=== PATIENT | female | born 1940 | race African-American/Black ===

== ENCOUNTER 2017-08-04 08:52 | Inpatient (IN) | payer BC ==
[2017-08-04 09:32] LABS: ADD MAN DIFF? NO
[2017-08-04 09:37] LABS: BASO % 0 % (0-3); EOS % 0 % (0-3); HEMATOCRIT 39.8 % (36.0-47.0); HEMOGLOBIN 13.3 g/dL (12.0-15.5); LYMPH # 1.4 x10^3/uL (1.0-4.8); LYMPH % 15 % (24-48); MEAN CORPUSCULAR HEMOGLOBIN 32 pg (25-35); MEAN CORPUSCULAR HGB CONC 33 g/dL (31-37); MEAN CORPUSCULAR VOLUME 96 fL (79-100); MONO # 0.4 x10^3/uL (0.0-1.1); MONO % 5 % (0-9); NEUT # 7.7 x10^3uL (1.8-7.7); NEUT % 80 % (31-73); PLATELET COUNT 303 x10^3/uL (140-400); RED BLOOD COUNT 4.14 x10^6/uL (3.50-5.40); RED CELL DISTRIBUTION WIDTH 16.4 % (11.5-14.5); WHITE BLOOD COUNT 9.5 x10^3/uL (4.0-11.0)
[2017-08-04 09:44] LABS: ANION GAP 16 (6-14); BLOOD UREA NITROGEN 14 mg/dL (7-20); BUN/CREATININE RATIO 10 (6-20); CALCIUM 11.1 mg/dL (8.5-10.1); CARBON DIOXIDE 22 mmol/L (21-32); CHLORIDE 100 mmol/L (98-107); CREATININE 1.4 mg/dL (0.6-1.0); GLUCOSE 130 mg/dL (70-99); POTASSIUM 3.8 mmol/L (3.5-5.1); SODIUM 138 mmol/L (136-145)
[2017-08-04] MEDS: ONDANSETRON PF 4 MG/2 ML VIAL. IV ×4 (09:45→20:59)
[2017-08-04] MEDS: IV NORMAL SALINE 500ML BAG 500 ML IV ×2 (09:45→10:48)
[2017-08-04] MEDS: MORPHINE SULFATE 4 MG/ML DISP.SYRIN. IV/SQ ×3 (09:46→13:59)
[2017-08-04 09:49] LABS: ALBUMIN 3.4 g/dL (3.4-5.0); ALBUMIN/GLOBULIN RATIO 0.7 (1.0-1.7); ALK PHOS 163 U/L (46-116); ALT (SGPT) 17 U/L (14-59); AST (SGOT) 17 U/L (15-37); LIPASE 273 U/L (73-393); TOTAL BILIRUBIN 0.5 mg/dL (0.2-1.0); TOTAL PROTEIN 8.6 g/dL (6.4-8.2)
[2017-08-04 09:58] LABS: BILIRUBIN,URINE NEGATIVE (NEG); CLARITY,URINE CLEAR; COLOR,URINE STRAW; GLUCOSE,URINE NEGATIVE (NEG); PROTEIN,URINE >=300 mg/dL (NEG-TRACE)
[2017-08-04 09:59] LABS: BACTERIA,URINE 0 /HPF (0-FEW); NITRITE,URINE NEGATIVE (NEG); RBC,URINE 0 /HPF (0-2); SQUAMOUS EPITHELIAL CELL,UR OCC /LPF
[2017-08-04 10:16] LABS: TROPONINI < 0.017 ng/mL (0.000-0.055)
[2017-08-04] MEDS: IV NORMAL SALINE 1000ML BAG 1,000 ML IV (18:42)
[2017-08-04] MEDS: MORPHINE SULFATE 4 MG/ML DISP.SYRIN. IV (18:44)
[2017-08-04] MEDS ORDERED: NON FORMULARY ITEM (Albuterol Sulfate (Proventil Hfa Inhaler) 1 PUFF) IH (19:00)
[2017-08-04] MEDS ORDERED: NITROGLYCERIN SUBLINGUAL 0.4 MG BOTTLE OF 25. SL (19:00)
[2017-08-04] MEDS ORDERED: ACETAMINOPHEN 500 MG TABLET PO (19:00)
[2017-08-04] MEDS ORDERED: ALBUTEROL SULFATE 2.5 MG/3 ML NEBU. NEB (19:15)
[2017-08-04] MEDS: IPRATRPIUM/ALBUTEROL 0.5/2.5MG 3 ML NEBU. NEB (20:23)
[2017-08-04] MEDS: DOCUSATE SODIUM 100 MG CAPSULE. PO (21:02)
[2017-08-04] MEDS: traZODone 50 MG TABLET. PO (21:02)
[2017-08-04] MEDS: GABAPENTIN 300 MG CAPSULE. PO (21:02)
[2017-08-04] MEDS: ENOXAPARIN 40 MG/0.4 ML SYRINGE. SQ (21:02)
[2017-08-04] MEDS: SODIUM BICARBONATE 650 MG TABLET. PO (21:03)
[2017-08-04] MEDS: METOPROLOL TART IMMED RELEASE 50 MG TABLET. PO (21:03)
[2017-08-04] MEDS: ATORVASTATIN CALCIUM 20 MG TABLET PO (21:03)
[2017-08-05 07:21] LABS: ADD MAN DIFF? NO
[2017-08-05] MEDS: IPRATRPIUM/ALBUTEROL 0.5/2.5MG 3 ML NEBU. NEB ×4 (07:21→20:01)
[2017-08-05 07:28] LABS: BASO # 0.1 x10^3/uL (0.0-0.2); BASO % 1 % (0-3); EOS # 0.1 x10^3/uL (0.0-0.7); EOS % 2 % (0-3); HEMATOCRIT 34.1 % (36.0-47.0); HEMOGLOBIN 11.3 g/dL (12.0-15.5); LYMPH # 1.6 x10^3/uL (1.0-4.8); LYMPH % 21 % (24-48); MEAN CORPUSCULAR HEMOGLOBIN 32 pg (25-35); MEAN CORPUSCULAR HGB CONC 33 g/dL (31-37); MEAN CORPUSCULAR VOLUME 96 fL (79-100); MONO # 0.6 x10^3/uL (0.0-1.1); MONO % 8 % (0-9); NEUT # 5.4 x10^3uL (1.8-7.7); NEUT % 69 % (31-73); PLATELET COUNT 266 x10^3/uL (140-400); RED BLOOD COUNT 3.54 x10^6/uL (3.50-5.40); RED CELL DISTRIBUTION WIDTH 16.8 % (11.5-14.5); WHITE BLOOD COUNT 7.9 x10^3/uL (4.0-11.0)
[2017-08-05] MEDS: PANTOPRAZOLE 40 MG TABLET.DR. PO (07:30)
[2017-08-05 07:39] LABS: IONIZED CALCIUM 1.35 mmol/L (1.13-1.32)
[2017-08-05 08:05] LABS: ALBUMIN/GLOBULIN RATIO 0.7 (1.0-1.7); ALK PHOS 132 U/L (46-116); ALT (SGPT) 15 U/L (14-59); ANION GAP 9 (6-14); AST (SGOT) 14 U/L (15-37); BLOOD UREA NITROGEN 16 mg/dL (7-20); BUN/CREATININE RATIO 11 (6-20); CALCIUM 9.5 mg/dL (8.5-10.1); CARBON DIOXIDE 25 mmol/L (21-32); CHLORIDE 105 mmol/L (98-107); CREATININE 1.5 mg/dL (0.6-1.0); GFR 40.6; GLUCOSE 106 mg/dL (70-99); POTASSIUM 3.5 mmol/L (3.5-5.1); SODIUM 139 mmol/L (136-145); TOTAL BILIRUBIN 0.5 mg/dL (0.2-1.0); TOTAL PROTEIN 7.3 g/dL (6.4-8.2)
[2017-08-05] MEDS: HYDROcodone/APAP 5/325MG 1 TAB TABLET PO ×2 (08:07→13:48)
[2017-08-05] MEDS ORDERED: NON FORMULARY ITEM (Tiotropium Bromide (Spiriva) 2 INH) IH (09:00)
[2017-08-05] MEDS: IV NORMAL SALINE 1000ML BAG 1,000 ML IV ×2 (09:28→15:27)
[2017-08-05] MEDS: amLODIPine BESYLATE 10 MG TABLET PO (09:30)
[2017-08-05] MEDS: METOPROLOL TART IMMED RELEASE 50 MG TABLET. PO ×2 (09:31→22:19)
[2017-08-05] MEDS: SODIUM BICARBONATE 650 MG TABLET. PO ×4 (09:32→22:19)
[2017-08-05] MEDS: ISOSORBIDE MONONITRATE ER 30 MG TAB.ER.24H PO (09:32)
[2017-08-05] MEDS: CLOPIDOGREL BISULFATE 75 MG TABLET PO (09:32)
[2017-08-05] MEDS: POTASSIUM CHLORIDE 20 MEQ TABLET.ER. PO (09:33)
[2017-08-05] MEDS: FUROSEMIDE 40 MG TABLET. PO (09:34)
[2017-08-05] MEDS: ALLOPURINOL 300 MG TABLET. PO (09:34)
[2017-08-05] MEDS: GABAPENTIN 300 MG CAPSULE. PO ×3 (09:34→22:20)
[2017-08-05] MEDS: ASPIRIN CHEWABLE 81 MG TABLET. PO (09:35)
[2017-08-05] MEDS: ONDANSETRON PF 4 MG/2 ML VIAL. IV ×2 (10:45→19:46)
[2017-08-05 11:10] LABS: THYROID STIM HORMONE (TSH) 2.501 uIU/mL (0.358-3.74)
[2017-08-05] MEDS ORDERED: ceFAZolin 2GM PREMIX 2 GM/50 ML BAG IV (12:00)
[2017-08-05] MEDS ORDERED: NALOXONE 0.4 MG/ML VIAL. IV (15:30)
[2017-08-05] MEDS: MORPHINE SULFATE/PF 30 ML IV (16:16)
[2017-08-05] MEDS: ENOXAPARIN 40 MG/0.4 ML SYRINGE. SQ (20:00)
[2017-08-05] MEDS: traZODone 50 MG TABLET. PO (22:18)
[2017-08-05] MEDS: ATORVASTATIN CALCIUM 20 MG TABLET PO (22:19)
[2017-08-05] MEDS: DOCUSATE SODIUM 100 MG CAPSULE. PO (22:20)
[2017-08-06] MEDS: IV NORMAL SALINE 1000ML BAG 1,000 ML IV ×3 (00:45→16:54)
[2017-08-06 06:12] LABS: BASO % 0 % (0-3); EOS % 0 % (0-3); HEMOGLOBIN 10.4 g/dL (12.0-15.5); LYMPH # 0.3 x10^3/uL (1.0-4.8); LYMPH % 2 % (24-48); MEAN CORPUSCULAR HEMOGLOBIN 32 pg (25-35); MEAN CORPUSCULAR HGB CONC 33 g/dL (31-37); MEAN CORPUSCULAR VOLUME 97 fL (79-100); MONO # 0.6 x10^3/uL (0.0-1.1); MONO % 5 % (0-9); NEUT # 13.1 x10^3uL (1.8-7.7); NEUT % 93 % (31-73); PLATELET COUNT 222 x10^3/uL (140-400); RED BLOOD COUNT 3.29 x10^6/uL (3.50-5.40); RED CELL DISTRIBUTION WIDTH 16.3 % (11.5-14.5); WHITE BLOOD COUNT 14.1 x10^3/uL (4.0-11.0)
[2017-08-06 06:16] LABS: ADD MAN DIFF? YES
[2017-08-06 06:24] LABS: ANION GAP 12 (6-14); BLOOD UREA NITROGEN 22 mg/dL (7-20); CALCIUM 9.4 mg/dL (8.5-10.1); CARBON DIOXIDE 22 mmol/L (21-32); CHLORIDE 104 mmol/L (98-107); CREATININE 1.6 mg/dL (0.6-1.0); GFR 37.7; GLUCOSE 139 mg/dL (70-99); POTASSIUM 3.8 mmol/L (3.5-5.1); SODIUM 138 mmol/L (136-145)
[2017-08-06] MEDS ORDERED: PROCHLORPERAZINE 10 MG/2 ML VIAL. IV (07:00)
[2017-08-06] MEDS: IV RINGERS,LACTATED 1000ML 1,000 ML IV ×3 (07:00→19:58)
[2017-08-06] MEDS ORDERED: ONDANSETRON PF 4 MG/2 ML VIAL. IV (07:00)
[2017-08-06] MEDS ORDERED: LIDOCAINE 1% PF 2 ML VIAL. ID (07:00)
[2017-08-06] MEDS ORDERED: fentaNYL PF VIAL 100 MCG/2 ML VIAL IV ×2 (07:00)
[2017-08-06] MEDS: PANTOPRAZOLE 40 MG TABLET.DR. PO (07:30)
[2017-08-06] MEDS: IPRATRPIUM/ALBUTEROL 0.5/2.5MG 3 ML NEBU. NEB ×3 (07:32→19:34)
[2017-08-06 07:40] LABS: % BANDS 6 % (0-9); % LYMPHS 2 % (24-48); % MONOS 5 % (0-10); % SEGS 87 % (35-66)
[2017-08-06 07:41] LABS: PLT ESTIMATE ADEQUATE (ADEQUATE)
[2017-08-06 07:42] LABS: ANISOCYTOSIS SLIGHT
[2017-08-06] MEDS: POTASSIUM CHLORIDE 20 MEQ TABLET.ER. PO (08:00)
[2017-08-06] MEDS: CLOPIDOGREL BISULFATE 75 MG TABLET PO (08:00)
[2017-08-06] MEDS: ISOSORBIDE MONONITRATE ER 30 MG TAB.ER.24H PO (08:21)
[2017-08-06] MEDS: amLODIPine BESYLATE 10 MG TABLET PO (08:21)
[2017-08-06] MEDS: METOPROLOL TART IMMED RELEASE 50 MG TABLET. PO ×2 (08:22→19:56)
[2017-08-06] MEDS: GABAPENTIN 300 MG CAPSULE. PO ×2 (09:00→21:00)
[2017-08-06] MEDS: SODIUM BICARBONATE 650 MG TABLET. PO ×2 (09:00→21:00)
[2017-08-06] MEDS: FUROSEMIDE 40 MG TABLET. PO (09:00)
[2017-08-06] MEDS: ASPIRIN CHEWABLE 81 MG TABLET. PO (09:00)
[2017-08-06] MEDS: ALLOPURINOL 300 MG TABLET. PO (09:00)
[2017-08-06 09:19] LABS: LACTIC ACID 1.4 mmol/L (0.4-2.0)
[2017-08-06] MEDS ORDERED: SURGICEL HEMOSTAT 2X3 EACH. (12:44)
[2017-08-06] MEDS ORDERED: BUPIVACAINE-EPI 0.25%-1:200000 50 ML VIAL. (12:44)
[2017-08-06] MEDS ORDERED: HEPARIN for IV BOLUS 10,000 UNIT/10 ML VIAL. (12:45)
[2017-08-06] MEDS ORDERED: fentaNYL PF VIAL 100 MCG/2 ML VIAL ×2 (12:45→15:06)
[2017-08-06] MEDS ORDERED: BISACODYL 10 MG SUPP.RECT. (12:45)
[2017-08-06] MEDS ORDERED: ROCURONIUM 50 MG/5 ML VIAL. (12:45)
[2017-08-06] MEDS ORDERED: PROPOFOL 20 ML IV (12:45)
[2017-08-06] MEDS ORDERED: DEXAMETHASONE SOD PHOS 20 MG/5 ML VIAL. (12:45)
[2017-08-06] MEDS ORDERED: IOHEXOL 300 MG/ML 100ML VIAL. (12:45)
[2017-08-06] MEDS ORDERED: ONDANSETRON PF 4 MG/2 ML VIAL. (12:45)
[2017-08-06] MEDS: cefTRIAXone IV Push 1 GM VIAL. IVP (12:55)
[2017-08-06] MEDS ORDERED: FAMOTIDINE 20 MG/2 ML VIAL (14:05)
[2017-08-06] MEDS ORDERED: ePHEDrine PF IN SALINE 50 MG/5 ML DISP.SYRIN IV (14:38)
[2017-08-06] MEDS: HEPARIN for IV BOLUS 10,000 UNIT/10 ML VIAL. IV (14:52)
[2017-08-06] MEDS: BUPIVACAINE-EPI 0.25%-1:200000 50 ML VIAL. INJ (14:52)
[2017-08-06] MEDS ORDERED: VECURONIUM BOLUS 10 MG VIAL. IV (15:12)
[2017-08-06] MEDS ORDERED: ROCURONIUM 100 MG/10 ML VIAL. (15:14)
[2017-08-06] MEDS ORDERED: GLYCOPYRROLATE 1 MG/5 ML VIAL. (16:32)
[2017-08-06] MEDS ORDERED: DESFLURANE > 120 MINUTES IH (16:47)
[2017-08-06] MEDS ORDERED: 0.9 % SODIUM CHLORIDE 10 ML DISP.SYRIN. IV (17:00)
[2017-08-06] MEDS ORDERED: ENOXAPARIN 40 MG/0.4 ML SYRINGE. SQ (17:00)
[2017-08-06] MEDS ORDERED: MORPHINE SULFATE/PF 30 ML IV (17:00)
[2017-08-06] MEDS ORDERED: NALOXONE 0.4 MG/ML VIAL. IV (17:15)
[2017-08-06] MEDS: NALOXONE 0.4 MG/ML VIAL. IV (17:20)
[2017-08-06] MEDS: LABETALOL 20 MG/4 ML DISP.SYRIN. IVP (17:28)
[2017-08-06] MEDS: MORPHINE SULFATE 4 MG/ML DISP.SYRIN. IV ×2 (17:48→18:18)
[2017-08-06] MEDS: ENOXAPARIN 40 MG/0.4 ML SYRINGE. SQ (19:37)
[2017-08-06] MEDS: MORPHINE SULFATE/PF 30 ML IV (19:41)
[2017-08-06] MEDS: DOCUSATE SODIUM 100 MG CAPSULE. PO (19:56)
[2017-08-06] MEDS: ATORVASTATIN CALCIUM 20 MG TABLET PO (19:56)
[2017-08-06] MEDS: traZODone 50 MG TABLET. PO (19:56)
[2017-08-06] MEDS ORDERED: hydrALAZINE 20 MG/ML VIAL. IVP (20:00)
[2017-08-07] MEDS: PANTOPRAZOLE 40 MG TABLET.DR. PO (07:30)
[2017-08-07 07:41] LABS: ADD MAN DIFF? NO
[2017-08-07 07:44] LABS: BASO % 0 % (0-3); EOS % 0 % (0-3); HEMATOCRIT 31.6 % (36.0-47.0); HEMOGLOBIN 10.3 g/dL (12.0-15.5); LYMPH # 0.7 x10^3/uL (1.0-4.8); LYMPH % 5 % (24-48); MEAN CORPUSCULAR HEMOGLOBIN 32 pg (25-35); MEAN CORPUSCULAR HGB CONC 33 g/dL (31-37); MEAN CORPUSCULAR VOLUME 97 fL (79-100); MONO # 0.7 x10^3/uL (0.0-1.1); MONO % 5 % (0-9); NEUT # 12.2 x10^3uL (1.8-7.7); NEUT % 90 % (31-73); PLATELET COUNT 215 x10^3/uL (140-400); RED BLOOD COUNT 3.25 x10^6/uL (3.50-5.40); RED CELL DISTRIBUTION WIDTH 16.2 % (11.5-14.5); WHITE BLOOD COUNT 13.5 x10^3/uL (4.0-11.0)
[2017-08-07] MEDS: POTASSIUM CHLORIDE 20 MEQ TABLET.ER. PO (08:00)
[2017-08-07] MEDS: CLOPIDOGREL BISULFATE 75 MG TABLET PO (08:00)
[2017-08-07] MEDS: ASPIRIN CHEWABLE 81 MG TABLET. PO (08:08)
[2017-08-07] MEDS: ISOSORBIDE MONONITRATE ER 30 MG TAB.ER.24H PO (08:08)
[2017-08-07] MEDS: FUROSEMIDE 40 MG TABLET. PO (08:08)
[2017-08-07] MEDS: amLODIPine BESYLATE 10 MG TABLET PO (08:10)
[2017-08-07] MEDS: IPRATRPIUM/ALBUTEROL 0.5/2.5MG 3 ML NEBU. NEB ×4 (08:10→20:00)
[2017-08-07] MEDS: SODIUM BICARBONATE 650 MG TABLET. PO ×4 (08:10→21:19)
[2017-08-07] MEDS: ALLOPURINOL 300 MG TABLET. PO (08:10)
[2017-08-07] MEDS: GABAPENTIN 300 MG CAPSULE. PO ×3 (08:10→21:19)
[2017-08-07] MEDS: METOPROLOL TART IMMED RELEASE 50 MG TABLET. PO ×2 (08:10→21:18)
[2017-08-07 08:11] LABS: ANION GAP 12 (6-14); BLOOD UREA NITROGEN 21 mg/dL (7-20); CARBON DIOXIDE 20 mmol/L (21-32); CHLORIDE 106 mmol/L (98-107); CREATININE 1.3 mg/dL (0.6-1.0); GFR 47.9; GLUCOSE 132 mg/dL (70-99); POTASSIUM 3.9 mmol/L (3.5-5.1); SODIUM 138 mmol/L (136-145)
[2017-08-07 08:14] LABS: % SAT IRON 8 % (15-34); IRON,SERUM 16 ug/dL (50-170)
[2017-08-07] MEDS: PANTOPRAZOLE IV PUSH 40 MG VIAL. IVP (10:30)
[2017-08-07] MEDS: cefTRIAXone IV Push 1 GM VIAL. IVP (12:00)
[2017-08-07] MEDS: IV RINGERS,LACTATED 1000ML 1,000 ML IV ×2 (12:54→22:54)
[2017-08-07] MEDS ORDERED: ALBUTEROL SULFATE 2.5 MG/3 ML NEBU. NEB (16:15)
[2017-08-07] MEDS: HYDROcodone/APAP 5/325MG 1 TAB TABLET PO (17:33)
[2017-08-07] MEDS: MORPHINE SULFATE 4 MG/ML DISP.SYRIN. IV (21:10)
[2017-08-07] MEDS: oxyCODONE/APAP 5/325 1 TAB TABLET PO (21:11)
[2017-08-07] MEDS: IV NORMAL SALINE 1000ML BAG 1,000 ML IV (21:18)
[2017-08-07] MEDS: ATORVASTATIN CALCIUM 20 MG TABLET PO (21:18)
[2017-08-07] MEDS: traZODone 50 MG TABLET. PO (21:18)
[2017-08-07] MEDS: DOCUSATE SODIUM 100 MG CAPSULE. PO (21:18)
[2017-08-07] MEDS: ENOXAPARIN 40 MG/0.4 ML SYRINGE. SQ (22:04)
[2017-08-07 23:13] LABS: MRSA BY PCR Negative (Negative)
[2017-08-07] MEDS: MORPHINE SULFATE/PF 30 ML IV (23:45)
[2017-08-08 06:21] LABS: ADD MAN DIFF? NO
[2017-08-08 06:45] LABS: BASO % 0 % (0-3); EOS # 0.1 x10^3/uL (0.0-0.7); EOS % 1 % (0-3); HEMATOCRIT 28.4 % (36.0-47.0); HEMOGLOBIN 9.6 g/dL (12.0-15.5); LYMPH # 0.9 x10^3/uL (1.0-4.8); LYMPH % 8 % (24-48); MEAN CORPUSCULAR HEMOGLOBIN 33 pg (25-35); MEAN CORPUSCULAR HGB CONC 34 g/dL (31-37); MEAN CORPUSCULAR VOLUME 97 fL (79-100); MONO # 0.8 x10^3/uL (0.0-1.1); MONO % 7 % (0-9); NEUT # 9.2 x10^3uL (1.8-7.7); NEUT % 84 % (31-73); PLATELET COUNT 261 x10^3/uL (140-400); RED BLOOD COUNT 2.93 x10^6/uL (3.50-5.40); RED CELL DISTRIBUTION WIDTH 16.4 % (11.5-14.5); WHITE BLOOD COUNT 11.1 x10^3/uL (4.0-11.0)
[2017-08-08 07:19] LABS: ANION GAP 8 (6-14); BLOOD UREA NITROGEN 16 mg/dL (7-20); CALCIUM 9.3 mg/dL (8.5-10.1); CARBON DIOXIDE 27 mmol/L (21-32); CHLORIDE 104 mmol/L (98-107); GFR 64.9; GLUCOSE 102 mg/dL (70-99); POTASSIUM 3.8 mmol/L (3.5-5.1); SODIUM 139 mmol/L (136-145)
[2017-08-08] MEDS: IPRATRPIUM/ALBUTEROL 0.5/2.5MG 3 ML NEBU. NEB ×3 (08:00→16:00)
[2017-08-08] MEDS: PANTOPRAZOLE IV PUSH 40 MG VIAL. IVP (08:47)
[2017-08-08] MEDS: SODIUM BICARBONATE 650 MG TABLET. PO ×4 (08:48→21:26)
[2017-08-08] MEDS: METOPROLOL TART IMMED RELEASE 50 MG TABLET. PO ×2 (08:48→21:26)
[2017-08-08] MEDS: ALLOPURINOL 300 MG TABLET. PO (08:48)
[2017-08-08] MEDS: FUROSEMIDE 40 MG TABLET. PO (08:48)
[2017-08-08] MEDS: CLOPIDOGREL BISULFATE 75 MG TABLET PO (08:48)
[2017-08-08] MEDS: POTASSIUM CHLORIDE 20 MEQ TABLET.ER. PO (08:48)
[2017-08-08] MEDS: amLODIPine BESYLATE 10 MG TABLET PO (08:49)
[2017-08-08] MEDS: ASPIRIN CHEWABLE 81 MG TABLET. PO (08:49)
[2017-08-08] MEDS: ISOSORBIDE MONONITRATE ER 30 MG TAB.ER.24H PO (08:49)
[2017-08-08] MEDS: IV RINGERS,LACTATED 1000ML 1,000 ML IV (08:54)
[2017-08-08] MEDS: MORPHINE SULFATE/PF 30 ML IV (11:24)
[2017-08-08] MEDS: GABAPENTIN 300 MG CAPSULE. PO ×3 (14:00→21:26)
[2017-08-08] MEDS: HYDROcodone/APAP 5/325MG 1 TAB TABLET PO (14:41)
[2017-08-08] MEDS: cefTRIAXone IV Push 1 GM VIAL. IVP (14:41)
[2017-08-08] MEDS: IV NORMAL SALINE 1000ML BAG 1,000 ML IV (16:54)
[2017-08-08] MEDS: DOCUSATE SODIUM 100 MG CAPSULE. PO (21:24)
[2017-08-08] MEDS: ATORVASTATIN CALCIUM 20 MG TABLET PO (21:25)
[2017-08-08] MEDS: LACTOBACILLUS RHAMNOSUS GG 1 CAPSULE. PO (21:25)
[2017-08-08] MEDS: traZODone 50 MG TABLET. PO (21:25)
[2017-08-08] MEDS: ENOXAPARIN 40 MG/0.4 ML SYRINGE. SQ (21:27)
[2017-08-09 05:20] LABS: ADD MAN DIFF? NO
[2017-08-09 05:43] LABS: BASO % 0 % (0-3); EOS # 0.3 x10^3/uL (0.0-0.7); EOS % 3 % (0-3); HEMATOCRIT 29.9 % (36.0-47.0); HEMOGLOBIN 10.1 g/dL (12.0-15.5); LYMPH # 1.1 x10^3/uL (1.0-4.8); LYMPH % 10 % (24-48); MEAN CORPUSCULAR HEMOGLOBIN 32 pg (25-35); MEAN CORPUSCULAR HGB CONC 34 g/dL (31-37); MEAN CORPUSCULAR VOLUME 96 fL (79-100); MONO # 0.7 x10^3/uL (0.0-1.1); MONO % 7 % (0-9); NEUT # 8.3 x10^3uL (1.8-7.7); NEUT % 80 % (31-73); PLATELET COUNT 285 x10^3/uL (140-400); RED BLOOD COUNT 3.12 x10^6/uL (3.50-5.40); RED CELL DISTRIBUTION WIDTH 16.5 % (11.5-14.5); WHITE BLOOD COUNT 10.3 x10^3/uL (4.0-11.0)
[2017-08-09 06:51] LABS: ANION GAP 10 (6-14); BLOOD UREA NITROGEN 17 mg/dL (7-20); CALCIUM 10.1 mg/dL (8.5-10.1); CARBON DIOXIDE 29 mmol/L (21-32); CHLORIDE 99 mmol/L (98-107); CREATININE 1.3 mg/dL (0.6-1.0); GFR 47.9; GLUCOSE 106 mg/dL (70-99); POTASSIUM 3.2 mmol/L (3.5-5.1); SODIUM 138 mmol/L (136-145)
[2017-08-09] MEDS ORDERED: MORPHINE SULFATE 4 MG/ML DISP.SYRIN. IV (07:45)
[2017-08-09] MEDS: POTASSIUM CHLORIDE 20 MEQ TABLET.ER. PO ×2 (08:00→08:46)
[2017-08-09] MEDS: oxyCODONE/APAP 5/325 1 TAB TABLET PO (08:33)
[2017-08-09] MEDS: SODIUM BICARBONATE 650 MG TABLET. PO ×4 (08:45→21:54)
[2017-08-09] MEDS: LACTOBACILLUS RHAMNOSUS GG 1 CAPSULE. PO ×2 (08:45→21:54)
[2017-08-09] MEDS: POLYETHYLENE GLYCOL 3350 17 GM PACKET. PO ×2 (08:45→09:03)
[2017-08-09] MEDS: GABAPENTIN 300 MG CAPSULE. PO ×3 (08:45→21:53)
[2017-08-09] MEDS: METOPROLOL TART IMMED RELEASE 50 MG TABLET. PO ×2 (08:50→21:57)
[2017-08-09] MEDS: CLOPIDOGREL BISULFATE 75 MG TABLET PO (08:50)
[2017-08-09] MEDS: ISOSORBIDE MONONITRATE ER 30 MG TAB.ER.24H PO (08:51)
[2017-08-09] MEDS: amLODIPine BESYLATE 10 MG TABLET PO (08:52)
[2017-08-09] MEDS: ASPIRIN CHEWABLE 81 MG TABLET. PO (08:53)
[2017-08-09] MEDS: ALLOPURINOL 300 MG TABLET. PO (08:53)
[2017-08-09] MEDS: FUROSEMIDE 40 MG TABLET. PO (08:53)
[2017-08-09] MEDS: PANTOPRAZOLE 40 MG TABLET.DR. PO (08:53)
[2017-08-09] MEDS: MORPHINE SULFATE 4 MG/ML DISP.SYRIN. IV (10:34)
[2017-08-09] MEDS: ONDANSETRON PF 4 MG/2 ML VIAL. IV (12:12)
[2017-08-09] MEDS: HYDROcodone/APAP 5/325MG 1 TAB TABLET PO ×2 (12:13→19:44)
[2017-08-09] MEDS: cefTRIAXone IV Push 1 GM VIAL. IVP (12:15)
[2017-08-09] MEDS: IV NORMAL SALINE 1000ML BAG 1,000 ML IV (16:32)
[2017-08-09] MEDS: DOCUSATE SODIUM 100 MG CAPSULE. PO (21:54)
[2017-08-09] MEDS: traZODone 50 MG TABLET. PO (21:54)
[2017-08-09] MEDS: ATORVASTATIN CALCIUM 20 MG TABLET PO (21:54)
[2017-08-09] MEDS: ENOXAPARIN 40 MG/0.4 ML SYRINGE. SQ (21:55)
[2017-08-10 08:42] LABS: ADD MAN DIFF? NO
[2017-08-10] MEDS: oxyCODONE/APAP 5/325 1 TAB TABLET PO ×4 (08:48→22:24)
[2017-08-10] MEDS: GABAPENTIN 300 MG CAPSULE. PO ×3 (08:51→22:21)
[2017-08-10] MEDS: ALLOPURINOL 300 MG TABLET. PO (08:51)
[2017-08-10] MEDS: METOPROLOL TART IMMED RELEASE 50 MG TABLET. PO ×2 (08:51→22:23)
[2017-08-10] MEDS: FUROSEMIDE 40 MG TABLET. PO (08:52)
[2017-08-10] MEDS: SODIUM BICARBONATE 650 MG TABLET. PO ×4 (08:52→22:22)
[2017-08-10] MEDS: ASPIRIN CHEWABLE 81 MG TABLET. PO (08:52)
[2017-08-10] MEDS: LACTOBACILLUS RHAMNOSUS GG 1 CAPSULE. PO ×2 (08:52→22:23)
[2017-08-10] MEDS: amLODIPine BESYLATE 10 MG TABLET PO (08:52)
[2017-08-10 08:53] LABS: BASO # 0.1 x10^3/uL (0.0-0.2); BASO % 1 % (0-3); EOS # 0.3 x10^3/uL (0.0-0.7); EOS % 4 % (0-3); HEMOGLOBIN 10.4 g/dL (12.0-15.5); LYMPH # 1.8 x10^3/uL (1.0-4.8); LYMPH % 21 % (24-48); MEAN CORPUSCULAR HEMOGLOBIN 32 pg (25-35); MEAN CORPUSCULAR HGB CONC 34 g/dL (31-37); MEAN CORPUSCULAR VOLUME 96 fL (79-100); MONO # 0.8 x10^3/uL (0.0-1.1); MONO % 9 % (0-9); NEUT # 5.9 x10^3uL (1.8-7.7); NEUT % 66 % (31-73); PLATELET COUNT 253 x10^3/uL (140-400); RED BLOOD COUNT 3.22 x10^6/uL (3.50-5.40); RED CELL DISTRIBUTION WIDTH 15.9 % (11.5-14.5); WHITE BLOOD COUNT 8.9 x10^3/uL (4.0-11.0)
[2017-08-10] MEDS: ISOSORBIDE MONONITRATE ER 30 MG TAB.ER.24H PO (08:53)
[2017-08-10] MEDS: CLOPIDOGREL BISULFATE 75 MG TABLET PO (08:53)
[2017-08-10] MEDS: PANTOPRAZOLE 40 MG TABLET.DR. PO (08:53)
[2017-08-10 09:03] LABS: ANION GAP 8 (6-14); BLOOD UREA NITROGEN 28 mg/dL (7-20); CARBON DIOXIDE 28 mmol/L (21-32); CHLORIDE 98 mmol/L (98-107); CREATININE 2.1 mg/dL (0.6-1.0); GFR 27.6; GLUCOSE 103 mg/dL (70-99); POTASSIUM 3.3 mmol/L (3.5-5.1); SODIUM 134 mmol/L (136-145)
[2017-08-10] MEDS: POTASSIUM CHLORIDE 20 MEQ TABLET.ER. PO ×2 (09:11→11:45)
[2017-08-10] MEDS: cefTRIAXone IV Push 1 GM VIAL. IVP (11:46)
[2017-08-10] MEDS: ALTEPLASE 2 MG VIAL INT CAT (13:07)
[2017-08-10] MEDS: IV NORMAL SALINE 1000ML BAG 1,000 ML IV (15:06)
[2017-08-10] MEDS: IRON SUCROSE COMPLEX 200 MG in IV NORMAL SALINE 100ML 100 ML IV (15:07)
[2017-08-10] MEDS: ATORVASTATIN CALCIUM 20 MG TABLET PO (22:21)
[2017-08-10] MEDS: DOCUSATE SODIUM 100 MG CAPSULE. PO (22:22)
[2017-08-10] MEDS: traZODone 50 MG TABLET. PO (22:22)
[2017-08-10] MEDS: ENOXAPARIN 40 MG/0.4 ML SYRINGE. SQ (22:24)
[2017-08-11] MEDS: IV NORMAL SALINE 1000ML BAG 1,000 ML IV ×3 (01:45→20:00)
[2017-08-11] MEDS: oxyCODONE/APAP 5/325 1 TAB TABLET PO ×3 (02:25→15:22)
[2017-08-11 04:51] LABS: ADD MAN DIFF? NO
[2017-08-11 04:55] LABS: BASO # 0.1 x10^3/uL (0.0-0.2); BASO % 1 % (0-3); EOS # 0.3 x10^3/uL (0.0-0.7); EOS % 3 % (0-3); HEMATOCRIT 27.6 % (36.0-47.0); HEMOGLOBIN 9.4 g/dL (12.0-15.5); LYMPH # 1.5 x10^3/uL (1.0-4.8); LYMPH % 17 % (24-48); MEAN CORPUSCULAR HEMOGLOBIN 33 pg (25-35); MEAN CORPUSCULAR HGB CONC 34 g/dL (31-37); MEAN CORPUSCULAR VOLUME 97 fL (79-100); MONO # 0.7 x10^3/uL (0.0-1.1); MONO % 8 % (0-9); NEUT # 6.6 x10^3uL (1.8-7.7); NEUT % 72 % (31-73); PLATELET COUNT 236 x10^3/uL (140-400); RED BLOOD COUNT 2.84 x10^6/uL (3.50-5.40); RED CELL DISTRIBUTION WIDTH 16.1 % (11.5-14.5); WHITE BLOOD COUNT 9.2 x10^3/uL (4.0-11.0)
[2017-08-11 05:17] LABS: ANION GAP 7 (6-14); BLOOD UREA NITROGEN 25 mg/dL (7-20); CALCIUM 8.6 mg/dL (8.5-10.1); CARBON DIOXIDE 29 mmol/L (21-32); CHLORIDE 103 mmol/L (98-107); CREATININE 1.5 mg/dL (0.6-1.0); GFR 40.6; GLUCOSE 116 mg/dL (70-99); POTASSIUM 3.8 mmol/L (3.5-5.1); SODIUM 139 mmol/L (136-145)
[2017-08-11] MEDS: CLOPIDOGREL BISULFATE 75 MG TABLET PO (07:43)
[2017-08-11] MEDS: PANTOPRAZOLE 40 MG TABLET.DR. PO (07:43)
[2017-08-11] MEDS: POTASSIUM CHLORIDE 20 MEQ TABLET.ER. PO (07:44)
[2017-08-11] MEDS: GABAPENTIN 300 MG CAPSULE. PO ×3 (08:36→22:15)
[2017-08-11] MEDS: SODIUM BICARBONATE 650 MG TABLET. PO ×4 (08:36→22:16)
[2017-08-11] MEDS: METOPROLOL TART IMMED RELEASE 50 MG TABLET. PO ×2 (08:41→22:21)
[2017-08-11] MEDS: amLODIPine BESYLATE 10 MG TABLET PO (08:41)
[2017-08-11] MEDS: ASPIRIN CHEWABLE 81 MG TABLET. PO (08:42)
[2017-08-11] MEDS: ALLOPURINOL 300 MG TABLET. PO (08:43)
[2017-08-11] MEDS: LACTOBACILLUS RHAMNOSUS GG 1 CAPSULE. PO ×2 (08:43→22:16)
[2017-08-11] MEDS: ISOSORBIDE MONONITRATE ER 30 MG TAB.ER.24H PO (08:43)
[2017-08-11] MEDS: IRON SUCROSE COMPLEX 200 MG in IV NORMAL SALINE 100ML 100 ML IV (09:10)
[2017-08-11] MEDS: cefTRIAXone IV Push 1 GM VIAL. IVP (11:50)
[2017-08-11] MEDS: ATORVASTATIN CALCIUM 20 MG TABLET PO (22:16)
[2017-08-11] MEDS: DOCUSATE SODIUM 100 MG CAPSULE. PO (22:16)
[2017-08-11] MEDS: traZODone 50 MG TABLET. PO (22:16)
[2017-08-11] MEDS: ENOXAPARIN 40 MG/0.4 ML SYRINGE. SQ (22:17)
[2017-08-12] MEDS: HYDROcodone/APAP 5/325MG 1 TAB TABLET PO ×4 (02:28→22:12)
[2017-08-12] MEDS: ONDANSETRON PF 4 MG/2 ML VIAL. IV (02:32)
[2017-08-12 05:27] LABS: ADD MAN DIFF? NO
[2017-08-12 06:17] LABS: ANION GAP 10 (6-14); BLOOD UREA NITROGEN 15 mg/dL (7-20); CALCIUM 9.7 mg/dL (8.5-10.1); CARBON DIOXIDE 28 mmol/L (21-32); CHLORIDE 102 mmol/L (98-107); CREATININE 1.1 mg/dL (0.6-1.0); GFR 58.1; GLUCOSE 107 mg/dL (70-99); POTASSIUM 4.3 mmol/L (3.5-5.1); SODIUM 140 mmol/L (136-145)
[2017-08-12 06:18] LABS: BASO # 0.1 x10^3/uL (0.0-0.2); BASO % 1 % (0-3); EOS # 0.3 x10^3/uL (0.0-0.7); EOS % 2 % (0-3); HEMATOCRIT 33.5 % (36.0-47.0); HEMOGLOBIN 10.9 g/dL (12.0-15.5); LYMPH # 1.4 x10^3/uL (1.0-4.8); LYMPH % 11 % (24-48); MEAN CORPUSCULAR HEMOGLOBIN 32 pg (25-35); MEAN CORPUSCULAR HGB CONC 33 g/dL (31-37); MEAN CORPUSCULAR VOLUME 99 fL (79-100); MONO # 0.8 x10^3/uL (0.0-1.1); MONO % 6 % (0-9); NEUT # 9.8 x10^3uL (1.8-7.7); NEUT % 80 % (31-73); PLATELET COUNT 272 x10^3/uL (140-400); RED BLOOD COUNT 3.38 x10^6/uL (3.50-5.40); RED CELL DISTRIBUTION WIDTH 16.8 % (11.5-14.5); WHITE BLOOD COUNT 12.4 x10^3/uL (4.0-11.0)
[2017-08-12] MEDS: SODIUM BICARBONATE 650 MG TABLET. PO ×4 (08:46→20:30)
[2017-08-12] MEDS: CLOPIDOGREL BISULFATE 75 MG TABLET PO (08:46)
[2017-08-12] MEDS: ASPIRIN CHEWABLE 81 MG TABLET. PO (08:47)
[2017-08-12] MEDS: PANTOPRAZOLE 40 MG TABLET.DR. PO (08:47)
[2017-08-12] MEDS: ISOSORBIDE MONONITRATE ER 30 MG TAB.ER.24H PO (08:47)
[2017-08-12] MEDS: amLODIPine BESYLATE 10 MG TABLET PO (08:47)
[2017-08-12] MEDS: ALLOPURINOL 300 MG TABLET. PO (08:48)
[2017-08-12] MEDS: LACTOBACILLUS RHAMNOSUS GG 1 CAPSULE. PO ×2 (08:48→20:30)
[2017-08-12] MEDS: METOPROLOL TART IMMED RELEASE 50 MG TABLET. PO ×2 (08:48→21:00)
[2017-08-12] MEDS: GABAPENTIN 300 MG CAPSULE. PO ×3 (08:48→20:31)
[2017-08-12] MEDS: POTASSIUM CHLORIDE 20 MEQ TABLET.ER. PO (08:48)
[2017-08-12] MEDS: IRON SUCROSE COMPLEX 200 MG in IV NORMAL SALINE 100ML 100 ML IV (08:49)
[2017-08-12] MEDS: cefTRIAXone IV Push 1 GM VIAL. IVP (12:09)
[2017-08-12] MEDS: CEFPODOXIME PROXETIL 100 MG TABLET. PO (20:30)
[2017-08-12] MEDS: DOCUSATE SODIUM 100 MG CAPSULE. PO (20:30)
[2017-08-12] MEDS: ENOXAPARIN 40 MG/0.4 ML SYRINGE. SQ (20:30)
[2017-08-12] MEDS: ATORVASTATIN CALCIUM 20 MG TABLET PO (20:31)
[2017-08-12] MEDS: traZODone 50 MG TABLET. PO (22:12)
[2017-08-13] MEDS: PANTOPRAZOLE 40 MG TABLET.DR. PO ×2 (07:36→09:51)
[2017-08-13] MEDS: HYDROcodone/APAP 5/325MG 1 TAB TABLET PO ×2 (07:36→20:16)
[2017-08-13 08:42] LABS: ANION GAP 8 (6-14); BLOOD UREA NITROGEN 13 mg/dL (7-20); CALCIUM 10.2 mg/dL (8.5-10.1); CARBON DIOXIDE 29 mmol/L (21-32); CHLORIDE 101 mmol/L (98-107); CREATININE 1.1 mg/dL (0.6-1.0); GFR 58.1; GLUCOSE 110 mg/dL (70-99); SODIUM 138 mmol/L (136-145)
[2017-08-13] MEDS: IRON SUCROSE COMPLEX 200 MG in IV NORMAL SALINE 100ML 100 ML IV (09:51)
[2017-08-13] MEDS: CLOPIDOGREL BISULFATE 75 MG TABLET PO (09:51)
[2017-08-13] MEDS: SODIUM BICARBONATE 650 MG TABLET. PO ×4 (09:51→20:15)
[2017-08-13] MEDS: GABAPENTIN 300 MG CAPSULE. PO ×3 (09:51→20:15)
[2017-08-13] MEDS: LACTOBACILLUS RHAMNOSUS GG 1 CAPSULE. PO ×2 (09:52→20:14)
[2017-08-13] MEDS: POTASSIUM CHLORIDE 20 MEQ TABLET.ER. PO (09:52)
[2017-08-13] MEDS: ALLOPURINOL 300 MG TABLET. PO (09:52)
[2017-08-13] MEDS: ASPIRIN CHEWABLE 81 MG TABLET. PO (09:52)
[2017-08-13] MEDS: ISOSORBIDE MONONITRATE ER 30 MG TAB.ER.24H PO (09:53)
[2017-08-13] MEDS: amLODIPine BESYLATE 10 MG TABLET PO (09:53)
[2017-08-13] MEDS: METOPROLOL TART IMMED RELEASE 50 MG TABLET. PO ×2 (09:54→20:49)
[2017-08-13] MEDS: oxyCODONE/APAP 5/325 1 TAB TABLET PO ×2 (11:09→15:40)
[2017-08-13] MEDS: CEFPODOXIME PROXETIL 100 MG TABLET. PO ×2 (11:11→20:15)
[2017-08-13] MEDS: DOCUSATE SODIUM 100 MG CAPSULE. PO (20:14)
[2017-08-13] MEDS: ENOXAPARIN 40 MG/0.4 ML SYRINGE. SQ (20:14)
[2017-08-13] MEDS: ATORVASTATIN CALCIUM 20 MG TABLET PO (20:15)
[2017-08-13] MEDS: traZODone 50 MG TABLET. PO (22:05)
[2017-08-14] MEDS: amLODIPine BESYLATE 10 MG TABLET PO (08:50)
[2017-08-14] MEDS: LACTOBACILLUS RHAMNOSUS GG 1 CAPSULE. PO ×2 (08:50→21:37)
[2017-08-14] MEDS: CLOPIDOGREL BISULFATE 75 MG TABLET PO (08:50)
[2017-08-14] MEDS: ALLOPURINOL 300 MG TABLET. PO (08:50)
[2017-08-14] MEDS: METOPROLOL TART IMMED RELEASE 50 MG TABLET. PO ×2 (08:51→21:38)
[2017-08-14] MEDS: ISOSORBIDE MONONITRATE ER 30 MG TAB.ER.24H PO (08:51)
[2017-08-14] MEDS: HYDROcodone/APAP 5/325MG 1 TAB TABLET PO ×4 (08:51→21:37)
[2017-08-14] MEDS: ASPIRIN CHEWABLE 81 MG TABLET. PO (08:51)
[2017-08-14] MEDS: IRON SUCROSE COMPLEX 200 MG in IV NORMAL SALINE 100ML 100 ML IV (08:52)
[2017-08-14] MEDS: GABAPENTIN 300 MG CAPSULE. PO ×3 (08:52→21:38)
[2017-08-14] MEDS: FUROSEMIDE 40 MG TABLET. PO (08:52)
[2017-08-14] MEDS: POTASSIUM CHLORIDE 20 MEQ TABLET.ER. PO (08:58)
[2017-08-14] MEDS: CEFPODOXIME PROXETIL 100 MG TABLET. PO ×2 (08:58→21:37)
[2017-08-14] MEDS: SODIUM BICARBONATE 650 MG TABLET. PO ×4 (08:58→21:37)
[2017-08-14] MEDS: ENOXAPARIN 40 MG/0.4 ML SYRINGE. SQ (21:36)
[2017-08-14] MEDS: ATORVASTATIN CALCIUM 20 MG TABLET PO (21:37)
[2017-08-14] MEDS: DOCUSATE SODIUM 100 MG CAPSULE. PO (21:37)
[2017-08-14] MEDS: traZODone 50 MG TABLET. PO (21:37)
[2017-08-15] MEDS: PANTOPRAZOLE 40 MG TABLET.DR. PO (07:34)
[2017-08-15] MEDS: HYDROcodone/APAP 5/325MG 1 TAB TABLET PO ×2 (07:34→13:26)
[2017-08-15] MEDS: ISOSORBIDE MONONITRATE ER 30 MG TAB.ER.24H PO (08:51)
[2017-08-15] MEDS: FUROSEMIDE 40 MG TABLET. PO (08:51)
[2017-08-15] MEDS: CLOPIDOGREL BISULFATE 75 MG TABLET PO (08:51)
[2017-08-15] MEDS: LACTOBACILLUS RHAMNOSUS GG 1 CAPSULE. PO (08:51)
[2017-08-15] MEDS: SODIUM BICARBONATE 650 MG TABLET. PO ×2 (08:51→12:42)
[2017-08-15] MEDS: ASPIRIN CHEWABLE 81 MG TABLET. PO (08:51)
[2017-08-15] MEDS: GABAPENTIN 300 MG CAPSULE. PO ×2 (08:51→12:43)
[2017-08-15] MEDS: amLODIPine BESYLATE 10 MG TABLET PO (08:52)
[2017-08-15] MEDS: ALLOPURINOL 300 MG TABLET. PO (08:52)
[2017-08-15] MEDS: POTASSIUM CHLORIDE 20 MEQ TABLET.ER. PO (08:52)
[2017-08-15] MEDS: METOPROLOL TART IMMED RELEASE 50 MG TABLET. PO (08:52)
[2017-08-15] MEDS: CEFPODOXIME PROXETIL 100 MG TABLET. PO (08:52)
[2017-08-15 12:32] LABS: ALBUMIN 2.4 g/dL (3.4-5.0); ALBUMIN/GLOBULIN RATIO 0.5 (1.0-1.7); ALK PHOS 179 U/L (46-116); ALT (SGPT) 39 U/L (14-59); ANION GAP 7 (6-14); AST (SGOT) 28 U/L (15-37); BLOOD UREA NITROGEN 9 mg/dL (7-20); BUN/CREATININE RATIO 8 (6-20); CALCIUM 9.4 mg/dL (8.5-10.1); CARBON DIOXIDE 29 mmol/L (21-32); CHLORIDE 102 mmol/L (98-107); CREATININE 1.2 mg/dL (0.6-1.0); GFR 52.6; GLUCOSE 110 mg/dL (70-99); SODIUM 138 mmol/L (136-145); TOTAL BILIRUBIN 0.5 mg/dL (0.2-1.0); TOTAL PROTEIN 6.8 g/dL (6.4-8.2)
== END 2017-08-15 16:30 | DRG 335 ==
LOC: 4 NORTH 08-07 16:01 → ER 08:52 → 6 SOUTH 13:10 → 1 WEST ICU 08-06 18:48
PROC: 0WQF0ZZ Repair Abdominal Wall, Open Approach (ICD-10-PCS; principal; 2017-08-06 14:16)
PROC: 0FT40ZZ Resection of Gallbladder, Open Approach (ICD-10-PCS; 2017-08-06 14:16)
PROC: 0FN40ZZ Release Gallbladder, Open Approach (ICD-10-PCS; 2017-08-06 14:16)
PROC: 0FJ44ZZ Inspection of Gallbladder, Percutaneous Endoscopic Approach (ICD-10-PCS; 2017-08-06 14:16)
PROC: BF101ZZ Fluoroscopy of Bile Ducts using Low Osmolar Contrast (ICD-10-PCS; 2017-08-06 14:16)
PROC: 5A09357 Assistance with Respiratory Ventilation, Less than 24 Consecutive Hours, Continuous Positive Airway Pressure (ICD-10-PCS; 2017-08-06 14:16)
PROC: 05H733Z Insertion of Infusion Device into Right Axillary Vein, Percutaneous Approach (ICD-10-PCS; 2017-08-06 14:16)
PROC: B54MZZA Ultrasonography of Right Upper Extremity Veins, Guidance (ICD-10-PCS; 2017-08-06 14:16)
DX: K43.2 Incisional hernia without obstruction or gangrene (principal); R65.11 Systemic inflammatory response syndrome (SIRS) of non-infectious origin with acute organ dysfunction; N17.0 Acute kidney failure with tubular necrosis; G62.9 Polyneuropathy, unspecified; K81.9 Cholecystitis, unspecified; I13.0 Hypertensive heart and chronic kidney disease with heart failure and stage 1 through stage 4 chronic kidney disease, or unspecified chronic kidney disease; I50.9 Heart failure, unspecified; E66.01 Morbid (severe) obesity due to excess calories; N18.3 Chronic kidney disease, stage 3 (moderate); K82.8 Other specified diseases of gallbladder; A08.4 Viral intestinal infection, unspecified; K57.90 Diverticulosis of intestine, part unspecified, without perforation or abscess without bleeding; M19.90 Unspecified osteoarthritis, unspecified site; M10.9 Gout, unspecified; E61.1 Iron deficiency; I25.10 Atherosclerotic heart disease of native coronary artery without angina pectoris; E87.6 Hypokalemia; E78.5 Hyperlipidemia, unspecified; J44.9 Chronic obstructive pulmonary disease, unspecified; K76.0 Fatty (change of) liver, not elsewhere classified; K66.0 Peritoneal adhesions (postprocedural) (postinfection); K21.9 Gastro-esophageal reflux disease without esophagitis; Z96.612 Presence of left artificial shoulder joint; Z96.653 Presence of artificial knee joint, bilateral; I73.9 Peripheral vascular disease, unspecified; D64.9 Anemia, unspecified; K44.9 Diaphragmatic hernia without obstruction or gangrene; Z87.440 Personal history of urinary (tract) infections; Z68.37 Body mass index [BMI] 37.0-37.9, adult; Z82.49 Family history of ischemic heart disease and other diseases of the circulatory system; Z90.49 Acquired absence of other specified parts of digestive tract; Z53.31 Laparoscopic surgical procedure converted to open procedure; Z95.0 Presence of cardiac pacemaker; Z88.8 Allergy status to other drugs, medicaments and biological substances; Z91.041 Radiographic dye allergy status; Z91.040 Latex allergy status; Z86.010 Personal history of colon polyps; Z90.710 Acquired absence of both cervix and uterus; Z95.1 Presence of aortocoronary bypass graft; Z86.718 Personal history of other venous thrombosis and embolism
CPT/HCPCS: 36415; 36569; 51701; 74018; 74176; 74300; 76705; 80048; 80053; 81001; 82310; 82533; 83540; 83550; 83605; 83690; 84443; 84484; 85007; 85025; 87086; 87641; 88302; 88304; 93005; 94640; 94660; 94760; 96361; 96374; 96375; 96376; 97110-GP; 97116-GP; 97162-GP; 97166-GO; 97530-GP; 99285; 99285-25; C9113; J0690; J0696; J1100; J1644; J1650; J1756; J2270; J2310; J2405; J2704; J2997; J3010; J3490; J7030; J7040; J7120; J7620; Q9967; S0028

== ENCOUNTER 2017-08-18 10:50 | Inpatient (IN) | payer BC ==
[2017-08-18] MEDS: IPRATRPIUM/ALBUTEROL 0.5/2.5MG 3 ML NEBU. NEB ×2 (11:26→21:15)
[2017-08-18 11:36] LABS: BASO % 0 % (0-3); EOS % 0 % (0-3); HEMATOCRIT 35.9 % (36.0-47.0); HEMOGLOBIN 12.4 g/dL (12.0-15.5); LYMPH # 1.5 x10^3/uL (1.0-4.8); LYMPH % 9 % (24-48); MEAN CORPUSCULAR HEMOGLOBIN 33 pg (25-35); MEAN CORPUSCULAR HGB CONC 35 g/dL (31-37); MEAN CORPUSCULAR VOLUME 97 fL (79-100); MONO # 0.6 x10^3/uL (0.0-1.1); MONO % 4 % (0-9); NEUT # 13.4 x10^3uL (1.8-7.7); NEUT % 86 % (31-73); PLATELET COUNT 485 x10^3/uL (140-400); RED CELL DISTRIBUTION WIDTH 17.4 % (11.5-14.5); WHITE BLOOD COUNT 15.6 x10^3/uL (4.0-11.0)
[2017-08-18 11:37] LABS: ADD MAN DIFF? YES
[2017-08-18 11:39] LABS: ANION GAP 14 (6-14); BLOOD UREA NITROGEN 12 mg/dL (7-20); BUN/CREATININE RATIO 9 (6-20); CALCIUM 10.8 mg/dL (8.5-10.1); CARBON DIOXIDE 22 mmol/L (21-32); CHLORIDE 98 mmol/L (98-107); CREATININE 1.3 mg/dL (0.6-1.0); GFR 47.9; GLUCOSE 112 mg/dL (70-99); POTASSIUM 3.8 mmol/L (3.5-5.1); SODIUM 134 mmol/L (136-145)
[2017-08-18 11:40] LABS: INR 1.1 (0.8-1.1); PROTHROMBIN TIME PATIENT 13.5 SEC (11.7-14.0)
[2017-08-18 11:46] LABS: ALBUMIN 3.1 g/dL (3.4-5.0); ALBUMIN/GLOBULIN RATIO 0.6 (1.0-1.7); ALK PHOS 203 U/L (46-116); ALT (SGPT) 26 U/L (14-59); AST (SGOT) 22 U/L (15-37); MAGNESIUM 1.5 mg/dL (1.8-2.4); TOTAL BILIRUBIN 0.7 mg/dL (0.2-1.0); TOTAL PROTEIN 8.3 g/dL (6.4-8.2)
[2017-08-18 11:48] LABS: TROPONINI < 0.017 ng/mL (0.000-0.055)
[2017-08-18 11:51] LABS: LACTIC ACID 2.9 mmol/L (0.4-2.0); NT-PRO BNP 1310 pg/mL (0-449)
[2017-08-18] MEDS ORDERED: PIP/TAZO PER PHARMACY MC (12:15)
[2017-08-18] MEDS ORDERED: 0.9 % SODIUM CHLORIDE 10 ML DISP.SYRIN. IV ×2 (12:15)
[2017-08-18] MEDS ORDERED: VANCOMYCIN PER PHARMACY MC (12:15)
[2017-08-18 12:23] LABS: % BANDS 2 % (0-9); % LYMPHS 10 % (24-48); ANISOCYTOSIS SLIGHT; PLT ESTIMATE INCREASED (ADEQUATE)
[2017-08-18 12:24] LABS: % MONOS 2 % (0-10); % SEGS 86 % (35-66); POLYCHROMASIA SLIGHT; TOXIC VACUOLATION SLIGHT
[2017-08-18 12:40] LABS: PCO2 ABG 17 mmHg (35-46); PH ABG 7.66 (7.35-7.45); PO2 ABG 91 mmHg (65-108)
[2017-08-18 12:41] LABS: BASE EXCESS ABG 0 mmol/L (-3-3); FIO2 ABG 21; HCO3 ABG 19 mmol/L (21-28); SAT O2 ABG 98 % (92-99)
[2017-08-18] MEDS: MORPHINE SULFATE 4 MG/ML DISP.SYRIN. IV ×2 (12:49→16:54)
[2017-08-18] MEDS: PIPERACILLIN/TAZOBACTAM 4.5 GM in IV NORMAL SALINE 100ML 100 ML IV (12:50)
[2017-08-18] MEDS ORDERED: ONDANSETRON PF 4 MG/2 ML VIAL. IV ×2 (13:00→16:15)
[2017-08-18] MEDS ORDERED: MORPHINE SULFATE 4 MG/ML DISP.SYRIN. IV (13:00)
[2017-08-18] MEDS: VANCOMYCIN 2 GM in IV 1/2 NORMAL SALINE 500 ML IV (13:31)
[2017-08-18] MEDS: diphenhydrAMINE 50 MG/ML VIAL IVP (13:40)
[2017-08-18] MEDS: methylPREDNISolone SOD SUCC PF 125 MG/2 ML VIAL. IV (13:42)
[2017-08-18] MEDS: FAMOTIDINE 20 MG/2 ML VIAL IVP (13:48)
[2017-08-18] MEDS ORDERED: ACETAMINOPHEN 500 MG TABLET PO (16:15)
[2017-08-18] MEDS ORDERED: NITROGLYCERIN SUBLINGUAL 0.4 MG BOTTLE OF 25. SL (16:15)
[2017-08-18] MEDS: IV NORMAL SALINE 1000ML BAG 1,000 ML IV (16:46)
[2017-08-18] MEDS: hydrALAZINE 20 MG/ML VIAL. IVP (16:55)
[2017-08-18] MEDS: SODIUM BICARBONATE 650 MG TABLET. PO ×2 (17:00→21:36)
[2017-08-18] MEDS: MAGNESIUM SULFATE 2GM 50 ML IV (17:14)
[2017-08-18] MEDS: PIPERACILLIN/TAZOBACTAM 3.375 GM in IV NORMAL SALINE 50ML 50 ML IV (17:14)
[2017-08-18] MEDS: IOHEXOL 240 MG/ML 50ML VIAL. PO (18:30)
[2017-08-18] MEDS: ONDANSETRON PF 4 MG/2 ML VIAL. IV (19:06)
[2017-08-18] MEDS: METOPROLOL TART IMMED RELEASE 50 MG TABLET. PO (19:06)
[2017-08-18] MEDS: ISOSORBIDE MONONITRATE ER 30 MG TAB.ER.24H PO (19:07)
[2017-08-18] MEDS: amLODIPine BESYLATE 10 MG TABLET PO (19:08)
[2017-08-18] MEDS ORDERED: NON FORMULARY ITEM (Gluc 2KCL/Chondr/Coll Hy/Hy Ac (Glucosamine & Chondroitin Cap) 1 EACH) PO (21:00)
[2017-08-18] MEDS ORDERED: INULIN PO (21:00)
[2017-08-18] MEDS ORDERED: RHAMNOSUS GG PO (21:00)
[2017-08-18] MEDS ORDERED: METOPROLOL TART IMMED RELEASE 50 MG TABLET. PO (21:00)
[2017-08-18] MEDS: ATORVASTATIN CALCIUM 20 MG TABLET PO (21:36)
[2017-08-18] MEDS: DOCUSATE SODIUM 100 MG CAPSULE. PO (21:36)
[2017-08-18] MEDS: FERROUS SULFATE 325 MG TABLET. PO (21:37)
[2017-08-18] MEDS: GABAPENTIN 300 MG CAPSULE. PO (21:37)
[2017-08-18] MEDS: OMEGA-3 FATTY ACIDS/FISH OIL 1,000 MG CAPSULE. PO (21:37)
[2017-08-18] MEDS: LACTOBACILLUS RHAMNOSUS GG 1 CAPSULE. PO (21:38)
[2017-08-18] MEDS: HYDROcodone/APAP 5/325MG 1 TAB TABLET PO (21:38)
[2017-08-18] MEDS: traZODone 50 MG TABLET. PO (21:38)
[2017-08-18] MEDS: HEPARIN PF for SUB-Q USE 5,000 UNIT/0.5 ML VIAL. SQ (21:48)
[2017-08-18 22:22] LABS: BILIRUBIN,URINE NEGATIVE (NEG); CLARITY,URINE CLEAR; COLOR,URINE YELLOW; GLUCOSE,URINE NEGATIVE (NEG); NITRITE,URINE NEGATIVE (NEG); PH,URINE 6.5; PROTEIN,URINE 100 mg/dL (NEG-TRACE); UROBILINOGEN,URINE 0.2 mg/dL (0.2 mg/dL)
[2017-08-18 22:31] LABS: BACTERIA,URINE 0 /HPF (0-FEW); RBC,URINE RARE /HPF (0-2); SQUAMOUS EPITHELIAL CELL,UR FEW /LPF; WBC,URINE RARE /HPF (0-4)
[2017-08-19] MEDS: PIPERACILLIN/TAZOBACTAM 3.375 GM in IV NORMAL SALINE 50ML 50 ML IV ×5 (00:30→23:57)
[2017-08-19] MEDS: IV NORMAL SALINE 1000ML BAG 1,000 ML IV ×3 (02:15→21:25)
[2017-08-19 05:08] LABS: ADD MAN DIFF? NO
[2017-08-19 05:20] LABS: BASO % 0 % (0-3); EOS % 0 % (0-3); HEMATOCRIT 32.3 % (36.0-47.0); LYMPH # 0.9 x10^3/uL (1.0-4.8); LYMPH % 8 % (24-48); MEAN CORPUSCULAR HEMOGLOBIN 33 pg (25-35); MEAN CORPUSCULAR HGB CONC 34 g/dL (31-37); MEAN CORPUSCULAR VOLUME 98 fL (79-100); MONO # 0.4 x10^3/uL (0.0-1.1); MONO % 4 % (0-9); NEUT # 9.6 x10^3uL (1.8-7.7); NEUT % 88 % (31-73); PLATELET COUNT 424 x10^3/uL (140-400); RED BLOOD COUNT 3.31 x10^6/uL (3.50-5.40); RED CELL DISTRIBUTION WIDTH 17.8 % (11.5-14.5); WHITE BLOOD COUNT 10.9 x10^3/uL (4.0-11.0)
[2017-08-19 05:45] LABS: ANION GAP 11 (6-14); BLOOD UREA NITROGEN 16 mg/dL (7-20); CALCIUM 9.7 mg/dL (8.5-10.1); CARBON DIOXIDE 24 mmol/L (21-32); CHLORIDE 100 mmol/L (98-107); CREATININE 1.4 mg/dL (0.6-1.0); GLUCOSE 123 mg/dL (70-99); MAGNESIUM 2.1 mg/dL (1.8-2.4); POTASSIUM 3.6 mmol/L (3.5-5.1); SODIUM 135 mmol/L (136-145)
[2017-08-19] MEDS: HEPARIN PF for SUB-Q USE 5,000 UNIT/0.5 ML VIAL. SQ ×3 (06:00→21:24)
[2017-08-19] MEDS: IPRATRPIUM/ALBUTEROL 0.5/2.5MG 3 ML NEBU. NEB ×2 (07:29→11:16)
[2017-08-19] MEDS: MORPHINE SULFATE 4 MG/ML DISP.SYRIN. IV (08:02)
[2017-08-19] MEDS ORDERED: NON FORMULARY ITEM (Tiotropium Bromide (Spiriva) 2 INH) IH (09:00)
[2017-08-19] MEDS: OMEGA-3 FATTY ACIDS/FISH OIL 1,000 MG CAPSULE. PO ×3 (09:00→21:19)
[2017-08-19] MEDS: SODIUM BICARBONATE 650 MG TABLET. PO ×4 (09:00→21:19)
[2017-08-19] MEDS ORDERED: ISOSORBIDE MONONITRATE ER 30 MG TAB.ER.24H PO (09:00)
[2017-08-19] MEDS ORDERED: amLODIPine BESYLATE 10 MG TABLET PO (09:00)
[2017-08-19] MEDS: GABAPENTIN 300 MG CAPSULE. PO ×3 (09:00→21:19)
[2017-08-19] MEDS: PANTOPRAZOLE 40 MG TABLET.DR. PO (11:57)
[2017-08-19] MEDS: ALLOPURINOL 300 MG TABLET. PO (11:58)
[2017-08-19] MEDS: FOLIC ACID 1 MG TABLET. PO (11:58)
[2017-08-19] MEDS: LACTOBACILLUS RHAMNOSUS GG 1 CAPSULE. PO ×2 (11:58→21:19)
[2017-08-19] MEDS: amLODIPine BESYLATE 10 MG TABLET PO (11:59)
[2017-08-19] MEDS: FUROSEMIDE 40 MG TABLET. PO (11:59)
[2017-08-19] MEDS: POTASSIUM CHLORIDE 20 MEQ TABLET.ER. PO (11:59)
[2017-08-19] MEDS: ISOSORBIDE MONONITRATE ER 30 MG TAB.ER.24H PO (12:00)
[2017-08-19] MEDS: METOPROLOL TART IMMED RELEASE 50 MG TABLET. PO ×2 (12:00→21:20)
[2017-08-19] MEDS: ASPIRIN CHEWABLE 81 MG TABLET. PO (12:01)
[2017-08-19] MEDS: CHOLECALCIFEROL (VITAMIN D3) 1,000 UNIT TABLET PO (12:01)
[2017-08-19] MEDS: CLOPIDOGREL BISULFATE 75 MG TABLET PO (12:01)
[2017-08-19] MEDS: DOCUSATE SODIUM 100 MG CAPSULE. PO (21:00)
[2017-08-19] MEDS: FERROUS SULFATE 325 MG TABLET. PO (21:19)
[2017-08-19] MEDS: traZODone 50 MG TABLET. PO (21:19)
[2017-08-19] MEDS: HYDROcodone/APAP 5/325MG 1 TAB TABLET PO (21:19)
[2017-08-19] MEDS: ATORVASTATIN CALCIUM 20 MG TABLET PO (21:19)
[2017-08-20] MEDS: PIPERACILLIN/TAZOBACTAM 3.375 GM in IV NORMAL SALINE 50ML 50 ML IV ×3 (05:45→18:06)
[2017-08-20] MEDS: HEPARIN PF for SUB-Q USE 5,000 UNIT/0.5 ML VIAL. SQ ×3 (05:50→22:30)
[2017-08-20] MEDS: PANTOPRAZOLE 40 MG TABLET.DR. PO (06:59)
[2017-08-20] MEDS: IV NORMAL SALINE 1000ML BAG 1,000 ML IV ×2 (08:15→18:07)
[2017-08-20] MEDS: CHOLECALCIFEROL (VITAMIN D3) 1,000 UNIT TABLET PO (09:26)
[2017-08-20] MEDS: POTASSIUM CHLORIDE 20 MEQ TABLET.ER. PO (09:27)
[2017-08-20] MEDS: SODIUM BICARBONATE 650 MG TABLET. PO ×4 (09:27→20:26)
[2017-08-20] MEDS: OMEGA-3 FATTY ACIDS/FISH OIL 1,000 MG CAPSULE. PO ×3 (09:27→20:22)
[2017-08-20] MEDS: LACTOBACILLUS RHAMNOSUS GG 1 CAPSULE. PO ×2 (09:27→20:25)
[2017-08-20] MEDS: GABAPENTIN 300 MG CAPSULE. PO ×3 (09:28→20:22)
[2017-08-20] MEDS: ALLOPURINOL 300 MG TABLET. PO (09:29)
[2017-08-20] MEDS: FOLIC ACID 1 MG TABLET. PO (09:29)
[2017-08-20] MEDS: ASPIRIN CHEWABLE 81 MG TABLET. PO (09:29)
[2017-08-20] MEDS: FUROSEMIDE 40 MG TABLET. PO (09:30)
[2017-08-20] MEDS: CLOPIDOGREL BISULFATE 75 MG TABLET PO (09:30)
[2017-08-20] MEDS: ISOSORBIDE MONONITRATE ER 30 MG TAB.ER.24H PO (09:30)
[2017-08-20] MEDS: amLODIPine BESYLATE 10 MG TABLET PO (09:31)
[2017-08-20] MEDS: METOPROLOL TART IMMED RELEASE 50 MG TABLET. PO ×2 (09:31→20:26)
[2017-08-20] MEDS ORDERED: ONDANSETRON ODT 4 MG TAB.RAPDIS. PO (09:45)
[2017-08-20] MEDS: ONDANSETRON ODT 4 MG TAB.RAPDIS. PO (10:22)
[2017-08-20] MEDS: CALCIUM CARBONATE 500 MG TAB.CHEW PO (12:19)
[2017-08-20] MEDS: HYDROcodone/APAP 5/325MG 1 TAB TABLET PO (19:34)
[2017-08-20] MEDS: ATORVASTATIN CALCIUM 20 MG TABLET PO (20:22)
[2017-08-20] MEDS: FERROUS SULFATE 325 MG TABLET. PO (20:22)
[2017-08-20] MEDS: DOCUSATE SODIUM 100 MG CAPSULE. PO (20:23)
[2017-08-20] MEDS: traZODone 50 MG TABLET. PO (20:26)
[2017-08-21] MEDS: PIPERACILLIN/TAZOBACTAM 3.375 GM in IV NORMAL SALINE 50ML 50 ML IV ×3 (00:03→11:52)
[2017-08-21] MEDS: HYDROcodone/APAP 5/325MG 1 TAB TABLET PO ×3 (01:50→21:53)
[2017-08-21] MEDS: PANTOPRAZOLE 40 MG TABLET.DR. PO (05:59)
[2017-08-21] MEDS: HEPARIN PF for SUB-Q USE 5,000 UNIT/0.5 ML VIAL. SQ ×3 (06:04→22:00)
[2017-08-21] MEDS: ALBUTEROL SULFATE 2.5 MG/3 ML NEBU. NEB (07:57)
[2017-08-21] MEDS: GABAPENTIN 300 MG CAPSULE. PO ×3 (08:38→21:52)
[2017-08-21] MEDS: IV NORMAL SALINE 1000ML BAG 1,000 ML IV ×2 (08:38→14:15)
[2017-08-21] MEDS: CHOLECALCIFEROL (VITAMIN D3) 1,000 UNIT TABLET PO (08:39)
[2017-08-21] MEDS: FUROSEMIDE 40 MG TABLET. PO (08:39)
[2017-08-21] MEDS: FOLIC ACID 1 MG TABLET. PO (08:39)
[2017-08-21] MEDS: CLOPIDOGREL BISULFATE 75 MG TABLET PO (08:39)
[2017-08-21] MEDS: SODIUM BICARBONATE 650 MG TABLET. PO ×4 (08:40→21:53)
[2017-08-21] MEDS: ALLOPURINOL 300 MG TABLET. PO (08:40)
[2017-08-21] MEDS: ISOSORBIDE MONONITRATE ER 30 MG TAB.ER.24H PO (08:40)
[2017-08-21] MEDS: POTASSIUM CHLORIDE 20 MEQ TABLET.ER. PO (08:40)
[2017-08-21] MEDS: LACTOBACILLUS RHAMNOSUS GG 1 CAPSULE. PO ×2 (08:40→21:53)
[2017-08-21] MEDS: OMEGA-3 FATTY ACIDS/FISH OIL 1,000 MG CAPSULE. PO ×3 (08:40→21:53)
[2017-08-21] MEDS: METOPROLOL TART IMMED RELEASE 50 MG TABLET. PO ×2 (08:41→22:00)
[2017-08-21] MEDS: ASPIRIN CHEWABLE 81 MG TABLET. PO (08:41)
[2017-08-21] MEDS: amLODIPine BESYLATE 10 MG TABLET PO (08:42)
[2017-08-21] MEDS: POLYETHYLENE GLYCOL 3350 17 GM PACKET. PO (16:00)
[2017-08-21] MEDS: DOCUSATE SODIUM 100 MG CAPSULE. PO (21:53)
[2017-08-21] MEDS: FERROUS SULFATE 325 MG TABLET. PO (21:53)
[2017-08-21] MEDS: ATORVASTATIN CALCIUM 20 MG TABLET PO (21:53)
[2017-08-21] MEDS: traZODone 50 MG TABLET. PO (21:54)
[2017-08-21] MEDS: AMOXICILLIN/K CLAV 875/125MG TABLET. PO (21:54)
[2017-08-22] MEDS: IV NORMAL SALINE 1000ML BAG 1,000 ML IV (00:15)
[2017-08-22 04:11] LABS: ADD MAN DIFF? NO
[2017-08-22 04:38] LABS: ALBUMIN 2.3 g/dL (3.4-5.0); ALBUMIN/GLOBULIN RATIO 0.6 (1.0-1.7); ALK PHOS 116 U/L (46-116); ALT (SGPT) 16 U/L (14-59); ANION GAP 7 (6-14); AST (SGOT) 14 U/L (15-37); BLOOD UREA NITROGEN 18 mg/dL (7-20); BUN/CREATININE RATIO 14 (6-20); CALCIUM 9.2 mg/dL (8.5-10.1); CARBON DIOXIDE 29 mmol/L (21-32); CHLORIDE 104 mmol/L (98-107); CREATININE 1.3 mg/dL (0.6-1.0); GFR 47.9; GLUCOSE 115 mg/dL (70-99); POTASSIUM 3.4 mmol/L (3.5-5.1); SODIUM 140 mmol/L (136-145); TOTAL BILIRUBIN 0.3 mg/dL (0.2-1.0); TOTAL PROTEIN 6.1 g/dL (6.4-8.2)
[2017-08-22 04:43] LABS: BASO # 0.1 x10^3/uL (0.0-0.2); BASO % 1 % (0-3); EOS # 0.3 x10^3/uL (0.0-0.7); EOS % 4 % (0-3); HEMATOCRIT 30.2 % (36.0-47.0); HEMOGLOBIN 10.1 g/dL (12.0-15.5); LYMPH # 1.3 x10^3/uL (1.0-4.8); LYMPH % 16 % (24-48); MEAN CORPUSCULAR HEMOGLOBIN 33 pg (25-35); MEAN CORPUSCULAR HGB CONC 34 g/dL (31-37); MEAN CORPUSCULAR VOLUME 98 fL (79-100); MONO # 0.6 x10^3/uL (0.0-1.1); MONO % 7 % (0-9); NEUT % 72 % (31-73); PLATELET COUNT 363 x10^3/uL (140-400); RED BLOOD COUNT 3.07 x10^6/uL (3.50-5.40); RED CELL DISTRIBUTION WIDTH 17.9 % (11.5-14.5); WHITE BLOOD COUNT 8.3 x10^3/uL (4.0-11.0)
[2017-08-22] MEDS: PANTOPRAZOLE 40 MG TABLET.DR. PO (06:40)
[2017-08-22] MEDS: HEPARIN PF for SUB-Q USE 5,000 UNIT/0.5 ML VIAL. SQ (06:43)
[2017-08-22] MEDS: CLOPIDOGREL BISULFATE 75 MG TABLET PO (09:22)
[2017-08-22] MEDS: CHOLECALCIFEROL (VITAMIN D3) 1,000 UNIT TABLET PO (09:22)
[2017-08-22] MEDS: LACTOBACILLUS RHAMNOSUS GG 1 CAPSULE. PO (09:23)
[2017-08-22] MEDS: FUROSEMIDE 40 MG TABLET. PO (09:23)
[2017-08-22] MEDS: ALLOPURINOL 300 MG TABLET. PO (09:23)
[2017-08-22] MEDS: amLODIPine BESYLATE 10 MG TABLET PO (09:23)
[2017-08-22] MEDS: GABAPENTIN 300 MG CAPSULE. PO (09:23)
[2017-08-22] MEDS: ASPIRIN CHEWABLE 81 MG TABLET. PO (09:23)
[2017-08-22] MEDS: OMEGA-3 FATTY ACIDS/FISH OIL 1,000 MG CAPSULE. PO (09:23)
[2017-08-22] MEDS: AMOXICILLIN/K CLAV 875/125MG TABLET. PO (09:23)
[2017-08-22] MEDS: SODIUM BICARBONATE 650 MG TABLET. PO (09:24)
[2017-08-22] MEDS: ISOSORBIDE MONONITRATE ER 30 MG TAB.ER.24H PO (09:24)
[2017-08-22] MEDS: POTASSIUM CHLORIDE 20 MEQ TABLET.ER. PO (09:24)
[2017-08-22] MEDS: FOLIC ACID 1 MG TABLET. PO (09:25)
[2017-08-22] MEDS: METOPROLOL TART IMMED RELEASE 50 MG TABLET. PO (09:25)
== END 2017-08-22 13:25 | disposition home or self-care (01) | DRG 871 ==
LOC: ER 10:50 → 4 NORTH 08-19 22:56 → 2 NORTH 13:20
DX: A41.9 Sepsis, unspecified organism (principal); N17.0 Acute kidney failure with tubular necrosis; E87.3 Alkalosis; I13.0 Hypertensive heart and chronic kidney disease with heart failure and stage 1 through stage 4 chronic kidney disease, or unspecified chronic kidney disease; G62.9 Polyneuropathy, unspecified; I50.9 Heart failure, unspecified; I49.5 Sick sinus syndrome; M19.90 Unspecified osteoarthritis, unspecified site; M10.9 Gout, unspecified; E78.00 Pure hypercholesterolemia, unspecified; E61.1 Iron deficiency; E78.5 Hyperlipidemia, unspecified; E83.42 Hypomagnesemia; I25.10 Atherosclerotic heart disease of native coronary artery without angina pectoris; G89.18 Other acute postprocedural pain; N18.3 Chronic kidney disease, stage 3 (moderate); Z96.659 Presence of unspecified artificial knee joint; K57.90 Diverticulosis of intestine, part unspecified, without perforation or abscess without bleeding; E86.0 Dehydration; I87.2 Venous insufficiency (chronic) (peripheral); I73.9 Peripheral vascular disease, unspecified; J44.9 Chronic obstructive pulmonary disease, unspecified; E87.6 Hypokalemia; K21.9 Gastro-esophageal reflux disease without esophagitis; Z82.49 Family history of ischemic heart disease and other diseases of the circulatory system; Z86.010 Personal history of colon polyps; Z86.711 Personal history of pulmonary embolism; Z90.49 Acquired absence of other specified parts of digestive tract; Z87.891 Personal history of nicotine dependence; Z95.1 Presence of aortocoronary bypass graft; Z95.0 Presence of cardiac pacemaker; Z91.041 Radiographic dye allergy status; Z90.710 Acquired absence of both cervix and uterus; Z88.8 Allergy status to other drugs, medicaments and biological substances
CPT/HCPCS: 36415; 36600; 71045; 74176; 80048; 80053; 81001; 82805; 83605; 83735; 83880; 84484; 85007; 85025; 85610; 93005; 93970; 94640; 94760; 96365; 96368; 96375; 99285; 99285-25; J0360; J1200; J2060; J2270; J2405; J2543; J2930; J3370; J3475; J7030; J7613; J7620; Q0162; S0028

== ENCOUNTER 2017-08-27 15:28 | Inpatient (IN) | payer BC ==
[2017-08-27 15:56] LABS: ADD MAN DIFF? NO
[2017-08-27 15:59] LABS: BASE EXCESS ABG 3 mmol/L (-3-3); HCO3 ABG 20 mmol/L (21-28); PO2 ABG 107 mmHg (65-108); SAT O2 ABG 99 % (92-99)
[2017-08-27 16:02] LABS: FIO2 ABG 21; PCO2 ABG 16 mmHg (35-46); PH ABG > 7.70 (7.35-7.45)
[2017-08-27 16:05] LABS: BASO # 0.1 x10^3/uL (0.0-0.2); BASO % 1 % (0-3); EOS # 0.2 x10^3/uL (0.0-0.7); EOS % 2 % (0-3); HEMATOCRIT 39.7 % (36.0-47.0); HEMOGLOBIN 13.2 g/dL (12.0-15.5); LYMPH # 2.2 x10^3/uL (1.0-4.8); LYMPH % 19 % (24-48); MEAN CORPUSCULAR HEMOGLOBIN 33 pg (25-35); MEAN CORPUSCULAR HGB CONC 33 g/dL (31-37); MEAN CORPUSCULAR VOLUME 99 fL (79-100); MONO % 8 % (0-9); NEUT # 8.4 x10^3uL (1.8-7.7); NEUT % 71 % (31-73); PLATELET COUNT 425 x10^3/uL (140-400); RED BLOOD COUNT 4.01 x10^6/uL (3.50-5.40); RED CELL DISTRIBUTION WIDTH 17.9 % (11.5-14.5); WHITE BLOOD COUNT 11.8 x10^3/uL (4.0-11.0)
[2017-08-27 16:10] LABS: ANION GAP 18 (6-14); BLOOD UREA NITROGEN 22 mg/dL (7-20); BUN/CREATININE RATIO 15 (6-20); CALCIUM 11.1 mg/dL (8.5-10.1); CARBON DIOXIDE 17 mmol/L (21-32); CHLORIDE 100 mmol/L (98-107); CREATININE 1.5 mg/dL (0.6-1.0); GFR 40.6; GLUCOSE 102 mg/dL (70-99); SODIUM 135 mmol/L (136-145)
[2017-08-27 16:20] LABS: ALBUMIN 3.8 g/dL (3.4-5.0); ALBUMIN/GLOBULIN RATIO 0.8 (1.0-1.7); ALK PHOS 153 U/L (46-116); ALT (SGPT) 15 U/L (14-59); AST (SGOT) 17 U/L (15-37); LIPASE 968 U/L (73-393); TOTAL BILIRUBIN 0.8 mg/dL (0.2-1.0); TOTAL PROTEIN 8.3 g/dL (6.4-8.2)
[2017-08-27] MEDS: fentaNYL PF VIAL 100 MCG/2 ML VIAL IV ×4 (16:20→19:36)
[2017-08-27] MEDS: IV NORMAL SALINE 1000ML BAG 1,000 ML IV (16:22)
[2017-08-27 16:24] LABS: TROPONINI < 0.017 ng/mL (0.000-0.055)
[2017-08-27] MEDS: ONDANSETRON PF 4 MG/2 ML VIAL. IV (16:29)
[2017-08-27 16:41] LABS: LACTIC ACID 2.8 mmol/L (0.4-2.0)
[2017-08-27 17:39] LABS: BILIRUBIN,URINE NEGATIVE (NEG); CLARITY,URINE CLEAR; COLOR,URINE YELLOW; GLUCOSE,URINE NEGATIVE (NEG); NITRITE,URINE NEGATIVE (NEG); PH,URINE 6.5; PROTEIN,URINE 30 mg/dL (NEG-TRACE); UROBILINOGEN,URINE 0.2 mg/dL (0.2 mg/dL)
[2017-08-27 17:56] LABS: BACTERIA,URINE FEW /HPF (0-FEW); RBC,URINE 0 /HPF (0-2); SQUAMOUS EPITHELIAL CELL,UR OCC /LPF; WBC,URINE OCC /HPF (0-4)
[2017-08-27] MEDS ORDERED: MORPHINE SULFATE 4 MG/ML DISP.SYRIN. IV ×2 (18:15)
[2017-08-27] MEDS ORDERED: ACETAMINOPHEN 500 MG TABLET PO (18:15)
[2017-08-27] MEDS ORDERED: MAG HYDROX/ALUMINUM HYD/SIMETH 30 ML ORAL.SUSP PO (18:15)
[2017-08-27] MEDS ORDERED: PROCHLORPERAZINE 25 MG SUPP.RECT. PR (18:15)
[2017-08-27] MEDS ORDERED: NITROGLYCERIN SUBLINGUAL 0.4 MG BOTTLE OF 25. SL (18:15)
[2017-08-27] MEDS ORDERED: POLYETHYLENE GLYCOL 3350 17 GM PACKET. PO (18:15)
[2017-08-27] MEDS ORDERED: ALBUTEROL SULFATE 2.5 MG/3 ML NEBU. NEB (19:00)
[2017-08-27] MEDS: IPRATRPIUM/ALBUTEROL 0.5/2.5MG 3 ML NEBU. NEB (20:47)
[2017-08-27] MEDS ORDERED: RHAMNOSUS GG PO (21:00)
[2017-08-27] MEDS ORDERED: NON FORMULARY ITEM (Gluc 2KCL/Chondr/Coll Hy/Hy Ac (Glucosamine & Chondroitin Cap) 1 EACH) PO (21:00)
[2017-08-27] MEDS ORDERED: INULIN PO (21:00)
[2017-08-27] MEDS: DOCUSATE SODIUM 100 MG CAPSULE. PO (21:00)
[2017-08-27] MEDS: IV DEXTROSE 5%-LACT RINGERS 1,000 ML IV (21:06)
[2017-08-27] MEDS: OMEGA-3 FATTY ACIDS/FISH OIL 1,000 MG CAPSULE. PO (21:08)
[2017-08-27] MEDS: GABAPENTIN 300 MG CAPSULE. PO (21:08)
[2017-08-27] MEDS: traZODone 50 MG TABLET. PO (21:08)
[2017-08-27] MEDS: SODIUM BICARBONATE 650 MG TABLET. PO (21:09)
[2017-08-27] MEDS: METOPROLOL TART IMMED RELEASE 50 MG TABLET. PO (21:09)
[2017-08-27] MEDS: ATORVASTATIN CALCIUM 20 MG TABLET PO (21:09)
[2017-08-27] MEDS: HYDROcodone/APAP 5/325MG 1 TAB TABLET PO (21:09)
[2017-08-27] MEDS: ENOXAPARIN 40 MG/0.4 ML SYRINGE. SQ (21:10)
[2017-08-27] MEDS: LACTOBACILLUS RHAMNOSUS GG 1 CAPSULE. PO (21:10)
[2017-08-27] MEDS: FAMOTIDINE 20 MG/2 ML VIAL IVP (21:11)
[2017-08-28] MEDS: fentaNYL PF VIAL 100 MCG/2 ML VIAL IV ×3 (00:09→22:30)
[2017-08-28 04:47] LABS: LIPASE 646 U/L (73-393)
[2017-08-28] MEDS: HYDROcodone/APAP 5/325MG 1 TAB TABLET PO ×3 (06:07→16:29)
[2017-08-28] MEDS: FUROSEMIDE 40 MG TABLET. PO (08:45)
[2017-08-28] MEDS: LACTOBACILLUS RHAMNOSUS GG 1 CAPSULE. PO ×2 (08:46→20:52)
[2017-08-28] MEDS: ASPIRIN CHEWABLE 81 MG TABLET. PO (08:46)
[2017-08-28] MEDS: CLOPIDOGREL BISULFATE 75 MG TABLET PO (08:46)
[2017-08-28] MEDS: ISOSORBIDE MONONITRATE ER 30 MG TAB.ER.24H PO (08:47)
[2017-08-28] MEDS: METOPROLOL TART IMMED RELEASE 50 MG TABLET. PO ×2 (08:48→21:01)
[2017-08-28] MEDS: GABAPENTIN 300 MG CAPSULE. PO ×3 (08:48→20:51)
[2017-08-28] MEDS: ALLOPURINOL 300 MG TABLET. PO (08:48)
[2017-08-28] MEDS: CHOLECALCIFEROL (VITAMIN D3) 1,000 UNIT TABLET PO (08:48)
[2017-08-28] MEDS: SODIUM BICARBONATE 650 MG TABLET. PO ×4 (08:48→20:52)
[2017-08-28] MEDS: amLODIPine BESYLATE 10 MG TABLET PO (08:49)
[2017-08-28] MEDS: FERROUS SULFATE 325 MG TABLET. PO (08:49)
[2017-08-28] MEDS: FOLIC ACID 1 MG TABLET. PO (08:49)
[2017-08-28] MEDS: OMEGA-3 FATTY ACIDS/FISH OIL 1,000 MG CAPSULE. PO ×3 (08:49→20:51)
[2017-08-28] MEDS: IV DEXTROSE 5 %-0.45 % NACL 1,000 ML IV (12:42)
[2017-08-28] MEDS ORDERED: PIP/TAZO PER PHARMACY MC (15:00)
[2017-08-28] MEDS: PIPERACILLIN/TAZOBACTAM 3.375 GM in IV NORMAL SALINE 50ML 50 ML IV (15:30)
[2017-08-28] MEDS: ACETAMINOPHEN 325 MG TABLET. PO (19:35)
[2017-08-28] MEDS: IPRATRPIUM/ALBUTEROL 0.5/2.5MG 3 ML NEBU. NEB (20:02)
[2017-08-28] MEDS: DOCUSATE SODIUM 100 MG CAPSULE. PO (20:08)
[2017-08-28] MEDS: ENOXAPARIN 40 MG/0.4 ML SYRINGE. SQ (20:10)
[2017-08-28] MEDS: ATORVASTATIN CALCIUM 20 MG TABLET PO (20:52)
[2017-08-28] MEDS: traZODone 50 MG TABLET. PO (20:52)
[2017-08-28] MEDS ORDERED: FAMOTIDINE 20 MG TABLET. PO (21:00)
[2017-08-29 00:07] LABS: LACTIC ACID 2.1 mmol/L (0.4-2.0)
[2017-08-29] MEDS: PIPERACILLIN/TAZOBACTAM 3.375 GM in IV NORMAL SALINE 50ML 50 ML IV ×5 (00:07→23:54)
[2017-08-29] MEDS: IV DEXTROSE 5 %-0.45 % NACL 1,000 ML IV ×3 (00:50→21:42)
[2017-08-29] MEDS: PANTOPRAZOLE 40 MG TABLET.DR. PO (05:42)
[2017-08-29 06:07] LABS: HEMATOCRIT 30.7 % (36.0-47.0); HEMOGLOBIN 10.3 g/dL (12.0-15.5); MEAN CORPUSCULAR HEMOGLOBIN 34 pg (25-35); MEAN CORPUSCULAR HGB CONC 34 g/dL (31-37); MEAN CORPUSCULAR VOLUME 100 fL (79-100); PLATELET COUNT 240 x10^3/uL (140-400); RED BLOOD COUNT 3.07 x10^6/uL (3.50-5.40); RED CELL DISTRIBUTION WIDTH 17.6 % (11.5-14.5); WHITE BLOOD COUNT 7.2 x10^3/uL (4.0-11.0)
[2017-08-29 06:18] LABS: ALBUMIN 2.5 g/dL (3.4-5.0); ALBUMIN/GLOBULIN RATIO 0.7 (1.0-1.7); ALK PHOS 111 U/L (46-116); AMYLASE 80 U/L (25-115); ANION GAP 11 (6-14); AST (SGOT) 16 U/L (15-37); BLOOD UREA NITROGEN 13 mg/dL (7-20); BUN/CREATININE RATIO 10 (6-20); CALCIUM 8.7 mg/dL (8.5-10.1); CARBON DIOXIDE 25 mmol/L (21-32); CHLORIDE 105 mmol/L (98-107); CREATININE 1.3 mg/dL (0.6-1.0); GFR 47.9; GLUCOSE 110 mg/dL (70-99); LIPASE 311 U/L (73-393); POTASSIUM 3.1 mmol/L (3.5-5.1); SODIUM 141 mmol/L (136-145); TOTAL BILIRUBIN 0.4 mg/dL (0.2-1.0); TOTAL PROTEIN 6.3 g/dL (6.4-8.2)
[2017-08-29 06:32] LABS: ALT (SGPT) 12 U/L (14-59)
[2017-08-29] MEDS: IPRATRPIUM/ALBUTEROL 0.5/2.5MG 3 ML NEBU. NEB ×2 (07:05→19:28)
[2017-08-29 07:55] LABS: SEDIMENTATION RATE 63 (0-25)
[2017-08-29] MEDS: CLOPIDOGREL BISULFATE 75 MG TABLET PO ×2 (08:00→15:39)
[2017-08-29] MEDS: FERROUS SULFATE 325 MG TABLET. PO ×2 (08:00→15:39)
[2017-08-29] MEDS: ASPIRIN CHEWABLE 81 MG TABLET. PO ×2 (08:00→15:39)
[2017-08-29] MEDS: GABAPENTIN 300 MG CAPSULE. PO ×3 (09:00→21:40)
[2017-08-29] MEDS: amLODIPine BESYLATE 10 MG TABLET PO ×2 (09:00→15:39)
[2017-08-29] MEDS: LACTOBACILLUS RHAMNOSUS GG 1 CAPSULE. PO ×2 (09:00→21:39)
[2017-08-29] MEDS: ALLOPURINOL 300 MG TABLET. PO ×2 (09:00→15:39)
[2017-08-29] MEDS: CHOLECALCIFEROL (VITAMIN D3) 1,000 UNIT TABLET PO ×2 (09:00→15:39)
[2017-08-29] MEDS: SODIUM BICARBONATE 650 MG TABLET. PO ×4 (09:00→21:39)
[2017-08-29] MEDS: FOLIC ACID 1 MG TABLET. PO ×2 (09:00→15:39)
[2017-08-29] MEDS: METOPROLOL TART IMMED RELEASE 50 MG TABLET. PO ×2 (09:00→21:41)
[2017-08-29] MEDS: OMEGA-3 FATTY ACIDS/FISH OIL 1,000 MG CAPSULE. PO ×3 (09:00→21:39)
[2017-08-29] MEDS: ISOSORBIDE MONONITRATE ER 30 MG TAB.ER.24H PO ×2 (09:00→15:39)
[2017-08-29] MEDS: fentaNYL PF VIAL 100 MCG/2 ML VIAL IV ×2 (09:04→14:30)
[2017-08-29] MEDS: POLYETHYLENE GLYCOL 3350 238 GM POWDER PO (17:23)
[2017-08-29] MEDS: DOCUSATE SODIUM 100 MG CAPSULE. PO (21:39)
[2017-08-29] MEDS: ENOXAPARIN 40 MG/0.4 ML SYRINGE. SQ (21:40)
[2017-08-29] MEDS: traZODone 50 MG TABLET. PO (21:40)
[2017-08-29] MEDS: ATORVASTATIN CALCIUM 20 MG TABLET PO (21:40)
[2017-08-30] MEDS: fentaNYL PF VIAL 100 MCG/2 ML VIAL IV ×8 (00:22→22:02)
[2017-08-30] MEDS: PANTOPRAZOLE 40 MG TABLET.DR. PO (05:39)
[2017-08-30] MEDS: PIPERACILLIN/TAZOBACTAM 3.375 GM in IV NORMAL SALINE 50ML 50 ML IV ×3 (05:48→17:48)
[2017-08-30 05:58] LABS: ADD MAN DIFF? NO
[2017-08-30 06:02] LABS: BASO # 0.1 x10^3/uL (0.0-0.2); BASO % 1 % (0-3); EOS # 0.5 x10^3/uL (0.0-0.7); EOS % 7 % (0-3); HEMATOCRIT 30.2 % (36.0-47.0); HEMOGLOBIN 10.2 g/dL (12.0-15.5); LYMPH % 15 % (24-48); MEAN CORPUSCULAR HEMOGLOBIN 34 pg (25-35); MEAN CORPUSCULAR HGB CONC 34 g/dL (31-37); MEAN CORPUSCULAR VOLUME 100 fL (79-100); MONO # 0.5 x10^3/uL (0.0-1.1); MONO % 8 % (0-9); NEUT # 4.7 x10^3uL (1.8-7.7); NEUT % 69 % (31-73); PLATELET COUNT 227 x10^3/uL (140-400); RED BLOOD COUNT 3.03 x10^6/uL (3.50-5.40); RED CELL DISTRIBUTION WIDTH 17.5 % (11.5-14.5); WHITE BLOOD COUNT 6.8 x10^3/uL (4.0-11.0)
[2017-08-30 06:25] LABS: ALBUMIN 2.4 g/dL (3.4-5.0); ALBUMIN/GLOBULIN RATIO 0.7 (1.0-1.7); ALK PHOS 114 U/L (46-116); ALT (SGPT) 12 U/L (14-59); ANION GAP 9 (6-14); AST (SGOT) 14 U/L (15-37); BLOOD UREA NITROGEN 7 mg/dL (7-20); BUN/CREATININE RATIO 6 (6-20); CARBON DIOXIDE 25 mmol/L (21-32); CHLORIDE 106 mmol/L (98-107); CREATININE 1.1 mg/dL (0.6-1.0); GFR 58.1; GLUCOSE 106 mg/dL (70-99); SODIUM 140 mmol/L (136-145); TOTAL BILIRUBIN 0.5 mg/dL (0.2-1.0)
[2017-08-30 06:35] LABS: POTASSIUM 2.8 mmol/L (3.5-5.1)
[2017-08-30] MEDS: IPRATRPIUM/ALBUTEROL 0.5/2.5MG 3 ML NEBU. NEB ×2 (07:04→19:23)
[2017-08-30] MEDS: POTASSIUM CL 40MEQ D5-0.45NACL 1,000 ML IV (08:11)
[2017-08-30] MEDS: POTASSIUM CHLORIDE 20MEQ 50 ML IV (08:13)
[2017-08-30] MEDS: ISOSORBIDE MONONITRATE ER 30 MG TAB.ER.24H PO (08:14)
[2017-08-30] MEDS: amLODIPine BESYLATE 10 MG TABLET PO (08:14)
[2017-08-30] MEDS: FOLIC ACID 1 MG TABLET. PO (08:15)
[2017-08-30] MEDS: METOPROLOL TART IMMED RELEASE 50 MG TABLET. PO ×2 (08:15→21:52)
[2017-08-30] MEDS: OMEGA-3 FATTY ACIDS/FISH OIL 1,000 MG CAPSULE. PO ×3 (08:15→21:52)
[2017-08-30] MEDS: LACTOBACILLUS RHAMNOSUS GG 1 CAPSULE. PO ×2 (08:15→21:51)
[2017-08-30] MEDS: FERROUS SULFATE 325 MG TABLET. PO (08:15)
[2017-08-30] MEDS: SODIUM BICARBONATE 650 MG TABLET. PO ×4 (08:16→21:51)
[2017-08-30] MEDS: GABAPENTIN 300 MG CAPSULE. PO ×3 (08:16→21:51)
[2017-08-30] MEDS: ALLOPURINOL 300 MG TABLET. PO (08:16)
[2017-08-30] MEDS: CHOLECALCIFEROL (VITAMIN D3) 1,000 UNIT TABLET PO (08:16)
[2017-08-30] MEDS: IV DEXTROSE 5 %-0.45 % NACL 1,000 ML IV (08:16)
[2017-08-30] MEDS: ASPIRIN CHEWABLE 81 MG TABLET. PO (08:16)
[2017-08-30] MEDS: CLOPIDOGREL BISULFATE 75 MG TABLET PO (08:16)
[2017-08-30] MEDS: DOCUSATE SODIUM 283 MG/5 ML ENEMA. PR (11:12)
[2017-08-30] MEDS: IV RINGERS,LACTATED 1000ML 1,000 ML IV ×2 (14:21→22:19)
[2017-08-30] MEDS ORDERED: MIDAZOLAM HCL/PF 2 MG/2 ML VIAL. IV (14:30)
[2017-08-30] MEDS ORDERED: fentaNYL PF VIAL 100 MCG/2 ML VIAL IV ×2 (14:30)
[2017-08-30] MEDS ORDERED: LIDOCAINE 1% PF 2 ML VIAL. ID (14:30)
[2017-08-30] MEDS ORDERED: fentaNYL PF VIAL 100 MCG/2 ML VIAL (14:49)
[2017-08-30] MEDS ORDERED: MIDAZOLAM HCL/PF 5 MG/5 ML VIAL. (14:49)
[2017-08-30] MEDS: MIDAZOLAM HCL/PF 5 MG/5 ML VIAL. IV ×6 (15:16→15:36)
[2017-08-30] MEDS ORDERED: diphenhydrAMINE 50 MG/ML VIAL (15:37)
[2017-08-30] MEDS: diphenhydrAMINE 50 MG/ML VIAL IV (15:38)
[2017-08-30] MEDS: DICYCLOMINE HCL 10 MG CAPSULE PO (17:55)
[2017-08-30 20:10] LABS: C DIFF BY PCR Negative (Negative)
[2017-08-30] MEDS: DOCUSATE SODIUM 100 MG CAPSULE. PO (21:51)
[2017-08-30] MEDS: ATORVASTATIN CALCIUM 20 MG TABLET PO (21:51)
[2017-08-30] MEDS: traZODone 50 MG TABLET. PO (21:52)
[2017-08-30] MEDS: ENOXAPARIN 40 MG/0.4 ML SYRINGE. SQ (21:53)
[2017-08-31] MEDS: PIPERACILLIN/TAZOBACTAM 3.375 GM in IV NORMAL SALINE 50ML 50 ML IV ×4 (00:19→17:19)
[2017-08-31] MEDS: POTASSIUM CL 40MEQ D5-0.45NACL 1,000 ML IV ×3 (03:33→23:30)
[2017-08-31 06:16] LABS: ADD MAN DIFF? NO
[2017-08-31 06:27] LABS: BASO # 0.1 x10^3/uL (0.0-0.2); BASO % 1 % (0-3); EOS # 0.4 x10^3/uL (0.0-0.7); EOS % 7 % (0-3); HEMATOCRIT 29.4 % (36.0-47.0); LYMPH # 1.3 x10^3/uL (1.0-4.8); LYMPH % 23 % (24-48); MEAN CORPUSCULAR HEMOGLOBIN 34 pg (25-35); MEAN CORPUSCULAR HGB CONC 34 g/dL (31-37); MEAN CORPUSCULAR VOLUME 100 fL (79-100); MONO # 0.5 x10^3/uL (0.0-1.1); MONO % 8 % (0-9); NEUT # 3.6 x10^3uL (1.8-7.7); NEUT % 62 % (31-73); PLATELET COUNT 211 x10^3/uL (140-400); RED BLOOD COUNT 2.94 x10^6/uL (3.50-5.40); RED CELL DISTRIBUTION WIDTH 17.6 % (11.5-14.5); WHITE BLOOD COUNT 5.8 x10^3/uL (4.0-11.0)
[2017-08-31] MEDS: IPRATRPIUM/ALBUTEROL 0.5/2.5MG 3 ML NEBU. NEB ×2 (07:28→19:53)
[2017-08-31] MEDS: PANTOPRAZOLE 40 MG TABLET.DR. PO (07:38)
[2017-08-31 07:59] LABS: NT-PRO BNP 1088 pg/mL (0-449)
[2017-08-31 08:45] LABS: ALBUMIN 2.3 g/dL (3.4-5.0); ALBUMIN/GLOBULIN RATIO 0.7 (1.0-1.7); ALK PHOS 118 U/L (46-116); ALT (SGPT) 7 U/L (14-59); ANION GAP 9 (6-14); AST (SGOT) 14 U/L (15-37); BLOOD UREA NITROGEN 6 mg/dL (7-20); BUN/CREATININE RATIO 5 (6-20); CALCIUM 8.8 mg/dL (8.5-10.1); CARBON DIOXIDE 26 mmol/L (21-32); CHLORIDE 108 mmol/L (98-107); CREATININE 1.2 mg/dL (0.6-1.0); GFR 52.6; GLUCOSE 101 mg/dL (70-99); POTASSIUM 3.5 mmol/L (3.5-5.1); SODIUM 143 mmol/L (136-145); TOTAL BILIRUBIN 0.3 mg/dL (0.2-1.0); TOTAL PROTEIN 5.5 g/dL (6.4-8.2)
[2017-08-31] MEDS: ISOSORBIDE MONONITRATE ER 30 MG TAB.ER.24H PO (09:00)
[2017-08-31] MEDS: GABAPENTIN 300 MG CAPSULE. PO ×3 (10:19→22:26)
[2017-08-31] MEDS: ASPIRIN CHEWABLE 81 MG TABLET. PO (10:20)
[2017-08-31] MEDS: FOLIC ACID 1 MG TABLET. PO (10:20)
[2017-08-31] MEDS: amLODIPine BESYLATE 10 MG TABLET PO (10:20)
[2017-08-31] MEDS: LACTOBACILLUS RHAMNOSUS GG 1 CAPSULE. PO ×2 (10:20→22:26)
[2017-08-31] MEDS: OMEGA-3 FATTY ACIDS/FISH OIL 1,000 MG CAPSULE. PO ×3 (10:20→22:26)
[2017-08-31] MEDS: CLOPIDOGREL BISULFATE 75 MG TABLET PO (10:20)
[2017-08-31] MEDS: CHOLECALCIFEROL (VITAMIN D3) 1,000 UNIT TABLET PO (10:20)
[2017-08-31] MEDS: FERROUS SULFATE 325 MG TABLET. PO (10:20)
[2017-08-31] MEDS: ALLOPURINOL 300 MG TABLET. PO (10:20)
[2017-08-31] MEDS: SODIUM BICARBONATE 650 MG TABLET. PO ×4 (10:21→22:26)
[2017-08-31] MEDS: METOPROLOL TART IMMED RELEASE 50 MG TABLET. PO ×2 (10:21→22:27)
[2017-08-31] MEDS: fentaNYL PF VIAL 100 MCG/2 ML VIAL IV ×2 (11:04→22:29)
[2017-08-31] MEDS: HYDROcodone/APAP 5/325MG 1 TAB TABLET PO (17:24)
[2017-08-31] MEDS: DOCUSATE SODIUM 100 MG CAPSULE. PO (21:00)
[2017-08-31] MEDS: traZODone 50 MG TABLET. PO (22:26)
[2017-08-31] MEDS: ATORVASTATIN CALCIUM 20 MG TABLET PO (22:26)
[2017-08-31] MEDS: ENOXAPARIN 40 MG/0.4 ML SYRINGE. SQ (22:28)
[2017-09-01] MEDS: PIPERACILLIN/TAZOBACTAM 3.375 GM in IV NORMAL SALINE 50ML 50 ML IV ×4 (00:39→18:10)
[2017-09-01] MEDS: HYDROcodone/APAP 5/325MG 1 TAB TABLET PO ×2 (06:09→21:18)
[2017-09-01] MEDS: PANTOPRAZOLE 40 MG TABLET.DR. PO (06:09)
[2017-09-01 06:50] LABS: ALBUMIN 2.3 g/dL (3.4-5.0); ALBUMIN/GLOBULIN RATIO 0.6 (1.0-1.7); ALK PHOS 111 U/L (46-116); ALT (SGPT) 12 U/L (14-59); ANION GAP 10 (6-14); AST (SGOT) 14 U/L (15-37); BLOOD UREA NITROGEN 6 mg/dL (7-20); BUN/CREATININE RATIO 6 (6-20); CALCIUM 8.8 mg/dL (8.5-10.1); CARBON DIOXIDE 23 mmol/L (21-32); CHLORIDE 108 mmol/L (98-107); GFR 64.9; GLUCOSE 106 mg/dL (70-99); POTASSIUM 3.5 mmol/L (3.5-5.1); SODIUM 141 mmol/L (136-145); TOTAL BILIRUBIN 0.3 mg/dL (0.2-1.0); TOTAL PROTEIN 6.2 g/dL (6.4-8.2)
[2017-09-01 06:56] LABS: HEMATOCRIT 29.9 % (36.0-47.0); HEMOGLOBIN 10.2 g/dL (12.0-15.5); MEAN CORPUSCULAR HEMOGLOBIN 34 pg (25-35); MEAN CORPUSCULAR HGB CONC 34 g/dL (31-37); MEAN CORPUSCULAR VOLUME 100 fL (79-100); PLATELET COUNT 210 x10^3/uL (140-400); RED CELL DISTRIBUTION WIDTH 17.3 % (11.5-14.5); WHITE BLOOD COUNT 6.7 x10^3/uL (4.0-11.0)
[2017-09-01] MEDS: IPRATRPIUM/ALBUTEROL 0.5/2.5MG 3 ML NEBU. NEB ×2 (07:17→19:22)
[2017-09-01] MEDS: LACTOBACILLUS RHAMNOSUS GG 1 CAPSULE. PO ×2 (08:48→21:18)
[2017-09-01] MEDS: GABAPENTIN 300 MG CAPSULE. PO ×3 (08:48→21:19)
[2017-09-01] MEDS: CLOPIDOGREL BISULFATE 75 MG TABLET PO (08:48)
[2017-09-01] MEDS: ALLOPURINOL 300 MG TABLET. PO (08:49)
[2017-09-01] MEDS: amLODIPine BESYLATE 10 MG TABLET PO (08:49)
[2017-09-01] MEDS: FERROUS SULFATE 325 MG TABLET. PO (08:50)
[2017-09-01] MEDS: CHOLECALCIFEROL (VITAMIN D3) 1,000 UNIT TABLET PO (08:50)
[2017-09-01] MEDS: FOLIC ACID 1 MG TABLET. PO (08:50)
[2017-09-01] MEDS: ASPIRIN CHEWABLE 81 MG TABLET. PO (08:50)
[2017-09-01] MEDS: ONDANSETRON PF 4 MG/2 ML VIAL. IV (08:50)
[2017-09-01] MEDS: SODIUM BICARBONATE 650 MG TABLET. PO ×4 (08:50→21:18)
[2017-09-01] MEDS: OMEGA-3 FATTY ACIDS/FISH OIL 1,000 MG CAPSULE. PO ×3 (08:50→21:18)
[2017-09-01] MEDS: METOPROLOL TART IMMED RELEASE 50 MG TABLET. PO ×2 (08:51→21:20)
[2017-09-01] MEDS: ISOSORBIDE MONONITRATE ER 30 MG TAB.ER.24H PO (08:51)
[2017-09-01] MEDS: DICYCLOMINE HCL 10 MG CAPSULE PO ×2 (12:05→19:30)
[2017-09-01] MEDS: POTASSIUM CL 40MEQ D5-0.45NACL 1,000 ML IV (12:06)
[2017-09-01] MEDS: PROCHLORPERAZINE 10 MG/2 ML VIAL. IV (12:13)
[2017-09-01] MEDS: DOCUSATE SODIUM 100 MG CAPSULE. PO (21:00)
[2017-09-01] MEDS: ATORVASTATIN CALCIUM 20 MG TABLET PO (21:18)
[2017-09-01] MEDS: traZODone 50 MG TABLET. PO (21:18)
[2017-09-01] MEDS: ENOXAPARIN 40 MG/0.4 ML SYRINGE. SQ (21:20)
[2017-09-02] MEDS: PIPERACILLIN/TAZOBACTAM 3.375 GM in IV NORMAL SALINE 50ML 50 ML IV ×2 (00:12→05:57)
[2017-09-02] MEDS: POTASSIUM CL 40MEQ D5-0.45NACL 1,000 ML IV ×2 (04:36→17:11)
[2017-09-02] MEDS: HYDROcodone/APAP 5/325MG 1 TAB TABLET PO ×3 (04:42→17:23)
[2017-09-02] MEDS: PANTOPRAZOLE 40 MG TABLET.DR. PO (06:11)
[2017-09-02] MEDS: DICYCLOMINE HCL 10 MG CAPSULE PO ×3 (06:11→21:03)
[2017-09-02 06:51] LABS: HEMATOCRIT 28.7 % (36.0-47.0); HEMOGLOBIN 9.5 g/dL (12.0-15.5); MEAN CORPUSCULAR HEMOGLOBIN 33 pg (25-35); MEAN CORPUSCULAR HGB CONC 33 g/dL (31-37); MEAN CORPUSCULAR VOLUME 100 fL (79-100); PLATELET COUNT 196 x10^3/uL (140-400); RED BLOOD COUNT 2.88 x10^6/uL (3.50-5.40); RED CELL DISTRIBUTION WIDTH 17.3 % (11.5-14.5); WHITE BLOOD COUNT 7.1 x10^3/uL (4.0-11.0)
[2017-09-02] MEDS: IPRATRPIUM/ALBUTEROL 0.5/2.5MG 3 ML NEBU. NEB ×2 (07:01→21:00)
[2017-09-02 07:24] LABS: ALBUMIN 2.2 g/dL (3.4-5.0); ALBUMIN/GLOBULIN RATIO 0.6 (1.0-1.7); ALK PHOS 100 U/L (46-116); ALT (SGPT) 13 U/L (14-59); ANION GAP 9 (6-14); AST (SGOT) 15 U/L (15-37); BLOOD UREA NITROGEN 5 mg/dL (7-20); BUN/CREATININE RATIO 4 (6-20); CALCIUM 8.7 mg/dL (8.5-10.1); CARBON DIOXIDE 24 mmol/L (21-32); CHLORIDE 108 mmol/L (98-107); CREATININE 1.2 mg/dL (0.6-1.0); GFR 52.6; GLUCOSE 99 mg/dL (70-99); POTASSIUM 4.1 mmol/L (3.5-5.1); SODIUM 141 mmol/L (136-145); TOTAL BILIRUBIN 0.3 mg/dL (0.2-1.0)
[2017-09-02] MEDS: FERROUS SULFATE 325 MG TABLET. PO (08:13)
[2017-09-02] MEDS: CHOLECALCIFEROL (VITAMIN D3) 1,000 UNIT TABLET PO (08:13)
[2017-09-02] MEDS: SODIUM BICARBONATE 650 MG TABLET. PO ×4 (08:13→21:01)
[2017-09-02] MEDS: FOLIC ACID 1 MG TABLET. PO (08:13)
[2017-09-02] MEDS: amLODIPine BESYLATE 10 MG TABLET PO (08:14)
[2017-09-02] MEDS: GABAPENTIN 300 MG CAPSULE. PO ×3 (08:15→21:02)
[2017-09-02] MEDS: OMEGA-3 FATTY ACIDS/FISH OIL 1,000 MG CAPSULE. PO ×3 (08:15→21:02)
[2017-09-02] MEDS: METOPROLOL TART IMMED RELEASE 50 MG TABLET. PO ×2 (08:16→21:03)
[2017-09-02] MEDS: CLOPIDOGREL BISULFATE 75 MG TABLET PO (08:17)
[2017-09-02] MEDS: ALLOPURINOL 300 MG TABLET. PO (08:17)
[2017-09-02] MEDS: LACTOBACILLUS RHAMNOSUS GG 1 CAPSULE. PO ×2 (08:17→21:02)
[2017-09-02] MEDS: ISOSORBIDE MONONITRATE ER 30 MG TAB.ER.24H PO (08:18)
[2017-09-02] MEDS: ASPIRIN CHEWABLE 81 MG TABLET. PO (08:20)
[2017-09-02 09:07] LABS: SEDIMENTATION RATE 53 (0-25)
[2017-09-02 11:53] LABS: LIPASE 385 U/L (73-393)
[2017-09-02] MEDS: AMOXICILLIN/K CLAV 875/125MG TABLET. PO ×2 (12:51→21:02)
[2017-09-02 16:27] LABS: INR 1.1 (0.8-1.1); PROTHROMBIN TIME PATIENT 13.6 SEC (11.7-14.0)
[2017-09-02 16:28] LABS: PARTIAL THROMBOPLASTIN TIME 31 SEC (24-38)
[2017-09-02] MEDS: ENOXAPARIN 40 MG/0.4 ML SYRINGE. SQ (20:36)
[2017-09-02] MEDS: DOCUSATE SODIUM 100 MG CAPSULE. PO (21:00)
[2017-09-02] MEDS: traZODone 50 MG TABLET. PO (21:02)
[2017-09-02] MEDS: ATORVASTATIN CALCIUM 20 MG TABLET PO (21:03)
[2017-09-03] MEDS: POTASSIUM CL 40MEQ D5-0.45NACL 1,000 ML IV ×2 (06:09→17:06)
[2017-09-03 06:24] LABS: ADD MAN DIFF? NO
[2017-09-03 06:28] LABS: BASO # 0.1 x10^3/uL (0.0-0.2); BASO % 1 % (0-3); EOS # 0.3 x10^3/uL (0.0-0.7); EOS % 4 % (0-3); HEMATOCRIT 29.5 % (36.0-47.0); HEMOGLOBIN 9.9 g/dL (12.0-15.5); LYMPH # 1.1 x10^3/uL (1.0-4.8); LYMPH % 13 % (24-48); MEAN CORPUSCULAR HEMOGLOBIN 34 pg (25-35); MEAN CORPUSCULAR HGB CONC 34 g/dL (31-37); MEAN CORPUSCULAR VOLUME 100 fL (79-100); MONO # 0.4 x10^3/uL (0.0-1.1); MONO % 5 % (0-9); NEUT # 6.7 x10^3uL (1.8-7.7); NEUT % 78 % (31-73); PLATELET COUNT 206 x10^3/uL (140-400); RED BLOOD COUNT 2.96 x10^6/uL (3.50-5.40); RED CELL DISTRIBUTION WIDTH 16.9 % (11.5-14.5); WHITE BLOOD COUNT 8.5 x10^3/uL (4.0-11.0)
[2017-09-03 06:46] LABS: ANION GAP 7 (6-14); BLOOD UREA NITROGEN 8 mg/dL (7-20); CALCIUM 9.4 mg/dL (8.5-10.1); CARBON DIOXIDE 25 mmol/L (21-32); CHLORIDE 107 mmol/L (98-107); GFR 64.9; GLUCOSE 112 mg/dL (70-99); SODIUM 139 mmol/L (136-145)
[2017-09-03] MEDS: IPRATRPIUM/ALBUTEROL 0.5/2.5MG 3 ML NEBU. NEB ×2 (07:19→19:21)
[2017-09-03] MEDS: fentaNYL PF VIAL 100 MCG/2 ML VIAL IV ×2 (07:54→10:34)
[2017-09-03] MEDS: ISOSORBIDE MONONITRATE ER 30 MG TAB.ER.24H PO (07:55)
[2017-09-03] MEDS: amLODIPine BESYLATE 10 MG TABLET PO (07:55)
[2017-09-03] MEDS: METOPROLOL TART IMMED RELEASE 50 MG TABLET. PO ×2 (07:55→20:53)
[2017-09-03] MEDS: GABAPENTIN 300 MG CAPSULE. PO ×3 (09:00→20:52)
[2017-09-03] MEDS: SODIUM BICARBONATE 650 MG TABLET. PO ×4 (09:00→20:52)
[2017-09-03] MEDS: OMEGA-3 FATTY ACIDS/FISH OIL 1,000 MG CAPSULE. PO ×3 (09:00→20:52)
[2017-09-03] MEDS ORDERED: LIDOCAINE WITH 8.4% SOD BICARB 3 ML DISP.SYRIN. (11:13)
[2017-09-03] MEDS: LIDOCAINE WITH 8.4% SOD BICARB 3 ML DISP.SYRIN. INJ (11:25)
[2017-09-03] MEDS: CLOPIDOGREL BISULFATE 75 MG TABLET PO (12:56)
[2017-09-03] MEDS: LACTOBACILLUS RHAMNOSUS GG 1 CAPSULE. PO ×2 (12:56→20:51)
[2017-09-03] MEDS: AMOXICILLIN/K CLAV 875/125MG TABLET. PO ×2 (12:56→20:51)
[2017-09-03] MEDS: CHOLECALCIFEROL (VITAMIN D3) 1,000 UNIT TABLET PO (12:57)
[2017-09-03] MEDS: FOLIC ACID 1 MG TABLET. PO (12:57)
[2017-09-03] MEDS: ASPIRIN CHEWABLE 81 MG TABLET. PO (12:57)
[2017-09-03] MEDS: HYDROcodone/APAP 5/325MG 1 TAB TABLET PO (12:57)
[2017-09-03] MEDS: ALLOPURINOL 300 MG TABLET. PO (12:57)
[2017-09-03] MEDS: PANTOPRAZOLE 40 MG TABLET.DR. PO (12:57)
[2017-09-03] MEDS: FERROUS SULFATE 325 MG TABLET. PO (12:57)
[2017-09-03] MEDS: traZODone 50 MG TABLET. PO (20:51)
[2017-09-03] MEDS: ATORVASTATIN CALCIUM 20 MG TABLET PO (20:52)
[2017-09-03] MEDS: DOCUSATE SODIUM 100 MG CAPSULE. PO (20:53)
[2017-09-03] MEDS: ENOXAPARIN 40 MG/0.4 ML SYRINGE. SQ (20:54)
[2017-09-04 05:34] LABS: ADD MAN DIFF? NO
[2017-09-04] MEDS: POTASSIUM CL 40MEQ D5-0.45NACL 1,000 ML IV ×2 (05:40→22:34)
[2017-09-04] MEDS: PANTOPRAZOLE 40 MG TABLET.DR. PO (05:40)
[2017-09-04 05:43] LABS: BASO % 1 % (0-3); EOS # 0.3 x10^3/uL (0.0-0.7); EOS % 4 % (0-3); HEMATOCRIT 30.4 % (36.0-47.0); HEMOGLOBIN 10.2 g/dL (12.0-15.5); LYMPH # 1.2 x10^3/uL (1.0-4.8); LYMPH % 18 % (24-48); MEAN CORPUSCULAR HEMOGLOBIN 34 pg (25-35); MEAN CORPUSCULAR HGB CONC 34 g/dL (31-37); MEAN CORPUSCULAR VOLUME 99 fL (79-100); MONO # 0.4 x10^3/uL (0.0-1.1); MONO % 6 % (0-9); NEUT # 4.9 x10^3uL (1.8-7.7); NEUT % 71 % (31-73); PLATELET COUNT 213 x10^3/uL (140-400); RED BLOOD COUNT 3.06 x10^6/uL (3.50-5.40); RED CELL DISTRIBUTION WIDTH 16.7 % (11.5-14.5); WHITE BLOOD COUNT 6.8 x10^3/uL (4.0-11.0)
[2017-09-04 06:00] LABS: ANION GAP 9 (6-14); BLOOD UREA NITROGEN 6 mg/dL (7-20); CALCIUM 9.4 mg/dL (8.5-10.1); CARBON DIOXIDE 26 mmol/L (21-32); CHLORIDE 105 mmol/L (98-107); GFR 64.9; GLUCOSE 104 mg/dL (70-99); SODIUM 140 mmol/L (136-145)
[2017-09-04] MEDS: IPRATRPIUM/ALBUTEROL 0.5/2.5MG 3 ML NEBU. NEB ×2 (09:00→20:06)
[2017-09-04] MEDS: AMOXICILLIN/K CLAV 875/125MG TABLET. PO ×2 (09:01→22:27)
[2017-09-04] MEDS: FOLIC ACID 1 MG TABLET. PO (09:01)
[2017-09-04] MEDS: OMEGA-3 FATTY ACIDS/FISH OIL 1,000 MG CAPSULE. PO ×3 (09:01→22:27)
[2017-09-04] MEDS: CHOLECALCIFEROL (VITAMIN D3) 1,000 UNIT TABLET PO (09:01)
[2017-09-04] MEDS: ALLOPURINOL 300 MG TABLET. PO (09:01)
[2017-09-04] MEDS: LACTOBACILLUS RHAMNOSUS GG 1 CAPSULE. PO ×2 (09:01→22:27)
[2017-09-04] MEDS: SODIUM BICARBONATE 650 MG TABLET. PO ×4 (09:01→22:29)
[2017-09-04] MEDS: GABAPENTIN 300 MG CAPSULE. PO ×3 (09:01→22:27)
[2017-09-04] MEDS: amLODIPine BESYLATE 10 MG TABLET PO (09:02)
[2017-09-04] MEDS: CLOPIDOGREL BISULFATE 75 MG TABLET PO (09:02)
[2017-09-04] MEDS: ASPIRIN CHEWABLE 81 MG TABLET. PO (09:02)
[2017-09-04] MEDS: ISOSORBIDE MONONITRATE ER 30 MG TAB.ER.24H PO (09:02)
[2017-09-04] MEDS: FERROUS SULFATE 325 MG TABLET. PO (09:02)
[2017-09-04] MEDS: METOPROLOL TART IMMED RELEASE 50 MG TABLET. PO ×2 (09:03→22:28)
[2017-09-04] MEDS: DICYCLOMINE HCL 10 MG CAPSULE PO (10:38)
[2017-09-04] MEDS: CALCIUM CARBONATE 500 MG TAB.CHEW PO (10:38)
[2017-09-04] MEDS: HYDROcodone/APAP 5/325MG 1 TAB TABLET PO (10:38)
[2017-09-04] MEDS: METOCLOPRAMIDE 5 MG TABLET. PO (17:45)
[2017-09-04] MEDS: DOCUSATE SODIUM 100 MG CAPSULE. PO (21:00)
[2017-09-04] MEDS: traZODone 50 MG TABLET. PO (22:26)
[2017-09-04] MEDS: ATORVASTATIN CALCIUM 20 MG TABLET PO (22:27)
[2017-09-04] MEDS: ENOXAPARIN 40 MG/0.4 ML SYRINGE. SQ (22:29)
[2017-09-05 04:36] LABS: ADD MAN DIFF? NO
[2017-09-05 04:43] LABS: BASO % 1 % (0-3); EOS # 0.3 x10^3/uL (0.0-0.7); EOS % 4 % (0-3); HEMATOCRIT 33.3 % (36.0-47.0); HEMOGLOBIN 11.3 g/dL (12.0-15.5); LYMPH # 1.3 x10^3/uL (1.0-4.8); LYMPH % 18 % (24-48); MEAN CORPUSCULAR HEMOGLOBIN 34 pg (25-35); MEAN CORPUSCULAR HGB CONC 34 g/dL (31-37); MEAN CORPUSCULAR VOLUME 99 fL (79-100); MONO # 0.4 x10^3/uL (0.0-1.1); MONO % 6 % (0-9); NEUT # 4.9 x10^3uL (1.8-7.7); NEUT % 71 % (31-73); PLATELET COUNT 206 x10^3/uL (140-400); RED BLOOD COUNT 3.38 x10^6/uL (3.50-5.40); RED CELL DISTRIBUTION WIDTH 17.2 % (11.5-14.5); WHITE BLOOD COUNT 6.9 x10^3/uL (4.0-11.0)
[2017-09-05] MEDS: IPRATRPIUM/ALBUTEROL 0.5/2.5MG 3 ML NEBU. NEB (08:01)
[2017-09-05] MEDS: SODIUM BICARBONATE 650 MG TABLET. PO ×2 (09:05→12:43)
[2017-09-05] MEDS: ALLOPURINOL 300 MG TABLET. PO (09:05)
[2017-09-05] MEDS: FOLIC ACID 1 MG TABLET. PO (09:05)
[2017-09-05] MEDS: AMOXICILLIN/K CLAV 875/125MG TABLET. PO (09:05)
[2017-09-05] MEDS: FERROUS SULFATE 325 MG TABLET. PO (09:05)
[2017-09-05] MEDS: CLOPIDOGREL BISULFATE 75 MG TABLET PO (09:05)
[2017-09-05] MEDS: ASPIRIN CHEWABLE 81 MG TABLET. PO (09:05)
[2017-09-05] MEDS: PANTOPRAZOLE 40 MG TABLET.DR. PO (09:05)
[2017-09-05] MEDS: OMEGA-3 FATTY ACIDS/FISH OIL 1,000 MG CAPSULE. PO (09:05)
[2017-09-05] MEDS: CHOLECALCIFEROL (VITAMIN D3) 1,000 UNIT TABLET PO (09:05)
[2017-09-05] MEDS: LACTOBACILLUS RHAMNOSUS GG 1 CAPSULE. PO (09:05)
[2017-09-05] MEDS: GABAPENTIN 300 MG CAPSULE. PO (09:05)
[2017-09-05] MEDS: amLODIPine BESYLATE 10 MG TABLET PO (09:06)
[2017-09-05] MEDS: METOPROLOL TART IMMED RELEASE 50 MG TABLET. PO (09:06)
[2017-09-05] MEDS: ISOSORBIDE MONONITRATE ER 30 MG TAB.ER.24H PO (09:06)
[2017-09-05 09:56] LABS: ANION GAP 8 (6-14); BLOOD UREA NITROGEN 7 mg/dL (7-20); CALCIUM 9.6 mg/dL (8.5-10.1); CARBON DIOXIDE 26 mmol/L (21-32); CHLORIDE 105 mmol/L (98-107); CREATININE 1.1 mg/dL (0.6-1.0); GFR 58.1; GLUCOSE 99 mg/dL (70-99); POTASSIUM 4.1 mmol/L (3.5-5.1); SODIUM 139 mmol/L (136-145)
[2017-09-05] MEDS: POTASSIUM CL 40MEQ D5-0.45NACL 1,000 ML IV (10:10)
[2017-09-05] MEDS: METOCLOPRAMIDE 5 MG TABLET. PO (12:43)
== END 2017-09-05 13:00 | disposition home or self-care (01) | DRG 919 ==
LOC: ER 15:28 → 4 NORTH 18:05
PROC: 0DB68ZX Excision of Stomach, Via Natural or Artificial Opening Endoscopic, Diagnostic (ICD-10-PCS; principal; 2017-08-30 15:00)
PROC: 0DJD8ZZ Inspection of Lower Intestinal Tract, Via Natural or Artificial Opening Endoscopic (ICD-10-PCS; 2017-08-30 15:00)
PROC: 0W9F3ZZ Drainage of Abdominal Wall, Percutaneous Approach (ICD-10-PCS; 2017-08-30 15:26)
DX: K91.872 Postprocedural seroma of a digestive system organ or structure following a digestive system procedure (principal); K85.90 Acute pancreatitis without necrosis or infection, unspecified; I13.0 Hypertensive heart and chronic kidney disease with heart failure and stage 1 through stage 4 chronic kidney disease, or unspecified chronic kidney disease; R65.10 Systemic inflammatory response syndrome (SIRS) of non-infectious origin without acute organ dysfunction; I50.9 Heart failure, unspecified; K29.60 Other gastritis without bleeding; J44.9 Chronic obstructive pulmonary disease, unspecified; N18.3 Chronic kidney disease, stage 3 (moderate); R00.1 Bradycardia, unspecified; E78.5 Hyperlipidemia, unspecified; E66.9 Obesity, unspecified; F40.240 Claustrophobia; G89.18 Other acute postprocedural pain; I25.10 Atherosclerotic heart disease of native coronary artery without angina pectoris; I73.9 Peripheral vascular disease, unspecified; K21.0 Gastro-esophageal reflux disease with esophagitis; K57.90 Diverticulosis of intestine, part unspecified, without perforation or abscess without bleeding; G89.29 Other chronic pain; M19.90 Unspecified osteoarthritis, unspecified site; K64.8 Other hemorrhoids; K63.5 Polyp of colon; M10.9 Gout, unspecified; Z96.612 Presence of left artificial shoulder joint; D72.829 Elevated white blood cell count, unspecified; Z96.653 Presence of artificial knee joint, bilateral; Z82.49 Family history of ischemic heart disease and other diseases of the circulatory system; Z86.010 Personal history of colon polyps; Z86.19 Personal history of other infectious and parasitic diseases; Z90.49 Acquired absence of other specified parts of digestive tract; Z90.710 Acquired absence of both cervix and uterus; Z95.0 Presence of cardiac pacemaker; Z95.1 Presence of aortocoronary bypass graft; Z68.39 Body mass index [BMI] 39.0-39.9, adult; Z88.0 Allergy status to penicillin; Z88.8 Allergy status to other drugs, medicaments and biological substances; Z88.6 Allergy status to analgesic agent; Z88.1 Allergy status to other antibiotic agents; Z91.040 Latex allergy status
CPT/HCPCS: 10022; 36415; 36569; 36600; 45378; 74176; 74181; 76942; 80048; 80053; 81001; 82150; 82805; 83605; 83690; 83880; 84484; 85025; 85027; 85610; 85651; 85730; 86850; 86900; 86901; 87071; 87075; 87102; 87205; 87324; 88305; 88342; 93005; 94640; 94760; 96361; 96374; 96375; 96376; 97161-GP; 97165-GO; 97168; 97535-GO; 99285; 99285-25; C1892; G0500; J0780; J1200; J1650; J2060; J2250; J2405; J2543; J3010; J3480; J7030; J7042; J7120; J7620; J8597; S0028

== ENCOUNTER → 2017-12-19 | Outpatient (CLI) | payer BC ==
[2017-09-05 11:32] VITALS: BP 152/57
[~2017-12-19] MED LIST: ACET500T68 PO; ALBU2.5V14 NEB; ALLO100T PO; AMLO10TA2 PO; AMLO5TAB2 PO; ASPI-482 PO; ASPI-630 PO; ASPI325T11 PO; ASPI325T8 PO; BACL10TA PO; CA C1TAB28 PO; CALC0.25 PO; CEFP200T PO; CLOP75TA PO; CRESTOR20 MG PO; DOCU-109 PO; ESZO3TAB28 PO; FISH OIL OMEGA1 EACH PO; FOLI0.4T2 PO; FURO40TA4 PO; GABA600T2 PO; GLUC1CAP48 PO; HYDR-2758 PO; IRON1TAB30 PO; ISOS30TA4 PO; L. R1CAP2 PO; LACT1CAP19 PO; LACT1CAP21 PO; LOSA50TA6 PO; METO50TA6 PO; NITR0.4T SL; OMEG1CAP PO; PANT40TA5 PO; POLY17PO29 PO; POTA20TA82 PO; PRAV80TA PO; PROVENTIL HFA6.7 GM IH; SODI650T PO; TIOT18CA IH; TRAZ-85 PO
--- NOTE | 2017-12-19 09:49 | CARD ---
MR#: [id number] Date of Study: 12/19/2017 Ordering Physician: DOREEN AIKEN, Referring Physician: DOREEN AIKEN Tech: COLIN Thompson APPROVED REPORT EXAM: Two-dimensional and M-mode echocardiogram with Doppler and color Doppler. Other Information Quality : AverageHR: 64bpm INDICATION Cardiac Disease: CAD RISK FACTORS Obesity 2D DIMENSIONS Left Atrium(2D)3.4 (1.6-4.0cm)IVSd1.4 (0.7-1.1cm) Aortic Root(2D)2.7 (2.0-3.7cm)LVDd5.2 (3.9-5.9cm) LVOT Diameter2.0 (1.8-2.4cm)PWd1.3 (0.7-1.1cm) LVDs3.4 (2.5-4.0cm)FS (%) 33.9 % SV79.3 mlLVEF(%)62.4 (>50%) Aortic Valve AoV Peak Kiet.153.5cm/sAoV VTI36.5cm AO Peak GR.9.4mmHgLVOT Peak Kiet.78.6cm/s LVOT VTI 21.40cmAO Mean GR.5mmHg ALEXANDRA (VMAX)1.14lc8OGM (VTI)1.85cm2 AI P 1/2 Ygyu911qk Mitral Valve MV E Ybzdkzvz89.8cm/sMV E Peak Gr.106mmHg MV DECEL [id number] A Szyxdmds75.3cm/s MV HBS77lmG/A Ratio1.0 MVA (PHT)2.91cm2 TDI E/Lateral E'6.3E/Medial E'11.0 Pulmonary Valve PV Peak Zppfjgbq38.1cm/sPV Peak Grad.4mmHg Tricuspid Valve TR P. Vqpgeyqo811iw/sTR Peak Gr.35mmHg Pulmonary Vein S1 Vmaknkhs83.4cm/sD2 Uxvfgcge04.6cm/s LEFT VENTRICLE The left ventricle is normal size. There is mild concentric left ventricular hypertrophy. The left ve ntricular systolic function is mildly decreased. EF 45-50%. Septal motion suggestive of conduction de fect. Otherwise, mild global hypokinesis. Tissue Doppler imaging reveals moderate left ventricular di astolic dysfunction. RIGHT VENTRICLE The right ventricle is mildly dilated. The right ventricular systolic function is normal. ATRIA The left atrium size is normal. The right atrium size is normal. The interatrial septum is intact wit h no evidence for an atrial septal defect or patent foramen ovale as noted on 2-D or Doppler imaging. AORTIC VALVE The aortic valve is mildly calcified. Doppler and Color Flow revealed moderate aortic regurgitation. There is no significant aortic valvular stenosis. There is no aortic valvular vegetation. MITRAL VALVE The mitral valve leaflets are calcified. There is no evidence of mitral valve prolapse. There is no m itral valve stenosis. Doppler and Color-flow revealed moderate mitral regurgitation. TRICUSPID VALVE The tricuspid valve leaflets are thickened , but open well. Doppler and Color Flow revealed moderate to severe tricuspid regurgitation. There is no tricuspid valve prolapse or vegetation. There is no tr icuspid valve stenosis. PULMONIC VALVE The pulmonic valve is not well visualized. Doppler and Color Flow revealed mild pulmonic valvular reg urgitation. There is no pulmonic valvular stenosis. GREAT VESSELS The aortic root is normal size. The aortic root displays mild sclerocalcific changes of the aortic ro ot. The IVC is dilated and collapses <50% with inspiration. PERICARDIAL EFFUSION There is no pleural effusion. There is no evidence of significant pericardial effusion. Critical Notification Critical Value: No <Conclusion> The left ventricular systolic function is normal and the ejection fraction is within normal range. Th e Ejection Fraction is 50-55%. The left ventricular systolic function is mildly decreased. EF 45-50%. Septal motion suggestive of conduction defect. Otherwise, mild global hypokinesis. Doppler and Color Flow revealed moderate aortic regurgitation. Doppler and Color Flow revealed moderate to severe tricuspid regurgitation. RVSP 60 mm Hg. Signed by : Renzo Velez, Electronically Approved : 12/19/2017 09:49:19
== END | disposition home or self-care (01) ==
LOC: ECHO 07:06
PROVIDERS: ATTEND Internal Medicine Cardiovascular Disease
DX: I08.2 Rheumatic disorders of both aortic and tricuspid valves (principal); I13.0 Hypertensive heart and chronic kidney disease with heart failure and stage 1 through stage 4 chronic kidney disease, or unspecified chronic kidney disease; I50.9 Heart failure, unspecified; E11.22 Type 2 diabetes mellitus with diabetic chronic kidney disease; N18.3 Chronic kidney disease, stage 3 (moderate); E78.5 Hyperlipidemia, unspecified; E78.00 Pure hypercholesterolemia, unspecified; I73.9 Peripheral vascular disease, unspecified; D64.9 Anemia, unspecified; J44.9 Chronic obstructive pulmonary disease, unspecified; K21.9 Gastro-esophageal reflux disease without esophagitis; I25.10 Atherosclerotic heart disease of native coronary artery without angina pectoris; Z79.899 Other long term (current) drug therapy; Z82.49 Family history of ischemic heart disease and other diseases of the circulatory system; Z86.2 Personal history of diseases of the blood and blood-forming organs and certain disorders involving the immune mechanism; Z98.61 Coronary angioplasty status; Z87.440 Personal history of urinary (tract) infections; Z86.711 Personal history of pulmonary embolism; Z86.718 Personal history of other venous thrombosis and embolism; Z86.19 Personal history of other infectious and parasitic diseases; Z87.891 Personal history of nicotine dependence; Z86.010 Personal history of colon polyps; Z88.0 Allergy status to penicillin; Z88.1 Allergy status to other antibiotic agents; Z88.8 Allergy status to other drugs, medicaments and biological substances; Z88.6 Allergy status to analgesic agent; Z72.0 Tobacco use
CPT/HCPCS: 93306

== ENCOUNTER → 2018-02-26 | Outpatient (CLI) | payer BC ==
[2017-09-05 11:32] VITALS: BP 152/57
[~2018-02-26] MED LIST changes: -AMLO10TA2 PO; +AMLO10TA6 PO; -AMLO5TAB2 PO; +AMLO5TAB7 PO; -LOSA50TA6 PO; +LOSA50TA7 PO
--- NOTE | 2018-02-26 10:37 | RAD ---
DATE: 02/26/2018 EXAM: MAMMO PILI SCREENING BILATERAL HISTORY: Routine screening COMPARISON: 03/07/2015 This study was interpreted with the benefit of Computerized Aided Detection (CAD). Breast Density: HETERO The breast parenchyma is heterogenously dense, which could reduce sensitivity of mammography. Breast parenchyma level C. FINDINGS: 2-D and 3-D tomosynthesis imaging was performed in CC and MLO projections. A spiculated mass has developed just medial to the midline of the right breast as best seen on CC pili image #31. The central dense component measures measures at least 2 cm with more extensive peripheral spiculations. There are new pleomorphic microcalcifications related to this mass, spread over a distance of nearly 3 cm. 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 No new or enlarging breast density is seen on the left. There are additional scattered benign type calcifications in both breasts. IMPRESSION: New spiculated mass in the right breast highly suspicious for malignancy. Sonographic evaluation is suggested. BI-RADS CATEGORY: 0 INCOMPLETE: NEEDS ADDITIONAL IMAGING EVALUATION AND/OR PRIOR MAMMOGRAMS FOR COMPARISON. RECOMMENDED FOLLOW-UP: ADD ADDITIONAL IMAGING PQRS compliance statement: Patient information was entered into a reminder system with a target due date for the next mammogram. Mammography is a sensitive method for finding small breast cancers, but it does not detect them all and is not a substitute for careful clinical examination. A negative mammogram does not negate a clinically suspicious finding and should not result in delay in biopsying a clinically suspicious abnormality. "Our facility is accredited by the [employer] Mammography Program."
== END | disposition home or self-care (01) ==
LOC: MAMMO 08:11
PROVIDERS: ATTEND Family Medicine
DX: Z12.31 Encounter for screening mammogram for malignant neoplasm of breast (principal); N63.41 Unspecified lump in right breast, subareolar
CPT/HCPCS: 77063; 77067

== ENCOUNTER → 2018-03-05 | Outpatient (CLI) | payer BC ==
[2017-09-05 11:32] VITALS: BP 152/57
--- NOTE | 2018-03-05 14:42 | RAD ---
Right breast ultrasound, 03/05/2018: History: Right breast mass A targeted ultrasound exam was performed medially in the right breast. At the 4:00 location approximately 5 cm from the nipple there is an irregular hypoechoic mass with extensive posterior shadowing. This corresponds in location to the mammographic abnormality. This process is difficult to accurately measure due to the shadowing, however, it measures at least 1.6 cm in width. The findings are highly suspicious for malignancy. Also in the right breast at the 6:00 location approximately 1 cm from the nipple there is an 8 x 7 x 6 mm hypoechoic nodule. Its margins are smooth with a sharp posterior wall. There are low level internal echoes. No internal color flow is seen. This is probably a complicated cyst. IMPRESSION: 1. Right breast mass, highly suspicious for malignancy. Ultrasound-guided biopsy is suggested for further evaluation. 2. Additional, probably benign right breast nodule. Sonographic surveillance of this nodule is suggested, if clinically indicated. Note: The findings were discussed with the patient at the time of the exam and she understands the recommendation for biopsy of the dominant mass. She will follow-up with Dr. Talbert. BI-RADS 5-highly suspicious of malignancy
== END | disposition home or self-care (01) ==
LOC: US 13:52
PROVIDERS: ATTEND Family Medicine
DX: N63.10 Unspecified lump in the right breast, unspecified quadrant (principal); R92.8 Other abnormal and inconclusive findings on diagnostic imaging of breast
CPT/HCPCS: 76641

== ENCOUNTER → 2018-09-08 | Outpatient (CLI) | payer BC ==
[2017-09-05 11:32] VITALS: BP 152/57
[~2018-09-08] MED LIST changes: +ALBU2.5V8 IH; -AMLO10TA6 PO; +AMLO10TA8 PO; +AMLO5TAB10 PO; -AMLO5TAB7 PO; -GABA600T2 PO; +GABA600T7 PO; -HYDR-2758 PO; +HYDR-2761 PO; +LOSA-73 PO; -LOSA50TA7 PO; -PROVENTIL HFA6.7 GM IH; +TRAZ-118 PO; -TRAZ-85 PO
--- NOTE | 2018-09-08 15:27 | RAD ---
MR#: [id number] Date of Study: 09/08/2018 Ordering Physician: DOREEN AIKEN, Referring Physician: DOREEN AIKEN, Tech: CHRISTINA Jay, RDMS, RTR APPROVED REPORT Patient Location : OUT-PATIENT Indications Lower Extremity Pain : Bilateral Lower Extremity Edema : Bilateral History of DVT HTN, DE, HX OF DVT AND PE, PATIENT ON BLOOD THINNERS, HX OF RT GSV ABLATION 2014 Risk Factors Obesity Past History Compression Stockings : Findings The right great saphenous vein measures approximately 10 mm and has a reflux time of less than one se cond. The vein appears to be previously ablated in the proximal segment. There is a large anterior ac cessory saphenous vein which he does not reveal any evidence of reflux. The left great saphenous vein measures approximately 9.1 mm and has a reflux time of less than one second. The right groin has a incidental lymph node measuring approximate 2.1 x 0.6 x 1.3 cm. Correlate for a ny clinical history of inflammatory disease or malignancy. The bilateral small saphenous veins are negative for reflux. Critical Notification Critical Value: No <Conclusion> 1. Negative for reflux in the bilateral greater and lesser saphenous veins. Right great saphenous vei n previously ablated. 2. Incidental lymph node as noted above. Signed by : Renzo Velez, Electronically Approved : 09/08/2018 15:27:28
== END | disposition home or self-care (01) ==
LOC: US 08:51
PROVIDERS: ATTEND Internal Medicine Cardiovascular Disease
DX: I87.2 Venous insufficiency (chronic) (peripheral) (principal); I10 Essential (primary) hypertension; I25.2 Old myocardial infarction; E66.9 Obesity, unspecified; Z86.718 Personal history of other venous thrombosis and embolism
CPT/HCPCS: 93970

== ENCOUNTER → 2018-12-15 | Outpatient (CLI) | payer BC ==
[2017-09-05 11:32] VITALS: BP 152/57
[~2018-12-15] MED LIST changes: -PANT40TA5 PO; +PANT40TA77 PO
[2018-12-15 09:26] LABS: CREATININE 1.4 mg/dL (0.6-1.0); GFR 43.8
--- NOTE | 2018-12-15 13:09 | RAD ---
PQRS Compliance statement: One or more of the following individualized dose reduction techniques were utilized for this examination: 1. Automated exposure control. 2. Adjustment of the mA and/or kV according to patient size. 3. Use of iterative reconstruction technique. Indication:Left upper quadrant abdominal pain. TECHNIQUE: CT abdomen and pelvis without IV contrast with multiplanar reformats. COMPARISON: 08/27/2017. FINDINGS: Limited evaluation of solid abdominal and pelvic organs due to lack of IV contrast. Heart is normal in size. No pericardial or pleural effusion. Small sliding hiatal hernia. Partially visualized are pacemaker leads in the right heart. Clear lung bases. Noncontrast appearance of the liver, spleen, pancreas, adrenals within normal limits. Stable partially exophytic low attenuating lesion in the right upper pole most likely a simple cyst. Stable patchy areas of low-attenuation lesion in the posterior left kidney measuring 2.1 cm most likely simple cyst. No free pelvic fluid or ascites. Small bilateral fat-containing inguinal hernia. No enlarged retroperitoneal or pelvic adenopathy. Infrarenal IVC filter noted. Intra-abdominal wall hernia repair. Scattered colonic diverticulosis. No bowel obstruction. Right lower quadrant anterolateral abdominal wall defect is seen with herniation of focal loop of small bowel with the defect approximately measuring 3.4 cm. Urinary bladder is decompressed however shows no radiopaque stone. Status post hysterectomy. No suspicious bony lesion. 2.1 x 1.6 x 2.2 cm loculated fluid collection in the subumbilical anterior abdominal wall, previously 2.7 x 1.8 x 3.0 cm. IMPRESSION: Limited evaluation of solid abdominal and pelvic organs due to lack of IV contrast. 1. Incidental findings as described above. 2. Slight decrease in the size of Supra umbilical deep anterior abdominal wall fluid collection likely complicated seroma. Electronically signed by: Dominguez Rosas DO (12/15/2018 1:06 PM) [facility]
== END | disposition home or self-care (01) ==
LOC: CT 08:50
PROVIDERS: ATTEND Family Medicine
DX: K44.9 Diaphragmatic hernia without obstruction or gangrene (principal); K40.90 Unilateral inguinal hernia, without obstruction or gangrene, not specified as recurrent; K57.30 Diverticulosis of large intestine without perforation or abscess without bleeding; N28.9 Disorder of kidney and ureter, unspecified; J44.9 Chronic obstructive pulmonary disease, unspecified; I25.10 Atherosclerotic heart disease of native coronary artery without angina pectoris; I50.9 Heart failure, unspecified; I10 Essential (primary) hypertension; Z87.891 Personal history of nicotine dependence; Z90.710 Acquired absence of both cervix and uterus; Z95.0 Presence of cardiac pacemaker; Z91.041 Radiographic dye allergy status; Z87.448 Personal history of other diseases of urinary system
CPT/HCPCS: 36415; 74176; 82565; 84520

== ENCOUNTER 2019-01-05 08:26 | Outpatient (CLI) | payer BC ==
[2019-01-05] VITALS (11 sets, daily range): BP systolic 145–176; BP diastolic 55–73
[~2019-01-05] VITALS: Ht 165.1 cm; Wt 93.4 kg
--- NOTE | 2019-01-05 08:55 | RAD ---
PQRS Compliance statement: One or more of the following individualized dose reduction techniques were utilized for this examination: 1. Automated exposure control. 2. Adjustment of the mA and/or kV according to patient size. 3. Use of iterative reconstruction technique. Indication:Dizziness. TECHNIQUE: CT head without IV contrast COMPARISON: 08/14/2009 FINDINGS: No pathologic extra-axial or intra-axial fluid collection. The ventricles and basal cisterns are within normal limits. No acute intracranial bleed. Visualized orbits within normal limits. No suspicious calvarial lesion. Visualized paranasal sinuses and mastoid air cells are clear. Mild atherosclerotic plaque in the bilateral cavernous segments of the ICA. IMPRESSION: No acute intracranial process on this noncontrast CT. If concern for acute ischemic stroke is high, please consider MRI brain. Electronically signed by: Dominguez Rosas DO (01/05/2019 8:52 AM) [facility]
[2019-01-05] MEDS ORDERED: methylPREDNISolone SOD SUCC PF 125 MG/2 ML VIAL. IV ONE (09:00)
[2019-01-05] MEDS ORDERED: diphenhydrAMINE 50 MG/ML VIAL IVP ONE (09:00)
[2019-01-05] MEDS ORDERED: FAMOTIDINE 20 MG/2 ML VIAL IVP ONE (09:00)
[2019-01-05 09:31] LABS: HEMATOCRIT 35.7 % (36.0-47.0); RED BLOOD COUNT 3.73 x10^6/uL (3.50-5.40); RED CELL DISTRIBUTION WIDTH 16.1 % (11.5-14.5)
[2019-01-05 09:38] LABS: CALCIUM 10.2 mg/dL (8.5-10.1); CREATININE 1.3 mg/dL (0.6-1.0); GFR 47.7; POTASSIUM 4.2 mmol/L (3.5-5.1)
[2019-01-05 09:40] LABS: PROTHROMBIN TIME PATIENT 12.6 SEC (11.7-14.0)
[2019-01-05] MEDS ORDERED: diphenhydrAMINE 50 MG/ML VIAL ONE (10:46)
[2019-01-05] MEDS ORDERED: methylPREDNISolone SOD SUCC PF 125 MG/2 ML VIAL. ONE (10:46)
[2019-01-05] MEDS ORDERED: FAMOTIDINE 20 MG/2 ML VIAL ONE (10:46)
[2019-01-05] MEDS ORDERED: IODIXANOL 320 MG/ML 100 ML VIAL. ONE (10:56)
[2019-01-05] MEDS ORDERED: LIDOCAINE 1% PF 2 ML VIAL. ONE (10:58)
[2019-01-05] MEDS ORDERED: MIDAZOLAM HCL/PF 2 MG/2 ML VIAL. ONE (11:27)
[2019-01-05] MEDS ORDERED: LIDOCAINE 1% Multi-Dose 20 ML VIAL. ONE (11:27)
[2019-01-05] MEDS ORDERED: fentaNYL PF VIAL 100 MCG/2 ML VIAL ONE (11:27)
[2019-01-05] MEDS ORDERED: LIDOCAINE 1% Multi-Dose 20 ML VIAL. INJ ONE (12:00)
[2019-01-05] MEDS ORDERED: MIDAZOLAM HCL/PF 2 MG/2 ML VIAL. IV ONE (12:00)
[2019-01-05] MEDS ORDERED: IODIXANOL 320 MG/ML 100 ML VIAL. IART ONE (12:00)
[2019-01-05] MEDS ORDERED: fentaNYL PF VIAL 100 MCG/2 ML VIAL IV ONE (12:00)
[2019-01-05] MEDS ORDERED: IV 1/2 NORMAL SALINE 1,000 ML IV SCH (12:20)
--- NOTE | 2019-01-05 12:20 | PDOC ---
MODERATE SEDATION ASSESSMENT RISKS/ALTERNATIVES Risks/Alternatives Risks and alternatives of this type of sedation and procedure discussed with: RISK/ALTERNATIVES: Patient H & P ON CHART H & P H & P on chart and reviewed for co-morbid conditions and appropriate labs. H&P ON CHART: Yes STATUS PREG STATUS ASSESSED: N/A MEDS/ALLERGIES REVIEWED Meds/Allergies Reviewed Medications and Allergies including time and route of recently administered narcotics and sedatives. MEDS/ALLERGIES REVIEWED: Yes ASA RATING ASA RATING: II AIRWAY ASSESSMENT Airway Assessment Airway patency, oral function limitations, presence of caps, crowns, dentures, partials, and ability to extend neck assessed. AIRWAY ASSESSMENT: Yes MALLAMPATI SCORE MALLAMPATI SCORE: II PRE-SEDATION ASSESSMENT PRE-SEDATION ASSESSMENT: Yes DOREEN AIKEN MD Jan 05, 2019 12:20
[2019-01-05] MEDS ORDERED: NITROGLYCERIN SUBLINGUAL 0.4 MG BOTTLE OF 25. SL PRN (12:30)
[2019-01-05] MEDS ORDERED: 0.9 % SODIUM CHLORIDE 10 ML DISP.SYRIN. IV PRN (12:30)
--- NOTE | 2019-01-05 12:34 | CARD ---
MR#: [id number] Date of Study: 01/05/2019 Ordering Physician: DOREEN AIKEN, Referring Physician: DOREEN AIKEN Tech: ART KENNEDY RTR APPROVED REPORT Technologist: ART KENNEDY RTR Nurse: Michelle Green R.N. Procedure(s) performed: Right and left heart catheterization, selective coronary and bypass graft angiography and left ventri culography MODERATE SEDATION: 45 MINUTES FLUORO TIME: 8.3 MIN DOSE:61.7 GYCM2 CONTRAST:106 INDICATION The indication(s) include : Dyspnea on exertion concerning for unstable angina. CSHA Clinical Frailty Scale CSHA Clinical Frailty Scale: Managing Well Heart Failure Heart Failure: No PROCEDURE NARRATIVE After explaining the risks, benefits and alternative options, informed consent was obtained from [place] ent. Patient was brought to the cardiac Financial Reporting Accountant and her right groin was prepped and draped in the us ual fashion. 20 mL of 2% lidocaine was infiltrated into the skin and subcutaneous tissues for local a nesthesia. Arterial and venous accesses were obtained in the right common femoral artery and vein res pectively and 6 and 8 [place] sheaths inserted. A 7.5 [place]-Bal[place]it catheter was then advanced unde r fluoroscopy guidance and intracardiac pressures, oxygen saturations and cardiac output by thermodil ution method measured. 6 [place] JL4 and 6 [place] JR4 catheters placed to perform selective angiograph y of the left and right coronary arteries. The 6 [place] JR4 catheter was then used to perform selecti ve angiography of the subclavian artery and the left internal mammary artery graft to the left anteri or descending artery. Finally, 6 [place] pigtail catheter was used to perform left ventriculography. P atient tolerated the procedure well. Hemostasis was achieved using Angio-Seal and manual compression. There were no immediate complications. FINDINGS A. RIGHT HEART CATHETERIZATION: 1. Intracardiac pressures: Mean right atrial pressure 12 mmHg, right ventricular pressure 40/9 mmHg , probably artery pressure 41/18 mmHg with mean PA pressure 26 mmHg and mean pulmonary capillary wedg e pressure 13 mmHg. Mild pulmonary hypertension. 2. Oxygen saturations: Right atrium 62.3%, coronary artery 64.1%, femoral artery sheath 93.7%. No e vidence of intracardiac shunt. 3. Cardiac output by thermodilution method 4.3 L/m. B. LEFT HEART CATHETERIZATION: 1. Hemodynamics: Left ventricle end-diastolic pressure 15 mmHg. No pullback gradient across the aor tic valve. 2. Left ventriculography: Normal left ventricle systolic function with ejection fraction estimated at 55%. No significant mitral regurgitation seen. 3. Coronary and bypass graft angiography: a. The left main coronary artery arose from the left sinus of Valsalva, gave rise to the left anteri or descending and left circumflex arteries and showed a widely patent stent extending into left circu mflex artery. b. The left anterior descending artery showed 100% chronic total occlusion in the proximal segment. There is distal reconstitution of the diagonal branch via left to left collaterals. c. The left circumflex artery was a large and dominant vessel that showed a widely patent stent exte nding from the left main coronary artery into the proximal segment. Also seen was a patent stent in t he midsegment extending into a large first obtuse marginal branch. The stent in the proximal segment of the second obtuse marginal branch is patent as well. d. The right coronary artery was a nondominant vessel arising from the right sinus of Valsalva that showed patent stent in the proximal segment. e. The left internal mammary artery graft to the left anterior descending artery is widely patent. D istal to the anastomosis the [place] left anterior descending artery did not show any significant sten osis. The subclavian artery did not show any significant stenosis. Conclusion 1. Coronary artery disease s/p CABG with subsequent PCI with patent LORENZO to LAD, patent previously p laced stents in LMCA/LCx/OM/RCA without any lesions needing intervention. 2. Normal left ventricle systolic function with ejection fraction estimated at 55% 3. Mild pulmonary hypertension. No evidence of intracardiac shunt. Recommendations Continue medical management for coronary artery disease and refer to pulmonary team to rule out COPD as a cause of for refractory dyspnea. Signed by : Doreen Aiken, Electronically Approved : 01/05/2019 12:33:31
== END 2019-01-05 14:41 ==
LOC: CT 08:26
PROVIDERS: ATTEND Internal Medicine Cardiovascular Disease
DX: I25.700 Atherosclerosis of coronary artery bypass graft(s), unspecified, with unstable angina pectoris (principal); I27.20 Pulmonary hypertension, unspecified; M10.9 Gout, unspecified; K21.9 Gastro-esophageal reflux disease without esophagitis; Z79.82 Long term (current) use of aspirin; Z95.1 Presence of aortocoronary bypass graft; Z98.61 Coronary angioplasty status; Z95.0 Presence of cardiac pacemaker; Z90.710 Acquired absence of both cervix and uterus; Z96.652 Presence of left artificial knee joint; Z90.49 Acquired absence of other specified parts of digestive tract; Z96.651 Presence of right artificial knee joint; Z87.891 Personal history of nicotine dependence; Z88.5 Allergy status to narcotic agent; Z88.8 Allergy status to other drugs, medicaments and biological substances; Z91.041 Radiographic dye allergy status
CPT/HCPCS: 36415; 70450; 80048; 85027; 85610; 93461; 99152; 99153; C1760; C1769; C1773; C1892; J1200; J1644; J2250; J2930; J3010; J3490; Q9967; G0269; C1771

== ENCOUNTER → 2019-03-10 | Outpatient (CLI) | payer BC ==
[2019-01-05 14:23] VITALS: BP 154/68
[~2019-03-10] MED LIST changes: -ALBU2.5V8 IH; -NITR0.4T SL; +NITR0.4T24 SL; +PROVENTIL HFA6.7 GM IH; +ZOLPIDEM 5 MG TABLET. PO ONE
--- NOTE | 2019-03-11 18:02 | SLEEP ---
DATE OF STUDY: SLEEP STUDY ATTENDING PHYSICIAN: Britany Talbert MD REFERRING PHYSICIAN: Junito Hollis MD The patient is an 78-year-old who weighs 219 pounds with a BMI of 36. The patient's [place] score was 10. The patient had an abnormal nocturnal oximetry study as an outpatient. As a result, she was referred for sleep study performed at [facility]. During the night study, the patient spent 427 minutes in bed and slept for 276 minutes with a low sleep efficiency of 65%. Sleep latency was prolonged at 96 minutes with a REM latency of 34 minutes, which was short. Sleep architecture showed increased stage 1 and stage 2 sleep, normal slow wave and normal REM sleep. During the initial diagnostic portion of the study, the patient slept for 81 minutes. During that time, there were 14 obstructive apneas, 73 mixed apneas, no central apneas and 16 hypopneas. The patient's apnea-hypopnea index was 76 per hour. Supine sleep was not observed during the diagnostic portion. REM AHI of 77 per hour. EKG monitoring revealed normal sinus rhythm, average heart rate 71 beats per minute. Nocturnal oximetry study revealed an average oxygen saturation of 96% with the lowest of 82%. A 23% of time oxygen saturation remained between 80% and 89%. EKG monitoring revealed mean heart rate of 71 beats per minute, no arrhythmias observed. PLMS were seen at index of 36 per hour and 2 per hour caused EEG arousals. The patient met the criteria for CPAP initiation. It was started at 5 cm water and titrated all the way up to 20 cm water. At the final pressure, the patient slept for 38.5 minutes including supine sleep, but no REM sleep. The patient's AHI overall did improve, but was still 11 per hour. Oxygen saturation remained above 93%. The patient used small size full face mask. Optimum CPAP pressure was not achieved. I would recommend that the patient should return for a BiPAP titration study. Alternatively auto BiPAP can be considered. IMPRESSION: 1. Severe sleep apnea-hypopnea syndrome at an AHI of 76 per hour. 2. Nocturnal hypoxia, secondary to obstructive sleep apnea, but resolved with CPAP. 3. Moderate periodic limb movements. RECOMMENDATIONS: 1. Although, there was significant improvement of the patient's sleep apnea with CPAP; however, at a maximum pressure of 20 cm water, the patient's AHI was still 11 per hour. I would recommend the patient should return to the sleep lab for BiPAP titration study. Alternatively, the patient can be placed on auto BiPAP with a maximum IPAP pressure of 20 and a minimum EPAP pressure of 12 with pressure support of 4. The patient would need a download data in next 30 days to make sure AHI remains less than 5 per hour. 2. Once the patient is optimally treated, then follow up in 4-6 weeks to assess compliance with treatment and to document clinical improvement. 3. Weight loss is strongly advised. 4. Avoid AUDIT DIRECTOR depressants. 5. Cautioned regarding driving until symptoms of sleep apnea have resolved with the above recommendations. 6. The patient should also be further evaluated for symptoms of restless legs during the day. DICK JI MD DR: ROMMEL/natalie JOB#: [id number] / [id number] BRITANY Batista MD, VENKAT MD REISZ, GEORGE MD
== END | disposition home or self-care (01) ==
LOC: RT 19:11
PROVIDERS: ATTEND Internal Medicine Pulmonary Disease
DX: G47.33 Obstructive sleep apnea (adult) (pediatric) (principal); R09.02 Hypoxemia
CPT/HCPCS: 95810

== ENCOUNTER → 2019-07-07 | Outpatient (CLI) | payer BC ==
[2019-01-05 14:23] VITALS: BP 154/68
[~2019-07-07] MED LIST changes: +POTA20TA4 PO; -POTA20TA82 PO; -ZOLPIDEM 5 MG TABLET. PO ONE
--- NOTE | 2019-07-07 13:19 | RAD ---
MR#: [id number] Date of Study: 07/07/2019 Ordering Physician: DOREEN AIKEN, Referring Physician: DOREEN AIKEN, Tech: CHRISTINA Jay, RDMA, t APPROVED REPORT Patient Location : OUT-PATIENT Indications Lower Extremity Pain : Bilateral Risk Factors Obesity Past History DVT : Vein Stripping : Right GSV Pulmonary Embolism Findings Grayscale images of the bilateral saphenofemoral junctions, greater and lesser saphenous veins are gr ossly unremarkable. Spectral waveforms, color Doppler imaging does not reveal any obvious evidence of reflux. Critical Notification Critical Value: No <Conclusion> Negative for reflux in the bilateral greater and lesser saphenous veins Signed by : Renzo Velez, Electronically Approved : 07/07/2019 13:19:39
== END ==
LOC: US 12:00
PROVIDERS: ATTEND Internal Medicine Cardiovascular Disease
DX: I87.2 Venous insufficiency (chronic) (peripheral) (principal); M79.606 Pain in leg, unspecified
CPT/HCPCS: 93970

== ENCOUNTER → 2019-09-30 | Outpatient (CLI) | payer BC ==
[2019-01-05 14:23] VITALS: BP 154/68
--- NOTE | 2019-09-30 09:22 | CARD ---
MR#: [id number] Date of Study: 09/30/2019 Ordering Physician: DOREEN AIKEN, Referring Physician: DOREEN AIKEN Tech: Sarah Jaime RDCS APPROVED REPORT EXAM: Two-dimensional and M-mode echocardiogram with Doppler and color Doppler. Other Information Quality : Good INDICATION Cardiac Disease: CAD Pacemaker Surgery/Intervention CABG: Date: 12/03/2006 2D DIMENSIONS RVDd3.6 (2.9-3.5cm)Left Atrium(2D)4.3 (1.6-4.0cm) IVSd1.6 (0.7-1.1cm)Aortic Root(2D)2.9 (2.0-3.7cm) LVDd4.4 (3.9-5.9cm)LVOT Diameter2.1 (1.8-2.4cm) PWd1.0 (0.7-1.1cm)LVDs3.5 (2.5-4.0cm) FS (%) 20.1 %SV36.3 ml LVEF(%)41.4 (>50%) Aortic Valve AoV Peak Kiet.98.6cm/sAoV VTI22.4cm AO Peak GR.3.9mmHgLVOT Peak Kiet.93.7cm/s AO Mean GR.2mmHgAVA (VMAX)3.40cm2 ALEXANDRA (VTI)3.42fc8EI P 1/2 [id number] Tricuspid Valve TR P. Uhfoumrs717vc/sRAP KLMFFBPL7okRp TR Peak Gr.69buJjOIEX37acEa Pulmonary Vein S1 Ghpunmca87.2cm/sD2 Kdgwcdfh32.5cm/s LEFT VENTRICLE The left ventricle is normal size. There is mild concentric left ventricular hypertrophy. Left ventri cynthia systolic function is mildly impaired. The Ejection Fraction is 40-45%. Apical motion consistent w ith pacemaker activation. Septum is akinetic. [place] is moderately hypokinetic. Remainder of the LV is mildly globally hypokinetic. Transmitral Doppler flow pattern is Grade I-abnormal relaxation pattern. No left ventricle thrombus noted on this study. RIGHT VENTRICLE The right ventricle is mildly to moderately dilated. The right ventricular systolic function is darwin l. There is a pacemaker lead in the right ventricle. ATRIA The left atrium is mildly dilated. The right atrium is mildly dilated. A pacemaker is seen in the rig ht atrium consistent with history. The interatrial septum is intact with no evidence for an atrial se ptal defect or patent foramen ovale as noted on 2-D or Doppler imaging. AORTIC VALVE The aortic valve is moderately thickened but opens well. Doppler and Color Flow revealed mild aortic regurgitation. There is no significant aortic valvular stenosis. MITRAL VALVE The mitral valve is calcified but opens well. There is no evidence of mitral valve prolapse. There is no mitral valve stenosis. Doppler and Color-flow revealed mild mitral regurgitation. TRICUSPID VALVE The tricuspid valve is normal in structure and function. Doppler and Color Flow revealed moderate to severe tricuspid regurgitation. The PA pressure was estimated at 31 mmHg. There is no tricuspid valve stenosis. PULMONIC VALVE The pulmonic valve is not well visualized. Doppler and Color Flow revealed mild to moderate pulmonic valvular regurgitation. There is no pulmonic valvular stenosis. GREAT VESSELS The aortic root is normal in size. The ascending aorta is normal in size. The IVC is normal in size a nd collapses >50% with inspiration. PERICARDIAL EFFUSION There is no evidence of significant pericardial effusion. Critical Notification Critical Value: No <Conclusion> Left ventricle systolic function is mildly impaired. The Ejection Fraction is 40-45%. Apical motion consistent with pacemaker activation. Septum is akinetic. [place] is moderately hypokineti c. Remainder of the LV is mildly globally hypokinetic. The right ventricle is mildly to moderately dilated. There is a pacemaker lead in the right ventricle. Doppler and Color Flow revealed mild aortic regurgitation. Doppler and Color Flow revealed moderate to severe tricuspid regurgitation. The PA pressure was estim ated at 31 mmHg. Signed by : Renzo Velez, Electronically Approved : 09/30/2019 09:21:51
== END ==
LOC: ECHO 07:59
PROVIDERS: ATTEND Internal Medicine Cardiovascular Disease
DX: I08.8 Other rheumatic multiple valve diseases (principal); I25.10 Atherosclerotic heart disease of native coronary artery without angina pectoris
CPT/HCPCS: 93306

== ENCOUNTER 2019-12-20 03:47 | Inpatient (IN) | payer BC ==
[~2019-12-20] VITALS: Ht 175.3 cm; Wt 98.9 kg
[2019-12-20 04:11] LABS: BASO % 1 % (0-3); EOS # 0.1 x10^3/uL (0.0-0.7); EOS % 1 % (0-3); HEMATOCRIT 33.5 % (36.0-47.0); HEMOGLOBIN 11.1 g/dL (12.0-15.5); LYMPH # 1.4 x10^3/uL (1.0-4.8); LYMPH % 16 % (24-48); MEAN CORPUSCULAR HEMOGLOBIN 33 pg (25-35); MEAN CORPUSCULAR HGB CONC 33 g/dL (31-37); MEAN CORPUSCULAR VOLUME 99 fL (79-100); MONO # 0.7 x10^3/uL (0.0-1.1); MONO % 9 % (0-9); NEUT # 6.5 x10^3/uL (1.8-7.7); NEUT % 75 % (31-73); PLATELET COUNT 190 x10^3/uL (140-400); RED BLOOD COUNT 3.38 x10^6/uL (3.50-5.40); RED CELL DISTRIBUTION WIDTH 17.2 % (11.5-14.5); WHITE BLOOD COUNT 8.7 x10^3/uL (4.0-11.0)
[2019-12-20 04:54] LABS: CALCIUM 9.6 mg/dL (8.5-10.1); GFR 18.1; POTASSIUM 4.4 mmol/L (3.5-5.1)
[2019-12-20 05:00] LABS: ALBUMIN 3.3 g/dL (3.4-5.0); ALBUMIN/GLOBULIN RATIO 0.8 (1.0-1.7); C-REACTIVE PROTEIN 15.8 mg/L (0-3.3); TOTAL BILIRUBIN 0.6 mg/dL (0.2-1.0); TOTAL PROTEIN 7.7 g/dL (6.4-8.2)
[2019-12-20] MEDS ORDERED: FUROSEMIDE 40 MG/4 ML VIAL. IVP ONE (06:00)
--- NOTE | 2019-12-20 07:15 | RAD ---
Study: CR CHEST AP ONLY Indication: Cough. Chest pain. Comparison: 08/18/2017 Findings: The cardiomediastinal silhouette is enlarged. Status post median sternotomy. Dual-lead left chest wall pacer. Increased interstitial markings. No large effusion. No pneumothorax or dense consolidation. Operative changes at the left shoulder and advanced degenerative changes at the right shoulder. Impression: Enlargement of the cardiomediastinal silhouette and increased interstitial markings could indicate volume overload with interstitial edema. An atypical infectious process, as queried, cannot be excluded based off the results of this study alone. Electronically signed by: AVILA CONTEH MD (12/20/2019 7:12 AM) [id number]
[2019-12-20 08:50] VITALS: BP 128/61
--- NOTE | 2019-12-20 09:25 | PDOC1 ---
History and Physical Date of Admission Date of Admission DATE: 12/20/19 TIME: 09:21 Identification/Chief Complaint Chief Complaint Shortness of breath Source Source: Patient History of Present Illness History of Present Illness Ms Gonzalez is an 79yo F w/ PMHx CHF, HLD, HTN, CAD s/p CABG, s/p PPM who presents to the emergency department from home via her own private vehicle with complaint of chest pain, cough x2 days. She also notes significant bilateral lower extremity leg edema that is been worsening over the past 2 weeks. She advises me that she did have a negative COVID-19 test approximately 3 weeks ago. She notes over the past couple of days she has progressive dyspnea on exertion, first with entering her home to walking to the bedroom a few days ago, now when she awoke before coming to ED she was too short of breath to walk to the bathroom. The chest pain associated is dull pressure and resolves with rest. when it persisted she took a nitroglycerin and this resolved the pain. CXR appears to show enlargement of the cardiomediastinal silhouette and increased interstitial markings as well as dual lead pacer and sternotomy in place. EKG appears irregular at around 60 beats a minutes no visible P waves consistent with atrial fibrillation, nonspecific intraventricular block. Labs significant for WBC of 8.7, Hb 11.1, platelets 190, NA 138, K4.4, BUN 38, CR 3, glucose 113, CRP 15.8, BNP 6514, d-dimer 2.80, troponin 0. Due to concern for COVID-19 with abnormal chest x-ray and cough ED physician ordered swab for COVID-19 and she was admitted to COVID-19 unit and is seen there today. With elevated d-dimer ED physician suggested VQ scan however ventilation portions are not performed during the coronavirus pandemic. Also patient is on Eliquis twice daily and she has been compliant with this. Upon evaluation she is notably having some white frothy sputum and IV dose of 40 mg of Lasix was given with large urine output and some relief of her symptoms. She notes her rf manager is Dr. Sanchez and he recently started her on a new medication that starts with an M (Pharmacy confirms this is 400mg Multaq), and her morals squad police officer is Dr. Conley and she has good follow-up with both physicians. Past Medical History Cardiovascular: CAD, HTN, Hyperlipidemia, Other Pulmonary: COPD CENTRAL NERVOUS SYSTEM: Periperal neuropathy, Other GI: GERD Heme/Onc: No pertinent hx Hepatobiliary: No pertinent hx Psych: No pertinent hx Musculoskeletal: Osteoarthritis Rheumatologic: Gout Infectious disease: No pertinent hx Renal/: Chronic renal insuff, Other Endocrine: No pertinent hx Past Surgical History Past Surgical History: Pacemaker, Cholecystectomy, CABG, Total knee replacement, Hysterectomy, Colectomy, Other Family History Family History: Coronary Artery Disease Social History Smoke: No ALCOHOL: none Drugs: None Current Medications Current Medications Current Medications Furosemide (Lasix) 40 mg 1X ONCE IVP Last administered on 12/20/19at 05:58; Start 12/20/19 at 06:00; Stop 12/20/19 at 06:01; Status DC Active Scripts Active Isosorbide Mononitrate Er (Isosorbide Mononitrate) 30 Mg Tab.er.24h 30 Mg PO DAILY Metoprolol Tartrate 50 Mg Tablet 50 Mg PO BID Aspirin 81 Mg Tab.chew 1 Tab PO DAILY Clopidogrel (Clopidogrel Bisulfate) 75 Mg Tablet 75 Mg PO DAILYWBKFT 30 Days Reported Amlodipine Besylate 10 Mg Tablet 10 Mg PO DAILY Pravachol (Pravastatin Sodium) 80 Mg Tablet 80 Mg PO DAILY Acetaminophen 500 Mg Tablet 1 Tab PO BID PRN Hydrocodone-Apap 5-325 (Hydrocodone Bit/Acetaminophen) 1 Each Tablet 1 Tab PO PRN Q6HRS PRN Glucosamine & Chondroitin Cap (Gluc 2KCL/Chondr/Dereck Hy/Hy Ac) 1 Each Capsule 1 Each PO BID Furosemide 40 Mg Tablet 40 Mg PO DAILY Vitamin D3 1,000 Unit Tablet (Ca Cmb No.1/Vit D3/B-6/Fa/B12) 1 Each Tablet 1 Each PO DAILY Folic Acid 0.4 Mg Tablet 0.4 Mg PO DAILY Pantoprazole Sodium (Pantoprazole Sodium) 40 Mg Tablet.dr 40 Mg PO DAILY Allopurinol 100 Mg Tablet 300 Mg PO DAILY Iron 100 Plus Tablet (Iron,Carbonyl/Vit C/Vit B12/Fa) 1 Each Tablet 1 Each PO HS Potassium Chloride 20 Meq Tablet.er 20 Meq PO DAILY Gabapentin 600 Mg Tablet 600 Mg PO TID Fish Ppu-Prstq-0-Vit D Softgel ([place]-3S/Dha/Epa/Fish Oil/D3) 1 Each Capsule 1 Each PO TID Allergies Allergies: Coded Allergies: Iodinated Contrast Media (Verified Allergy, Severe, Anaphylaxis, 08/27/17) celecoxib (Verified Allergy, Severe, Palpitations, 08/27/17) Tolerates aspirin latex (Verified Allergy, Intermediate, Hives, 08/27/17) meperidine HCl (Verified Adverse Reaction, Intermediate, Swelling, 08/28/17) Tolerates fentanyl ROS General: YES: Fatigue, Malaise; No: Chills, Night Sweats, Appetite, Other PSYCHOLOGICAL ROS: No: Anxiety, Behavioral Disorder, Concentration difficultie, Decreased libido, Depression, Disorientation, Hallucinations, Hostility, Irritablity, Memory difficulties, Mood Swings, Obsessive thoughts, Physical abuse, Sexual abuse, Sleep disturbances, Suicidal ideation, Other Eyes: No Blurry vision, No Decreased vision, No Double vision, No Dry eyes, No Excessive tearing, No Eye Pain, No Itchy Eyes, No Loss of vision, No Photophobia, No Scotomata, No Uses contacts, No Uses glasses, No Other HEENT: No: Heacaches, Visual Changes, Hearing change, Nasal congestion, Nasal discharge, Oral lesions, Sinus pain, Sore Throat, Epistaxis, Sneezing, Snoring, Tinnitus, Vertigo, Vocal changes, Other ALLERGY AND IMMUNOLOGY: No: Hives, Insect Bite Sensitivity, Itchy/Watery Eyes, Nasal Congestion, Post Nasal Drip, Seasonal Allergies, Other Hematological and Lymphatic: No: Bleeding Problems, Blood Clots, Blood Transfusions, Brusing, Night Sweats, Pallor, Swollen Lymph Nodes, Other ENDOCRINE: No: Breast Changes, Galactorrhea, Hair Pattern Changes, Hot Flashes, Malaise/lethargy, Mood Swings, Palpitations, Polydipsia/polyuria, Skin Changes, Temperature Intolerance, Unexpected Weight Changes, Other Breast: No New/Changing Breast Lumps, No Nipple changes, No Nipple discharge, No Other Respiratory: YES: Cough, Orthopnea, Shortness of breath, SOB with excertion; No: Hemoptysis, Pleuritic Pain, Sputum Changes, Stridor, Tachypnea, Wheezing, Other Cardiovascular: yes Chest Pain, yes Orthopnea, yes Paroxysmal Noc. Dyspnea, yes Edema; No Palpitations, No Lt Headedness, No Other Gastrointestinal: No Nausea, No Vomiting, No Abdominal Pain, No Diarrhea, No Constipation, No Melena, No Hematochezia, No Other Genitourinary: No Dysuria, No Frequency, No Incontinence, No Hematuria, No Retention, No Discharge, No Urgency, No Pain, No Flank Pain, No Other, No , No , No , No , No , No , No Musculoskeletal: No Gait Disturbance, No Joint Pain, No Joint Stiffness, No Joint Swelling, No Muscle Pain, No Muscular Weakness, No Pain In:, No Swelling In:, No Other Neurological: No Behavorial Changes, No Bowel/Bladder ControlChng, No Confusion, No Dizziness, No Gait Disturbance, No Headaches, No Impaired Coord/balance, No Memory Loss, No Numbness/Tingling, No Seizures, No Speech Problems, No Tremors, No Visual Changes, No Weakness, No Other Skin: No Dry Skin, No Eczema, No Hair Changes, No Lumps, No Mole Changes, No Mottling, No Nail Changes, No Pruritus, No Rash, No Skin Lesion Changes, No Other, No Acne Physical Exam General: Alert, Oriented X3, Cooperative, mild distress HEENT: Atraumatic, PERRLA, EOMI, Mucous membr. moist/pink Lungs: Other (BIbasilar crackles) Heart: S1S2, irregularly irregular Abdomen: Normal bowel sounds, Soft, No tenderness, No hepatosplenomegaly, No masses Rectal Exam: not examined Extremities: No clubbing, No cyanosis, Normal pulses, No tenderness/swelling, Other (2+ edema) Skin: No rashes, No breakdown, No significant lesion Neuro: Normal gait, Normal speech, Strength at 5/5 X4 ext, Normal tone, Sensation intact, Cranial nerves 3-12 NL, Reflexes 2+ Psych/Mental Status: Mental status NL, Mood NL Vitals Vitals Vital Signs Date Time Temp Pulse Resp B/P (MAP) Pulse Ox O2 Delivery O2 Flow Rate FiO2 12/20/19 08:50 97.5 78 18 128/61 (83) 98 Nasal Cannula 2.0 97.5 Labs Labs Laboratory Tests Test 12/20/19 04:02 12/20/19 04:30 White Blood Count 8.7 x10^3/uL (4.0-11.0) Red Blood Count 3.38 x10^6/uL (3.50-5.40) Hemoglobin 11.1 g/dL (12.0-15.5) Hematocrit 33.5 % (36.0-47.0) Mean Corpuscular Volume 99 fL (79-100) Mean Corpuscular Hemoglobin 33 pg (25-35) Mean Corpuscular Hemoglobin Concent 33 g/dL (31-37) Red Cell Distribution Width 17.2 % (11.5-14.5) Platelet Count 190 x10^3/uL (140-400) Neutrophils (%) (Auto) 75 % (31-73) Lymphocytes (%) (Auto) 16 % (24-48) Monocytes (%) (Auto) 9 % (0-9) Eosinophils (%) (Auto) 1 % (0-3) Basophils (%) (Auto) 1 % (0-3) Neutrophils # (Auto) 6.5 x10^3/uL (1.8-7.7) Lymphocytes # (Auto) 1.4 x10^3/uL (1.0-4.8) Monocytes # (Auto) 0.7 x10^3/uL (0.0-1.1) Eosinophils # (Auto) 0.1 x10^3/uL (0.0-0.7) Basophils # (Auto) 0.0 x10^3/uL (0.0-0.2) D-Dimer (Cony) 2.80 ug/mlFEU (0.00-0.50) Sodium Level 138 mmol/L (136-145) Potassium Level 4.4 mmol/L (3.5-5.1) Chloride Level 102 mmol/L (98-107) Carbon Dioxide Level 22 mmol/L (21-32) Anion Gap 14 (6-14) Blood Urea Nitrogen 38 mg/dL (7-20) Creatinine 3.0 mg/dL (0.6-1.0) Estimated GFR (Cockcroft-Gault) 18.1 BUN/Creatinine Ratio 13 (6-20) Glucose Level 113 mg/dL (70-99) Calcium Level 9.6 mg/dL (8.5-10.1) Total Bilirubin 0.6 mg/dL (0.2-1.0) Aspartate Amino Transf (AST/SGOT) 26 U/L (15-37) Alanine Aminotransferase (ALT/SGPT) 18 U/L (14-59) Alkaline Phosphatase 120 U/L (46-116) Lactate Dehydrogenase 212 U/L (81-234) Creatine Kinase 31 U/L (26-192) Troponin I Quantitative < 0.017 ng/mL (0.000-0.055) C-Reactive Protein, Quantitative 15.8 mg/L (0-3.3) YH-Ljp-M-Type Natriuretic Peptide 6514 pg/mL (0-449) Total Protein 7.7 g/dL (6.4-8.2) Albumin 3.3 g/dL (3.4-5.0) Albumin/Globulin Ratio 0.8 (1.0-1.7) Laboratory Tests Test 12/20/19 04:02 12/20/19 04:30 White Blood Count 8.7 x10^3/uL (4.0-11.0) Red Blood Count 3.38 x10^6/uL (3.50-5.40) Hemoglobin 11.1 g/dL (12.0-15.5) Hematocrit 33.5 % (36.0-47.0) Mean Corpuscular Volume 99 fL (79-100) Mean Corpuscular Hemoglobin 33 pg (25-35) Mean Corpuscular Hemoglobin Concent 33 g/dL (31-37) Red Cell Distribution Width 17.2 % (11.5-14.5) Platelet Count 190 x10^3/uL (140-400) Neutrophils (%) (Auto) 75 % (31-73) Lymphocytes (%) (Auto) 16 % (24-48) Monocytes (%) (Auto) 9 % (0-9) Eosinophils (%) (Auto) 1 % (0-3) Basophils (%) (Auto) 1 % (0-3) Neutrophils # (Auto) 6.5 x10^3/uL (1.8-7.7) Lymphocytes # (Auto) 1.4 x10^3/uL (1.0-4.8) Monocytes # (Auto) 0.7 x10^3/uL (0.0-1.1) Eosinophils # (Auto) 0.1 x10^3/uL (0.0-0.7) Basophils # (Auto) 0.0 x10^3/uL (0.0-0.2) D-Dimer (Cony) 2.80 ug/mlFEU (0.00-0.50) Sodium Level 138 mmol/L (136-145) Potassium Level 4.4 mmol/L (3.5-5.1) Chloride Level 102 mmol/L (98-107) Carbon Dioxide Level 22 mmol/L (21-32) Anion Gap 14 (6-14) Blood Urea Nitrogen 38 mg/dL (7-20) Creatinine 3.0 mg/dL (0.6-1.0) Estimated GFR (Cockcroft-Gault) 18.1 BUN/Creatinine Ratio 13 (6-20) Glucose Level 113 mg/dL (70-99) Calcium Level 9.6 mg/dL (8.5-10.1) Total Bilirubin 0.6 mg/dL (0.2-1.0) Aspartate Amino Transf (AST/SGOT) 26 U/L (15-37) Alanine Aminotransferase (ALT/SGPT) 18 U/L (14-59) Alkaline Phosphatase 120 U/L (46-116) Lactate Dehydrogenase 212 U/L (81-234) Creatine Kinase 31 U/L (26-192) Troponin I Quantitative < 0.017 ng/mL (0.000-0.055) C-Reactive Protein, Quantitative 15.8 mg/L (0-3.3) US-Ohh-J-Type Natriuretic Peptide 6514 pg/mL (0-449) Total Protein 7.7 g/dL (6.4-8.2) Albumin 3.3 g/dL (3.4-5.0) Albumin/Globulin Ratio 0.8 (1.0-1.7) Images Images CXR: The cardiomediastinal silhouette is enlarged. Status post median sternotomy. Dual-lead left chest wall pacer. Increased interstitial markings. No large effusion. No pneumothorax or dense consolidation. Operative changes at the left shoulder and advanced degenerative changes at the right shoulder. Impression: Enlargement of the cardiomediastinal silhouette and increased interstitial markings could indicate volume overload with interstitial edema. An atypical infectious process, as queried, cannot be excluded based off the results of this study alone. ECHO 09/30/2019: Left ventricle systolic function is mildly impaired. The Ejection Fraction is 40-45%. Apical motion consistent with pacemaker activation. Septum is akinetic. [place] is moderately hypokinetic. Remainder of the LV is mildly globally hypokinetic. The right ventricle is mildly to moderately dilated. There is a pacemaker lead in the right ventricle. Doppler and Color Flow revealed mild aortic regurgitation. Doppler and Color Flow revealed moderate to severe tricuspid regurgitation. The PA pressure was estimated at 31 mmHg. VTE Prophylaxis Ordered VTE Prophylaxis Devices: Yes VTE Pharmacological Prophylaxi: Yes Assessment/Plan Assessment/Plan A/P: Acute hypoxia - likely from pulmonary edema. Will diurese. Less likely COVID 19, will await testing results. Wean O2 as tolerated Shortness of breath with cough - likely from pulmonary edema, no hx of COPD, could be viral or atypical pneumonia. will check procalcitonin and COVID19 Atrial fibrillation - controlled response. On metoprolol tartrate 25mg BID, eliquis, multaq. Will consult cardiology CHF - reduced ejection fraction 40-45% on prior echo. Will diurese for acute systolic CHF, consult cardiology, monitor on tele, BMP and Mag FRANCISCO on CKD - likely vasomotor nephropathy, possibly 2/2 cardiorenal syndrome. Cr now 3 with baseline 1.3 noted historically. Will diurese given her CHF and consult neprology HLD - cont statin HTN - cont BB and CCB CAD s/p CABG - cont prasugrel, BB, statin. Trend trops for CHEST PAIN s/p PPM - will consult cardiology. Interrogation indicated given her hospitalization for chest pain FEN - Cardiac diet, 2L fluid restriction PPX - eliquis FULL CODE Dispo - inpatient for above, 2 midnights PIETER HARVEY MD Dec 20, 2019 09:25
[2019-12-20 11:28] VITALS: BP 145/67
[2019-12-20 15:15] VITALS: BP 133/56
[2019-12-20] MEDS: MORPHINE SULFATE 2 MG/ML VIAL. IV PRN (17:09)
[2019-12-20] MEDS ORDERED: NITROGLYCERIN SUBLINGUAL 0.4 MG BOTTLE OF 25. SL PRN (17:15)
--- NOTE | 2019-12-20 17:46 | NUR ---
PT ARRIVED TO THE UNIT VIA GURNEY. PT WAS ABLE TO TRANSFER SELF TO BED WITH MIN ASSIST. PT WAS ORIENTED TO STAFF ROOM AND POLICIES. ADMIT PACKET GIVEN TO PT. ALL MEDS ENTERED BY DR HARVEY OFF PTS HOME LIST MINUS 2 NEW MEDICATIONS THAT THE WILL LET US KNOW WHAT THEY ARE. DR HARVEY SPOKE TO DR AIKEN AND DR ADAM REGARDING THE PT AND CONSULTS. PT HAD C/O PAIN HEAVINESS TO CHEST TIMES 1 APPROX 1700. ORDERS GIVEN AND PT STATES HEAVINESS IS GINE AND SHE IS ABLE TO BREATHE EASIER. DR HARVEY ON THE UNIT AT THE TIME AND MADE AWARE OF THE SITUATION.
--- NOTE | 2019-12-20 18:25 | EKG ---
[facility] [address] [place] [address] Test Date: 2019-12-20 Test Time: 03:59:46 Pat Name: ДМИТРИЙ FLORES Department: Room: [facility] Gender: F Counseling Services Director: : 1940 Requested By: ANKITA NAILS Order Number: [id number] Reading MD: Measurements Intervals [place] Rate: 63 P: SC: QRS: -44 QRSD: 146 T: 100 QT: 476 QTc: 491 Interpretive Statements IRREGULAR RHYTHM, NO P-WAVE FOUND NON SPECIFIC INTRAVENTRICULAR BLOCK QRS(T) CONTOUR ABNORMALITY CONSISTENT WITH ANTERIOR INFARCT PROBABLY OLD CONSIDER INFERIOR MYOCARDIAL DAMAGE ABNORMAL ECG RI6.02 No previous ECG available for comparison
[2019-12-20] MEDS ORDERED: DRON400T PO (18:42)
[2019-12-20] MEDS ORDERED: APIX5TAB PO (18:42)
--- NOTE | 2019-12-20 18:47 | PHYS DOC ---
Past Medical History Past Medical History: CHF, High Cholesterol, Hypertension, ND, Other Additional Past Medical Histor: BRADYCARDIA - PACEMAKER PLACED Past Surgical History: Cholecystectomy, Coronary Bypass Surgery, Hysterectomy, Knee Replacement, Pacemaker, Other Additional Past Surgical Histo: hernia repair, colon polyp, left shoulder surgery, CABG, BREAST REDUCT Smoking Status: Former Smoker Alcohol Use: None Drug Use: None General Adult EDM: Chief Complaint: CHEST PAIN HPI: HPI: Patient is a 79 year old female who presents with shortness of breath. Patient states that this started 3 weeks ago. She started developing peripheral edema. She then started having shortness of breath which got worse when she was trying to sleep at night. She states tonight she got up to try to go the bathroom and could not make it because she could not breathe. She denies any URI symptoms, fever, chest pain. Review of Systems: Review of Systems: General: Denies fever, chills, sweats, fatigue Eyes: Denies drainage, blurred vision, eye redness HENT: Denies rhinorrhea, sore throat, earache Respiratory: Reports cough, shortness of breath, wheezing Cardiac: Denies palpitations, chest pain. Reports edema GI: Denies abdominal pain, Nausea, vomiting MSK: Denies back pain, neck pain Skin: Denies rash, jaundice Neuro: Denies headache, dizziness Psychiatric: Denies SI/HI Heart Score: Risk Factors: Risk Factors: DM, Current or recent (<one month) smoker, HTN, HLP, family history of CAD, obesity. Risk Scores: Score 0 - 3: 2.5% MACE over next 6 weeks - Discharge Home Score 4 - 6: 20.3% MACE over next 6 weeks - Admit for Clinical Observation Score 7 - 10: 72.7% MACE over next 6 weeks - Early Invasive Strategies Current Medications: Current Medications Medications (Trade) Dose Ordered Sig/Zohra Start Time Stop Time Status Last Admin Dose Admin Furosemide (Lasix) 40 mg 1X ONCE 12/20/19 06:00 12/20/19 06:01 DC 12/20/19 05:58 40 MG Allergies: Allergies: Allergies Coded Allergies Type Severity Reaction Last Updated Verified Iodinated Contrast Media Allergy Severe Anaphylaxis 08/27/17 Yes celecoxib Allergy Severe Palpitations 08/27/17 Yes latex Allergy Intermediate Hives 08/27/17 Yes meperidine HCl Adverse Reaction Intermediate Swelling 08/28/17 Yes Physical Exam: PE: General: Awake, alert, NAD. Well Nourished, well hydrated. Cooperative HEENT: Atraumatic, EOMI, PERRL, airway patent, moist oral mucosa Neck: Supple, trachea midline Respiratory: decreased breath sounds, normal effort, diffuse crackles CV: RRR, no murmur, cap refill <2 GI: Soft, nondistended, nontender, no masses MSK: No obvious deformities Skin: Warm, dry, intact Neuro: A&O x3, speech NL, sensory and motor grossly intact, no focal deficits Psych: Normal affect, normal mood, not suicidal or homicidal Current Patient Data: Labs: Laboratory Tests Test 12/20/19 04:02 12/20/19 04:30 White Blood Count 8.7 x10^3/uL (4.0-11.0) Red Blood Count 3.38 x10^6/uL (3.50-5.40) L Hemoglobin 11.1 g/dL (12.0-15.5) L Hematocrit 33.5 % (36.0-47.0) L Mean Corpuscular Volume 99 fL (79-100) Mean Corpuscular Hemoglobin 33 pg (25-35) Mean Corpuscular Hemoglobin Concent 33 g/dL (31-37) Red Cell Distribution Width 17.2 % (11.5-14.5) H Platelet Count 190 x10^3/uL (140-400) Neutrophils (%) (Auto) 75 % (31-73) H Lymphocytes (%) (Auto) 16 % (24-48) L Monocytes (%) (Auto) 9 % (0-9) Eosinophils (%) (Auto) 1 % (0-3) Basophils (%) (Auto) 1 % (0-3) Neutrophils # (Auto) 6.5 x10^3/uL (1.8-7.7) Lymphocytes # (Auto) 1.4 x10^3/uL (1.0-4.8) Monocytes # (Auto) 0.7 x10^3/uL (0.0-1.1) Eosinophils # (Auto) 0.1 x10^3/uL (0.0-0.7) Basophils # (Auto) 0.0 x10^3/uL (0.0-0.2) D-Dimer (Cony) 2.80 ug/mlFEU (0.00-0.50) H Sodium Level 138 mmol/L (136-145) Potassium Level 4.4 mmol/L (3.5-5.1) Chloride Level 102 mmol/L (98-107) Carbon Dioxide Level 22 mmol/L (21-32) Anion Gap 14 (6-14) Blood Urea Nitrogen 38 mg/dL (7-20) H Creatinine 3.0 mg/dL (0.6-1.0) H Estimated GFR (Cockcroft-Gault) 18.1 BUN/Creatinine Ratio 13 (6-20) Glucose Level 113 mg/dL (70-99) H Calcium Level 9.6 mg/dL (8.5-10.1) Total Bilirubin 0.6 mg/dL (0.2-1.0) Aspartate Amino Transferase (AST) 26 U/L (15-37) Alanine Aminotransferase (ALT) 18 U/L (14-59) Alkaline Phosphatase 120 U/L (46-116) H Lactate Dehydrogenase 212 U/L (81-234) Creatine Kinase 31 U/L (26-192) Troponin I Quantitative < 0.017 ng/mL (0.000-0.055) C-Reactive Protein, Quantitative 15.8 mg/L (0-3.3) H ZP-Lcg-G-Type Natriuretic Peptide 6514 pg/mL (0-449) H Total Protein 7.7 g/dL (6.4-8.2) Albumin 3.3 g/dL (3.4-5.0) L Albumin/Globulin Ratio 0.8 (1.0-1.7) L Laboratory Tests 12/20/19 04:02 Laboratory Tests 12/20/19 04:30 Vital Signs: Vital Signs Date Time Temp Pulse Resp B/P (MAP) Pulse Ox O2 Delivery O2 Flow Rate FiO2 12/20/19 17:39 98 2.0 12/20/19 17:09 Room Air 12/20/19 15:15 97.6 86 18 133/56 (81) 97.6 EKG: EKG: [] Radiology/Procedures: Radiology/Procedures: [] Course & Med Decision Making: Course & Med Decision Making Pertinent Labs and Imaging studies reviewed. (See chart for details) Patient is a [id number] female with a history of congestive heart failure who presents the emergency room complaining of edema and shortness of breath. Patient's presentation is concerning for acute congestive heart failure exacerbation. On exam,patient has decreased breath sounds, crackles, and edema. Patient does not need BiPAP at this time. Blood pressure is controlled and nitro ggt will not be started. CBC, BMP, troponin, BNP, EKG, chest x-ray were ordered to evaluate for other causes of shortness of breath and for severity of possible congestive heart failure exacerbation. Workup is consistent with congestive heart failure at this time. Patient will be given Lasix at this time. Patient does have an acute kidney injury. She will be admitted to the hospital for further evaluation and care by the hospitalist. Shahida Disclaimer: Shahida Disclaimer: This electronic medical record was generated, in whole or in part, using a voice recognition dictation system. Departure Departure Impression: Primary Impression: FRANCISCO (acute kidney injury) Additional Impression: CHF (congestive heart failure) Disposition: ADMITTED INPATIENT Condition: STABLE Referrals: LAUREL LAI MD (PCP) Justicifation of Admission Dx: Justifications for Admission: Justification of Admission Dx: Yes ANKITA NAILS MD Dec 20, 2019 18:47
[2019-12-20 19:25] VITALS: BP 150/65
[2019-12-20] MEDS ORDERED: NON FORMULARY ITEM (Gluc 2KCL/Chondr/Coll Hy/Hy Ac (Glucosamine & Chondroitin Cap) 1 EACH) PO SCH (21:00)
[2019-12-20] MEDS ORDERED: guaiFENesin/CODEINE 100mg/10mg 5 ML LIQUID PO ONE (22:45)
[2019-12-20] MEDS: ATORVASTATIN CALCIUM 20 MG TABLET PO SCH (22:49)
[2019-12-20] MEDS: OMEGA-3 FATTY ACIDS/FISH OIL 1,000 MG CAPSULE. PO SCH (22:49)
[2019-12-20] MEDS: GABAPENTIN 100 MG CAPSULE. PO SCH (22:49)
[2019-12-20] MEDS: FERROUS SULFATE 325 MG TABLET. PO SCH (22:50)
[2019-12-20] MEDS: METOPROLOL TART IMMED RELEASE 50 MG TABLET. PO SCH (22:51)
[2019-12-20] MEDS: APIXABAN 2.5 MG TABLET. PO SCH (22:51)
[2019-12-20] MEDS: HYDROcodone/APAP 5/325MG 1 TAB TABLET PO PRN (22:52)
--- NOTE | 2019-12-20 23:22 | RAD ---
Examination: Ultrasound kidneys HISTORY: History of acute renal insufficiency COMPARISON: None available FINDINGS: The right kidney measures 9.3 x 3.9 x 3.3 cm . The left kidney measures 9.2 x 5.4 x 4.6 cm.Echogenic appearing bilateral kidneys there is prominent appearing dromedary hump in the left kidney. Questionable 1.5 cm cyst , examination limited due to bowel gas. Urinary bladder is mildly distended. IMPRESSION: 1. Echogenic appearing bilateral kidneys could be due to medical renal disease. 2. 0.5 cm cystic structure identified in the left kidney could be a cyst as seen on prior CT. Electronically signed by: Kem Irby MD (12/20/2019 11:19 PM) [id number]
[2019-12-20 23:37] VITALS: BP 137/64
[2019-12-21 00:55] LABS: CALCIUM 9.4 mg/dL (8.5-10.1); CREATININE 2.8 mg/dL (0.6-1.0); GFR 19.6; POTASSIUM 3.9 mmol/L (3.5-5.1)
[2019-12-21] MEDS: BENZONATATE 100 MG CAPSULE. PO PRN ×3 (01:48→22:21)
[2019-12-21] MEDS: HYDROcodone/APAP 5/325MG 1 TAB TABLET PO PRN ×2 (01:48→08:21)
[2019-12-21 03:40] VITALS: BP 123/58
[2019-12-21 07:00] VITALS: BP 191/80
[2019-12-21] MEDS: ISOSORBIDE MONONITRATE ER 30 MG TAB.ER.24H PO SCH (08:19)
[2019-12-21] MEDS: CHOLECALCIFEROL (VITAMIN D3) 1,000 UNIT TABLET PO SCH (08:19)
[2019-12-21] MEDS: FOLIC ACID 1 MG TABLET. PO SCH (08:20)
[2019-12-21] MEDS: OMEGA-3 FATTY ACIDS/FISH OIL 1,000 MG CAPSULE. PO SCH ×3 (08:20→20:54)
[2019-12-21] MEDS: PANTOPRAZOLE 40 MG TABLET.DR. PO SCH (08:20)
[2019-12-21] MEDS: POTASSIUM CHLORIDE 20 MEQ TABLET.ER. PO SCH (08:20)
[2019-12-21] MEDS: amLODIPine BESYLATE 10 MG TABLET PO SCH (08:20)
[2019-12-21] MEDS: FUROSEMIDE 40 MG TABLET. PO SCH (08:20)
[2019-12-21] MEDS: GABAPENTIN 100 MG CAPSULE. PO SCH ×3 (08:21→20:54)
[2019-12-21] MEDS: APIXABAN 2.5 MG TABLET. PO SCH ×2 (08:21→20:54)
[2019-12-21] MEDS: METOPROLOL TART IMMED RELEASE 50 MG TABLET. PO SCH ×2 (08:21→20:56)
[2019-12-21] MEDS: ALLOPURINOL 100 MG TABLET. PO SCH (08:22)
[2019-12-21] MEDS: CLOPIDOGREL BISULFATE 75 MG TABLET PO SCH (08:22)
--- NOTE | 2019-12-21 09:05 | EKG ---
[facility] [address] [place] [address] Test Date: 2019-12-20 Test Time: 18:12:59 Pat Name: ДМИТРИЙ FLORES Department: Room: [facility] Gender: F Mirror Installer: REMINGTON : 1940 Requested By: PIETER HARVEY Order Number: [id number] Reading MD: Measurements Intervals [place] Rate: 61 P: NE: QRS: 159 QRSD: 150 T: 85 QT: 484 QTc: 489 Interpretive Statements IRREGULAR RHYTHM, NO P-WAVE FOUND ABNORMAL RIGHT AXIS DEVIATION NON SPECIFIC INTRAVENTRICULAR BLOCK QRS(T) CONTOUR ABNORMALITY CONSISTENT WITH ANTERIOR INFARCT PROBABLY OLD ABNORMAL ECG RI6.02
[2019-12-21 11:00] VITALS: BP 148/65
--- NOTE | 2019-12-21 11:51 | PDOC2 ---
MARCELO PETERSEN LUSTER APPLICATOR 12/21/19 1151: CARDIAC CONSULT DATE OF CONSULT Date of Consult DATE: 12/21/19 TIME: 11:36 REASON FOR CONSULT Reason for Consult: CHF REFERRING PHYSICIAN Referring Physician: Dr. Curtis SOURCE Source: Chart review, Patient HISTORY OF PRESENT ILLNESS HISTORY OF PRESENT ILLNESS This is an 79 yo female who presented secondary to shortness of breath. Patient reports she has been more short of breath since last Saturday. Has progressively worsened. Associated with LE edema and orthopnes. Has chest pain that is associated with cough. No fevers. Began taking extra dose of lasix therapy 12/02 due to LE edema. PAST MEDICAL HISTORY Cardiovascular: CAD, CHF, HTN, Hyperlipidemia, Other (PVD) Pulmonary: COPD, Pulmonary embolus, Pneumonia, Other (MARVEL) GI: Diverticulosis, GERD Heme/Onc: Other (DVT s/p IVC filter ) Musculoskeletal: Osteoarthritis Renal/: Chronic renal insuff Endocrine: Diabetes PAST SURGICAL HISTORY Past Surgical History: Pacemaker (Medtronic ), Appendectomy, Cholecystectomy, CABG, Hernia Repair, Total knee replacement (bilateral knee), Hysterectomy, Other (breast reduction ) FAMILY HISTORY Family History: Diabetes, Heart Disease SOCIAL HISTORY Smoke: No ALCOHOL: none Drugs: None CURRENT MEDICATIONS CURRENT MEDICATIONS Current Medications Medications (Trade) Dose Ordered Sig/Zohra Route PRN Reason Start Time Stop Time Status Last Admin Dose Admin Allopurinol (Zyloprim) 100 mg DAILY PO 12/21/19 09:00 12/21/19 08:22 Amlodipine Besylate (Norvasc) 10 mg DAILY PO 12/21/19 09:00 12/21/19 08:20 Clopidogrel Bisulfate (Plavix) 75 mg DAILYWBKFT PO 12/21/19 08:00 12/21/19 08:22 Furosemide (Lasix) 40 mg DAILY PO 12/21/19 09:00 12/21/19 08:20 Acetaminophen/ Hydrocodone Bitart (Lortab 5/325) 1 tab PRN Q6HRS PRN PO MODERATE-SEVERE PAIN 12/20/19 16:30 12/21/19 08:21 Isosorbide Mononitrate (Imdur) 30 mg DAILY PO 12/21/19 09:00 12/21/19 08:19 Pantoprazole Sodium (Protonix) 40 mg DAILY PO 12/21/19 09:00 12/21/19 08:20 Potassium Chloride (Klor-Con) 20 meq DAILY PO 12/21/19 09:00 12/21/19 08:20 Vitamin D (Vitamin D3) 1,000 unit DAILY PO 12/21/19 09:00 12/21/19 08:19 Folic Acid (Folic Acid) 1 mg DAILY PO 12/21/19 09:00 12/21/19 08:20 Gabapentin (Neurontin) 100 mg TID PO 12/20/19 21:00 12/21/19 08:21 Ferrous Sulfate (Feosol) 325 mg QHS PO 12/20/19 21:00 12/20/19 22:50 Fish Oil (Fish Oil) 1,000 mg TID PO 12/20/19 21:00 12/21/19 08:20 Atorvastatin Calcium (Lipitor) 20 mg QHS PO 12/20/19 21:00 12/20/19 22:49 Apixaban (Eliquis) 2.5 mg BID PO 12/20/19 21:00 12/21/19 08:21 Metoprolol Tartrate (Lopressor) 25 mg BID PO 12/20/19 21:00 12/21/19 08:21 Morphine Sulfate (Morphine Sulfate) 2 mg PRN Q4HRS PRN IV PAIN 12/20/19 17:00 12/20/19 17:09 Benzonatate (Tessalon Perle) 100 mg PRN TID PRN PO COUGHING 12/20/19 22:45 12/21/19 08:20 Guaifenesin/ Codeine Phosphate (Robitussin Ac) 5 ml 1X ONCE PO 12/20/19 22:45 12/20/19 22:46 DC 12/20/19 22:53 ALLERGIES ALLERGIES: Coded Allergies: Iodinated Contrast Media (Verified Allergy, Severe, Anaphylaxis, 08/27/17) celecoxib (Verified Allergy, Severe, Palpitations, 08/27/17) Tolerates aspirin latex (Verified Allergy, Intermediate, Hives, 08/27/17) meperidine HCl (Verified Adverse Reaction, Intermediate, Swelling, 08/28/17) Tolerates fentanyl ROS Review of System 14 point ROS conducted with pertinent positives noted above in HPI PHYSICAL EXAM General: Alert, Oriented X3, Cooperative, No acute distress HEENT: Atraumatic, Mucous membr. moist/pink Lungs: Other (bibasilar crackles ) Heart: Regular rate Abdomen: No tenderness Extremities: Other (2-3+ bilateral LE edema ) Skin: No breakdown, No significant lesion Neuro: Normal speech, Sensation intact Psych/Mental Status: Mood NL MUSCULOSKELETAL: Osteoarthritic changes both hands VITALS/I&O VITALS/I&O: Vital Signs Date Time Temp Pulse Resp B/P (MAP) Pulse Ox O2 Delivery O2 Flow Rate FiO2 12/21/19 08:21 60 12/21/19 07:00 97.6 18 191/80 (117) 98 Nasal Cannula 2.0 97.6 I & O 12/20/19 12/20/19 12/21/19 15:00 23:00 07:00 Intake Total 200 ml 150 ml Balance 200 ml 150 ml LABS Lab: Laboratory Tests Test 12/20/19 18:30 12/21/19 00:10 12/21/19 07:16 Troponin I Quantitative < 0.017 ng/mL (0.000-0.055) < 0.017 ng/mL (0.000-0.055) < 0.017 ng/mL (0.000-0.055) Procalcitonin 0.22 ng/mL (0.00-0.10) H Thyroid Stimulating Hormone (TSH) 2.188 uIU/mL (0.358-3.74) Sodium Level 137 mmol/L (136-145) Potassium Level 3.9 mmol/L (3.5-5.1) Chloride Level 103 mmol/L (98-107) Carbon Dioxide Level 22 mmol/L (21-32) Anion Gap 12 (6-14) Blood Urea Nitrogen 42 mg/dL (7-20) H Creatinine 2.8 mg/dL (0.6-1.0) H Estimated GFR (Cockcroft-Gault) 19.6 Glucose Level 107 mg/dL (70-99) H Calcium Level 9.4 mg/dL (8.5-10.1) Magnesium Level 1.8 mg/dL (1.8-2.4) Laboratory Tests 12/21/19 00:10 ECHOCARDIOGRAM ECHOCARDIOGRAM <Conclusion> Left ventricle systolic function is mildly impaired. The Ejection Fraction is 40-45%. Apical motion consistent with pacemaker activation. Septum is akinetic. Thelma is moderately hypokinetic. Remainder of the LV is mildly globally hypokinetic. The right ventricle is mildly to moderately dilated. There is a pacemaker lead in the right ventricle. Doppler and Color Flow revealed mild aortic regurgitation. Doppler and Color Flow revealed moderate to severe tricuspid regurgitation. The PA pressure was estimated at 31 mmHg. DATE: 09/30/19 0908 STRESS TEST STRESS TEST Conclusion 1. EKG shows a paced rhythm. 2. Nuclear imaging shows no reversible ischemia or infarct. 3. Normal left ventricular systolic function with an ejection fraction of 65%. 4. Moderately low risk Lexiscan nuclear stress test. DATE: 01/09/18 1219 HEART CATH HEART CATH FINDINGS 1. Hemodynamics: Left ventricular end-diastolic pressure 30 mmHg. No pullback gradient across the aortic valve. 2. Left ventriculography: Normal left ventricle systolic function with ejection fraction estimated at 60%. No significant mitral regurgitation seen. 3. Coronary and bypass graft angiography: a. The left main coronary artery arose from the left sinus of Valsalva, gave rise to the left anterior descending and left circumflex arteries and showed a widely patent stent extending into the left circumflex artery. b. The left anterior descending artery was 100% occluded proximally. The diagonal branch fills via left to left and [id number] collaterals. c. The left circumflex artery showed patent stent extending from the left main coronary artery into its proximal segment. Also seen was a patent stent in the midsegment extending into the first was marginal branch. This is a dominant vessel. d. The right coronary artery was a nondominant vessel that showed patent stent in the proximal segment. e. The left internal mammary artery graft to the left anterior descending artery was patent. Distal to the anastomosis, the [place] left anterior descending artery showed mild diffuse disease without any significant discrete stenosis. Conclusion 1. Coronary artery disease s/p coronary artery bypass surgery with patent left internal mammary artery graft to the left anterior descending artery, widely patent previously placed stents in the left main coronary artery, left circumflex artery and also the nondominant right coronary artery. 2. Normal left ventricle systolic function with ejection fraction estimated at 60% Recommendations Medical Therapy DATE: 08/08/16 1408 ASSESSMENT/PLAN ASSESSMENT/PLAN 1. Dyspnea with acute on chronic systolic CHF with ICM; Recent echo with LVEF 40-45%. Sp IV Lasix. Remains overloaded, SOA 2. CAD s/p CABG and PCI/stents. Cath 2017 with patent graft, stents. Clinically stable 3. Hypertension; controlled overall 4. Hyperlipidemia; statin 5. Diabetes, II 6. FRANCISCO on CKD; stable with diuresis 7. SSS s/p PPM (Medtronic). Recent device check with normal funciton 8. H/o DVT/PE s/p IVC filter. On low-dose Eliquis therapy 9. PAFIB; vpaced with underlying AFIB. Recent device check with shows she has been in AFIB for the last couple of months. Was to start antiarrhythmic therapy with Multaq, but insurance would not cover well. Recommendations Lasix therapy. Monitor renal function closely Consider Lasix gtt. Will start antiarrhythmic therapy with Tikosyn as an inpatient per protocol with electrolyte and QTc monitoring Eliquis for stroke prophylaxis. Consider outpatient CV if patient remains in AFIB Secondary prevention measures DOREEN AIKEN MD 12/21/19 1910: CARDIAC CONSULT ASSESSMENT/PLAN ASSESSMENT/PLAN Patient seen and examined. Agree with PEDIATRICS TEACHER's assessment and plan. Continue diuresis for ac on chr combined systolic and diast HF CAD status clinically stable Multaq proving expensive to patient for PAF anti-arrhythmic therapy - will change to dofetilide (generic) since she is inpt anyway and monitor QTc interval Continue eliquis for stroke prophylaxis SSS s/p PPM stable Thank you for your consultation MARCELO PETERSEN APRN Dec 21, 2019 11:51 DOREEN AIKEN MD Dec 21, 2019 19:10
--- NOTE | 2019-12-21 13:50 | PDOC2 ---
CONSULT Date of Consult Date of Consult DATE: 12/21/19 TIME: 13:45 Reason for Consult Reason for Consult: RENAL FAILURE Referring Physician Referring Physician: WES Identification/Chief Complaint Chief Complaint SOB Source Source: Chart review, Patient History of Present Illness Reason for Visit: THIS IS AN 79 YR OLD WITH SOB, HX OF CHF WITH MILD CM AND EF OF 40% AND CKD STAGE 3 WITH BASELINE CR OF 1.5. CR UP TO 3.0 NOW. HEMODYNAMICALLY STABLE. CARDIOLOGY EVAL ONGOING AT THIS TIME. HAS ALSO NOTED SOME LE EDEMA AND CLARK AND ORTHOPNEA. CKD IS DUE TO HX OF HTN AND DM II. SHE IS COMPLIANT. NO OTHER HX EXCEPT FOR SOME STRESS INCONTINENCE AND SOME NOCTURIA. Past Medical History Cardiovascular: CAD, CHF, HTN, Hyperlipidemia, Other (PVD) Pulmonary: COPD, Pulmonary embolus, Pneumonia, Other (MARVEL) CENTRAL NERVOUS SYSTEM: Periperal neuropathy, Other GI: Diverticulosis, GERD Heme/Onc: Other (DVT s/p IVC filter ) Hepatobiliary: No pertinent hx Psych: No pertinent hx Musculoskeletal: Osteoarthritis Rheumatologic: Gout Infectious disease: No pertinent hx Renal/: Chronic renal insuff Endocrine: Diabetes Past Surgical History Past Surgical History: Pacemaker (Medtronic ), Appendectomy, Cholecystectomy, CABG, Hernia Repair, Total knee replacement (bilateral knee), Hysterectomy, Other (breast reduction ) Family History Family History: Coronary Artery Disease Social History No ALCOHOL: none Drugs: None Lives: with Family Current Medications Current Medications Current Medications Furosemide (Lasix) 40 mg 1X ONCE IVP Last administered on 12/20/19at 05:58; Start 12/20/19 at 06:00; Stop 12/20/19 at 06:01; Status DC Acetaminophen (Tylenol) 500 mg PRN BID PRN PO MILD PAIN 1-3; Start 12/20/19 at 16:30 Allopurinol (Zyloprim) 100 mg DAILY PO Last administered on 12/21/19at 08:22; Start 12/21/19 at 09:00 Amlodipine Besylate (Norvasc) 10 mg DAILY PO Last administered on 12/21/19at 08:20; Start 12/21/19 at 09:00 Clopidogrel Bisulfate (Plavix) 75 mg DAILYWBKFT PO Last administered on 12/21/19at 08:22; Start 12/21/19 at 08:00 Furosemide (Lasix) 40 mg DAILY PO Last administered on 12/21/19 08:20; Start 12/21/19 at 09:00 Acetaminophen/ Hydrocodone Bitart (Lortab 5/325) 1 tab PRN Q6HRS PRN PO MODERATE-SEVERE PAIN Last administered on 12/21/19 08:21; Start 12/20/19 at 16:30 Isosorbide Mononitrate (Imdur) 30 mg DAILY PO Last administered on 12/21/19 08:19; Start 12/21/19 at 09:00 Pantoprazole Sodium (Protonix) 40 mg DAILY PO Last administered on 12/21/19 08:20; Start 12/21/19 at 09:00 Potassium Chloride (Klor-Con) 20 meq DAILY PO Last administered on 12/21/19 08:20; Start 12/21/19 at 09:00 Vitamin D (Vitamin D3) 1,000 unit DAILY PO Last administered on 12/21/19 08:19; Start 12/21/19 at 09:00 Folic Acid (Folic Acid) 1 mg DAILY PO Last administered on 12/21/19 08:20; Start 12/21/19 at 09:00 Gabapentin (Neurontin) 100 mg TID PO Last administered on 12/21/19 08:21; Start 12/20/19 at 21:00 Non-Formulary Medication (Gluc 2KCL/ Chondr/Dereck Hy/Hy Ac (Glucosamine & Chondroitin Cap)) 1 each BID PO ; Start 12/20/19 at 21:00; Status UNV Ferrous Sulfate (Feosol) 325 mg QHS PO Last administered on 12/20/19at 22:50; Start 12/20/19 at 21:00 Fish Oil (Fish Oil) 1,000 mg TID PO Last administered on 12/21/19 08:20; Start 12/20/19 at 21:00 Atorvastatin Calcium (Lipitor) 20 mg QHS PO Last administered on 12/20/19 22:49; Start 12/20/19 at 21:00 Apixaban (Eliquis) 2.5 mg BID PO Last administered on 12/21/19 08:21; Start 12/20/19 at 21:00 Metoprolol Tartrate (Lopressor) 25 mg BID PO Last administered on 12/21/19 08:21; Start 12/20/19 at 21:00 Morphine Sulfate (Morphine Sulfate) 2 mg PRN Q4HRS PRN IV PAIN Last ad ministered on 12/20/19at 17:09; Start 12/20/19 at 17:00 Nitroglycerin (Nitrostat) 0.4 mg PRN Q5MIN PRN SL CHEST PAIN; Start 12/20/19 at 17:15 Benzonatate (Tessalon Perle) 100 mg PRN TID PRN PO COUGHING Last administered on 12/21/19at 08:20; Start 12/20/19 at 22:45 Guaifenesin/ Codeine Phosphate (Robitussin Ac) 5 ml 1X ONCE PO Last administered on 12/20/19at 22:53; Start 12/20/19 at 22:45; Stop 12/20/19 at 22:46; Status DC Furosemide (Lasix) 40 mg 1X ONCE IVP ; Start 12/21/19 at 14:00; Stop 12/21/19 at 14:01 Active Scripts Active Isosorbide Mononitrate Er (Isosorbide Mononitrate) 30 Mg Tab.er.24h 30 Mg PO DAILY Metoprolol Tartrate 50 Mg Tablet 50 Mg PO BID Aspirin 81 Mg Tab.chew 1 Tab PO DAILY Clopidogrel (Clopidogrel Bisulfate) 75 Mg Tablet 75 Mg PO DAILYWBKFT 30 Days Reported Eliquis (Apixaban) 5 Mg Tablet 5 Mg PO BID Multaq (Dronedarone Hcl) 400 Mg Tablet 400 Tab PO BID Amlodipine Besylate 10 Mg Tablet 10 Mg PO DAILY Pravachol (Pravastatin Sodium) 80 Mg Tablet 80 Mg PO DAILY Acetaminophen 500 Mg Tablet 1 Tab PO BID PRN Hydrocodone-Apap 5-325 (Hydrocodone Bit/Acetaminophen) 1 Each Tablet 1 Tab PO PRN Q6HRS PRN Glucosamine & Chondroitin Cap (Gluc 2KCL/Chondr/Dereck Hy/Hy Ac) 1 Each Capsule 1 Each PO BID Furosemide 40 Mg Tablet 40 Mg PO DAILY Vitamin D3 1,000 Unit Tablet (Ca Cmb No.1/Vit D3/B-6/Fa/B12) 1 Each Tablet 1 Each PO DAILY Folic Acid 0.4 Mg Tablet 0.4 Mg PO DAILY Pantoprazole Sodium (Pantoprazole Sodium) 40 Mg Tablet.dr 40 Mg PO DAILY Allopurinol 100 Mg Tablet 300 Mg PO DAILY Iron 100 Plus Tablet (Iron,Carbonyl/Vit C/Vit B12/Fa) 1 Each Tablet 1 Each PO HS Potassium Chloride (Potassium Chloride) 20 Meq Tablet.er 20 Meq PO DAILY Gabapentin 600 Mg Tablet 600 Mg PO TID Fish Xws-Tgtrg-4-Vit D Softgel (Babbitt-3S/Dha/Epa/Fish Oil/D3) 1 Each Capsule 1 Each PO TID Allergies Allergies: Coded Allergies: Iodinated Contrast Media (Verified Allergy, Severe, Anaphylaxis, 08/27/17) celecoxib (Verified Allergy, Severe, Palpitations, 08/27/17) Tolerates aspirin latex (Verified Allergy, Intermediate, Hives, 08/27/17) meperidine HCl (Verified Adverse Reaction, Intermediate, Swelling, 08/28/17) Tolerates fentanyl ROS General: YES: Fatigue, Malaise, Appetite Eyes: Yes Decreased vision ALLERGY AND IMMUNOLOGY: YES: Seasonal Allergies Respiratory: YES: Cough, Orthopnea, Shortness of breath Cardiovascular: yes Orthopnea, yes Edema Gastrointestinal: Yes Nausea, Yes Vomiting Genitourinary: YES Other (NOCTURIA) Musculoskeletal: Yes Muscular Weakness Neurological: Yes Weakness Skin: Yes Dry Skin Physical Exam General: Alert, Oriented X3, Cooperative, No acute distress HEENT: Atraumatic, PERRLA Lungs: Clear to auscultation Heart: Regular rate, Normal S2 Abdomen: Soft, No tenderness Extremities: No clubbing, No cyanosis Skin: No breakdown Neuro: Normal speech, Sensation intact Psych/Mental Status: Mental status NL, Mood NL MUSCULOSKELETAL: No joint tenderness, No deformity, No swelling Vitals VITALS Vital Signs Date Time Temp Pulse Resp B/P (MAP) Pulse Ox O2 Delivery O2 Flow Rate FiO2 12/21/19 11:00 97.9 58 18 148/65 (92) 98 97.9 12/21/19 07:00 Nasal Cannula 2.0 Labs Labs Laboratory Tests Test 12/20/19 04:02 12/20/19 04:30 12/20/19 18:30 12/21/19 00:10 White Blood Count 8.7 x10^3/uL (4.0-11.0) Red Blood Count 3.38 x10^6/uL (3.50-5.40) Hemoglobin 11.1 g/dL (12.0-15.5) Hematocrit 33.5 % (36.0-47.0) Mean Corpuscular Volume 99 fL (79-100) Mean Corpuscular Hemoglobin 33 pg (25-35) Mean Corpuscular Hemoglobin Concent 33 g/dL (31-37) Red Cell Distribution Width 17.2 % (11.5-14.5) Platelet Count 190 x10^3/uL (140-400) Neutrophils (%) (Auto) 75 % (31-73) Lymphocytes (%) (Auto) 16 % (24-48) Monocytes (%) (Auto) 9 % (0-9) Eosinophils (%) (Auto) 1 % (0-3) Basophils (%) (Auto) 1 % (0-3) Neutrophils # (Auto) 6.5 x10^3/uL (1.8-7.7) Lymphocytes # (Auto) 1.4 x10^3/uL (1.0-4.8) Monocytes # (Auto) 0.7 x10^3/uL (0.0-1.1) Eosinophils # (Auto) 0.1 x10^3/uL (0.0-0.7) Basophils # (Auto) 0.0 x10^3/uL (0.0-0.2) D-Dimer (Cony) 2.80 ug/mlFEU (0.00-0.50) Sodium Level 138 mmol/L (136-145) 137 mmol/L (136-145) Potassium Level 4.4 mmol/L (3.5-5.1) 3.9 mmol/L (3.5-5.1) Chloride Level 102 mmol/L (98-107) 103 mmol/L (98-107) Carbon Dioxide Level 22 mmol/L (21-32) 22 mmol/L (21-32) Anion Gap 14 (6-14) 12 (6-14) Blood Urea Nitrogen 38 mg/dL (7-20) 42 mg/dL (7-20) Creatinine 3.0 mg/dL (0.6-1.0) 2.8 mg/dL (0.6-1.0) Estimated GFR (Cockcroft-Gault) 18.1 19.6 BUN/Creatinine Ratio 13 (6-20) Glucose Level 113 mg/dL (70-99) 107 mg/dL (70-99) Calcium Level 9.6 mg/dL (8.5-10.1) 9.4 mg/dL (8.5-10.1) Total Bilirubin 0.6 mg/dL (0.2-1.0) Aspartate Amino Transf (AST/SGOT) 26 U/L (15-37) Alanine Aminotransferase (ALT/SGPT) 18 U/L (14-59) Alkaline Phosphatase 120 U/L (46-116) Lactate Dehydrogenase 212 U/L (81-234) Creatine Kinase 31 U/L (26-192) Troponin I Quantitative < 0.017 ng/mL (0.000-0.055) < 0.017 ng/mL (0.000-0.055) < 0.017 ng/mL (0.000-0.055) C-Reactive Protein, Quantitative 15.8 mg/L (0-3.3) DE-Moj-C-Type Natriuretic Peptide 6514 pg/mL (0-449) Total Protein 7.7 g/dL (6.4-8.2) Albumin 3.3 g/dL (3.4-5.0) Albumin/Globulin Ratio 0.8 (1.0-1.7) Procalcitonin 0.22 ng/mL (0.00-0.10) Thyroid Stimulating Hormone (TSH) 2.188 uIU/mL (0.358-3.74) Magnesium Level 1.8 mg/dL (1.8-2.4) Test 12/21/19 07:16 Troponin I Quantitative < 0.017 ng/mL (0.000-0.055) Laboratory Tests Test 12/20/19 18:30 12/21/19 00:10 12/21/19 07:16 Troponin I Quantitative < 0.017 ng/mL (0.000-0.055) < 0.017 ng/mL (0.000-0.055) < 0.017 ng/mL (0.000-0.055) Procalcitonin 0.22 ng/mL (0.00-0.10) Thyroid Stimulating Hormone (TSH) 2.188 uIU/mL (0.358-3.74) Sodium Level 137 mmol/L (136-145) Potassium Level 3.9 mmol/L (3.5-5.1) Chloride Level 103 mmol/L (98-107) Carbon Dioxide Level 22 mmol/L (21-32) Anion Gap 12 (6-14) Blood Urea Nitrogen 42 mg/dL (7-20) Creatinine 2.8 mg/dL (0.6-1.0) Estimated GFR (Cockcroft-Gault) 19.6 Glucose Level 107 mg/dL (70-99) Calcium Level 9.4 mg/dL (8.5-10.1) Magnesium Level 1.8 mg/dL (1.8-2.4) Assessment/Plan Assessment/Plan IMP ACUTE HYPOXIA ACUTE ON CHRONIC SYSTOLIC CHF HX OF HTN HX OF CAD CKD STAGE 4 MILD FRANCISCO DUE TO CARDIORENAL PLAN IV LASIX CARDIOLOGY EVAL AND TX WILL FOLLOW LABS IN AM JEROD WANG MD Dec 21, 2019 13:50
[2019-12-21] MEDS ORDERED: FUROSEMIDE 40 MG/4 ML VIAL. IVP ONE (14:00)
[2019-12-21 15:00] VITALS: BP 190/84
--- NOTE | 2019-12-21 15:50 | PDOC ---
[employer] PROGRESS NOTE Date of Service DOS: DATE: 12/21/19 TIME: 15:48 Chief Complaint Chief Complaint Acute hypoxia - likely from pulmonary edema. Will diurese. Less likely COVID 19, will await testing results. Wean O2 as tolerated Shortness of breath with cough - likely from pulmonary edema, no hx of COPD, could be viral or atypical pneumonia. will check procalcitonin and COVID19 Atrial fibrillation - controlled response. On metoprolol tartrate 25mg BID, eliquispatricetaq. Will consult cardiology CHF - reduced ejection fraction 40-45% on prior echo. Will diurese for acute systolic CHF, consult cardiology, monitor on tele, BMP and Mag FRANCISCO on CKD - likely vasomotor nephropathy, possibly 2/2 cardiorenal syndrome. Cr now 3 with baseline 1.3 noted historically. Pending IV Lasix 40 mg HLD - cont statin HTN - cont BB and CCB CAD s/p CABG - cont prasugrel, BB, statin. Trend trops for CHEST PAIN s/p PPM - will consult cardiology. Interrogation indicated given her hospitalization for chest pain FEN - Cardiac diet, 2L fluid restriction PPX - eliquis FULL CODE Dispo - inpatient for above, 2 midnights History of Present Illness History of Present Illness 79yo F w/ PMHx CHF, HLD, HTN, CAD s/p CABG, s/p PPM who presents to the emergency department from home via her own private vehicle with complaint of chest pain, cough x2 days. She also notes significant bilateral lower extremity leg edema that is been worsening over the past 2 weeks. She advises me that she did have a negative COVID-19 test approximately 3 weeks ago. She notes over the past couple of days she has progressive dyspnea on exertion, first with entering her home to walking to the bedroom a few days ago, now when she awoke before coming to ED she was too short of breath to walk to the bathroom. The chest pain associated is dull pressure and resolves with rest. when it persisted she took a nitroglycerin and this resolved the pain. CXR appears to show enlargement of the cardiomediastinal silhouette and increased interstitial markings as well as dual lead pacer and sternotomy in place. EKG appears irregular at around 60 beats a minutes no visible P waves consistent with atrial fibrillation, nonspecific intraventricular block. Labs significant for WBC of 8.7, Hb 11.1, platelets 190, NA 138, K4.4, BUN 38, CR 3, glucose 113, CRP 15.8, BNP 6514, d-dimer 2.80, troponin 0. Due to concern for COVID-19 with abnormal chest x-ray and cough ED physician ordered swab for COVID-19 and she was admitted to COVID-19 unit and is seen there today. With elevated d-dimer ED physician suggested VQ scan however ventilation portions are not performed during the coronavirus pandemic. Also patient is on Eliquis twice daily and she has been compliant with this. Upon evaluation she is notably having some white frothy sputum and IV dose of 40 mg of Lasix was given with large urine output and some relief of her symptoms. 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 Sanchez and he recently started her on a new medication that starts with an M (Pharmacy confirms this is 400mg Multaq), and her certified nurse is Dr. Conley and she has good follow-up with both physicians. 12/21/2019 No acute events overnight. Patient does have orthopnea and requires her head of her bed to be inclined to the max at almost 90 degrees. She currently has some cough and does complain of heaviness and fluid overload. Vitals/I&O Vitals/I&O: Vital Signs Date Time Temp Pulse Resp B/P (MAP) Pulse Ox O2 Delivery O2 Flow Rate FiO2 12/21/19 15:00 98.0 61 18 190/84 (119) 97 98.0 12/21/19 07:00 Nasal Cannula 2.0 I & O 12/20/19 12/20/19 12/21/19 15:00 23:00 07:00 Intake Total 200 ml 150 ml Balance 200 ml 150 ml Physical Exam General: Alert, Oriented X3, Cooperative, No acute distress Heart: Regular rate, Normal S2 Lungs: Clear, Other Abdomen: Soft, No tenderness Extremities: No clubbing, No cyanosis Skin: No breakdown Labs Labs: Laboratory Tests Test 12/20/19 18:30 12/21/19 00:10 12/21/19 07:16 Troponin I Quantitative < 0.017 ng/mL (0.000-0.055) < 0.017 ng/mL (0.000-0.055) < 0.017 ng/mL (0.000-0.055) Procalcitonin 0.22 ng/mL (0.00-0.10) Thyroid Stimulating Hormone (TSH) 2.188 uIU/mL (0.358-3.74) Sodium Level 137 mmol/L (136-145) Potassium Level 3.9 mmol/L (3.5-5.1) Chloride Level 103 mmol/L (98-107) Carbon Dioxide Level 22 mmol/L (21-32) Anion Gap 12 (6-14) Blood Urea Nitrogen 42 mg/dL (7-20) Creatinine 2.8 mg/dL (0.6-1.0) Estimated GFR (Cockcroft-Gault) 19.6 Glucose Level 107 mg/dL (70-99) Calcium Level 9.4 mg/dL (8.5-10.1) Magnesium Level 1.8 mg/dL (1.8-2.4) Comment Review of Relevant I have reviewed the following items char (where applicable) has been applied. Medications: Current Medications Medications (Trade) Dose Ordered Sig/Zohra Route PRN Reason Start Time Stop Time Status Last Admin Dose Admin Allopurinol (Zyloprim) 100 mg DAILY PO 12/21/19 09:00 12/21/19 08:22 Amlodipine Besylate (Norvasc) 10 mg DAILY PO 12/21/19 09:00 12/21/19 08:20 Clopidogrel Bisulfate (Plavix) 75 mg DAILYWBKFT PO 12/21/19 08:00 12/21/19 08:22 Furosemide (Lasix) 40 mg DAILY PO 12/21/19 09:00 12/21/19 08:20 Acetaminophen/ Hydrocodone Bitart (Lortab 5/325) 1 tab PRN Q6HRS PRN PO MODERATE-SEVERE PAIN 12/20/19 16:30 12/21/19 08:21 Isosorbide Mononitrate (Imdur) 30 mg DAILY PO 12/21/19 09:00 12/21/19 08:19 Pantoprazole Sodium (Protonix) 40 mg DAILY PO 12/21/19 09:00 12/21/19 08:20 Potassium Chloride (Klor-Con) 20 meq DAILY PO 12/21/19 09:00 12/21/19 08:20 Vitamin D (Vitamin D3) 1,000 unit DAILY PO 12/21/19 09:00 12/21/19 08:19 Folic Acid (Folic Acid) 1 mg DAILY PO 12/21/19 09:00 12/21/19 08:20 Gabapentin (Neurontin) 100 mg TID PO 12/20/19 21:00 12/21/19 14:47 Ferrous Sulfate (Feosol) 325 mg QHS PO 12/20/19 21:00 12/20/19 22:50 Fish Oil (Fish Oil) 1,000 mg TID PO 12/20/19 21:00 12/21/19 14:47 Atorvastatin Calcium (Lipitor) 20 mg QHS PO 12/20/19 21:00 12/20/19 22:49 Apixaban (Eliquis) 2.5 mg BID PO 12/20/19 21:00 12/21/19 08:21 Metoprolol Tartrate (Lopressor) 25 mg BID PO 12/20/19 21:00 12/21/19 08:21 Morphine Sulfate (Morphine Sulfate) 2 mg PRN Q4HRS PRN IV PAIN 12/20/19 17:00 12/20/19 17:09 Benzonatate (Tessalon Perle) 100 mg PRN TID PRN PO COUGHING 12/20/19 22:45 12/21/19 08:20 Guaifenesin/ Codeine Phosphate (Robitussin Ac) 5 ml 1X ONCE PO 12/20/19 22:45 12/20/19 22:46 DC 12/20/19 22:53 Furosemide (Lasix) 40 mg 1X ONCE IVP 12/21/19 14:00 12/21/19 14:01 DC 12/21/19 14:47 GEORGIA GILES MD Dec 21, 2019 15:50
--- NOTE | 2019-12-21 16:41 | NUR ---
SW following. Spoke with RN and reviewed chart. Pt from home. Pt is currently on 2l 02. SW attempted to call into pt's room to check to see about home 02. Pt on IV morphine and a cardiac diet. Pt may need PT/OT evaluation. Nephrology is following this pt. Pt to be transferred to .
[2019-12-21] MEDS ORDERED: PHARMACY TO REVIEW MEDS. MC ONE (17:15)
[2019-12-21] MEDS ORDERED: PHARMACY TO REVIEW MEDS. MC PRN (17:15)
[2019-12-21] MEDS ORDERED: POTASSIUM CHLORIDE 10MEQ 100 ML IV PRN (17:15)
[2019-12-21] MEDS ORDERED: POTASSIUM CHLORIDE 20 MEQ TABLET.ER. PO PRN (17:15)
[2019-12-21] MEDS ORDERED: MAGNESIUM SULFATE 2GM 50 ML IV PRN ×2 (17:15)
[2019-12-21] MEDS ORDERED: MAGNESIUM SULFATE 2GM 50 ML IV ONE (17:45)
[2019-12-21 18:06] LABS: CREATININE 2.5 mg/dL (0.6-1.0); GFR 22.4; MAGNESIUM 1.8 mg/dL (1.8-2.4); POTASSIUM 4.1 mmol/L (3.5-5.1)
--- NOTE | 2019-12-21 18:17 | EKG ---
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
[2019-12-21 19:21] VITALS: BP 129/45
[2019-12-21] MEDS: ATORVASTATIN CALCIUM 20 MG TABLET PO SCH (20:54)
[2019-12-21] MEDS: FERROUS SULFATE 325 MG TABLET. PO SCH (20:54)
[2019-12-21 22:53] VITALS: BP 128/50
[2019-12-22 02:46] VITALS: BP 105/63
[2019-12-22 05:40] LABS: MAGNESIUM 1.8 mg/dL (1.8-2.4); PHOSPHORUS 3.3 mg/dL (2.6-4.7)
[2019-12-22 05:41] LABS: CALCIUM 9.4 mg/dL (8.5-10.1); CREATININE 2.3 mg/dL (0.6-1.0); GFR 24.6
[2019-12-22 07:00] VITALS: BP 129/58
[2019-12-22] MEDS: ISOSORBIDE MONONITRATE ER 30 MG TAB.ER.24H PO SCH (08:16)
[2019-12-22] MEDS: FUROSEMIDE 40 MG TABLET. PO SCH (08:17)
[2019-12-22] MEDS: APIXABAN 2.5 MG TABLET. PO SCH ×2 (08:17→20:39)
[2019-12-22] MEDS: GABAPENTIN 100 MG CAPSULE. PO SCH ×3 (08:17→20:38)
[2019-12-22] MEDS: ALLOPURINOL 100 MG TABLET. PO SCH (08:17)
[2019-12-22] MEDS: BENZONATATE 100 MG CAPSULE. PO PRN ×2 (08:17→20:38)
[2019-12-22] MEDS: CHOLECALCIFEROL (VITAMIN D3) 1,000 UNIT TABLET PO SCH (08:17)
[2019-12-22] MEDS: FOLIC ACID 1 MG TABLET. PO SCH (08:17)
[2019-12-22] MEDS: METOPROLOL TART IMMED RELEASE 50 MG TABLET. PO SCH ×2 (08:18→20:39)
[2019-12-22] MEDS: PANTOPRAZOLE 40 MG TABLET.DR. PO SCH (08:18)
[2019-12-22] MEDS: OMEGA-3 FATTY ACIDS/FISH OIL 1,000 MG CAPSULE. PO SCH ×3 (08:19→20:38)
[2019-12-22] MEDS: amLODIPine BESYLATE 10 MG TABLET PO SCH (08:19)
[2019-12-22] MEDS: POTASSIUM CHLORIDE 20 MEQ TABLET.ER. PO SCH (08:19)
[2019-12-22] MEDS: CLOPIDOGREL BISULFATE 75 MG TABLET PO SCH (08:19)
[2019-12-22] MEDS ORDERED: FUROSEMIDE 40 MG/4 ML VIAL. IVP ONE (10:30)
[2019-12-22] MEDS ORDERED: ALBUTEROL SULFATE 2.5 MG/3 ML NEBU. NEB ONE (10:30)
--- NOTE | 2019-12-22 10:48 | NUR ---
SS following up with discharge planning. SS reviewed pt chart and discussed with pt RN. Pt transferred from 6th floor. Pt is from home with spouse and is currently on room air. COVID19 negative. Discharge plan is currently to home when medically ready. SS will continue to follow for discharge planning.
--- NOTE | 2019-12-22 10:59 | RAD ---
EXAM: CHEST 1 VIEW History: Dyspnea COMPARISON: 12/20/2019 TECHNIQUE: Single portable radiograph of the chest FINDINGS: Moderate cardiomegaly. Left-sided cardiac pacer is identified. Mild prominent bilateral interstitial lung markings could be interstitial infiltrates or mild edema. IMPRESSION: Mild prominent bilateral interstitial lung markings likely interstitial infiltrates or edema similar to prior exam. Electronically signed by: Kem Irby MD (12/22/2019 10:56 AM) [id number]
[2019-12-22 11:00] VITALS: BP 130/63
[2019-12-22] MEDS ORDERED: MAGNESIUM SULFATE 2GM 50 ML IV ONE (11:00)
[2019-12-22] MEDS: DRONEDARONE HCL 400 MG TABLET PO SCH ×2 (11:02→17:00)
--- NOTE | 2019-12-22 12:36 | PDOC ---
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 12/22/19 1236: CARDIO Progress Notes Date and Time Date of Service 12/22/2019 Time of Evaluation 1030 Subjective Subjective: No Chest Pain, No Palpitations, Other (Still has SOA) Vitals Vitals Vital Signs Date Time Temp Pulse Resp B/P (MAP) Pulse Ox O2 Delivery O2 Flow Rate FiO2 12/22/19 11:42 97 Room Air 12/22/19 11:02 61 129/58 12/22/19 11:00 98.5 16 98.5 12/21/19 07:00 2.0 Weight Weight [ ] Input and Output Intake and Output Intake and Output 12/22/19 07:00 Intake Total 960 ml Output Total 1800 ml Balance -840 ml Intake Oral 960 ml Output Urine Total 1800 ml # Voids 1 Laboratory Labs Laboratory Tests Test 12/21/19 17:40 12/22/19 04:35 Potassium Level 4.1 mmol/L (3.5-5.1) 4.0 mmol/L (3.5-5.1) Creatinine 2.5 mg/dL (0.6-1.0) 2.3 mg/dL (0.6-1.0) Estimated GFR (Cockcroft-Gault) 22.4 24.6 Magnesium Level 1.8 mg/dL (1.8-2.4) 1.8 mg/dL (1.8-2.4) Sodium Level 135 mmol/L (136-145) Chloride Level 103 mmol/L (98-107) Carbon Dioxide Level 21 mmol/L (21-32) Anion Gap 11 (6-14) Blood Urea Nitrogen 42 mg/dL (7-20) Glucose Level 91 mg/dL (70-99) Calcium Level 9.4 mg/dL (8.5-10.1) Phosphorus Level 3.3 mg/dL (2.6-4.7) Physical Exam HEENT: Neck Supple W Full Motion Chest: Symmetric LUNGS: Other (diminished basilar crackles ) Heart: RRR (regular paced rhythm with underlying afib) Abdomen: Soft N/T, Other (obese) Extremities: Other (1+ bilateral LE pitting edema) Neurology: alert, oriented, follow commands Assessment Assessment 1. Acute on chronic systolic CHF with ICM; Recent echo with LVEF 40-45%. Still needing diurese 2. CAD s/p CABG and PCI/stents. Cath 2017 with patent graft, stents. Clinically stable 3. Hypertension; controlled 4. Hyperlipidemia; statin 5. Diabetes, II 6. FRANCISCO on CKD; Cr improving to 2.3 7. SSS s/p PPM ([employer]). Recent device check with normal funciton 100% AFIB in the last 2 months 8. H/o DVT/PE s/p IVC filter. On low-dose Eliquis therapy 9. Persistent AFIB Recommendations Lasix therapy extra dose today. Monitor renal function Not a candidate for tikosyn due to renal insufficiency and high QTc and not amiodarone due to iodine allergy. Continue home multaq and will consider CVN inpt vs outpt. Eliquis for stroke prophylaxis. Secondary prevention measures Justicifation of Admission Dx: Justifications for Admission: Justification of Admission Dx: Yes DOREEN AIKEN MD 12/22/19 1244: CARDIO Progress Notes Assessment Assessment Patient seen and examined. Agree with SEAL MIXER's assessment and plan. Acute on chr combined systolic and diast HF improving but still needs diuresis. Agree with extra dose of Lasix IV today. Change oral diuretics to Bumex. CAD status clinically stable Patient is QTc interval is greater than 500. Cannot start dofetilide. Continue Multitak. Continue eliquis for stroke prophylaxis SSS s/p PPM, clinically stable. Recent device check showed normal function. RAMON ANDERS APRN Dec 22, 2019 12:36 DOREEN AIKEN MD Dec 22, 2019 12:44
--- NOTE | 2019-12-22 13:21 | PDOC ---
Renal-Progress Notes Subjective Notes Notes STILL SOB AND CANT LAY FLAT History of Present Illness Hx of present illness STABLE Vitals Vitals Vital Signs Date Time Temp Pulse Resp B/P (MAP) Pulse Ox O2 Delivery O2 Flow Rate FiO2 12/22/19 11:42 97 Room Air 12/22/19 11:02 61 129/58 12/22/19 11:00 98.5 16 98.5 12/21/19 07:00 2.0 Weight Weight [ ] I.O. Intake and Output Intake and Output 12/22/19 07:00 Intake Total 960 ml Output Total 1800 ml Balance -840 ml Intake Oral 960 ml Output Urine Total 1800 ml # Voids 1 Labs Labs Laboratory Tests Test 12/21/19 17:40 12/22/19 04:35 Potassium Level 4.1 mmol/L (3.5-5.1) 4.0 mmol/L (3.5-5.1) Creatinine 2.5 mg/dL (0.6-1.0) 2.3 mg/dL (0.6-1.0) Estimated GFR (Cockcroft-Gault) 22.4 24.6 Magnesium Level 1.8 mg/dL (1.8-2.4) 1.8 mg/dL (1.8-2.4) Sodium Level 135 mmol/L (136-145) Chloride Level 103 mmol/L (98-107) Carbon Dioxide Level 21 mmol/L (21-32) Anion Gap 11 (6-14) Blood Urea Nitrogen 42 mg/dL (7-20) Glucose Level 91 mg/dL (70-99) Calcium Level 9.4 mg/dL (8.5-10.1) Phosphorus Level 3.3 mg/dL (2.6-4.7) Review of Systems Constitutional: yes: weakness, alert, oriented Ears/Nose/Throat: Yes: no symptom reported Eyes: Yes: no symptom reported Pulmonary: Yes no symptom reported Cardiovascular: Yes no symptom reported Gastrointestional: Yes: no symptom reported Genitourinary: Yes: no symptom reported Musculoskeletal: Yes: no symptom reported Skin: Yes no symptom reported Psychiatric/Neurological: Yes: no symptom reported Endocrine: Yes: no symptom reported Physical Exam General Appearance: no apparent distress Skin: warm Respiratory: decreased breath sounds Heart: S1S2 Abdomen: soft, bowel sounds present Genitourinary: bladder flat Neurology: alert, oriented, follow commands Musculoskeletal: Osteoarthritis Assessment Assessment IMP ACUTE HYPOXIA ACUTE ON CHRONIC SYSTOLIC CHF HX OF HTN HX OF CAD CKD STAGE 4-CR STABLE AT 2.5 MILD FRANCISCO DUE TO CARDIORENAL PLAN IV LASIX CARDIOLOGY EVAL AND TX WILL FOLLOW LABS IN AM JEROD WANG MD Dec 22, 2019 13:21
--- NOTE | 2019-12-22 13:23 | PDOC ---
PROGRESS NOTES Date of Service: DATE: 12/22/19 TIME: 13:18 Chief Complaint Chief Complaint Acute hypoxia - likely from pulmonary edema. Will diurese. Less likely COVID 19, will await testing results. Wean O2 as tolerated, this morning requiring reevaluation given worsening of cough and dyspnea Shortness of breath with cough - likely from pulmonary edema, no hx of COPD, could be viral or atypical pneumonia. will check procalcitonin and COVID19 Atrial fibrillation - controlled response. On metoprolol tartrate 25mg BID, eliquis, multaq. 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 Agree with extra dose of Lasix IV today. Change oral diuretics to Bumex. CAD status clinically stable Patient is QTc interval is greater than 500. Cannot start dofetilide. Continue Multitak. Continue eliquis for stroke prophylaxis SSS s/p PPM, clinically stable. Recent device check showed normal function. CHF - reduced ejection fraction 40-45% on prior echo. Will diurese for acute systolic CHF, consult cardiology, monitor on tele, BMP and Mag FRANCISCO on CKD - likely vasomotor nephropathy, possibly 2/2 cardiorenal syndrome. Cr now 3 with baseline 1.3 noted historically. Pending IV Lasix 40 mg HLD - cont statin HTN - cont BB and CCB CAD s/p CABG - cont prasugrel, BB, statin. Trend trops for CHEST PAIN s/p PPM - will consult cardiology. Interrogation indicated given her hospitalization for chest pain FEN - Cardiac diet, 2L fluid restriction PPX - eliquis FULL CODE Dispo - inpatient for above, 2 midnights History of Present Illness History of Present Illness 79yo F w/ PMHx CHF, HLD, HTN, CAD s/p CABG, s/p PPM who presents to the emergency department from home via her own private vehicle with complaint of chest pain, cough x2 days. She also notes significant bilateral lower extremity leg edema that is been worsening over the past 2 weeks. She advises me that she did have a negative COVID-19 test approximately 3 weeks ago. She notes over the past couple of days she has progressive dyspnea on exertion, first with entering her home to walking to the bedroom a few days ago, now when she awoke before coming to ED she was too short of breath to walk to the bathroom. The chest pain associated is dull pressure and resolves with rest. when it persisted she took a nitroglycerin and this resolved the pain. CXR appears to show enlargement of the cardiomediastinal silhouette and increased interstitial markings as well as dual lead pacer and sternotomy in place. EKG appears irregular at around 60 beats a minutes no visible P waves consistent with atrial fibrillation, nonspecific intraventricular block. Labs significant for WBC of 8.7, Hb 11.1, platelets 190, NA 138, K4.4, BUN 38, CR 3, glucose 113, CRP 15.8, BNP 6514, d-dimer 2.80, troponin 0. Due to concern for COVID-19 with abnormal chest x-ray and cough ED physician ordered swab for COVID-19 and she was admitted to COVID-19 unit and is seen there today. With elevated d-dimer ED physician suggested VQ scan however ventilation portions are not performed during the coronavirus pandemic. Also patient is on Eliquis twice daily and she has been compliant with this. Upon evaluation she is notably having some white frothy sputum and IV dose of 40 mg of Lasix was given with large urine output and some relief of her symptoms. She notes her pharmacy technician is Dr. Sanchez and he recently started her on a new medication that starts with an M (Pharmacy confirms this is 400mg Multaq), and her windows application packager is Dr. Conley and she has good follow-up with both physicians. 12/21/2019 No acute events overnight. Patient does have orthopnea and requires her head of her bed to be inclined to the max at almost 90 degrees. She currently has some cough and does complain of heaviness and fluid overload. 12/22/19 Patient with worsening respiratory distress, quite uncomfortable and coughing no sputum. Visibly has increased work of breathing. Reassurance has been provided to the patient and her at bedside. Crackles auscultated Vitals Vitals Vital Signs Date Time Temp Pulse Resp B/P (MAP) Pulse Ox O2 Delivery O2 Flow Rate FiO2 12/22/19 11:42 97 Room Air 12/22/19 11:02 61 129/58 12/22/19 11:00 98.5 16 98.5 12/21/19 07:00 2.0 Physical Exam General: Alert, Oriented X3, Cooperative, No acute distress Heart: Regular rate Lungs: Crackles, Other Abdomen: No tenderness Extremities: Other (2-3+ bilateral LE edema ) Skin: No breakdown, No significant lesion Labs LABS Laboratory Tests Test 12/21/19 17:40 12/22/19 04:35 Potassium Level 4.1 mmol/L (3.5-5.1) 4.0 mmol/L (3.5-5.1) Creatinine 2.5 mg/dL (0.6-1.0) 2.3 mg/dL (0.6-1.0) Estimated GFR (Cockcroft-Gault) 22.4 24.6 Magnesium Level 1.8 mg/dL (1.8-2.4) 1.8 mg/dL (1.8-2.4) Sodium Level 135 mmol/L (136-145) Chloride Level 103 mmol/L (98-107) Carbon Dioxide Level 21 mmol/L (21-32) Anion Gap 11 (6-14) Blood Urea Nitrogen 42 mg/dL (7-20) Glucose Level 91 mg/dL (70-99) Calcium Level 9.4 mg/dL (8.5-10.1) Phosphorus Level 3.3 mg/dL (2.6-4.7) Comment Review of Relevant I have reviewed the following items char (where applicable) has been applied. Labs Laboratory Tests Test 12/20/19 18:30 12/21/19 00:10 12/21/19 07:16 12/21/19 17:40 Troponin I Quantitative < 0.017 ng/mL (0.000-0.055) < 0.017 ng/mL (0.000-0.055) < 0.017 ng/mL (0.000-0.055) Procalcitonin 0.22 ng/mL (0.00-0.10) Thyroid Stimulating Hormone (TSH) 2.188 uIU/mL (0.358-3.74) Sodium Level 137 mmol/L (136-145) Potassium Level 3.9 mmol/L (3.5-5.1) 4.1 mmol/L (3.5-5.1) Chloride Level 103 mmol/L (98-107) Carbon Dioxide Level 22 mmol/L (21-32) Anion Gap 12 (6-14) Blood Urea Nitrogen 42 mg/dL (7-20) Creatinine 2.8 mg/dL (0.6-1.0) 2.5 mg/dL (0.6-1.0) Estimated GFR (Cockcroft-Gault) 19.6 22.4 Glucose Level 107 mg/dL (70-99) Calcium Level 9.4 mg/dL (8.5-10.1) Magnesium Level 1.8 mg/dL (1.8-2.4) 1.8 mg/dL (1.8-2.4) Test 12/22/19 04:35 Sodium Level 135 mmol/L (136-145) Potassium Level 4.0 mmol/L (3.5-5.1) Chloride Level 103 mmol/L (98-107) Carbon Dioxide Level 21 mmol/L (21-32) Anion Gap 11 (6-14) Blood Urea Nitrogen 42 mg/dL (7-20) Creatinine 2.3 mg/dL (0.6-1.0) Estimated GFR (Cockcroft-Gault) 24.6 Glucose Level 91 mg/dL (70-99) Calcium Level 9.4 mg/dL (8.5-10.1) Phosphorus Level 3.3 mg/dL (2.6-4.7) Magnesium Level 1.8 mg/dL (1.8-2.4) Laboratory Tests Test 12/21/19 17:40 12/22/19 04:35 Potassium Level 4.1 mmol/L (3.5-5.1) 4.0 mmol/L (3.5-5.1) Creatinine 2.5 mg/dL (0.6-1.0) 2.3 mg/dL (0.6-1.0) Estimated GFR (Cockcroft-Gault) 22.4 24.6 Magnesium Level 1.8 mg/dL (1.8-2.4) 1.8 mg/dL (1.8-2.4) Sodium Level 135 mmol/L (136-145) Chloride Level 103 mmol/L (98-107) Carbon Dioxide Level 21 mmol/L (21-32) Anion Gap 11 (6-14) Blood Urea Nitrogen 42 mg/dL (7-20) Glucose Level 91 mg/dL (70-99) Calcium Level 9.4 mg/dL (8.5-10.1) Phosphorus Level 3.3 mg/dL (2.6-4.7) Medications Current Medications Furosemide (Lasix) 40 mg 1X ONCE IVP Last administered on 12/20/19 05:58; Start 12/20/19 at 06:00; Stop 12/20/19 at 06:01; Status DC Acetaminophen (Tylenol) 500 mg PRN BID PRN PO MILD PAIN 1-3; Start 12/20/19 at 16:30 Allopurinol (Zyloprim) 100 mg DAILY PO Last administered on 12/22/19 08:17; Start 12/21/19 at 09:00 Amlodipine Besylate (Norvasc) 10 mg DAILY PO Last administered on 12/22/19 08:19; Start 12/21/19 at 09:00 Clopidogrel Bisulfate (Plavix) 75 mg DAILYWBKFT PO Last administered on 12/22/19 08:19; Start 12/21/19 at 08:00 Furosemide (Lasix) 40 mg DAILY PO Last administered on 12/22/19 08:17; Start 12/21/19 at 09:00; Stop 12/22/19 at 12:46; Status DC Acetaminophen/ Hydrocodone Bitart (Lortab 5/325) 1 tab PRN Q6HRS PRN PO MODERATE-SEVERE PAIN Last administered on 12/21/19 08:21; Start 12/20/19 at 16:30 Isosorbide Mononitrate (Imdur) 30 mg DAILY PO Last administered on 12/22/19 08:16; Start 12/21/19 at 09:00 Pantoprazole Sodium (Protonix) 40 mg DAILY PO Last administered on 12/22/19 08:18; Start 12/21/19 at 09:00 Potassium Chloride (Klor-Con) 20 meq DAILY PO Last administered on 12/22/19 08:19; Start 12/21/19 at 09:00 Vitamin D (Vitamin D3) 1,000 unit DAILY PO Last administered on 12/22/19 08:17; Start 12/21/19 at 09:00 Folic Acid (Folic Acid) 1 mg DAILY PO Last administered on 12/22/19 08:17; Start 12/21/19 at 09:00 Gabapentin (Neurontin) 100 mg TID PO Last administered on 8/25/20at 11:16; Start 12/20/19 at 21:00 Non-Formulary Medication (Gluc 2KCL/ Chondr/Dereck Hy/Hy Ac (Glucosamine & Chondroitin Cap)) 1 each BID PO ; Start 12/20/19 at 21:00; Status UNV Ferrous Sulfate (Feosol) 325 mg QHS PO Last administered on 12/21/19at 20:54; Start 12/20/19 at 21:00 Fish Oil (Fish Oil) 1,000 mg TID PO Last administered on 12/22/19at 11:15; Start 12/20/19 at 21:00 Atorvastatin Calcium (Lipitor) 20 mg QHS PO Last administered on 12/21/19at 20:54; Start 12/20/19 at 21:00 Apixaban (Eliquis) 2.5 mg BID PO Last administered on 12/22/19 08:17; Start 12/20/19 at 21:00 Metoprolol Tartrate (Lopressor) 25 mg BID PO Last administered on 12/22/19at 08:18; Start 12/20/19 at 21:00 Morphine Sulfate (Morphine Sulfate) 2 mg PRN Q4HRS PRN IV PAIN Last administered on 12/20/19at 17:09; Start 12/20/19 at 17:00 Nitroglycerin (Nitrostat) 0.4 mg PRN Q5MIN PRN SL CHEST PAIN; Start 12/20/19 at 17:15 Benzonatate (Tessalon Perle) 100 mg PRN TID PRN PO COUGHING Last administered on 12/22/19 08:17; Start 12/20/19 at 22:45 Guaifenesin/ Codeine Phosphate (Robitussin Ac) 5 ml 1X ONCE PO Last administered on 12/20/19at 22:53; Start 12/20/19 at 22:45; Stop 12/20/19 at 22:4 6; Status DC Furosemide (Lasix) 40 mg 1X ONCE IVP Last administered on 12/21/19at 14:47; Start 12/21/19 at 14:00; Stop 12/21/19 at 14:01; Status DC Potassium Chloride (Klor-Con) 20 meq PRN DAILY PRN PO SEE COMMENTS; Start 12/21/19 at 17:15 Potassium Chloride/Water 100 ml @ 100 mls/hr PRN DAILY PRN IV SEE COMMENTS; Start 12/21/19 at 17:15 Magnesium Sulfate 50 ml @ 25 mls/hr PRN DAILY PRN IV SEE COMMENTS; Start 12/21/19 at 17:15 Info (Review Meds) 1 ea PRN DAILY PRN MC SEE COMMENTS; Start 12/21/19 at 17:15; Status Cancel Info (Review Meds) 1 ea 1X ONCE MC ; Start 12/21/19 at 17:15; Stop 12/21/19 at 17:30; Status DC Magnesium Sulfate 50 ml @ 300 mls/hr PRN DAILY PRN IV SEE COMMENTS; Start 12/21/19 at 17:15 Magnesium Sulfate 50 ml @ 25 mls/hr ONCE ONCE IV Last administered on 12/21/19at 19:02; Start 12/21/19 at 17:45; Stop 12/21/19 at 19:44; Status DC Furosemide (Lasix) 40 mg 1X ONCE IVP Last administered on 12/22/19at 11:12; Start 12/22/19 at 10:30; Stop 12/22/19 at 10:31; Status DC Albuterol Sulfate (Ventolin Neb Soln) 2.5 mg 1X ONCE NEB Last administered on 12/22/19at 11:39; Start 12/22/19 at 10:30; Stop 12/22/19 at 10:31; Status DC Magnesium Sulfate 50 ml @ 25 mls/hr 1X ONCE IV Last administered on 12/22/19at 11:03; Start 12/22/19 at 11:00; Stop 12/22/19 at 12:59; Status DC Dronedarone (Multaq) 400 mg BIDWMEALS PO Last administered on 12/22/19at 11:02; Start 12/22/19 at 11:00 Bumetanide (Bumex) 1 mg DAILY PO ; Start 12/23/19 at 09:00 Active Scripts Active Isosorbide Mononitrate Er (Isosorbide Mononitrate) 30 Mg Tab.er.24h 30 Mg PO DAILY Metoprolol Tartrate 50 Mg Tablet 50 Mg PO BID Aspirin 81 Mg Tab.chew 1 Tab PO DAILY Clopidogrel (Clopidogrel Bisulfate) 75 Mg Tablet 75 Mg PO DAILYWBKFT 30 Days Reported Eliquis (Apixaban) 5 Mg Tablet 5 Mg PO BID Multaq (Dronedarone Hcl) 400 Mg Tablet 400 Tab PO BID Amlodipine Besylate 10 Mg Tablet 10 Mg PO DAILY Pravachol (Pravastatin Sodium) 80 Mg Tablet 80 Mg PO DAILY Acetaminophen 500 Mg Tablet 1 Tab PO BID PRN Hydrocodone-Apap 5-325 (Hydrocodone Bit/Acetaminophen) 1 Each Tablet 1 Tab PO PRN Q6HRS PRN Glucosamine & Chondroitin Cap (Gluc 2KCL/Chondr/Dereck Hy/Hy Ac) 1 Each Capsule 1 Each PO BID Furosemide 40 Mg Tablet 40 Mg PO DAILY Vitamin D3 1,000 Unit Tablet (Ca Cmb No.1/Vit D3/B-6/Fa/B12) 1 Each Tablet 1 Each PO DAILY Folic Acid 0.4 Mg Tablet 0.4 Mg PO DAILY Pantoprazole Sodium (Pantoprazole Sodium) 40 Mg Tablet.dr 40 Mg PO DAILY Allopurinol 100 Mg Tablet 300 Mg PO DAILY Iron 100 Plus Tablet (Iron,Carbonyl/Vit C/Vit B12/Fa) 1 Each Tablet 1 Each PO HS Potassium Chloride (Potassium Chloride) 20 Meq Tablet.er 20 Meq PO DAILY Gabapentin 600 Mg Tablet 600 Mg PO TID Fish Ovx-Nieob-1-Vit D Softgel ([place]-3S/Dha/Epa/Fish Oil/D3) 1 Each Capsule 1 Each PO TID Vitals/I & O Vital Sign - Last 24 Hours 12/21/19 12/21/19 12/21/19 12/21/19 15:00 19:21 19:21 20:56 Temp 98.0 97.7 98.0 97.7 Pulse 61 60 60 Resp 18 18 B/P (MAP) 190/84 (119) 129/45 (73) 129/45 Pulse Ox 97 97 O2 Delivery Room Air Room Air 12/21/19 12/22/19 12/22/19 12/22/19 22:53 02:46 07:00 08:00 Temp 98.1 98.7 97.7 98.1 98.7 97.7 Pulse 62 58 61 Resp 18 18 16 B/P (MAP) 128/50 (76) 105/63 (77) 129/58 (81) Pulse Ox 97 99 93 O2 Delivery Room Air Room Air Room Air Room Air 12/22/19 12/22/19 12/22/19 12/22/19 08:16 08:18 08:19 11:00 Temp 98.5 98.5 Pulse 61 61 61 60 Resp 16 B/P (MAP) 129/58 129/58 129/58 130/63 (85) Pulse Ox 97 O2 Delivery Room Air 12/22/19 12/22/19 11:02 11:42 Pulse 61 B/P (MAP) 129/58 Pulse Ox 97 O2 Delivery Room Air Intake and Output 12/21/19 12/21/19 12/22/19 15:00 23:00 07:00 Intake Total 220 ml 740 ml Output Total 500 ml 1300 ml Balance 220 ml 240 ml -1300 ml Justicifation of Admission Dx: Justifications for Admission: Justification of Admission Dx: Yes MICHELLE VACA MD Dec 22, 2019 13:23
[2019-12-22 15:00] VITALS: BP 110/52
[2019-12-22 19:30] VITALS: BP 141/58
[2019-12-22] MEDS: FERROUS SULFATE 325 MG TABLET. PO SCH (20:38)
[2019-12-22] MEDS: ATORVASTATIN CALCIUM 20 MG TABLET PO SCH (20:38)
[2019-12-22] MEDS: HYDROcodone/APAP 5/325MG 1 TAB TABLET PO PRN (20:44)
[2019-12-22 22:50] VITALS: BP 143/58
[2019-12-23 03:05] VITALS: BP 127/56
[2019-12-23 04:32] LABS: CALCIUM 9.5 mg/dL (8.5-10.1); CREATININE 2.7 mg/dL (0.6-1.0); GFR 20.5; MAGNESIUM 2.3 mg/dL (1.8-2.4); POTASSIUM 4.2 mmol/L (3.5-5.1)
[2019-12-23 07:00] VITALS: BP 103/61
[2019-12-23] MEDS: GABAPENTIN 100 MG CAPSULE. PO SCH ×3 (08:49→21:46)
[2019-12-23] MEDS: POTASSIUM CHLORIDE 20 MEQ TABLET.ER. PO SCH (08:50)
[2019-12-23] MEDS: DRONEDARONE HCL 400 MG TABLET PO SCH ×2 (08:50→17:12)
[2019-12-23] MEDS: ISOSORBIDE MONONITRATE ER 30 MG TAB.ER.24H PO SCH (08:51)
[2019-12-23] MEDS: amLODIPine BESYLATE 10 MG TABLET PO SCH (08:51)
[2019-12-23] MEDS: APIXABAN 2.5 MG TABLET. PO SCH ×2 (08:51→21:45)
[2019-12-23] MEDS: FOLIC ACID 1 MG TABLET. PO SCH (08:51)
[2019-12-23] MEDS: CHOLECALCIFEROL (VITAMIN D3) 1,000 UNIT TABLET PO SCH (08:51)
[2019-12-23] MEDS: CLOPIDOGREL BISULFATE 75 MG TABLET PO SCH (08:51)
[2019-12-23] MEDS: ALLOPURINOL 100 MG TABLET. PO SCH (08:51)
[2019-12-23] MEDS: PANTOPRAZOLE 40 MG TABLET.DR. PO SCH (08:52)
[2019-12-23] MEDS: METOPROLOL TART IMMED RELEASE 50 MG TABLET. PO SCH ×2 (08:52→21:48)
[2019-12-23] MEDS: OMEGA-3 FATTY ACIDS/FISH OIL 1,000 MG CAPSULE. PO SCH ×3 (08:52→21:45)
--- NOTE | 2019-12-23 08:56 | RAD ---
INDICATION: Reason: chf, 204 / Spl. Instructions: / History: COMPARISON: One day prior FINDINGS: Single view of chest obtained. Cardiomediastinal silhouette is again enlarged with poststernotomy changes as well as pacemaker. Left shoulder arthroplasty with degenerative changes the right shoulder. Slightly improved aeration compared to prior with mild haziness at the lung bases. IMPRESSION: * Slight improvement in aeration of the lungs compared to prior with mild hazy opacities at the lung bases again seen. * Enlarged cardiomediastinal silhouette Electronically signed by: Nicholas Wen MD (12/23/2019 8:53 AM) [id number]
[2019-12-23] MEDS ORDERED: FUROSEMIDE 40 MG TABLET. PO SCH (09:00)
[2019-12-23] MEDS ORDERED: BUMETANIDE 1 MG TABLET. PO SCH ×2 (09:00→12:00)
[2019-12-23] MEDS: ANTI-COAG MONITOR BY PHARMACY. MC PRN ×2 (10:07→10:12)
[2019-12-23 11:04] VITALS: BP 106/55
--- NOTE | 2019-12-23 12:04 | PDOC ---
PROGRESS NOTES Date of Service: DATE: 12/23/19 TIME: 12:01 Chief Complaint Chief Complaint Acute hypoxia - likely from pulmonary edema. Will diurese. Less likely COVID 19, will await testing results. Wean O2 as tolerated, this morning requiring reevaluation given worsening of cough and dyspnea Shortness of breath with cough - likely from pulmonary edema, no hx of COPD, could be viral or atypical pneumonia. will check procalcitonin and COVID19 Atrial fibrillation - controlled response. On metoprolol tartrate 25mg BID, eliquis, multaq. 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 Agree with extra dose of Lasix IV today. Change oral diuretics to Bumex. CAD status clinically stable Patient is QTc interval is greater than 500. Cannot start dofetilide. Continue Multitak. Continue eliquis for stroke prophylaxis SSS s/p PPM, clinically stable. Recent device check showed normal function. CHF - reduced ejection fraction 40-45% on prior echo. Will diurese for acute systolic CHF, consult cardiology, monitor on tele, BMP and Mag FRANCISCO on CKD - likely vasomotor nephropathy, possibly 2/2 cardiorenal syndrome. Cr now 3 with baseline 1.3 noted historically. Pending IV Lasix 40 mg HLD - cont statin HTN - cont BB and CCB CAD s/p CABG - cont prasugrel, BB, statin. Trend trops for CHEST PAIN s/p PPM - will consult cardiology. Interrogation indicated given her hospitalization for chest pain FEN - Cardiac diet, 2L fluid restriction PPX - eliquis FULL CODE Dispo - inpatient for above, 2 midnights History of Present Illness History of Present Illness 79yo F w/ PMHx CHF, HLD, HTN, CAD s/p CABG, s/p PPM who presents to the emergency department from home via her own private vehicle with complaint of chest pain, cough x2 days. She also notes significant bilateral lower extremity leg edema that is been worsening over the past 2 weeks. She advises me that she did have a negative COVID-19 test approximately 3 weeks ago. She notes over the past couple of days she has progressive dyspnea on exertion, first with entering her home to walking to the bedroom a few days ago, now when she awoke before coming to ED she was too short of breath to walk to the bathroom. The chest pain associated is dull pressure and resolves with rest. when it persisted she took a nitroglycerin and this resolved the pain. CXR appears to show enlargement of the cardiomediastinal silhouette and increased interstitial markings as well as dual lead pacer and sternotomy in place. EKG appears irregular at around 60 beats a minutes no visible P waves consistent with atrial fibrillation, nonspecific intraventricular block. Labs significant for WBC of 8.7, Hb 11.1, platelets 190, NA 138, K4.4, BUN 38, CR 3, glucose 113, CRP 15.8, BNP 6514, d-dimer 2.80, troponin 0. Due to concern for COVID-19 with abnormal chest x-ray and cough ED physician ordered swab for COVID-19 and she was admitted to COVID-19 unit and is seen there today. With elevated d-dimer ED physician suggested VQ scan however ventilation portions are not performed during the coronavirus pandemic. Also patient is on Eliquis twice daily and she has been compliant with this. Upon evaluation she is notably having some white frothy sputum and IV dose of 40 mg of Lasix was given with large urine output and some relief of her symptoms. She notes her order entry representative is Dr. Sanchez and he recently started her on a new medication that starts with an M (Pharmacy confirms this is 400mg Multaq), and her lithoduplicator operator is Dr. Conley and she has good follow-up with both physicians. 12/21/2019 No acute events overnight. Patient does have orthopnea and requires her head of her bed to be inclined to the max at almost 90 degrees. She currently has some cough and does complain of heaviness and fluid overload. 12/22/19 Patient with worsening respiratory distress, quite uncomfortable and coughing no sputum. Visibly has increased work of breathing. Reassurance has been provided to the patient and her at bedside. Crackles auscultated 12/23/2019 Patient reports some dyspnea on exertion, but comfortable at rest. She is unable to walk across the room without feeling short of breath. Her shortness of breath is also worse when she lays on her back. She reports a chronic cough that is worse with deep inspiration and productive of clear sputum. Vitals Vitals Vital Signs Date Time Temp Pulse Resp B/P (MAP) Pulse Ox O2 Delivery O2 Flow Rate FiO2 12/23/19 11:04 98.2 58 20 106/55 (72) 96 Room Air 98.2 Physical Exam General: Alert, Oriented X3, Cooperative, No acute distress Heart: Regular rate Lungs: Crackles, Other Abdomen: No tenderness Extremities: Other (2-3+ bilateral LE edema ) Skin: No breakdown, No significant lesion Labs LABS Laboratory Tests Test 12/23/19 03:50 Sodium Level 138 mmol/L (136-145) Potassium Level 4.2 mmol/L (3.5-5.1) Chloride Level 103 mmol/L (98-107) Carbon Dioxide Level 24 mmol/L (21-32) Anion Gap 11 (6-14) Blood Urea Nitrogen 42 mg/dL (7-20) Creatinine 2.7 mg/dL (0.6-1.0) Estimated GFR (Cockcroft-Gault) 20.5 Glucose Level 99 mg/dL (70-99) Calcium Level 9.5 mg/dL (8.5-10.1) Magnesium Level 2.3 mg/dL (1.8-2.4) Review of Systems Review of Systems Dyspnea on exertion, orthopnea, cough. Denies chest pain, denies hemoptysis, denies fever. Assessment and Plan Assessmemt and Plan Plan: Continue p.o. Bumex. This may require some adjustment due to kidney function. Will evaluate with ambulatory pulse ox. Comment Review of Relevant I have reviewed the following items char (where applicable) has been applied. Labs Laboratory Tests Test 12/21/19 17:40 12/22/19 04:35 12/23/19 03:50 Potassium Level 4.1 mmol/L (3.5-5.1) 4.0 mmol/L (3.5-5.1) 4.2 mmol/L (3.5-5.1) Creatinine 2.5 mg/dL (0.6-1.0) 2.3 mg/dL (0.6-1.0) 2.7 mg/dL (0.6-1.0) Estimated GFR (Cockcroft-Gault) 22.4 24.6 20.5 Magnesium Level 1.8 mg/dL (1.8-2.4) 1.8 mg/dL (1.8-2.4) 2.3 mg/dL (1.8-2.4) Sodium Level 135 mmol/L (136-145) 138 mmol/L (136-145) Chloride Level 103 mmol/L (98-107) 103 mmol/L (98-107) Carbon Dioxide Level 21 mmol/L (21-32) 24 mmol/L (21-32) Anion Gap 11 (6-14) 11 (6-14) Blood Urea Nitrogen 42 mg/dL (7-20) 42 mg/dL (7-20) Glucose Level 91 mg/dL (70-99) 99 mg/dL (70-99) Calcium Level 9.4 mg/dL (8.5-10.1) 9.5 mg/dL (8.5-10.1) Phosphorus Level 3.3 mg/dL (2.6-4.7) Laboratory Tests Test 12/23/19 03:50 Sodium Level 138 mmol/L (136-145) Potassium Level 4.2 mmol/L (3.5-5.1) Chloride Level 103 mmol/L (98-107) Carbon Dioxide Level 24 mmol/L (21-32) Anion Gap 11 (6-14) Blood Urea Nitrogen 42 mg/dL (7-20) Creatinine 2.7 mg/dL (0.6-1.0) Estimated GFR (Cockcroft-Gault) 20.5 Glucose Level 99 mg/dL (70-99) Calcium Level 9.5 mg/dL (8.5-10.1) Magnesium Level 2.3 mg/dL (1.8-2.4) Medications Current Medications Furosemide (Lasix) 40 mg 1X ONCE IVP Last administered on 12/20/19at 05:58; Start 12/20/19 at 06:00; Stop 12/20/19 at 06:01; Status DC Acetaminophen (Tylenol) 500 mg PRN BID PRN PO MILD PAIN 1-3; Start 12/20/19 at 16:30 Allopurinol (Zyloprim) 100 mg DAILY PO Last administered on 12/23/19at 08:51; Start 12/21/19 at 09:00 Amlodipine Besylate (Norvasc) 10 mg DAILY PO Last administered on 12/23/19at 08:51; Start 12/21/19 at 09:00 Clopidogrel Bisulfate (Plavix) 75 mg DAILYWBKFT PO Last administered on 12/23/19 08:51; Start 12/21/19 at 08:00 Furosemide (Lasix) 40 mg DAILY PO Last administered on 12/22/19 08:17; Start 12/21/19 at 09:00; Stop 12/22/19 at 12:46; Status DC Acetaminophen/ Hydrocodone Bitart (Lortab 5/325) 1 tab PRN Q6HRS PRN PO MODERATE-SEVERE PAIN Last administered on 12/22/19 20:44; Start 12/20/19 at 16:30 Isosorbide Mononitrate (Imdur) 30 mg DAILY PO Last administered on 12/23/19 08:51; Start 12/21/19 at 09:00 Pantoprazole Sodium (Protonix) 40 mg DAILY PO Last administered on 12/23/19 08:52; Start 12/21/19 at 09:00 Potassium Chloride (Klor-Con) 20 meq DAILY PO Last administered on 12/23/19 08:50; Start 12/21/19 at 09:00 Vitamin D (Vitamin D3) 1,000 unit DAILY PO Last administered on 12/23/19 08:51; Start 12/21/19 at 09:00 Folic Acid (Folic Acid) 1 mg DAILY PO Last administered on 12/23/19 08:51; Start 12/21/19 at 09:00 Gabapentin (Neurontin) 100 mg TID PO Last administered on 12/23/19 08:49; Start 12/20/19 at 21:00 Non-Formulary Medication (Gluc 2KCL/ Chondr/Dereck Hy/Hy Ac (Glucosamine & Chondroitin Cap)) 1 each BID PO ; Start 12/20/19 at 21:00; Status UNV Ferrous Sulfate (Feosol) 325 mg QHS PO Last administered on 12/22/19 20:38; Start 12/20/19 at 21:00 Fish Oil (Fish Oil) 1,000 mg TID PO Last administered on 12/23/19 08:52; Start 12/20/19 at 21:00 Atorvastatin Calcium (Lipitor) 20 mg QHS PO Last administered on 12/22/19 20:38; Start 12/20/19 at 21:00 Apixaban (Eliquis) 2.5 mg BID PO Last administered on 8/26/20at 08:51; Start 12/20/19 at 21:00 Metoprolol Tartrate (Lopressor) 25 mg BID PO Last administered on 12/23/19at 08:52; Start 12/20/19 at 21:00 Morphine Sulfate (Morphine Sulfate) 2 mg PRN Q4HRS PRN IV PAIN Last administered on 12/20/19at 17:09; Start 12/20/19 at 17:00 Nitroglycerin (Nitrostat) 0.4 mg PRN Q5MIN PRN SL CHEST PAIN; Start 12/20/19 at 17:15 Benzonatate (Tessalon Perle) 100 mg PRN TID PRN PO COUGHING Last administered on 12/22/19at 20:38; Start 12/20/19 at 22:45 Guaifenesin/ Codeine Phosphate (Robitussin Ac) 5 ml 1X ONCE PO Last administered on 12/20/19at 22:53; Start 12/20/19 at 22:45; Stop 12/20/19 at 22:46; Status DC Furosemide (Lasix) 40 mg 1X ONCE IVP Last administered on 12/21/19at 14:47; Start 12/21/19 at 14:00; Stop 12/21/19 at 14:01; Status DC Potassium Chloride (Klor-Con) 20 meq PRN DAILY PRN PO SEE COMMENTS; Start 12/21/19 at 17:15 Potassium Chloride/Water 100 ml @ 100 mls/hr PRN DAILY PRN IV SEE COMMENTS; Start 12/21/19 at 17:15 Magnesium Sulfate 50 ml @ 25 mls/hr PRN DAILY PRN IV SEE COMMENTS; Start 12/21/19 at 17:15 Info (Review Meds) 1 ea PRN DAILY PRN MC SEE COMMENTS; Start 12/21/19 at 17:15; Status Cancel Info (Review Meds) 1 ea 1X ONCE MC ; Start 12/21/19 at 17:15; Stop 12/21/19 at 17:30; Status DC Magnesium Sulfate 50 ml @ 300 mls/hr PRN DAILY PRN IV SEE COMMENTS; Start 12/21/19 at 17:15 Magnesium Sulfate 50 ml @ 25 mls/hr ONCE ONCE IV Last administered on 12/21/19at 19:02; Start 12/21/19 at 17:45; Stop 12/21/19 at 19:44; Status DC Furosemide (Lasix) 40 mg 1X ONCE IVP Last administered on 12/22/19at 11:12; Start 12/22/19 at 10:30; Stop 12/22/19 at 10:31; Status DC Albuterol Sulfate (Ventolin Neb Soln) 2.5 mg 1X ONCE NEB Last administered on 12/22/19at 11:39; Start 12/22/19 at 10:30; Stop 12/22/19 at 10:31; Status DC Magnesium Sulfate 50 ml @ 25 mls/hr 1X ONCE IV Last administered on 12/22/19at 11:03; Start 12/22/19 at 11:00; Stop 12/22/19 at 12:59; Status DC Dronedarone (Multaq) 400 mg BIDWMEALS PO Last administered on 12/23/19at 08:50; Start 12/22/19 at 11:00 Bumetanide (Bumex) 1 mg DAILY PO ; Start 12/23/19 at 09:00; Stop 12/23/19 at 08:11; Status DC Furosemide (Lasix) 40 mg DAILY PO ; Start 12/23/19 at 09:00; Stop 12/23/19 at 08:11; Status DC Bumetanide (Bumex) 1 mg DAILY PO ; Start 12/23/19 at 12:00 Info (Anti-Coagulation Monitoring By Pharmacy) 1 each PRN DAILY PRN MC SEE COMMENTS Last administered on 12/23/19at 10:12; Start 12/23/19 at 10:15 Active Scripts Active Isosorbide Mononitrate Er (Isosorbide Mononitrate) 30 Mg Tab.er.24h 30 Mg PO DAILY Metoprolol Tartrate 50 Mg Tablet 50 Mg PO BID Aspirin 81 Mg Tab.chew 1 Tab PO DAILY Clopidogrel (Clopidogrel Bisulfate) 75 Mg Tablet 75 Mg PO DAILYWBKFT 30 Days Reported Eliquis (Apixaban) 5 Mg Tablet 5 Mg PO BID Multaq (Dronedarone Hcl) 400 Mg Tablet 400 Tab PO BID Amlodipine Besylate 10 Mg Tablet 10 Mg PO DAILY Pravachol (Pravastatin Sodium) 80 Mg Tablet 80 Mg PO DAILY Acetaminophen 500 Mg Tablet 1 Tab PO BID PRN Hydrocodone-Apap 5-325 (Hydrocodone Bit/Acetaminophen) 1 Each Tablet 1 Tab PO PRN Q6HRS PRN Glucosamine & Chondroitin Cap (Gluc 2KCL/Chondr/Dereck Hy/Hy Ac) 1 Each Capsule 1 Each PO BID Furosemide 40 Mg Tablet 40 Mg PO DAILY Vitamin D3 1,000 Unit Tablet (Ca Cmb No.1/Vit D3/B-6/Fa/B12) 1 Each Tablet 1 Each PO DAILY Folic Acid 0.4 Mg Tablet 0.4 Mg PO DAILY Pantoprazole Sodium (Pantoprazole Sodium) 40 Mg Tablet.dr 40 Mg PO DAILY Allopurinol 100 Mg Tablet 300 Mg PO DAILY Iron 100 Plus Tablet (Iron,Carbonyl/Vit C/Vit B12/Fa) 1 Each Tablet 1 Each PO HS Potassium Chloride (Potassium Chloride) 20 Meq Tablet.er 20 Meq PO DAILY Gabapentin 600 Mg Tablet 600 Mg PO TID Fish Xrh-Oyncp-0-Vit D Softgel ([place]-3S/Dha/Epa/Fish Oil/D3) 1 Each Capsule 1 Each PO TID Vitals/I & O Vital Sign - Last 24 Hours 12/22/19 12/22/19 12/22/19 12/22/19 15:00 17:00 19:30 20:00 Temp 98.2 98.4 98.2 98.4 Pulse 63 63 62 Resp 16 18 B/P (MAP) 110/52 (71) 110/52 141/58 (85) Pulse Ox 97 97 O2 Delivery Room Air Room Air Room Air 12/22/19 12/22/19 12/22/19 12/22/19 20:39 20:44 21:45 22:50 Temp 98.4 98.4 Pulse 62 59 Resp 18 B/P (MAP) 141/58 143/58 (86) Pulse Ox 96 O2 Delivery Room Air Room Air Room Air 12/23/19 12/23/19 12/23/19 12/23/19 03:05 07:00 08:00 08:50 Temp 98.3 97.6 98.3 97.6 Pulse 59 55 60 Resp 18 20 B/P (MAP) 127/56 (79) 103/61 (75) 103/61 Pulse Ox 93 95 O2 Delivery Room Air Room Air Room Air 12/23/19 12/23/19 12/23/19 12/23/19 08:51 08:51 08:52 11:04 Temp 98.2 98.2 Pulse 60 60 60 58 Resp 20 B/P (MAP) 103/61 103/61 103/61 106/55 (72) Pulse Ox 96 O2 Delivery Room Air Intake and Output 12/22/19 12/22/19 12/23/19 15:00 23:00 07:00 Intake Total 300 ml 200 ml 0 ml Output Total 500 ml 200 ml Balance -200 ml 0 ml 0 ml Justicifation of Admission Dx: Justifications for Admission: Justification of Admission Dx: Yes CHAVA SANDERS MD Dec 23, 2019 12:04
--- NOTE | 2019-12-23 13:22 | PDOC ---
RAMON ANDERS HOP GROWER 12/23/19 1322: CARDIO Progress Notes Date and Time Date of Service 12/23/2019 Time of Evaluation 1000 Subjective Subjective: No Chest Pain, No Palpitations, Other (SOA better) Vitals Vitals Vital Signs Date Time Temp Pulse Resp B/P (MAP) Pulse Ox O2 Delivery O2 Flow Rate FiO2 12/23/19 11:04 98.2 58 20 106/55 (72) 96 Room Air 98.2 Weight Weight [ ] Input and Output Intake and Output Intake and Output 12/23/19 06:59 Intake Total 500 ml Output Total 700 ml Balance -200 ml Intake Oral 500 ml Output Urine Total 700 ml Laboratory Labs Laboratory Tests Test 12/23/19 03:50 Sodium Level 138 mmol/L (136-145) Potassium Level 4.2 mmol/L (3.5-5.1) Chloride Level 103 mmol/L (98-107) Carbon Dioxide Level 24 mmol/L (21-32) Anion Gap 11 (6-14) Blood Urea Nitrogen 42 mg/dL (7-20) Creatinine 2.7 mg/dL (0.6-1.0) Estimated GFR (Cockcroft-Gault) 20.5 Glucose Level 99 mg/dL (70-99) Calcium Level 9.5 mg/dL (8.5-10.1) Magnesium Level 2.3 mg/dL (1.8-2.4) Review of Systems Constitutional: yes: weakness, alert, oriented Ears/Nose/Throat: Yes: no symptom reported Eyes: Yes: no symptom reported Pulmonary: Yes no symptom reported Cardiovascular: Yes no symptom reported Gastrointestional: Yes: no symptom reported Genitourinary: Yes: no symptom reported Musculoskeletal: Yes: no symptom reported Skin: Yes no symptom reported Psychiatric/Neurological: Yes: no symptom reported Endocrine: Yes: no symptom reported Physical Exam HEENT: Neck Supple W Full Motion Chest: Symmetric LUNGS: Other (diminished basilar crackles ) Heart: RRR (regular paced rhythm with underlying afib) Abdomen: Soft N/T, Other (obese) Extremities: Other (1+ bilateral LE pitting edema) Neurology: alert, oriented, follow commands Assessment Assessment 1. Acute on chronic systolic CHF with ICM; Recent echo with LVEF 40-45%. 2. CAD s/p CABG and PCI/stents. Cath 2017 with patent graft, stents. Clinically stable 3. Hypertension; controlled 4. Hyperlipidemia; statin 5. Diabetes, II 6. FRANCISCO on CKD; Cr at 2.7, nephrology following 7. SSS s/p PPM ([employer]). Recent device check with normal funciton 100% AFIB in the last 2 months 8. H/o DVT/PE s/p IVC filter. On low-dose Eliquis therapy 9. Persistent AFIB 10. Persistent cough with dyspnea: likely from CHF Recommendations Continue bumex. Will obtain limited TTE and note RV dilation Not a candidate for tikosyn due to renal insufficiency and high QTc and not amiodarone due to iodine allergy. Continue home multaq and will consider outpt CVN after sufficient multaq use Eliquis for stroke prophylaxis. Secondary prevention measures Consult pulmonary and if no underlying direct pulmonary issues then will consider for RHC. Noncontrast CT chest Justicifation of Admission Dx: Justifications for Admission: Justification of Admission Dx: Yes DOREEN AIKEN MD 12/23/19 1907: CARDIO Progress Notes Assessment Assessment Patient seen and examined. Agree with SWITCHBOARD TROUBLESHOOTER's assessment and plan. Acute on chr combined systolic and diast HF improved clinically but patient stll complaining of dyspnea and cough Continue bumex and consult pulm team If no pulm etiology, we will consider right heart cath for definitive evaluation of fluid status CAD status clinically stable Patient is QTc interval is greater than 500. Cannot start dofetilide. Continue Multaq. Continue eliquis for stroke prophylaxis SSS s/p PPM, clinically stable. Recent device check showed normal function. RAMON ANDERS APRN Dec 23, 2019 13:22 DOREEN AIKEN MD Dec 23, 2019 19:07
--- NOTE | 2019-12-23 14:29 | PDOC ---
Renal-Progress Notes Subjective Notes Notes LESS SOB History of Present Illness Hx of present illness STABLE Vitals Vitals Vital Signs Date Time Temp Pulse Resp B/P (MAP) Pulse Ox O2 Delivery O2 Flow Rate FiO2 12/23/19 11:04 98.2 58 20 106/55 (72) 96 Room Air 98.2 Weight Weight [ ] I.O. Intake and Output Intake and Output 12/23/19 07:00 Intake Total 500 ml Output Total 700 ml Balance -200 ml Intake Oral 500 ml Output Urine Total 700 ml Labs Labs Laboratory Tests Test 12/23/19 03:50 Sodium Level 138 mmol/L (136-145) Potassium Level 4.2 mmol/L (3.5-5.1) Chloride Level 103 mmol/L (98-107) Carbon Dioxide Level 24 mmol/L (21-32) Anion Gap 11 (6-14) Blood Urea Nitrogen 42 mg/dL (7-20) Creatinine 2.7 mg/dL (0.6-1.0) Estimated GFR (Cockcroft-Gault) 20.5 Glucose Level 99 mg/dL (70-99) Calcium Level 9.5 mg/dL (8.5-10.1) Magnesium Level 2.3 mg/dL (1.8-2.4) Review of Systems Constitutional: yes: weakness, alert, oriented Ears/Nose/Throat: Yes: no symptom reported Eyes: Yes: no symptom reported Pulmonary: Yes no symptom reported Cardiovascular: Yes no symptom reported Gastrointestional: Yes: no symptom reported Genitourinary: Yes: no symptom reported Musculoskeletal: Yes: no symptom reported Skin: Yes no symptom reported Psychiatric/Neurological: Yes: no symptom reported Endocrine: Yes: no symptom reported Physical Exam General Appearance: no apparent distress Skin: warm Respiratory: decreased breath sounds Heart: S1S2 Abdomen: soft, bowel sounds present Genitourinary: bladder flat Neurology: alert, oriented, follow commands Musculoskeletal: Osteoarthritis Assessment Assessment IMP ACUTE HYPOXIA ACUTE ON CHRONIC SYSTOLIC CHF-IMPROVED HX OF HTN HX OF CAD CKD STAGE 4-CR STABLE AT 2.7 MILD FRANCISCO DUE TO CARDIORENAL PLAN ON PO BUMEX CARDIOLOGY EVAL AND TX WILL FOLLOW LABS IN JEROD FANG MD Dec 23, 2019 14:29
[2019-12-23 15:00] VITALS: BP 113/64
[2019-12-23] MEDS ORDERED: BUMETANIDE 1 MG/4 ML VIAL. IV SCH (15:00)
[2019-12-23] MEDS ORDERED: POLYETHYLENE GLYCOL 3350 17 GM PACKET. PO PRN (15:30)
[2019-12-23] MEDS ORDERED: BUMETANIDE 1 MG/4 ML VIAL. IV ONE (15:30)
--- NOTE | 2019-12-23 17:03 | RAD ---
CT CHEST WO CONTRAST INDICATION: Reason: dyspnea / Spl. Instructions: / History: . COMPARISON STUDY: None. TECHNIQUE: Unenhanced axial images were obtained through the lungs and upper abdomen. Coronal and sagittal multiplanar reconstructions were also obtained. PQRS compliance statement: One or more of the following individualized dose reduction techniques were utilized for this examination: 1. Automated exposure control 2. Adjustment of the mA and/or kV according to patient size 3. Use of iterative reconstruction technique FINDINGS: Lungs and Airways: No pulmonary mass or consolidation. Bibasilar dependent and subsegmental atelectasis. Normal central airways. Pleura: Small right pleural effusion. Heart and Mediastinum: Left pectoral pacemaker. The visualized thyroid gland is normal in size and attenuation. No axillary or supraclavicular lymphadenopathy. No mediastinal, hilar or retrocrural lymphadenopathy. Cardiomegaly. No pericardial effusion. Coronary artery atherosclerotic disease. CABG. Atherosclerosis of the thoracic aorta. Dilated pulmonary trunk measures 37 mm. Abdomen: The visualized abdominal organs demonstrate no abnormality. Bones and Soft Tissues: Degenerative changes spine. Median sternotomy. IMPRESSION: 1. No pulmonary mass or consolidation. 2. Small right pleural effusion. 3. Dilated pulmonary trunk, which can be seen with pulmonary hypertension. Electronically signed by: Tristin Montoya MD (12/23/2019 5:00 PM) [id number]
[2019-12-23 19:24] VITALS: BP 130/54
[2019-12-23] MEDS: FERROUS SULFATE 325 MG TABLET. PO SCH (21:45)
[2019-12-23] MEDS: BENZONATATE 100 MG CAPSULE. PO PRN (21:45)
[2019-12-23] MEDS: ATORVASTATIN CALCIUM 20 MG TABLET PO SCH (21:46)
[2019-12-23 22:54] VITALS: BP 113/47
[2019-12-24 02:14] VITALS: BP 126/52
[2019-12-24 06:54] LABS: CALCIUM 9.2 mg/dL (8.5-10.1); CREATININE 2.5 mg/dL (0.6-1.0); GFR 22.4; POTASSIUM 4.1 mmol/L (3.5-5.1)
[2019-12-24 07:00] VITALS: BP 115/49
[2019-12-24] MEDS: ANTI-COAG MONITOR BY PHARMACY. MC PRN (08:47)
[2019-12-24] MEDS: PANTOPRAZOLE 40 MG TABLET.DR. PO SCH (08:50)
[2019-12-24] MEDS: BENZONATATE 100 MG CAPSULE. PO PRN ×2 (08:50→17:24)
[2019-12-24] MEDS: ALLOPURINOL 100 MG TABLET. PO SCH (08:51)
[2019-12-24] MEDS: ISOSORBIDE MONONITRATE ER 30 MG TAB.ER.24H PO SCH (08:52)
[2019-12-24] MEDS: FOLIC ACID 1 MG TABLET. PO SCH (08:53)
[2019-12-24] MEDS: GABAPENTIN 100 MG CAPSULE. PO SCH ×3 (08:53→22:31)
[2019-12-24] MEDS: amLODIPine BESYLATE 10 MG TABLET PO SCH (08:53)
[2019-12-24] MEDS: METOPROLOL TART IMMED RELEASE 50 MG TABLET. PO SCH ×2 (08:53→22:32)
[2019-12-24] MEDS: OMEGA-3 FATTY ACIDS/FISH OIL 1,000 MG CAPSULE. PO SCH ×3 (08:54→22:30)
[2019-12-24] MEDS: CLOPIDOGREL BISULFATE 75 MG TABLET PO SCH (08:54)
[2019-12-24] MEDS: CHOLECALCIFEROL (VITAMIN D3) 1,000 UNIT TABLET PO SCH (08:54)
[2019-12-24] MEDS: APIXABAN 2.5 MG TABLET. PO SCH (08:54)
[2019-12-24] MEDS: DRONEDARONE HCL 400 MG TABLET PO SCH ×2 (08:54→17:25)
[2019-12-24] MEDS: BUMETANIDE 1 MG/4 ML VIAL. IV SCH ×2 (08:55→15:21)
[2019-12-24] MEDS: POTASSIUM CHLORIDE 20 MEQ TABLET.ER. PO SCH (08:55)
--- NOTE | 2019-12-24 10:41 | CONS ---
DATE OF CONSULTATION: PULMONARY CONSULTATION ATTENDING PHYSICIAN: Roman Curtis MD REASON FOR CONSULTATION: Dyspnea. HISTORY OF PRESENT ILLNESS: The patient is an 79-year-old obese patient with a BMI of 31.7. The patient has very minimal tobacco history of 10 years. She quit 33 years ago. She was brought into the hospital with increasing shortness of breath and lower extremity edema. She was tested COVID negative 3 weeks ago. She had a cough, which has been nonproductive. No fever, no chills. She has some chest pain as well. Her ejection fraction on previous echo was 40-45%. She had a pulmonary artery systolic pressure of 31. No history of pulmonary embolism. She said she had DVT of the lower extremities some [address] chest was performed, which was reviewed by me. It showed evidence of tiny small right pleural effusion and may be faint interstitial prominence in the left base. There is some pulmonary hypertension. I have been asked to see her for further evaluation. She is not on home oxygen. PAST MEDICAL HISTORY: History of CAD, hypertension, hyperlipidemia, peripheral neuropathy, renal insufficiency. PAST SURGICAL HISTORY: Pacemaker, cholecystectomy, CABG, total knee replacement, hysterectomy, colectomy. FAMILY HISTORY: Coronary artery disease. SOCIAL HISTORY: She quit tobacco 33 years ago, before that very minimal tobacco use. REVIEW OF SYSTEMS: Twelve-point system obtained. Pertinent positives discussed in my history of present illness, otherwise noncontributory. All systems that were negative were reviewed as well. ALLERGIES: IODINE DYE, LATEX, MEPERIDINE AND CELECOXIB. MEDICATIONS: All reviewed as listed in the MRAD. FAMILY HISTORY: Noncontributory to lungs. PHYSICAL EXAMINATION: VITAL SIGNS: Reviewed. Pulse ox is 96% on room air. NECK: Supple. LUNGS: With diminished breath sounds. CARDIOVASCULAR: With a regular rate. ABDOMEN: Soft. EXTREMITIES: Bilateral pitting edema. LABORATORY DATA: Reviewed. PABLO virus not detected. BUN 45 and a creatinine of 2.5. D-dimer 2.8. White cell count 8.7, hemoglobin 11.1 and platelets are 190. IMPRESSION: 1. Dyspnea with progressive lower extremity edema. Suspect combination of right and left heart failure. CT chest with tiny right pleural effusion and faint interstitial infiltrates at the left bases. 2. Ejection fraction of 40-45% with pulmonary artery pressure of 31. 3. No significant tobacco history. 4. Suspected obstructive sleep apnea. The patient states she had a sleep study done and she was supposed to go back for titration, but due to COVID that has not happened. will review previous study 5. Chronic kidney disease. 6. Abnormal D-dimer, which could be nonspecific finding. We will obtain Dopplers of lower extremities. RECOMMENDATIONS: 1. Discussed with Cardiology. The plan to do a right heart catheterization. This will help in determining etiology of her dyspnea. 2. P.r.n. oxygen. 3. Diuresis with close monitoring of renal function. 4. Sleep study as an outpatient. We will review the old records for a previous sleep study and see if she needs a titration study. 5. We will obtain Dopplers of lower extremities. 6. Discussed with Cardiology and RN. We will follow along with you. DICK JI MD DR: ROMMEL/natalie JOB#: [id number] / [id number] ALAN
[2019-12-24 11:00] VITALS: BP 129/82
--- NOTE | 2019-12-24 11:37 | PDOC ---
Renal-Progress Notes Subjective Notes Notes NO NEW COMPLAINTS History of Present Illness Hx of present illness STABLE Vitals Vitals Vital Signs Date Time Temp Pulse Resp B/P (MAP) Pulse Ox O2 Delivery O2 Flow Rate FiO2 12/24/19 08:54 57 115/49 12/24/19 08:00 Room Air 12/24/19 07:00 98.2 20 96 98.2 Weight Weight [ ] I.O. Intake and Output Intake and Output 12/24/19 07:00 Intake Total 500 ml Output Total 1000 ml Balance -500 ml Intake Oral 500 ml Output Urine Total 1000 ml # Voids 1 # Bowel Movements 1 Labs Labs Laboratory Tests Test 12/24/19 05:25 Sodium Level 139 mmol/L (136-145) Potassium Level 4.1 mmol/L (3.5-5.1) Chloride Level 104 mmol/L (98-107) Carbon Dioxide Level 18 mmol/L (21-32) Anion Gap 17 (6-14) Blood Urea Nitrogen 45 mg/dL (7-20) Creatinine 2.5 mg/dL (0.6-1.0) Estimated GFR (Cockcroft-Gault) 22.4 Glucose Level 85 mg/dL (70-99) Calcium Level 9.2 mg/dL (8.5-10.1) Review of Systems Constitutional: yes: weakness, alert, oriented Ears/Nose/Throat: Yes: no symptom reported Eyes: Yes: no symptom reported Pulmonary: Yes no symptom reported Cardiovascular: Yes no symptom reported Gastrointestional: Yes: no symptom reported Genitourinary: Yes: no symptom reported Musculoskeletal: Yes: no symptom reported Skin: Yes no symptom reported Psychiatric/Neurological: Yes: no symptom reported Endocrine: Yes: no symptom reported Physical Exam General Appearance: no apparent distress Skin: warm Respiratory: decreased breath sounds Heart: S1S2 Abdomen: soft, bowel sounds present Genitourinary: bladder flat Neurology: alert, oriented, follow commands Musculoskeletal: Osteoarthritis Assessment Assessment IMP ACUTE HYPOXIA-IMPROVED ACUTE ON CHRONIC SYSTOLIC CHF-IMPROVED HX OF HTN HX OF CAD CKD STAGE 4-CR STABLE AT 2.7 MILD FRANCISCO DUE TO CARDIORENAL-CR STABLE AT 2.5 PLAN ON PO BUMEX CARDIOLOGY EVAL AND TX RIGHT HEART CATH TOMORROW WILL FOLLOW LABS IN AM JEROD WANG MD Dec 24, 2019 11:37
--- NOTE | 2019-12-24 12:29 | NUR ---
SS following up with discharge planning. SS reviewed pt chart and discussed with pt RN. Pt is currently on room air. COVID19 negative. Pt having heart cath tomorrow. PT/OT ordered. SS will continue to follow for discharge planning.
--- NOTE | 2019-12-24 12:46 | RAD ---
Examination: Bilateral Lower Extremity Venous Doppler Ultrasound History: Bilateral lower extremity edema Comparison: None Procedure: Pal scale, color flow 2D and spectal waveform analysis images are obtained with and without compression in the area of the common femoral vein, superficial femoral vein - femoral vein junction, main femoral vein (superficial femoral vein) and popliteal vein. Veins of the proximal calf are also imaged. Findings: There is echogenicity identified in the superficial femoral vein on the right likely partial DVT. The bilateral common femoral vein, left superficial femoral and popliteal vein posterior tibialis vein, greater saphenous vein are patent. Impression: 1. Partial DVT right proximal superficial femoral vein. FOR INTERNAL CODING PURPOSES Critical result: Findings discussed with patient's nurse at 12/24/2019 12:44 PM. RESULT CODE: (C) Electronically signed by: Kem Irby MD (12/24/2019 12:44 PM) [id number]
--- NOTE | 2019-12-24 13:33 | PDOC ---
RAMON ANDERS [employer] 12/24/19 1333: CARDIO Progress Notes Date and Time Date of Service 12/24/2019 Time of Evaluation 1200 Subjective Subjective: No Chest Pain, No Palpitations, Other (Still has some SOA) Vitals Vitals Vital Signs Date Time Temp Pulse Resp B/P (MAP) Pulse Ox O2 Delivery O2 Flow Rate FiO2 12/24/19 11:00 98.2 103 20 129/82 (98) 94 Room Air 98.2 Weight Weight [ ] Input and Output Intake and Output Intake and Output 12/24/19 07:00 Intake Total 500 ml Output Total 1000 ml Balance -500 ml Intake Oral 500 ml Output Urine Total 1000 ml # Voids 1 # Bowel Movements 1 Laboratory Labs Laboratory Tests Test 12/24/19 05:25 Sodium Level 139 mmol/L (136-145) Potassium Level 4.1 mmol/L (3.5-5.1) Chloride Level 104 mmol/L (98-107) Carbon Dioxide Level 18 mmol/L (21-32) Anion Gap 17 (6-14) Blood Urea Nitrogen 45 mg/dL (7-20) Creatinine 2.5 mg/dL (0.6-1.0) Estimated GFR (Cockcroft-Gault) 22.4 Glucose Level 85 mg/dL (70-99) Calcium Level 9.2 mg/dL (8.5-10.1) Review of Systems Constitutional: yes: weakness, alert, oriented Ears/Nose/Throat: Yes: no symptom reported Eyes: Yes: no symptom reported Pulmonary: Yes no symptom reported Cardiovascular: Yes no symptom reported Gastrointestional: Yes: no symptom reported Genitourinary: Yes: no symptom reported Musculoskeletal: Yes: no symptom reported Skin: Yes no symptom reported Psychiatric/Neurological: Yes: no symptom reported Endocrine: Yes: no symptom reported Physical Exam HEENT: Neck Supple W Full Motion Chest: Symmetric LUNGS: Other (diminished basilar crackles ) Heart: RRR (regular paced rhythm with underlying afib) Abdomen: Soft N/T, Other (obese) Extremities: Other (1+ bilateral LE pitting edema) Neurology: alert, oriented, follow commands Assessment Assessment 1. 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 Recent echo with LVEF 40- 45% Still has some SOA 2. CAD s/p CABG and PCI/stents. Cath 2017 with patent graft, stents. Clinically stable 3. Hypertension; controlled 4. Hyperlipidemia; statin 5. Diabetes, II 6. FRANCISCO on CKD; Cr at 2.5, nephrology following 7. SSS s/p PPM ([employer]). Recent device check with normal funciton 100% AFIB in the last 2 months 8. H/o DVT/PE s/p IVC filter. On low-dose Eliquis therapy 9. Persistent AFIB 10. Persistent cough with dyspnea: likely from CHF. CT reviewed. Awaiting input from pulmonary 11. Partial DVT right proximal superficial femoral vein: new per sono today despite on eliquis Recommendations Convert to IV bumex. Hold PM eliquis and will do RHC tomorrow given her refractory HF episodes and renal insufficiency and will not intracardiac gradients to further any therapy changes. Risks and benefits discussed and agreeable to proceed. Not a candidate for tikosyn due to renal insufficiency and high QTc and not amiodarone due to iodine allergy. Continue home multaq and will consider outpt CVN after sufficient multaq use Eliquis for stroke prophylaxis. Secondary prevention measures Justicifation of Admission Dx: Justifications for Admission: Justification of Admission Dx: Yes DOREEN AIKEN MD 12/24/192115: CARDIO Progress Notes Assessment Assessment Patient seen and examined. Agree with [employer]'s assessment and plan. Acute on chr combined systolic and diast HF improved clinically but patient stll complaining of dyspnea and cough Appreciate pulm input. Agree with changing diuretics to IV bumex and plan right heart cath tomorrow CAD status clinically stable Patient is QTc interval is greater than 500. Cannot start dofetilide. Continue Multaq. Continue eliquis for stroke prophylaxis SSS s/p PPM, clinically stable. Recent device check showed normal function. RAMON [employer]ERS [employer] Dec 24, 2019 13:33 DOREEN AIKEN MD Dec 24, 2019 21:16
[2019-12-24 15:00] VITALS: BP 104/44
--- NOTE | 2019-12-24 17:23 | PDOC ---
PROGRESS NOTES Date of Service: DATE: 12/24/19 TIME: 17:19 Chief Complaint Chief Complaint Acute hypoxia - likely from pulmonary edema. Will diurese. Less likely COVID 19, will await testing results. Wean O2 as tolerated, this morning requiring reevaluation given worsening of cough and dyspnea Shortness of breath with cough - likely from pulmonary edema, no hx of COPD, could be viral or atypical pneumonia. will check procalcitonin and COVID19 Atrial fibrillation - controlled response. On metoprolol tartrate 25mg BID, eliquis, multaq. 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 Agree with extra dose of Lasix IV today. Change oral diuretics to Bumex. CAD status clinically stable Patient is QTc interval is greater than 500. Cannot start dofetilide. Continue Multitak. Continue eliquis for stroke prophylaxis SSS s/p PPM, clinically stable. Recent device check showed normal function. CHF - reduced ejection fraction 40-45% on prior echo. Will diurese for acute systolic CHF, consult cardiology, monitor on tele, BMP and Mag FRANCISCO on CKD - likely vasomotor nephropathy, possibly 2/2 cardiorenal syndrome. Cr now 3 with baseline 1.3 noted historically. Pending IV Lasix 40 mg HLD - cont statin HTN - cont BB and CCB CAD s/p CABG - cont prasugrel, BB, statin. Trend trops for CHEST PAIN s/p PPM - will consult cardiology. Interrogation indicated given her hospitalization for chest pain FEN - Cardiac diet, 2L fluid restriction PPX - eliquis FULL CODE Dispo - inpatient for above, 2 midnights History of Present Illness History of Present Illness 79yo F w/ PMHx CHF, HLD, HTN, CAD s/p CABG, s/p PPM who presents to the emergency department from home via her own private vehicle with complaint of chest pain, cough x2 days. She also notes significant bilateral lower extremity leg edema that is been worsening over the past 2 weeks. She advises me that she did have a negative COVID-19 test approximately 3 weeks ago. She notes over the past couple of days she has progressive dyspnea on exertion, first with entering her home to walking to the bedroom a few days ago, now when she awoke before coming to ED she was too short of breath to walk to the bathroom. The chest pain associated is dull pressure and resolves with rest. when it persisted she took a nitroglycerin and this resolved the pain. CXR appears to show enlargement of the cardiomediastinal silhouette and increased interstitial markings as well as dual lead pacer and sternotomy in place. EKG appears irregular at around 60 beats a minutes no visible P waves consistent with atrial fibrillation, nonspecific intraventricular block. Labs significant for WBC of 8.7, Hb 11.1, platelets 190, NA 138, K4.4, BUN 38, CR 3, glucose 113, CRP 15.8, BNP 6514, d-dimer 2.80, troponin 0. Due to concern for COVID-19 with abnormal chest x-ray and cough ED physician ordered swab for COVID-19 and she was admitted to COVID-19 unit and is seen there today. With elevated d-dimer ED physician suggested VQ scan however ventilation portions are not performed during the coronavirus pandemic. Also patient is on Eliquis twice daily and she has been compliant with this. Upon evaluation she is notably having some white frothy sputum and IV dose of 40 mg of Lasix was given with large urine output and some relief of her symptoms. She notes her harness worker is Dr. Sanchez and he recently started her on a new medication that starts with an M (Pharmacy confirms this is 400mg Multaq), and her private duty aide is Dr. Conley and she has good follow-up with both physicians. 12/21/2019 No acute events overnight. Patient does have orthopnea and requires her head of her bed to be inclined to the max at almost 90 degrees. She currently has some cough and does complain of heaviness and fluid overload. 12/22/19 Patient with worsening respiratory distress, quite uncomfortable and coughing no sputum. Visibly has increased work of breathing. Reassurance has been provided to the patient and her at bedside. Crackles auscultated 12/23/2019 Patient reports some dyspnea on exertion, but comfortable at rest. She is unable to walk across the room without feeling short of breath. Her shortness of breath is also worse when she lays on her back. She reports a chronic cough that is worse with deep inspiration and productive of clear sputum. 12/24/2019 Patient still complaining of dyspnea on exertion and occasionally even at rest. Discussed plan for right heart cath in the morning to ascertain etiology of d yspnea. N.p.o. after midnight. Vitals Vitals Vital Signs Date Time Temp Pulse Resp B/P (MAP) Pulse Ox O2 Delivery O2 Flow Rate FiO2 12/24/19 15:00 98.2 62 20 104/44 (64) 98 Room Air 98.2 Physical Exam General: Alert, Oriented X3, Cooperative, No acute distress Heart: Regular rate Lungs: Crackles, Other Abdomen: No tenderness Extremities: Other (2-3+ bilateral LE edema ) Skin: No breakdown, No significant lesion Labs LABS Laboratory Tests Test 12/24/19 05:25 Sodium Level 139 mmol/L (136-145) Potassium Level 4.1 mmol/L (3.5-5.1) Chloride Level 104 mmol/L (98-107) Carbon Dioxide Level 18 mmol/L (21-32) Anion Gap 17 (6-14) Blood Urea Nitrogen 45 mg/dL (7-20) Creatinine 2.5 mg/dL (0.6-1.0) Estimated GFR (Cockcroft-Gault) 22.4 Glucose Level 85 mg/dL (70-99) Calcium Level 9.2 mg/dL (8.5-10.1) Review of Systems Review of Systems Dyspnea on exertion, shortness of breath. Denies chest pain, denies abdominal pain, denies nausea. Assessment and Plan Assessmemt and Plan Acute on chronic diastolic and systolic heart failure, dyspnea on exertion, vasomotor nephropathy, Plan: Continue IV diuresis. N.P.O. after midnight for right heart. Problems: (1) Dyspnea on exertion (2) Shortness of breath (3) FRANCISCO (acute kidney injury) Comment Review of Relevant I have reviewed the following items char (where applicable) has been applied. Labs Laboratory Tests Test 12/23/19 03:50 12/24/19 05:25 Sodium Level 138 mmol/L (136-145) 139 mmol/L (136-145) Potassium Level 4.2 mmol/L (3.5-5.1) 4.1 mmol/L (3.5-5.1) Chloride Level 103 mmol/L (98-107) 104 mmol/L (98-107) Carbon Dioxide Level 24 mmol/L (21-32) 18 mmol/L (21-32) Anion Gap 11 (6-14) 17 (6-14) Blood Urea Nitrogen 42 mg/dL (7-20) 45 mg/dL (7-20) Creatinine 2.7 mg/dL (0.6-1.0) 2.5 mg/dL (0.6-1.0) Estimated GFR (Cockcroft-Gault) 20.5 22.4 Glucose Level 99 mg/dL (70-99) 85 mg/dL (70-99) Calcium Level 9.5 mg/dL (8.5-10.1) 9.2 mg/dL (8.5-10.1) Magnesium Level 2.3 mg/dL (1.8-2.4) Laboratory Tests Test 12/24/19 05:25 Sodium Level 139 mmol/L (136-145) Potassium Level 4.1 mmol/L (3.5-5.1) Chloride Level 104 mmol/L (98-107) Carbon Dioxide Level 18 mmol/L (21-32) Anion Gap 17 (6-14) Blood Urea Nitrogen 45 mg/dL (7-20) Creatinine 2.5 mg/dL (0.6-1.0) Estimated GFR (Cockcroft-Gault) 22.4 Glucose Level 85 mg/dL (70-99) Calcium Level 9.2 mg/dL (8.5-10.1) Medications Current Medications Furosemide (Lasix) 40 mg 1X ONCE IVP Last administered on 12/20/19at 05:58; Start 12/20/19 at 06:00; Stop 12/20/19 at 06:01; Status DC Acetaminophen (Tylenol) 500 mg PRN BID PRN PO MILD PAIN 1-3; Start 12/20/19 at 16:30 Allopurinol (Zyloprim) 100 mg DAILY PO Last administered on 12/24/19at 08:51; Start 12/21/19 at 09:00 Amlodipine Besylate (Norvasc) 10 mg DAILY PO Last administered on 12/24/19at 08:53; Start 12/21/19 at 09:00 Clopidogrel Bisulfate (Plavix) 75 mg DAILYWBKFT PO Last administered on 12/24/19at 08:54; Start 12/21/19 at 08:00 Furosemide (Lasix) 40 mg DAILY PO Last administered on 12/22/19at 08:17; Start 12/21/19 at 09:00; Stop 12/22/19 at 12:46; Status DC Acetaminophen/ Hydrocodone Bitart (Lortab 5/325) 1 tab PRN Q6HRS PRN PO MODERATE-SEVERE PAIN Last administered on 12/22/19at 20:44; Start 12/20/19 at 16:30 Isosorbide Mononitrate (Imdur) 30 mg DAILY PO Last administered on 12/24/19 08:52; Start 12/21/19 at 09:00 Pantoprazole Sodium (Protonix) 40 mg DAILY PO Last administered on 12/24/19 08:50; Start 12/21/19 at 09:00 Potassium Chloride (Klor-Con) 20 meq DAILY PO Last administered on 12/24/19 08:55; Start 12/21/19 at 09:00 Vitamin D (Vitamin D3) 1,000 unit DAILY PO Last administered on 12/24/19 08:54; Start 12/21/19 at 09:00 Folic Acid (Folic Acid) 1 mg DAILY PO Last administered on 12/24/19 08:53; Start 12/21/19 at 09:00 Gabapentin (Neurontin) 100 mg TID PO Last administered on 12/24/19 15:20; Start 12/20/19 at 21:00 Non-Formulary Medication (Gluc 2KCL/ Chondr/Dereck Hy/Hy Ac (Glucosamine & Chondroitin Cap)) 1 each BID PO ; Start 12/20/19 at 21:00; Status UNV Ferrous Sulfate (Feosol) 325 mg QHS PO Last administered on 12/23/19at 21:45; Start 12/20/19 at 21:00 Fish Oil (Fish Oil) 1,000 mg TID PO Last administered on 12/24/19 15:21; Start 12/20/19 at 21:00 Atorvastatin Calcium (Lipitor) 20 mg QHS PO Last administered on 12/23/19 21:46; Start 12/20/19 at 21:00 Apixaban (Eliquis) 2.5 mg BID PO Last administered on 12/24/19 08:54; Start 12/20/19 at 21:00; Stop 12/24/19 at 10:26; Status DC Metoprolol Tartrate (Lopressor) 25 mg BID PO Last administered on 12/24/19at 08:53; Start 12/20/19 at 21:00 Morphine Sulfate (Morphine Sulfate) 2 mg PRN Q4HRS PRN IV PAIN Last a dministered on 12/20/19at 17:09; Start 12/20/19 at 17:00 Nitroglycerin (Nitrostat) 0.4 mg PRN Q5MIN PRN SL CHEST PAIN; Start 12/20/19 at 17:15 Benzonatate (Tessalon Perle) 100 mg PRN TID PRN PO COUGHING Last administered on 12/24/19at 08:50; Start 12/20/19 at 22:45 Guaifenesin/ Codeine Phosphate (Robitussin Ac) 5 ml 1X ONCE PO Last administered on 12/20/19at 22:53; Start 12/20/19 at 22:45; Stop 12/20/19 at 22:46; Status DC Furosemide (Lasix) 40 mg 1X ONCE IVP Last administered on 12/21/19at 14:47; Start 12/21/19 at 14:00; Stop 12/21/19 at 14:01; Status DC Potassium Chloride (Klor-Con) 20 meq PRN DAILY PRN PO SEE COMMENTS; Start 12/21/19 at 17:15 Potassium Chloride/Water 100 ml @ 100 mls/hr PRN DAILY PRN IV SEE COMMENTS; Start 12/21/19 at 17:15 Magnesium Sulfate 50 ml @ 25 mls/hr PRN DAILY PRN IV SEE COMMENTS; Start 12/21/19 at 17:15 Info (Review Meds) 1 ea PRN DAILY PRN MC SEE COMMENTS; Start 12/21/19 at 17:15; Status Cancel Info (Review Meds) 1 ea 1X ONCE MC ; Start 12/21/19 at 17:15; Stop 12/21/19 at 17:30; Status DC Magnesium Sulfate 50 ml @ 300 mls/hr PRN DAILY PRN IV SEE COMMENTS; Start 12/21/19 at 17:15 Magnesium Sulfate 50 ml @ 25 mls/hr ONCE ONCE IV Last administered on 12/21/19at 19:02; Start 12/21/19 at 17:45; Stop 12/21/19 at 19:44; Status DC Furosemide (Lasix) 40 mg 1X ONCE IVP Last administered on 12/22/19at 11:12; Start 12/22/19 at 10:30; Stop 12/22/19 at 10:31; Status DC Albuterol Sulfate (Ventolin Neb Soln) 2.5 mg 1X ONCE NEB Last administered on 12/22/19at 11:39; Start 12/22/19 at 10:30; Stop 12/22/19 at 10:31; Status DC Magnesium Sulfate 50 ml @ 25 mls/hr 1X ONCE IV Last administered on 12/22/19at 11:03; Start 12/22/19 at 11:00; Stop 12/22/19 at 12:59; Status DC Dronedarone (Multaq) 400 mg BIDWMEALS PO Last administered on 12/24/19at 08:54; Start 12/22/19 at 11:00 Bumetanide (Bumex) 1 mg DAILY PO ; Start 12/23/19 at 09:00; Stop 12/23/19 at 08:11; Status DC Furosemide (Lasix) 40 mg DAILY PO ; Start 12/23/19 at 09:00; Stop 12/23/19 at 08:11; Status DC Bumetanide (Bumex) 1 mg DAILY PO Last administered on 12/23/19at 12:36; Start 12/23/19 at 12:00; Stop 12/24/19 at 08:08; Status DC Info (Anti-Coagulation Monitoring By Pharmacy) 1 each PRN DAILY PRN MC SEE COMMENTS Last administered on 12/24/19at 08:47; Start 12/23/19 at 10:15 Bumetanide (Bumex) 1 mg 1X IV ; Start 12/23/19 at 15:00; Status Cancel Polyethylene Glycol (miraLAX PACKET) 17 gm PRN DAILY PRN PO CONSTIPATION Last administered on 12/23/19at 16:04; Start 12/23/19 at 15:30 Bumetanide (Bumex) 1 mg 1X ONCE IV Last administered on 12/23/19at 16:03; Start 12/23/19 at 15:30; Stop 12/23/19 at 15:37; Status DC Bumetanide (Bumex) 1 mg DAILY PO ; Start 12/25/19 at 09:00 Bumetanide (Bumex) 1 mg BID92 IV Last administered on 12/24/19at 15:21; Start 12/24/19 at 09:00; Stop 12/24/19 at 14:01; Status DC Active Scripts Active Isosorbide Mononitrate Er (Isosorbide Mononitrate) 30 Mg Tab.er.24h 30 Mg PO DAILY Metoprolol Tartrate 50 Mg Tablet 50 Mg PO BID Aspirin 81 Mg Tab.chew 1 Tab PO DAILY Clopidogrel (Clopidogrel Bisulfate) 75 Mg Tablet 75 Mg PO DAILYWBKFT 30 Days Reported Eliquis (Apixaban) 5 Mg Tablet 5 Mg PO BID Multaq (Dronedarone Hcl) 400 Mg Tablet 400 Tab PO BID Amlodipine Besylate 10 Mg Tablet 10 Mg PO DAILY Pravachol (Pravastatin Sodium) 80 Mg Tablet 80 Mg PO DAILY Acetaminophen 500 Mg Tablet 1 Tab PO BID PRN Hydrocodone-Apap 5-325 (Hydrocodone Bit/Acetaminophen) 1 Each Tablet 1 Tab PO PRN Q6HRS PRN Glucosamine & Chondroitin Cap (Gluc 2KCL/Chondr/Dereck Hy/Hy Ac) 1 Each Capsule 1 Each PO BID Furosemide 40 Mg Tablet 40 Mg PO DAILY Vitamin D3 1,000 Unit Tablet (Ca Cmb No.1/Vit D3/B-6/Fa/B12) 1 Each Tablet 1 Each PO DAILY Folic Acid 0.4 Mg Tablet 0.4 Mg PO DAILY Pantoprazole Sodium (Pantoprazole Sodium) 40 Mg Tablet.dr 40 Mg PO DAILY Allopurinol 100 Mg Tablet 300 Mg PO DAILY Iron 100 Plus Tablet (Iron,Carbonyl/Vit C/Vit B12/Fa) 1 Each Tablet 1 Each PO HS Potassium Chloride (Potassium Chloride) 20 Meq Tablet.er 20 Meq PO DAILY Gabapentin 600 Mg Tablet 600 Mg PO TID Fish Loz-Ulhhn-5-Vit D Softgel (White Cloud-3S/Dha/Epa/Fish Oil/D3) 1 Each Capsule 1 Each PO TID Vitals/I & O Vital Sign - Last 24 Hours 12/23/19 12/23/19 12/23/19 12/23/19 19:24 20:20 20:20 21:48 Temp 98.7 98.7 Pulse 61 61 Resp 20 B/P (MAP) 130/54 (79) 130/54 Pulse Ox 97 O2 Delivery Room Air Room Air Room Air 12/23/19 12/24/19 12/24/19 12/24/19 22:54 02:14 07:00 08:00 Temp 98.2 98.0 98.2 98.2 98.0 98.2 Pulse 59 59 57 Resp 18 18 20 B/P (MAP) 113/47 (69) 126/52 (76) 115/49 (71) Pulse Ox 98 98 96 O2 Delivery Room Air Room Air Room Air Room Air 12/24/19 12/24/19 12/24/19 12/24/19 08:52 08:53 08:53 08:54 Pulse 57 57 57 57 B/P (MAP) 115/49 115/49 115/49 115/49 12/24/19 12/24/19 11:00 15:00 Temp 98.2 98.2 98.2 98.2 Pulse 103 62 Resp 20 20 B/P (MAP) 129/82 (98) 104/44 (64) Pulse Ox 94 98 O2 Delivery Room Air Room Air Intake and Output 12/23/19 12/23/19 12/24/19 15:00 23:00 07:00 Intake Total 360 ml 140 ml Output Total 500 ml 100 ml 400 ml Balance -140 ml 40 ml -400 ml Justicifation of Admission Dx: Justifications for Admission: Justification of Admission Dx: Yes CHAVA SANDERS MD Dec 24, 2019 17:23
[2019-12-24 19:29] VITALS: BP_SYST 100; BP_SYST 114; BP_DIAS 58; BP_DIAS 59
[2019-12-24] MEDS: FERROUS SULFATE 325 MG TABLET. PO SCH (22:31)
[2019-12-24] MEDS: ATORVASTATIN CALCIUM 20 MG TABLET PO SCH (22:31)
[2019-12-24] MEDS: ACETAMINOPHEN 500 MG TABLET PO PRN (22:39)
[2019-12-24 23:37] VITALS: BP 127/61
[2019-12-25] VITALS (17 sets, daily range): BP systolic 96–126; BP diastolic 41–77
[2019-12-25] MEDS: BENZONATATE 100 MG CAPSULE. PO PRN ×2 (03:37→20:29)
[2019-12-25] MEDS: OMEGA-3 FATTY ACIDS/FISH OIL 1,000 MG CAPSULE. PO SCH ×3 (07:08→20:28)
[2019-12-25] MEDS: FOLIC ACID 1 MG TABLET. PO SCH (07:08)
[2019-12-25] MEDS: CHOLECALCIFEROL (VITAMIN D3) 1,000 UNIT TABLET PO SCH (07:09)
[2019-12-25] MEDS: PANTOPRAZOLE 40 MG TABLET.DR. PO SCH (07:09)
[2019-12-25] MEDS: POTASSIUM CHLORIDE 20 MEQ TABLET.ER. PO SCH (07:09)
[2019-12-25] MEDS: ALLOPURINOL 100 MG TABLET. PO SCH (07:09)
[2019-12-25] MEDS: GABAPENTIN 100 MG CAPSULE. PO SCH ×3 (07:09→20:28)
--- NOTE | 2019-12-25 08:52 | PDOC ---
PULMONARY PROGRESS NOTES DATE: 12/25/19 TIME: 08:52 Subjective Pt. is resting on room air Reports mild SOB, no productive cough, No CP Planned fro cardiac cath today Vitals Vital Signs Date Time Temp Pulse Resp B/P (MAP) Pulse Ox O2 Delivery O2 Flow Rate FiO2 12/25/19 02:39 98.1 55 20 109/46 (67) 96 Room Air 98.1 ROS: No Nausea, No Chest Pain, No Abdominal Pain, No Increase Cough General: Alert, Oriented X4 Lungs: Crackles, Other Cardiovascular: S1, S2 Abdomen: Soft Extremities: Other (BLE Edema +2 ) Labs Laboratory Tests Test 12/24/19 05:25 Sodium Level 139 mmol/L (136-145) Potassium Level 4.1 mmol/L (3.5-5.1) Chloride Level 104 mmol/L (98-107) Carbon Dioxide Level 18 mmol/L (21-32) Anion Gap 17 (6-14) Blood Urea Nitrogen 45 mg/dL (7-20) Creatinine 2.5 mg/dL (0.6-1.0) Estimated GFR (Cockcroft-Gault) 22.4 Glucose Level 85 mg/dL (70-99) Calcium Level 9.2 mg/dL (8.5-10.1) Medications Active Scripts Medications Dose Route/Sig Max Daily Dose Days Date Category Eliquis (Apixaban) 5 Mg Tablet 5 Mg PO BID 12/20/19 Reported Multaq (Dronedarone Hcl) 400 Mg Tablet 400 Tab PO BID 12/20/19 Reported Isosorbide Mononitrate Er (Isosorbide Mononitrate) 30 Mg Tab.er.24h 30 Mg PO DAILY 08/09/16 Rx Amlodipine Besylate 10 Mg Tablet 10 Mg PO DAILY 01/06/16 Reported Pravachol (Pravastatin Sodium) 80 Mg Tablet 80 Mg PO DAILY 01/06/16 Reported Metoprolol Tartrate 50 Mg Tablet 50 Mg PO BID 01/01/16 Rx Aspirin 81 Mg Tab.chew 1 Tab PO DAILY 01/01/16 Rx Acetaminophen 500 Mg Tablet 1 Tab PO BID PRN 12/30/15 Reported Hydrocodone-Apap 5-325 (Hydrocodone Bit/Acetaminophen) 1 Each Tablet 1 Tab PO PRN Q6HRS PRN 12/30/15 Reported Clopidogrel (Clopidogrel Bisulfate) 75 Mg Tablet 75 Mg PO DAILYWBKFT 30 04/16/15 Rx Glucosamine & Chondroitin Cap (Gluc 2KCL/Chondr/Dereck Hy/Hy Ac) 1 Each Capsule 1 Each PO BID 07/03/13 Reported Furosemide 40 Mg Tablet 40 Mg PO DAILY 07/03/13 Reported Vitamin D3 1,000 Unit Tablet (Ca Cmb No.1/Vit D3/B-6/Fa/B12) 1 Each Tablet 1 Each PO DAILY 07/03/13 Reported Folic Acid 0.4 Mg Tablet 0.4 Mg PO DAILY 07/03/13 Reported Pantoprazole Sodium (Pantoprazole Sodium) 40 Mg Tablet.dr 40 Mg PO DAILY 07/03/13 Reported Allopurinol 100 Mg Tablet 300 Mg PO DAILY 07/03/13 Reported Iron 100 Plus Tablet (Iron,Carbonyl/Vit C/Vit B12/Fa) 1 Each Tablet 1 Each PO HS 07/03/13 Reported Potassium Chloride (Potassium Chloride) 20 Meq Tablet.er 20 Meq PO DAILY 07/03/13 Reported Gabapentin 600 Mg Tablet 600 Mg PO TID 07/03/13 Reported Fish Xur-Cdjoe-4-Vit D Softgel ([place]-3S/Dha/Epa/Fish Oil/D3) 1 Each Capsule 1 Each PO TID 07/03/13 Reported Comments BLE DPLX Impression: 1. Partial DVT right proximal superficial femoral vein. CT chest IMPRESSION: 1. No pulmonary mass or consolidation. 2. Small right pleural effusion. 3. Dilated pulmonary trunk, which can be seen with pulmonary hypertension. Impression . IMPRESSION: 1. Dyspnea with progressive lower extremity edema. Suspect combination of right and left heart failure. CT chest with tiny right pleural effusion and faint interstitial infiltrates at the left bases. 2. Ejection fraction of 40-45% with pulmonary artery pressure of 31. 3. No significant tobacco history. 4. Suspected obstructive sleep apnea. The patient states she had a sleep study done and she was supposed to go back for titration, but due to COVID that has not happened. will review previous study 5. Chronic kidney disease. 6. Abnormal D-dimer, which could be nonspecific finding. Plan . RECOMMENDATIONS: Supplemental oxygen PRN Planned for cardiac cath today, will follow results Follow cardiology recs Diuresis with close monitoring of renal function. Follow nephrology recs BLE DPLX showed: Partial DVT right proximal superficial femoral vein. Sleep study as an outpatient. We will review the old records for a previous sleep study and see if she needs a titration study. Discussed with JORDAN AVENDANO MD Dec 25, 2019 08:52
[2019-12-25] MEDS ORDERED: BUMETANIDE 1 MG TABLET. PO SCH (09:00)
[2019-12-25] MEDS: ISOSORBIDE MONONITRATE ER 30 MG TAB.ER.24H PO SCH (09:10)
[2019-12-25] MEDS: amLODIPine BESYLATE 10 MG TABLET PO SCH (09:11)
[2019-12-25] MEDS: METOPROLOL TART IMMED RELEASE 50 MG TABLET. PO SCH ×2 (09:11→20:29)
[2019-12-25] MEDS: CLOPIDOGREL BISULFATE 75 MG TABLET PO SCH (09:12)
[2019-12-25] MEDS: DRONEDARONE HCL 400 MG TABLET PO SCH ×2 (09:12→16:55)
[2019-12-25] MEDS ORDERED: LIDOCAINE 1% Multi-Dose 20 ML VIAL. ONE (09:42)
[2019-12-25] MEDS ORDERED: IODIXANOL 320 MG/ML 100 ML VIAL. ONE (09:42)
[2019-12-25] MEDS ORDERED: fentaNYL PF VIAL 100 MCG/2 ML VIAL ONE (09:56)
[2019-12-25] MEDS ORDERED: MIDAZOLAM HCL/PF 2 MG/2 ML VIAL. ONE (09:56)
[2019-12-25] MEDS ORDERED: LIDOCAINE 1% Multi-Dose 20 ML VIAL. INJ ONE (10:15)
[2019-12-25] MEDS ORDERED: MIDAZOLAM HCL/PF 2 MG/2 ML VIAL. IV ONE (10:15)
[2019-12-25] MEDS ORDERED: fentaNYL PF VIAL 100 MCG/2 ML VIAL IV ONE (10:15)
--- NOTE | 2019-12-25 10:49 | PDOC ---
MODERATE SEDATION ASSESSMENT RISKS/ALTERNATIVES Risks/Alternatives Risks and alternatives of this type of sedation and procedure discussed with: RISK/ALTERNATIVES: Patient H & P ON CHART H & P H & P on chart and reviewed for co-morbid conditions and appropriate labs. H&P ON CHART: Yes STATUS PREG STATUS ASSESSED: N/A MEDS/ALLERGIES REVIEWED Meds/Allergies Reviewed Medications and Allergies including time and route of recently administered narcotics and sedatives. MEDS/ALLERGIES REVIEWED: Yes ASA RATING ASA RATING: III AIRWAY ASSESSMENT Airway Assessment Airway patency, oral function limitations, presence of caps, crowns, dentures, partials, and ability to extend neck assessed. AIRWAY ASSESSMENT: Yes MALLAMPATI SCORE MALLAMPATI SCORE: II PRE-SEDATION ASSESSMENT PRE-SEDATION ASSESSMENT: Yes DOREEN AIKEN MD Dec 25, 2019 10:49
--- NOTE | 2019-12-25 11:11 | CARD ---
MR#: [id number] Date of Study: 12/25/2019 Ordering Physician: RAMON ANDERS, Referring Physician: RAMON ANDERS Tech: Cris Hernandez APPROVED REPORT Technologist: Cris Hernandez Nurse: Sharona Mcdonald R.N. 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 PROCEDURE NARRATIVE After explaining the risks, benefits and alternative options, informed consent was obtained from [place] ent. Patient was brought to the cardiac [facility] and her right groin was prepped and draped in the u sual fashion. Venous access was obtained in the right common femoral vein and 8 [place] sheath was in serted. 7.5 [place]it catheter was then advanced through the previously placed IVC filter und er fluoroscopy guidance and intracardiac pressures, oxygen saturations and cardiac output by thermodi lution method were measured. Patient tolerated the procedure well. Hemostasis was achieved using ma nual compression. There were no immediate complications. FINDINGS 1. Intracardiac pressures: Mean right atrial pressure 33 mmHg, right ventricular pressure 52/20 mmHg , pulmonary artery pressure 54/30 mmHg with mean PA pressure of 40 mmHg and mean pulmonary capillary wedge pressure 35 mmHg. This is consistent with significantly elevated left-sided and right-sided fi lling pressures with mild to moderate pulmonary hypertension. Of note, the right atrial waveform wit h prominent V wave is consistent with significant tricuspid regurgitation. 2. Oxygen saturations: Right atrium 51.1%, pulmonary artery 53.8%. No evidence of intracardiac shun t. 3. Cardiac output by thermodilution method 3.5 L/min. Conclusion 1. Significantly elevated right and left-sided filling pressures with mild to moderate pulmonary hyp ertension. 2. No evidence of intracardiac shunt. Recommendations Aggressive diuresis. Consider milrinone infusion if patient not responding adequately to diuretics. Signed by : Eloy Sanchez, Electronically Approved : 12/25/2019 11:11:31
--- NOTE | 2019-12-25 11:34 | PDOC ---
Renal-Progress Notes Subjective Notes Notes STILL HAS HAD SOME SOB DESPITE DIURESIS History of Present Illness Hx of present illness STABLE Vitals Vitals Vital Signs Date Time Temp Pulse Resp B/P (MAP) Pulse Ox O2 Delivery O2 Flow Rate FiO2 12/25/19 10:56 60 21 97 Nasal Cannula 2.0 12/25/19 09:12 117/77 12/25/19 07:00 97.6 97.6 Weight Weight [ ] I.O. Intake and Output Intake and Output 12/25/19 07:00 Intake Total 1075 ml Output Total 300 ml Balance 775 ml Intake Oral 1075 ml Output Urine Total 300 ml Review of Systems Constitutional: yes: weakness, alert, oriented Ears/Nose/Throat: Yes: no symptom reported Eyes: Yes: no symptom reported Pulmonary: Yes no symptom reported Cardiovascular: Yes no symptom reported Gastrointestional: Yes: no symptom reported Genitourinary: Yes: no symptom reported Musculoskeletal: Yes: no symptom reported Skin: Yes no symptom reported Psychiatric/Neurological: Yes: no symptom reported Endocrine: Yes: no symptom reported Physical Exam General Appearance: no apparent distress Skin: warm Respiratory: decreased breath sounds Heart: S1S2 Abdomen: soft, bowel sounds present Genitourinary: bladder flat Neurology: alert, oriented, follow commands Musculoskeletal: Osteoarthritis Assessment Assessment IMP ACUTE HYPOXIA-IMPROVED ACUTE ON CHRONIC SYSTOLIC CHF-IMPROVED HX OF HTN HX OF CAD CKD STAGE 4-CR STABLE AT 2.7 MILD FRANCISCO DUE TO CARDIORENAL-CR STABLE AT 2.5 PLAN ON PO BUMEX CARDIOLOGY EVAL AND TX RIGHT HEART CATH TODAY WILL FOLLOW LABS IN AM JEROD WANG MD Dec 25, 2019 11:34
[2019-12-25] MEDS: MILRINONE 20MG/100ML PREMIX 100 ML IV PRN (11:35)
[2019-12-25 12:23] LABS: CALCIUM 9.4 mg/dL (8.5-10.1); GFR 18.1
--- NOTE | 2019-12-25 13:02 | NUR ---
SS following up with discharge planning. SS reviewed pt chart and discussed with pt RN. Pt is currently on room air. Pt having heart cath today. PT/OT evaluated and recommended home with home healthcare. Pt and pt's family requesting [facility], ; fax [phone]. Referral phoned and faxed to [facility]. COVID19 negative. SS will continue to follow for discharge planning.
[2019-12-25] MEDS: FERROUS SULFATE 325 MG TABLET. PO SCH (20:29)
[2019-12-25] MEDS: ATORVASTATIN CALCIUM 20 MG TABLET PO SCH (20:29)
--- NOTE | 2019-12-25 20:57 | PDOC ---
PROGRESS NOTES Date of Service: DATE: 12/25/19 TIME: 20:57 Chief Complaint Chief Complaint Acute hypoxia - likely from pulmonary edema. Will diurese. Less likely COVID 19, will await testing results. Wean O2 as tolerated, this morning requiring reevaluation given worsening of cough and dyspnea Shortness of breath with cough - likely from pulmonary edema, no hx of COPD, could be viral or atypical pneumonia. will check procalcitonin and COVID19 Atrial fibrillation - controlled response. On metoprolol tartrate 25mg BID, eliquis, multaq. 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 Agree with extra dose of Lasix IV today. Change oral diuretics to Bumex. CAD status clinically stable Patient is QTc interval is greater than 500. Cannot start dofetilide. Continue Multitak. Continue eliquis for stroke prophylaxis SSS s/p PPM, clinically stable. Recent device check showed normal function. CHF - reduced ejection fraction 40-45% on prior echo. Will diurese for acute systolic CHF, consult cardiology, monitor on tele, BMP and Mag FRANCISCO on CKD - likely vasomotor nephropathy, possibly 2/2 cardiorenal syndrome. Cr now 3 with baseline 1.3 noted historically. Pending IV Lasix 40 mg HLD - cont statin HTN - cont BB and CCB CAD s/p CABG - cont prasugrel, BB, statin. Trend trops for CHEST PAIN s/p PPM - will consult cardiology. Interrogation indicated given her hospitalization for chest pain FEN - Cardiac diet, 2L fluid restriction PPX - eliquis FULL CODE Dispo - inpatient for above, 2 midnights History of Present Illness History of Present Illness 79yo F w/ PMHx CHF, HLD, HTN, CAD s/p CABG, s/p PPM who presents to the emergency department from home via her own private vehicle with complaint of chest pain, cough x2 days. She also notes significant bilateral lower extremity leg edema that is been worsening over the past 2 weeks. She advises me that she did have a negative COVID-19 test approximately 3 weeks ago. She notes over the past couple of days she has progressive dyspnea on exertion, first with entering her home to walking to the bedroom a few days ago, now when she awoke before coming to ED she was too short of breath to walk to the bathroom. The chest pain associated is dull pressure and resolves with rest. when it persisted she took a nitroglycerin and this resolved the pain. CXR appears to show enlargement of the cardiomediastinal silhouette and increased interstitial markings as well as dual lead pacer and sternotomy in place. EKG appears irregular at around 60 beats a minutes no visible P waves consistent with atrial fibrillation, nonspecific intraventricular block. Labs significant for WBC of 8.7, Hb 11.1, platelets 190, NA 138, K4.4, BUN 38, CR 3, glucose 113, CRP 15.8, BNP 6514, d-dimer 2.80, troponin 0. Due to concern for COVID-19 with abnormal chest x-ray and cough ED physician ordered swab for COVID-19 and she was admitted to COVID-19 unit and is seen there today. With elevated d-dimer ED physician suggested VQ scan however ventilation portions are not performed during the coronavirus pandemic. Also patient is on Eliquis twice daily and she has been compliant with this. Upon evaluation she is notably having some white frothy sputum and IV dose of 40 mg of Lasix was given with large urine output and some relief of her symptoms. She notes her statistical financial analyst is Dr. Sanchez and he recently started her on a new medication that starts with an M (Pharmacy confirms this is 400mg Multaq), and her pet adoption counselor is Dr. Conley and she has good follow-up with both physicians. 12/21/2019 No acute events overnight. Patient does have orthopnea and requires her head of her bed to be inclined to the max at almost 90 degrees. She currently has some cough and does complain of heaviness and fluid overload. 12/22/19 Patient with worsening respiratory distress, quite uncomfortable and coughing no sputum. Visibly has increased work of breathing. Reassurance has been provided to the patient and her at bedside. Crackles auscultated 12/23/2019 Patient reports some dyspnea on exertion, but comfortable at rest. She is unable to walk across the room without feeling short of breath. Her shortness of breath is also worse when she lays on her back. She reports a chronic cough that is worse with deep inspiration and productive of clear sputum. 12/24/2019 Patient still complaining of dyspnea on exertion and occasionally even at rest. Discussed plan for right heart cath in the morning to ascertain etiology of d yspnea. N.p.o. after midnight. 12/25/2019 Still with cough and improved with tessalon. Will need further diuresis. Feeling OK. Vitals Vitals Vital Signs Date Time Temp Pulse Resp B/P (MAP) Pulse Ox O2 Delivery O2 Flow Rate FiO2 12/25/19 20:29 95 126/64 12/25/19 19:20 97.8 22 95 Room Air 97.8 12/25/19 10:56 2.0 Physical Exam General: Alert, Oriented X3, Cooperative, No acute distress Heart: Regular rate Lungs: Crackles, Other Abdomen: No tenderness Extremities: Other (2-3+ bilateral LE edema ) Skin: No breakdown, No significant lesion Labs LABS Laboratory Tests Test 12/25/19 11:22 Sodium Level 139 mmol/L (136-145) Potassium Level 4.0 mmol/L (3.5-5.1) Chloride Level 104 mmol/L (98-107) Carbon Dioxide Level 25 mmol/L (21-32) Anion Gap 10 (6-14) Blood Urea Nitrogen 44 mg/dL (7-20) Creatinine 3.0 mg/dL (0.6-1.0) Estimated GFR (Cockcroft-Gault) 18.1 Glucose Level 96 mg/dL (70-99) Calcium Level 9.4 mg/dL (8.5-10.1) Review of Systems Review of Systems Cough, SOB. Denies chest pain, denies fever. Assessment and Plan Assessmemt and Plan Plan: Continue diuresis. Problems: (1) CHF (congestive heart failure) (2) Dyspnea on exertion Comment Review of Relevant I have reviewed the following items char (where applicable) has been applied. Labs Laboratory Tests Test 12/24/19 05:25 12/25/19 11:22 Sodium Level 139 mmol/L (136-145) 139 mmol/L (136-145) Potassium Level 4.1 mmol/L (3.5-5.1) 4.0 mmol/L (3.5-5.1) Chloride Level 104 mmol/L (98-107) 104 mmol/L (98-107) Carbon Dioxide Level 18 mmol/L (21-32) 25 mmol/L (21-32) Anion Gap 17 (6-14) 10 (6-14) Blood Urea Nitrogen 45 mg/dL (7-20) 44 mg/dL (7-20) Creatinine 2.5 mg/dL (0.6-1.0) 3.0 mg/dL (0.6-1.0) Estimated GFR (Cockcroft-Gault) 22.4 18.1 Glucose Level 85 mg/dL (70-99) 96 mg/dL (70-99) Calcium Level 9.2 mg/dL (8.5-10.1) 9.4 mg/dL (8.5-10.1) Laboratory Tests Test 12/25/19 11:22 Sodium Level 139 mmol/L (136-145) Potassium Level 4.0 mmol/L (3.5-5.1) Chloride Level 104 mmol/L (98-107) Carbon Dioxide Level 25 mmol/L (21-32) Anion Gap 10 (6-14) Blood Urea Nitrogen 44 mg/dL (7-20) Creatinine 3.0 mg/dL (0.6-1.0) Estimated GFR (Cockcroft-Gault) 18.1 Glucose Level 96 mg/dL (70-99) Calcium Level 9.4 mg/dL (8.5-10.1) Medications Current Medications Furosemide (Lasix) 40 mg 1X ONCE IVP Last administered on 12/20/19at 05:58; Start 12/20/19 at 06:00; Stop 12/20/19 at 06:01; Status DC Acetaminophen (Tylenol) 500 mg PRN BID PRN PO MILD PAIN 1-3 Last administered on 12/24/19at 22:39; Start 12/20/19 at 16:30 Allopurinol (Zyloprim) 100 mg DAILY PO Last administered on 12/24/19at 08:51; Start 12/21/19 at 09:00 Amlodipine Besylate (Norvasc) 10 mg DAILY PO Last administered on 12/25/19at 09:11; Start 12/21/19 at 09:00 Clopidogrel Bisulfate (Plavix) 75 mg DAILYWBKFT PO Last administered on 12/25/19at 09:12; Start 12/21/19 at 08:00 Furosemide (Lasix) 40 mg DAILY PO Last administered on 12/22/19at 08:17; Start 12/21/19 at 09:00; Stop 12/22/19 at 12:46; Status DC Acetaminophen/ Hydrocodone Bitart (Lortab 5/325) 1 tab PRN Q6HRS PRN PO MODERATE-SEVERE PAIN Last administered on 12/22/19 20:44; Start 12/20/19 at 16:30 Isosorbide Mononitrate (Imdur) 30 mg DAILY PO Last administered on 12/25/19 09:10; Start 12/21/19 at 09:00 Pantoprazole Sodium (Protonix) 40 mg DAILY PO Last administered on 12/24/19 08:50; Start 12/21/19 at 09:00 Potassium Chloride (Klor-Con) 20 meq DAILY PO Last administered on 12/24/19 08:55; Start 12/21/19 at 09:00 Vitamin D (Vitamin D3) 1,000 unit DAILY PO Last administered on 12/24/19 08:54; Start 12/21/19 at 09:00 Folic Acid (Folic Acid) 1 mg DAILY PO Last administered on 12/24/19 08:53; Start 12/21/19 at 09:00 Gabapentin (Neurontin) 100 mg TID PO Last administered on 12/25/19 20:28; Start 12/20/19 at 21:00 Non-Formulary Medication (Gluc 2KCL/ Chondr/Dereck Hy/Hy Ac (Glucosamine & Chondroitin Cap)) 1 each BID PO ; Start 12/20/19 at 21:00; Status UNV Ferrous Sulfate (Feosol) 325 mg QHS PO Last administered on 12/25/19 20:29; Start 12/20/19 at 21:00 Fish Oil (Fish Oil) 1,000 mg TID PO Last administered on 12/25/19 20:28; Start 12/20/19 at 21:00 Atorvastatin Calcium (Lipitor) 20 mg QHS PO Last administered on 12/25/19 20:29; Start 12/20/19 at 21:00 Apixaban (Eliquis) 2.5 mg BID PO Last administered on 12/24/19 08:54; Start 12/20/19 at 21:00; Stop 12/24/19 at 10:26; Status DC Metoprolol Tartrate (Lopressor) 25 mg BID PO Last administered on 12/25/19 20:29; Start 12/20/19 at 21:00 Morphine Sulfate (Morphine Sulfate) 2 mg PRN Q4HRS PRN IV PAIN Last administered on 12/20/19at 17:09; Start 12/20/19 at 17:00 Nitroglycerin (Nitrostat) 0.4 mg PRN Q5MIN PRN SL CHEST PAIN; Start 12/20/19 at 17:15 Benzonatate (Tessalon Perle) 100 mg PRN TID PRN PO COUGHING Last administered on 12/25/19at 20:29; Start 12/20/19 at 22:45 Guaifenesin/ Codeine Phosphate (Robitussin Ac) 5 ml 1X ONCE PO Last administered on 12/20/19at 22:53; Start 12/20/19 at 22:45; Stop 12/20/19 at 22:46; Status DC Furosemide (Lasix) 40 mg 1X ONCE IVP Last administered on 12/21/19at 14:47; Start 12/21/19 at 14:00; Stop 12/21/19 at 14:01; Status DC Potassium Chloride (Klor-Con) 20 meq PRN DAILY PRN PO SEE COMMENTS; Start 12/21/19 at 17:15 Potassium Chloride/Water 100 ml @ 100 mls/hr PRN DAILY PRN IV SEE COMMENTS; Start 12/21/19 at 17:15 Magnesium Sulfate 50 ml @ 25 mls/hr PRN DAILY PRN IV SEE COMMENTS; Start 12/21/19 at 17:15 Info (Review Meds) 1 ea PRN DAILY PRN MC SEE COMMENTS; Start 12/21/19 at 17:15; Status Cancel Info (Review Meds) 1 ea 1X ONCE MC ; Start 12/21/19 at 17:15; Stop 12/21/19 at 17:30; Status DC Magnesium Sulfate 50 ml @ 300 mls/hr PRN DAILY PRN IV SEE COMMENTS; Start 12/21/19 at 17:15 Magnesium Sulfate 50 ml @ 25 mls/hr ONCE ONCE IV Last administered on 12/21/19at 19:02; Start 12/21/19 at 17:45; Stop 12/21/19 at 19:44; Status DC Furosemide (Lasix) 40 mg 1X ONCE IVP Last administered on 12/22/19at 11:12; Start 12/22/19 at 10:30; Stop 12/22/19 at 10:31; Status DC Albuterol Sulfate (Ventolin Neb Soln) 2.5 mg 1X ONCE NEB Last administered on 12/22/19at 11:39; Start 12/22/19 at 10:30; Stop 12/22/19 at 10:31; Status DC Magnesium Sulfate 50 ml @ 25 mls/hr 1X ONCE IV Last administered on 12/22/19at 11:03; Start 12/22/19 at 11:00; Stop 12/22/19 at 12:59; Status DC Dronedarone (Multaq) 400 mg BIDWMEALS PO Last administered on 12/25/19at 16:55; Start 12/22/19 at 11:00 Bumetanide (Bumex) 1 mg DAILY PO ; Start 12/23/19 at 09:00; Stop 12/23/19 at 08:11; Status DC Furosemide (Lasix) 40 mg DAILY PO ; Start 12/23/19 at 09:00; Stop 12/23/19 at 08:11; Status DC Bumetanide (Bumex) 1 mg DAILY PO Last administered on 12/23/19at 12:36; Start 12/23/19 at 12:00; Stop 12/24/19 at 08:08; Status DC Info (Anti-Coagulation Monitoring By Pharmacy) 1 each PRN DAILY PRN MC SEE COMMENTS Last administered on 12/24/19at 08:47; Start 12/23/19 at 10:15 Bumetanide (Bumex) 1 mg 1X IV ; Start 12/23/19 at 15:00; Status Cancel Polyethylene Glycol (miraLAX PACKET) 17 gm PRN DAILY PRN PO CONSTIPATION Last administered on 12/23/19at 16:04; Start 12/23/19 at 15:30 Bumetanide (Bumex) 1 mg 1X ONCE IV Last administered on 12/23/19at 16:03; Start 12/23/19 at 15:30; Stop 12/23/19 at 15:37; Status DC Bumetanide (Bumex) 1 mg DAILY PO ; Start 12/25/19 at 09:00 Bumetanide (Bumex) 1 mg BID92 IV Last administered on 12/24/19at 15:21; Start 12/24/19 at 09:00; Stop 12/24/19 at 14:01; Status DC Iodixanol (Visipaque 320) 100 ml STK-MED ONCE .ROUTE ; Start 12/25/19 at 09:42; Stop 12/25/19 at 09:43; Status DC Lidocaine HCl (Lidocaine 1% 20ml Vial) 20 ml STK-MED ONCE .ROUTE ; Start 12/25/19 at 09:42; Stop 12/25/19 at 09:43; Status DC Heparin Sodium/ Sodium Chloride 1,000 ml @ As Directed STK-MED ONCE .ROUTE ; Start 12/25/19 at 09:42; Stop 12/25/19 at 09:43; Status DC Fentanyl Citrate (Fentanyl 2ml Vial) 100 mcg STK-MED ONCE .ROUTE ; Start 12/25/19 at 09:56; Stop 12/25/19 at 09:56; Status DC Midazolam HCl (Versed) 2 mg STK-MED ONCE .ROUTE ; Start 12/25/19 at 09:56; Stop 12/25/19 at 09:56; Status DC Heparin Sodium/ Sodium Chloride (HEPARIN for ARTERIAL LINE FLUSH) 1,000 unit 1X ONCE IART Last administered on 12/25/19at 10:45; Start 12/25/19 at 10:15; Stop 12/25/19 at 10:19; Status DC Midazolam HCl (Versed) 2 mg 1X ONCE IV Last administered on 12/25/19at 10:46; Start 12/25/19 at 10:15; Stop 12/25/19 at 10:19; Status DC Fentanyl Citrate (Fentanyl 2ml Vial) 100 mcg 1X ONCE IV Last administered on 12/25/19at 10:46; Start 12/25/19 at 10:15; Stop 12/25/19 at 10:19; Status DC Lidocaine HCl (Lidocaine 1% 20ml Vial) 20 ml 1X ONCE INJ Last administered on 12/25/19at 10:45; Start 12/25/19 at 10:15; Stop 12/25/19 at 10:19; Status DC Milrinone Lactate/ Dextrose 100 ml @ 3.656 mls/ hr CONT PRN IV SEE I/O RECORD Last administered on 12/25/19at 11:35; Start 12/25/19 at 11:00 Active Scripts Active Isosorbide Mononitrate Er (Isosorbide Mononitrate) 30 Mg Tab.er.24h 30 Mg PO DAILY Metoprolol Tartrate 50 Mg Tablet 50 Mg PO BID Aspirin 81 Mg Tab.chew 1 Tab PO DAILY Clopidogrel (Clopidogrel Bisulfate) 75 Mg Tablet 75 Mg PO DAILYWBKFT 30 Days Reported Eliquis (Apixaban) 5 Mg Tablet 5 Mg PO BID Multaq (Dronedarone Hcl) 400 Mg Tablet 400 Tab PO BID Amlodipine Besylate 10 Mg Tablet 10 Mg PO DAILY Pravachol (Pravastatin Sodium) 80 Mg Tablet 80 Mg PO DAILY Acetaminophen 500 Mg Tablet 1 Tab PO BID PRN Hydrocodone-Apap 5-325 (Hydrocodone Bit/Acetaminophen) 1 Each Tablet 1 Tab PO PRN Q6HRS PRN Glucosamine & Chondroitin Cap (Gluc 2KCL/Chondr/Dereck Hy/Hy Ac) 1 Each Capsule 1 Each PO BID Furosemide 40 Mg Tablet 40 Mg PO DAILY Vitamin D3 1,000 Unit Tablet (Ca Cmb No.1/Vit D3/B-6/Fa/B12) 1 Each Tablet 1 Each PO DAILY Folic Acid 0.4 Mg Tablet 0.4 Mg PO DAILY Pantoprazole Sodium (Pantoprazole Sodium) 40 Mg Tablet.dr 40 Mg PO DAILY Allopurinol 100 Mg Tablet 300 Mg PO DAILY Iron 100 Plus Tablet (Iron,Carbonyl/Vit C/Vit B12/Fa) 1 Each Tablet 1 Each PO HS Potassium Chloride (Potassium Chloride) 20 Meq Tablet.er 20 Meq PO DAILY Gabapentin 600 Mg Tablet 600 Mg PO TID Fish Clg-Smeqs-7-Vit D Softgel ([place]-3S/Dha/Epa/Fish Oil/D3) 1 Each Capsule 1 Each PO TID Vitals/I & O Vital Sign - Last 24 Hours 12/24/19 12/24/19 12/25/19 12/25/19 22:32 23:37 02:39 07:00 Temp 98.3 98.1 97.6 98.3 98.1 97.6 Pulse 59 60 55 54 Resp 20 20 18 B/P (MAP) 127/61 127/61 (83) 109/46 (67) 115/77 (90) Pulse Ox 96 96 95 O2 Delivery Room Air Room Air Room Air 12/25/19 12/25/19 12/25/19 12/25/19 08:00 09:10 09:11 09:11 Pulse 54 54 54 B/P (MAP) 115/77 115/77 117/77 O2 Delivery Room Air 12/25/19 12/25/19 12/25/19 12/25/19 09:12 10:46 10:56 11:15 Pulse 54 60 61 Resp 20 21 18 B/P (MAP) 117/77 108/55 (72) Pulse Ox 98 97 93 O2 Delivery Nasal Cannula Nasal Cannula Room Air O2 Flow Rate 2.0 2.0 12/25/19 12/25/19 12/25/19 12/25/19 11:30 11:45 12:00 12:15 Pulse 66 60 57 62 Resp 18 18 18 18 B/P (MAP) 107/55 (72) 103/58 (73) 96/52 (67) 104/41 (62) Pulse Ox 92 96 95 96 O2 Delivery Room Air Room Air Room Air Room Air 12/25/19 12/25/19 12/25/19 12/25/19 12:30 13:00 15:00 16:55 Temp 97.5 97.5 Pulse 60 60 60 85 Resp 18 18 18 B/P (MAP) 110/59 (76) 108/51 (70) 105/54 (71) 119/59 Pulse Ox 95 91 95 O2 Delivery Room Air Room Air Room Air 12/25/19 12/25/19 19:20 20:29 Temp 97.8 97.8 Pulse 95 95 Resp 22 B/P (MAP) 126/64 (84) 126/64 Pulse Ox 95 O2 Delivery Room Air Intake and Output 12/24/19 12/24/19 12/25/19 15:00 23:00 07:00 Intake Total 600 ml 425 ml 50 ml Output Total 300 ml Balance 600 ml 425 ml -250 ml Justicifation of Admission Dx: Justifications for Admission: Justification of Admission Dx: Yes CHAVA SANDERS MD Dec 25, 2019 20:57
[2019-12-25] MEDS: HYDROcodone/APAP 5/325MG 1 TAB TABLET PO PRN (22:22)
[2019-12-26] VITALS (13 sets, daily range): BP systolic 96–119; BP diastolic 46–61
[2019-12-26] MEDS: ACETAMINOPHEN 500 MG TABLET PO PRN (03:08)
[2019-12-26] MEDS: BENZONATATE 100 MG CAPSULE. PO PRN ×2 (03:47→09:50)
[2019-12-26] MEDS ORDERED: BUMETANIDE 1 MG/4 ML VIAL. IV SCH (09:00)
--- NOTE | 2019-12-26 09:40 | PDOC ---
PROGRESS NOTES Date of Service: DATE: 12/26/19 TIME: 09:39 Chief Complaint Chief Complaint IMPRESSION Acute hypoxia - likely from pulmonary edema. Will diurese. Less likely COVID 19, will await testing results. Wean O2 as tolerated, this morning requiring reevaluation given worsening of cough and dyspnea Shortness of breath with cough - likely from pulmonary edema, no hx of COPD, could be viral or atypical pneumonia. will check procalcitonin and COVID19 Atrial fibrillation - controlled response. On metoprolol tartrate 25mg BID, eliquis, multaq. cardiology evaluation done and is greatly appreciated, recommendations as follows: MORBID OBESITY francisco Partial DVT right proximal superficial femoral vein. 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 SOON Change oral diuretics to Bumex. CAD status clinically stable Patient is QTc interval is greater than 500. Cannot start dofetilide. Continue Multitak. Continue eliquis for stroke prophylaxis SSS s/p PPM, clinically stable. Recent device check showed normal function. consult nephrology restart eliquis per cardiology covid-19 neg Sleep study as an outpatient. CHF - reduced ejection fraction 40-45% on prior echo. Will diurese for acute systolic CHF, consult cardiology, monitor on tele, BMP and Mag FRANCISCO on CKD - likely vasomotor nephropathy, possibly 2/2 cardiorenal syndrome. Cr now 3 with baseline 1.3 noted historically. Pending IV Lasix 40 mg HLD - cont statin HTN - cont BB and CCB CAD s/p CABG - cont prasugrel, BB, statin. Trend trops for CHEST PAIN s/p PPM - will consult cardiology. Interrogation indicated given her hospitalization for chest pain plan FEN - Cardiac diet, 2L fluid restriction PPX - eliquis FULL CODE Dispo - inpatient for above, 2 midnights resume eliquis per cardiology nephrology consult History of Present Illness History of Present Illness 79yo F w/ PMHx CHF, HLD, HTN, CAD s/p CABG, s/p PPM who presents to the emergency department from home via her own private vehicle with complaint of chest pain, cough x2 days. She also notes significant bilateral lower extremity leg edema that is been worsening over the past 2 weeks. She advises me that she did have a negative COVID-19 test approximately 3 weeks ago. She notes over the past couple of days she has progressive dyspnea on exertion, first with entering her home to walking to the bedroom a few days ago, now when she awoke before coming to ED she was too short of breath to walk to the bathroom. The chest pain associated is dull pressure and resolves with rest. when it persisted she took a nitroglycerin and this resolved the pain. CXR appears to show enlargement of the cardiomediastinal silhouette and increased interstitial markings as well as dual lead pacer and sternotomy in place. EKG appears irregular at around 60 beats a minutes no visible P waves consistent with atrial fibrillation, nonspecific intraventricular block. Labs significant for WBC of 8.7, Hb 11.1, platelets 190, NA 138, K4.4, BUN 38, CR 3, glucose 113, CRP 15.8, BNP 6514, d-dimer 2.80, troponin 0. Due to concern for COVID-19 with abnormal chest x-ray and cough ED physician ordered swab for COVID-19 and she was admitted to COVID-19 unit and is seen there today. With elevated d-dimer ED physician suggested VQ scan however ventilation portions are not performed during the coronavirus pandemic. Also patient is on Eliquis twice daily and she has been compliant with this. Upon evaluation she is notably having some white frothy sputum and IV dose of 40 mg of Lasix was given with large urine output and some relief of her symptoms. She notes her operating room tech is Dr. Aikne and he recently started her on a new medication that starts with an M (Pharmacy confirms this is 400mg Multaq), and her grocery clerk is Dr. Conley and she has good follow-up with both physicians. 12/21/2019 No acute events overnight. Patient does have orthopnea and requires her head of her bed to be inclined to the max at almost 90 degrees. She currently has some cough and does complain of heaviness and fluid overload. 12/22/19 Patient with worsening respiratory distress, quite uncomfortable and coughing no sputum. Visibly has increased work of breathing. Reassurance has been provided to the patient and her at bedside. Crackles auscultated 12/23/2019 Patient reports some dyspnea on exertion, but comfortable at rest. She is unable to walk across the room without feeling short of breath. Her shortness of breath is also worse when she lays on her back. She reports a chronic cough that is worse with deep inspiration and productive of clear sputum. 12/24/2019 Patient still complaining of dyspnea on exertion and occasionally even at rest. Discussed plan for right heart cath in the morning to ascertain etiology of dyspnea. N.p.o. after midnight. 12/26/2019 Still with cough and improved with tessalon. Will need further diuresis. restart eliquis Vitals Vitals Vital Signs Date Time Temp Pulse Resp B/P (MAP) Pulse Ox O2 Delivery O2 Flow Rate FiO2 12/26/19 07:11 62 110/47 (68) 12/26/19 07:00 97.9 16 95 Room Air 97.9 12/25/19 10:56 2.0 Physical Exam General: Alert, Oriented X3, Cooperative, No acute distress Heart: Regular rate Lungs: Crackles, Other Abdomen: No tenderness Extremities: Other (2-3+ bilateral LE edema ) Skin: No breakdown, No significant lesion Labs LABS Technologist: Cris Hernandez Nurse: Sharona Mcdonald R.N. Procedure(s) performed: Right heart catheterization fl time: 3.5 mins dose: 6 gycm2 moderate sedation: 44 MINS INDICATION The indication(s) include : Refractory acute on chronic combined systolic and diastolic heart failure. PROCEDURE NARRATIVE After explaining the risks, benefits and alternative options, informed consent was obtained from patient. Patient was brought to the cardiac Full Stack [employer] and her right groin was prepped and draped in the usual fashion. Venous access was obtained in the right common femoral vein and 8 [place] sheath was inserted. 7.5 [place] catheter was then advanced through the previously placed IVC filter under fluoroscopy guidance and intracardiac pressures, oxygen saturations and cardiac output by thermodilution method were measured. Patient tolerated the procedure well. Hemostasis was achieved using manual compression. There were no immediate complications. FINDINGS 1. Intracardiac pressures: Mean right atrial pressure 33 mmHg, right ventricular pressure 52/20 mmHg, pulmonary artery pressure 54/30 mmHg with mean PA pressure of 40 mmHg and mean pulmonary capillary wedge pressure 35 mmHg. This is consistent with significantly elevated left-sided and right-sided filling pressures with mild to moderate pulmonary hypertension. Of note, the right atrial waveform with prominent V wave is consistent with significant tricuspid regurgitation. 2. Oxygen saturations: Right atrium 51.1%, pulmonary artery 53.8%. No evidence of intracardiac shunt. 3. Cardiac output by thermodilution method 3.5 L/min. Conclusion 1. Significantly elevated right and left-sided filling pressures with mild to moderate pulmonary hypertension. 2. No evidence of intracardiac shunt. Recommendations Aggressive diuresis. Consider milrinone infusion if patient not responding adequately to diuretics. Signed by : Doreen Aiken, Electronically Approved : 12/25/2019 11:11:31 DICTATED and SIGNED BY: DOREEN AIKEN MD DATE: 12/25/19 1101 Study: CR CHEST AP ONLY Indication: Cough. Chest pain. Comparison: 08/18/2017 Findings: The cardiomediastinal silhouette is enlarged. Status post median sternotomy. Dual-lead left chest wall pacer. Increased interstitial markings. No large effusion. No pneumothorax or dense consolidation. Operative changes at the left shoulder and advanced degenerative changes at the right shoulder. Impression: Enlargement of the cardiomediastinal silhouette and increased interstitial markings could indicate volume overload with interstitial edema. An atypical infectious process, as queried, cannot be excluded based off the results of this study alone. Electronically signed by: AVILA CONTEH MD (12/20/2019 7:12 AM) [id number] DICTATED and SIGNED BY: AVILA CONTEH MD DATE: 12/20/19 0712 Examination: Bilateral Lower Extremity Venous Doppler Ultrasound History: Bilateral lower extremity edema Comparison: None Procedure: Pal scale, color flow 2D and spectal waveform analysis images are obtained with and without compression in the area of the common femoral vein, superficial femoral vein - femoral vein junction, main femoral vein (superficial femoral vein) and popliteal vein. Veins of the proximal calf are also imaged. Findings: There is echogenicity identified in the superficial femoral vein on the right likely partial DVT. The bilateral common femoral vein, left superficial femoral and popliteal vein posterior tibialis vein, greater saphenous vein are patent. Impression: 1. Partial DVT right proximal superficial femoral vein. FOR INTERNAL CODING PURPOSES Critical result: Findings discussed with patient's nurse at 12/24/2019 12:44 PM. RESULT CODE: (C) Examination: Ultrasound kidneys HISTORY: History of acute renal insufficiency COMPARISON: None available FINDINGS: The right kidney measures 9.3 x 3.9 x 3.3 cm . The left kidney measures 9.2 x 5.4 x 4.6 cm.Echogenic appearing bilateral kidneys there is prominent appearing dromedary hump in the left kidney. Questionable 1.5 cm cyst , examination limited due to bowel gas. Urinary bladder is mildly distended. IMPRESSION: 1. Echogenic appearing bilateral kidneys could be due to medical renal disease. 2. 0.5 cm cystic structure identified in the left kidney could be a cyst as seen on prior CT. Electronically signed by: Kem Irby MD (12/20/2019 11:19 PM) [id number] DICTATED and SIGNED BY: KEM IRBY MD CT CHEST WO CONTRAST INDICATION: Reason: dyspnea / Spl. Instructions: / History: . COMPARISON STUDY: None. TECHNIQUE: Unenhanced axial images were obtained through the lungs and upper abdomen. Coronal and sagittal multiplanar reconstructions were also obtained. PQRS compliance statement: One or more of the following individualized dose reduction techniques were utilized for this examination: 1. Automated exposure control 2. Adjustment of the mA and/or kV according to patient size 3. Use of iterative reconstruction technique FINDINGS: Lungs and Airways: No pulmonary mass or consolidation. Bibasilar dependent and subsegmental atelectasis. Normal central airways. Pleura: Small right pleural effusion. Heart and Mediastinum: Left pectoral pacemaker. The visualized thyroid gland is normal in size and attenuation. No axillary or supraclavicular lymphadenopathy. No mediastinal, hilar or retrocrural lymphadenopathy. Cardiomegaly. No pericardial effusion. Coronary artery atherosclerotic disease. CABG. Atherosclerosis of the thoracic aorta. Dilated pulmonary trunk measures 37 mm. Abdomen: The visualized abdominal organs demonstrate no abnormality. Bones and Soft Tissues: Degenerative changes spine. Median sternotomy. IMPRESSION: 1. No pulmonary mass or consolidation. 2. Small right pleural effusion. 3. Dilated pulmonary trunk, which can be seen with pulmonary hypertension. Electronically signed by: Gali Reed MD (12/23/2019 5:00 PM) [id number] DICTATED and SIGNED BY: GALI REED MD DATE: 12/23/19 1700 Laboratory Tests Test 12/25/19 11:22 Sodium Level 139 mmol/L (136-145) Potassium Level 4.0 mmol/L (3.5-5.1) Chloride Level 104 mmol/L (98-107) Carbon Dioxide Level 25 mmol/L (21-32) Anion Gap 10 (6-14) Blood Urea Nitrogen 44 mg/dL (7-20) Creatinine 3.0 mg/dL (0.6-1.0) Estimated GFR (Cockcroft-Gault) 18.1 Glucose Level 96 mg/dL (70-99) Calcium Level 9.4 mg/dL (8.5-10.1) Comment Review of Relevant I have reviewed the following items char (where applicable) has been applied. Labs Laboratory Tests Test 12/25/19 11:22 Sodium Level 139 mmol/L (136-145) Potassium Level 4.0 mmol/L (3.5-5.1) Chloride Level 104 mmol/L (98-107) Carbon Dioxide Level 25 mmol/L (21-32) Anion Gap 10 (6-14) Blood Urea Nitrogen 44 mg/dL (7-20) Creatinine 3.0 mg/dL (0.6-1.0) Estimated GFR (Cockcroft-Gault) 18.1 Glucose Level 96 mg/dL (70-99) Calcium Level 9.4 mg/dL (8.5-10.1) Laboratory Tests Test 12/25/19 11:22 Sodium Level 139 mmol/L (136-145) Potassium Level 4.0 mmol/L (3.5-5.1) Chloride Level 104 mmol/L (98-107) Carbon Dioxide Level 25 mmol/L (21-32) Anion Gap 10 (6-14) Blood Urea Nitrogen 44 mg/dL (7-20) Creatinine 3.0 mg/dL (0.6-1.0) Estimated GFR (Cockcroft-Gault) 18.1 Glucose Level 96 mg/dL (70-99) Calcium Level 9.4 mg/dL (8.5-10.1) Medications Current Medications Furosemide (Lasix) 40 mg 1X ONCE IVP Last administered on 12/20/19at 05:58; Start 12/20/19 at 06:00; Stop 12/20/19 at 06:01; Status DC Acetaminophen (Tylenol) 500 mg PRN BID PRN PO MILD PAIN 1-3 Last administered on 12/26/19 03:08; Start 12/20/19 at 16:30 Allopurinol (Zyloprim) 100 mg DAILY PO Last administered on 12/24/19 08:51; Start 12/21/19 at 09:00 Amlodipine Besylate (Norvasc) 10 mg DAILY PO Last administered on 12/25/19 09:11; Start 12/21/19 at 09:00 Clopidogrel Bisulfate (Plavix) 75 mg DAILYWBKFT PO Last administered on 12/25/19 09:12; Start 12/21/19 at 08:00 Furosemide (Lasix) 40 mg DAILY PO Last administered on 12/22/19 08:17; Start 12/21/19 at 09:00; Stop 12/22/19 at 12:46; Status DC Acetaminophen/ Hydrocodone Bitart (Lortab 5/325) 1 tab PRN Q6HRS PRN PO MODERATE-SEVERE PAIN Last administered on 12/25/19 22:22; Start 12/20/19 at 16:30 Isosorbide Mononitrate (Imdur) 30 mg DAILY PO Last administered on 12/25/19 09:10; Start 12/21/19 at 09:00 Pantoprazole Sodium (Protonix) 40 mg DAILY PO Last administered on 12/24/19 08:50; Start 12/21/19 at 09:00 Potassium Chloride (Klor-Con) 20 meq DAILY PO Last administered on 12/24/19 08:55; Start 12/21/19 at 09:00 Vitamin D (Vitamin D3) 1,000 unit DAILY PO Last administered on 12/24/19 08:54; Start 12/21/19 at 09:00 Folic Acid (Folic Acid) 1 mg DAILY PO Last administered on 12/24/19 08:53; Start 12/21/19 at 09:00 Gabapentin (Neurontin) 100 mg TID PO Last administered on 12/25/19 20:28; Start 12/20/19 at 21:00 Non-Formulary Medication (Gluc 2KCL/ Chondr/Dereck Hy/Hy Ac (Glucosamine & Chondroitin Cap)) 1 each BID PO ; Start 12/20/19 at 21:00; Status UNV Ferrous Sulfate (Feosol) 325 mg QHS PO Last administered on 12/25/19 20:29; Start 12/20/19 at 21:00 Fish Oil (Fish Oil) 1,000 mg TID PO Last administered on 12/25/19at 20:28; Start 12/20/19 at 21:00 Atorvastatin Calcium (Lipitor) 20 mg QHS PO Last administered on 12/25/19at 20:29; Start 12/20/19 at 21:00 Apixaban (Eliquis) 2.5 mg BID PO Last administered on 12/24/19at 08:54; Start 12/20/19 at 21:00; Stop 12/24/19 at 10:26; Status DC Metoprolol Tartrate (Lopressor) 25 mg BID PO Last administered on 12/25/19at 20:29; Start 12/20/19 at 21:00 Morphine Sulfate (Morphine Sulfate) 2 mg PRN Q4HRS PRN IV PAIN Last admin istered on 12/20/19at 17:09; Start 12/20/19 at 17:00 Nitroglycerin (Nitrostat) 0.4 mg PRN Q5MIN PRN SL CHEST PAIN; Start 12/20/19 at 17:15 Benzonatate (Tessalon Perle) 100 mg PRN TID PRN PO COUGHING Last administered on 12/26/19at 03:47; Start 12/20/19 at 22:45 Guaifenesin/ Codeine Phosphate (Robitussin Ac) 5 ml 1X ONCE PO Last administered on 12/20/19at 22:53; Start 12/20/19 at 22:45; Stop 12/20/19 at 22:46; Status DC Furosemide (Lasix) 40 mg 1X ONCE IVP Last administered on 12/21/19at 14:47; Start 12/21/19 at 14:00; Stop 12/21/19 at 14:01; Status DC Potassium Chloride (Klor-Con) 20 meq PRN DAILY PRN PO SEE COMMENTS; Start at 17:15 Potassium Chloride/Water 100 ml @ 100 mls/hr PRN DAILY PRN IV SEE COMMENTS; Start 12/21/19 at 17:15 Magnesium Sulfate 50 ml @ 25 mls/hr PRN DAILY PRN IV SEE COMMENTS; Start 12/21/19 at 17:15 Info (Review Meds) 1 ea PRN DAILY PRN MC SEE COMMENTS; Start 12/21/19 at 17:15; Status Cancel Info (Review Meds) 1 ea 1X ONCE MC ; Start 12/21/19 at 17:15; Stop 12/21/19 at 17:30; Status DC Magnesium Sulfate 50 ml @ 300 mls/hr PRN DAILY PRN IV SEE COMMENTS; Start 12/21/19 at 17:15 Magnesium Sulfate 50 ml @ 25 mls/hr ONCE ONCE IV Last administered on 12/21/19at 19:02; Start 12/21/19 at 17:45; Stop 12/21/19 at 19:44; Status DC Furosemide (Lasix) 40 mg 1X ONCE IVP Last administered on 12/22/19at 11:12; Start 12/22/19 at 10:30; Stop 12/22/19 at 10:31; Status DC Albuterol Sulfate (Ventolin Neb Soln) 2.5 mg 1X ONCE NEB Last administered on 12/22/19at 11:39; Start 12/22/19 at 10:30; Stop 12/22/19 at 10:31; Status DC Magnesium Sulfate 50 ml @ 25 mls/hr 1X ONCE IV Last administered on 12/22/19at 11:03; Start 12/22/19 at 11:00; Stop 12/22/19 at 12:59; Status DC Dronedarone (Multaq) 400 mg BIDWMEALS PO Last administered on 12/25/19at 16:55; Start 12/22/19 at 11:00 Bumetanide (Bumex) 1 mg DAILY PO ; Start 12/23/19 at 09:00; Stop 12/23/19 at 08:11; Status DC Furosemide (Lasix) 40 mg DAILY PO ; Start 12/23/19 at 09:00; Stop 12/23/19 at 08:11; Status DC Bumetanide (Bumex) 1 mg DAILY PO Last administered on 12/23/19at 12:36; Start 12/23/19 at 12:00; Stop 12/24/19 at 08:08; Status DC Info (Anti-Coagulation Monitoring By Pharmacy) 1 each PRN DAILY PRN MC SEE COMMENTS Last administered on 12/24/19at 08:47; Start 12/23/19 at 10:15 Bumetanide (Bumex) 1 mg 1X IV ; Start 12/23/19 at 15:00; Status Cancel Polyethylene Glycol (miraLAX PACKET) 17 gm PRN DAILY PRN PO CONSTIPATION Last administered on 12/23/19at 16:04; Start 12/23/19 at 15:30 Bumetanide (Bumex) 1 mg 1X ONCE IV Last administered on 12/23/19at 16:03; Start 12/23/19 at 15:30; Stop 12/23/19 at 15:37; Status DC Bumetanide (Bumex) 1 mg DAILY PO ; Start 12/25/19 at 09:00; Stop 12/26/19 at 08:05; Status DC Bumetanide (Bumex) 1 mg BID92 IV Last administered on 12/24/19at 15:21; Start 12/24/19 at 09:00; Stop 12/24/19 at 14:01; Status DC Iodixanol (Visipaque 320) 100 ml STK-MED ONCE .ROUTE ; Start 12/25/19 at 09:42; Stop 12/25/19 at 09:43; Status DC Lidocaine HCl (Lidocaine 1% 20ml Vial) 20 ml STK-MED ONCE .ROUTE ; Start 12/25/19 at 09:42; Stop 12/25/19 at 09:43; Status DC Heparin Sodium/ Sodium Chloride 1,000 ml @ As Directed STK-MED ONCE .ROUTE ; Start 12/25/19 at 09:42; Stop 12/25/19 at 09:43; Status DC Fentanyl Citrate (Fentanyl 2ml Vial) 100 mcg STK-MED ONCE .ROUTE ; Start 11/28 12/16 at 09:56; Stop 12/25/19 at 09:56; Status DC Midazolam HCl (Versed) 2 mg STK-MED ONCE .ROUTE ; Start 12/25/19 at 09:56; Stop 12/25/19 at 09:56; Status DC Heparin Sodium/ Sodium Chloride (HEPARIN for ARTERIAL LINE FLUSH) 1,000 unit 1X ONCE IART Last administered on 12/25/19at 10:45; Start 12/25/19 at 10:15; Stop 12/25/19 at 10:19; Status DC Midazolam HCl (Versed) 2 mg 1X ONCE IV Last administered on 12/25/19at 10:46; Start 12/25/19 at 10:15; Stop 12/25/19 at 10:19; Status DC Fentanyl Citrate (Fentanyl 2ml Vial) 100 mcg 1X ONCE IV Last administered on 12/25/19at 10:46; Start 12/25/19 at 10:15; Stop 12/25/19 at 10:19; Status DC Lidocaine HCl (Lidocaine 1% 20ml Vial) 20 ml 1X ONCE INJ Last administered on 12/25/19at 10:45; Start 12/25/19 at 10:15; Stop 12/25/19 at 10:19; Status DC Milrinone Lactate/ Dextrose 100 ml @ 3.656 mls/ hr CONT PRN IV SEE I/O RECORD Last administered on 12/25/19at 11:35; Start 12/25/19 at 11:00 Bumetanide (Bumex) 1 mg 0816 IV ; Start 12/26/19 at 09:00; Stop 12/26/19 at 08:1 2; Status DC Bumetanide (Bumex) 1 mg 0800,1600 IV ; Start 12/26/19 at 08:30 Active Scripts Active Isosorbide Mononitrate Er (Isosorbide Mononitrate) 30 Mg Tab.er.24h 30 Mg PO DAILY Metoprolol Tartrate 50 Mg Tablet 50 Mg PO BID Aspirin 81 Mg Tab.chew 1 Tab PO DAILY Clopidogrel (Clopidogrel Bisulfate) 75 Mg Tablet 75 Mg PO DAILYWBKFT 30 Days Reported Eliquis (Apixaban) 5 Mg Tablet 5 Mg PO BID Multaq (Dronedarone Hcl) 400 Mg Tablet 400 Tab PO BID Amlodipine Besylate 10 Mg Tablet 10 Mg PO DAILY Pravachol (Pravastatin Sodium) 80 Mg Tablet 80 Mg PO DAILY Acetaminophen 500 Mg Tablet 1 Tab PO BID PRN Hydrocodone-Apap 5-325 (Hydrocodone Bit/Acetaminophen) 1 Each Tablet 1 Tab PO PRN Q6HRS PRN Glucosamine & Chondroitin Cap (Gluc 2KCL/Chondr/Dereck Hy/Hy Ac) 1 Each Capsule 1 Each PO BID Furosemide 40 Mg Tablet 40 Mg PO DAILY Vitamin D3 1,000 Unit Tablet (Ca Cmb No.1/Vit D3/B-6/Fa/B12) 1 Each Tablet 1 Each PO DAILY Folic Acid 0.4 Mg Tablet 0.4 Mg PO DAILY Pantoprazole Sodium (Pantoprazole Sodium) 40 Mg Tablet.dr 40 Mg PO DAILY Allopurinol 100 Mg Tablet 300 Mg PO DAILY Iron 100 Plus Tablet (Iron,Carbonyl/Vit C/Vit B12/Fa) 1 Each Tablet 1 Each PO HS Potassium Chloride (Potassium Chloride) 20 Meq Tablet.er 20 Meq PO DAILY Gabapentin 600 Mg Tablet 600 Mg PO TID Fish Vxy-Buqnw-2-Vit D Softgel ([place]-3S/Dha/Epa/Fish Oil/D3) 1 Each Capsule 1 Each PO TID Vitals/I & O Vital Sign - Last 24 Hours 12/25/19 12/25/19 12/25/19 12/25/19 10:46 10:56 11:15 11:30 Pulse 60 61 66 Resp 20 21 18 18 B/P (MAP) 108/55 (72) 107/55 (72) Pulse Ox 98 97 93 92 O2 Delivery Nasal Cannula Nasal Cannula Room Air Room Air O2 Flow Rate 2.0 2.0 12/25/19 12/25/19 12/25/19 12/25/19 11:45 12:00 12:15 12:30 Pulse 60 57 62 60 Resp 18 18 18 18 B/P (MAP) 103/58 (73) 96/52 (67) 104/41 (62) 110/59 (76) Pulse Ox 96 95 96 95 O2 Delivery Room Air Room Air Room Air Room Air 12/25/19 12/25/19 12/25/19 12/25/19 13:00 15:00 16:55 19:20 Temp 97.5 97.8 97.5 97.8 Pulse 60 60 85 95 Resp 18 18 22 B/P (MAP) 108/51 (70) 105/54 (71) 119/59 126/64 (84) Pulse Ox 91 95 95 O2 Delivery Room Air Room Air Room Air 12/25/19 12/25/19 12/25/19 12/25/19 20:00 20:11 20:29 21:11 Pulse 61 95 59 B/P (MAP) 118/68 (85) 126/64 120/55 (76) O2 Delivery Room Air 12/25/19 12/25/19 12/25/19 12/25/19 22:11 22:22 23:11 23:15 Temp 97.7 97.7 Pulse 59 59 60 Resp 20 22 B/P (MAP) 118/54 (75) 108/51 (70) 118/54 (75) Pulse Ox 95 95 O2 Delivery Room Air Room Air 12/25/19 12/26/19 12/26/19 12/26/19 23:22 00:11 01:11 02:11 Pulse 59 59 59 Resp 20 B/P (MAP) 113/55 (74) 119/55 (76) 107/61 (76) Pulse Ox 95 O2 Delivery Room Air 12/26/19 12/26/19 12/26/19 12/26/19 03:11 04:00 05:11 06:11 Temp 97.7 97.7 Pulse 59 74 62 62 Resp 21 B/P (MAP) 118/59 (78) 112/53 (72) 100/56 (71) 96/47 (63) Pulse Ox 93 O2 Delivery Room Air 12/26/19 12/26/19 07:00 07:11 Temp 97.9 97.9 Pulse 61 62 Resp 16 B/P (MAP) 113/54 (73) 110/47 (68) Pulse Ox 95 O2 Delivery Room Air Intake and Output 12/25/19 12/25/19 12/26/19 15:00 23:00 07:00 Intake Total 300 ml 400 ml 300 ml Output Total 400 ml 100 ml Balance 300 ml 0 ml 200 ml Justicifation of Admission Dx: Justifications for Admission: Justification of Admission Dx: Yes MANNY PERSAUD MD Dec 26, 2019 09:40
[2019-12-26] MEDS: CHOLECALCIFEROL (VITAMIN D3) 1,000 UNIT TABLET PO SCH (09:43)
[2019-12-26] MEDS: BUMETANIDE 1 MG/4 ML VIAL. IV SCH ×2 (09:43→18:05)
[2019-12-26] MEDS: ISOSORBIDE MONONITRATE ER 30 MG TAB.ER.24H PO SCH (09:43)
[2019-12-26] MEDS: MILRINONE 20MG/100ML PREMIX 100 ML IV PRN (09:43)
[2019-12-26] MEDS: OMEGA-3 FATTY ACIDS/FISH OIL 1,000 MG CAPSULE. PO SCH ×3 (09:44→21:35)
[2019-12-26] MEDS: DRONEDARONE HCL 400 MG TABLET PO SCH ×2 (09:44→18:05)
[2019-12-26] MEDS: GABAPENTIN 100 MG CAPSULE. PO SCH ×3 (09:44→21:36)
[2019-12-26] MEDS: ALLOPURINOL 100 MG TABLET. PO SCH (09:44)
[2019-12-26] MEDS: CLOPIDOGREL BISULFATE 75 MG TABLET PO SCH (09:44)
[2019-12-26] MEDS: POTASSIUM CHLORIDE 20 MEQ TABLET.ER. PO SCH (09:44)
[2019-12-26] MEDS: FOLIC ACID 1 MG TABLET. PO SCH (09:45)
[2019-12-26] MEDS: PANTOPRAZOLE 40 MG TABLET.DR. PO SCH (09:45)
[2019-12-26] MEDS: METOPROLOL TART IMMED RELEASE 50 MG TABLET. PO SCH ×2 (09:45→21:36)
[2019-12-26] MEDS: amLODIPine BESYLATE 10 MG TABLET PO SCH (09:45)
--- NOTE | 2019-12-26 11:00 | PDOC ---
PULMONARY PROGRESS NOTES DATE: 12/26/19 TIME: 10:59 Subjective Pt. is resting on room air Reports improvement of Violetta rosanna and SOB, however still as nagging nonproductive cough S/P cardiac cath, now on primacor gtt Vitals Vital Signs Date Time Temp Pulse Resp B/P (MAP) Pulse Ox O2 Delivery O2 Flow Rate FiO2 12/26/19 09:45 62 110/47 12/26/19 08:00 Room Air 12/26/19 07:00 97.9 16 95 97.9 12/25/19 10:56 2.0 ROS: No Nausea, No Chest Pain, No Abdominal Pain, No Increase Cough General: Alert, Oriented X4 Lungs: Crackles, Other Cardiovascular: S1, S2 Abdomen: Soft Extremities: Other (BLE Edema +2 ) Labs Laboratory Tests Test 12/25/19 11:22 Sodium Level 139 mmol/L (136-145) Potassium Level 4.0 mmol/L (3.5-5.1) Chloride Level 104 mmol/L (98-107) Carbon Dioxide Level 25 mmol/L (21-32) Anion Gap 10 (6-14) Blood Urea Nitrogen 44 mg/dL (7-20) Creatinine 3.0 mg/dL (0.6-1.0) Estimated GFR (Cockcroft-Gault) 18.1 Glucose Level 96 mg/dL (70-99) Calcium Level 9.4 mg/dL (8.5-10.1) Laboratory Tests Test 12/25/19 11:22 Sodium Level 139 mmol/L (136-145) Potassium Level 4.0 mmol/L (3.5-5.1) Chloride Level 104 mmol/L (98-107) Carbon Dioxide Level 25 mmol/L (21-32) Anion Gap 10 (6-14) Blood Urea Nitrogen 44 mg/dL (7-20) Creatinine 3.0 mg/dL (0.6-1.0) Estimated GFR (Cockcroft-Gault) 18.1 Glucose Level 96 mg/dL (70-99) Calcium Level 9.4 mg/dL (8.5-10.1) Medications Active Scripts Medications Dose Route/Sig Max Daily Dose Days Date Category Eliquis (Apixaban) 5 Mg Tablet 5 Mg PO BID 12/20/19 Reported Multaq (Dronedarone Hcl) 400 Mg Tablet 400 Tab PO BID 12/20/19 Reported Isosorbide Mononitrate Er (Isosorbide Mononitrate) 30 Mg Tab.er.24h 30 Mg PO DAILY 08/09/16 Rx Amlodipine Besylate 10 Mg Tablet 10 Mg PO DAILY 01/06/16 Reported Pravachol (Pravastatin Sodium) 80 Mg Tablet 80 Mg PO DAILY 01/06/16 Reported Metoprolol Tartrate 50 Mg Tablet 50 Mg PO BID 01/01/16 Rx Aspirin 81 Mg Tab.chew 1 Tab PO DAILY 01/01/16 Rx Acetaminophen 500 Mg Tablet 1 Tab PO BID PRN 12/30/15 Reported Hydrocodone-Apap 5-325 (Hydrocodone Bit/Acetaminophen) 1 Each Tablet 1 Tab PO PRN Q6HRS PRN 12/30/15 Reported Clopidogrel (Clopidogrel Bisulfate) 75 Mg Tablet 75 Mg PO DAILYWBKFT 30 04/16/15 Rx Glucosamine & Chondroitin Cap (Gluc 2KCL/Chondr/Dereck Hy/Hy Ac) 1 Each Capsule 1 Each PO BID 07/03/13 Reported Furosemide 40 Mg Tablet 40 Mg PO DAILY 07/03/13 Reported Vitamin D3 1,000 Unit Tablet (Ca Cmb No.1/Vit D3/B-6/Fa/B12) 1 Each Tablet 1 Each PO DAILY 07/03/13 Reported Folic Acid 0.4 Mg Tablet 0.4 Mg PO DAILY 07/03/13 Reported Pantoprazole Sodium (Pantoprazole Sodium) 40 Mg Tablet.dr 40 Mg PO DAILY 07/03/13 Reported Allopurinol 100 Mg Tablet 300 Mg PO DAILY 07/03/13 Reported Iron 100 Plus Tablet (Iron,Carbonyl/Vit C/Vit B12/Fa) 1 Each Tablet 1 Each PO HS 07/03/13 Reported Potassium Chloride (Potassium Chloride) 20 Meq Tablet.er 20 Meq PO DAILY 07/03/13 Reported Gabapentin 600 Mg Tablet 600 Mg PO TID 07/03/13 Reported Fish Btq-Gqqgu-7-Vit D Softgel ([place]-3S/Dha/Epa/Fish Oil/D3) 1 Each Capsule 1 Each PO TID 07/03/13 Reported Comments BLE DPLX Impression: 1. Partial DVT right proximal superficial femoral vein. CT chest IMPRESSION: 1. No pulmonary mass or consolidation. 2. Small right pleural effusion. 3. Dilated pulmonary trunk, which can be seen with pulmonary hypertension. Cardiac Cath 12/25/2019 Conclusion 1. Significantly elevated right and left-sided filling pressures with mild to moderate pulmonary hypertension. 2. No evidence of intracardiac shunt. Recommendations Aggressive diuresis. Consider milrinone infusion if patient not responding adequately to diuretics. Impression . IMPRESSION: 1. Dyspnea with progressive lower extremity edema. Suspect combination of right and left heart failure. CT chest with tiny right pleural effusion and faint interstitial infiltrates at the left bases.--improving 2. Ejection fraction of 40-45% with pulmonary artery pressure of 31. 3. No significant tobacco history. 4. Suspected obstructive sleep apnea. The patient states she had a sleep study done and she was supposed to go back for titration, but due to COVID that has not happened. will review previous study 5. Chronic kidney disease. 6. Abnormal D-dimer, which could be nonspecific finding. Plan . RECOMMENDATIONS: Supplemental oxygen PRN, remains on room air Cardiac cath reviewed agree with Aggressive diuresis Follow cardiology recs-- currently on primacor gtt Diuresis with close monitoring of renal function. Follow nephrology recs BLE DPLX showed: Partial DVT right proximal superficial femoral vein. Sleep study as an outpatient. We will review the old records for a previous sleep study and see if she needs a titration study. will add mucinex for cough Discussed with JORDAN AVENDANO MD Dec 26, 2019 10:59
[2019-12-26 11:12] LABS: CALCIUM 9.9 mg/dL (8.5-10.1); CREATININE 3.6 mg/dL (0.6-1.0); GFR 14.7; POTASSIUM 3.6 mmol/L (3.5-5.1)
--- NOTE | 2019-12-26 12:34 | PDOC ---
Renal-Progress Notes Subjective Notes Notes STILL HAS SOB History of Present Illness Hx of present illness STABLE Vitals Vitals Vital Signs Date Time Temp Pulse Resp B/P (MAP) Pulse Ox O2 Delivery O2 Flow Rate FiO2 12/26/19 11:00 98.7 60 16 101/51 (68) 97 Room Air 98.7 12/25/19 10:56 2.0 Weight Weight [ ] I.O. Intake and Output Intake and Output 12/26/19 07:00 Intake Total 1000 ml Output Total 500 ml Balance 500 ml Intake Oral 1000 ml Output Urine Total 500 ml Labs Labs Laboratory Tests Test 12/26/19 10:20 Sodium Level 137 mmol/L (136-145) Potassium Level 3.6 mmol/L (3.5-5.1) Chloride Level 104 mmol/L (98-107) Carbon Dioxide Level 22 mmol/L (21-32) Anion Gap 11 (6-14) Blood Urea Nitrogen 51 mg/dL (7-20) Creatinine 3.6 mg/dL (0.6-1.0) Estimated GFR (Cockcroft-Gault) 14.7 Glucose Level 108 mg/dL (70-99) Calcium Level 9.9 mg/dL (8.5-10.1) Review of Systems Constitutional: yes: weakness, alert, oriented Ears/Nose/Throat: Yes: no symptom reported Eyes: Yes: no symptom reported Pulmonary: Yes no symptom reported Cardiovascular: Yes no symptom reported Gastrointestional: Yes: no symptom reported Genitourinary: Yes: no symptom reported Musculoskeletal: Yes: no symptom reported Skin: Yes no symptom reported Psychiatric/Neurological: Yes: no symptom reported Endocrine: Yes: no symptom reported Physical Exam General Appearance: no apparent distress Skin: warm Respiratory: decreased breath sounds Heart: S1S2 Abdomen: soft, bowel sounds present Genitourinary: bladder flat Neurology: alert, oriented, follow commands Musculoskeletal: Osteoarthritis Assessment Assessment IMP ACUTE HYPOXIA-IMPROVED ACUTE ON CHRONIC SYSTOLIC CHF-IMPROVED HX OF HTN HX OF CAD CKD STAGE 4-CR UP TO 3.0 MILD FRANCISCO DUE TO CARDIORENAL-CR STABLE AT 2.5 MILD TO MODERATE PULM HTN BILATERAL VENTRICULAR FILLING PRESSURES PLAN AGREE WITH IV DIURETICS FOR NOW CARDIOLOGY EVAL AND TX WILL FOLLOW LABS IN AM JEROD WANG MD Dec 26, 2019 12:34
--- NOTE | 2019-12-26 13:36 | PDOC ---
PROGRESS NOTES Date of Service DATE: 12/26/19 TIME: 13:33 Subjective Subjective Patient seen and examined Objective Objective Vital Signs Date Time Temp Pulse Resp B/P (MAP) Pulse Ox O2 Delivery O2 Flow Rate FiO2 12/26/19 11:00 98.7 60 16 101/51 (68) 97 Room Air 98.7 12/25/19 10:56 2.0 Intake and Output 12/26/19 07:00 Intake Total 1000 ml Output Total 500 ml Balance 500 ml Intake Oral 1000 ml Output Urine Total 500 ml Physical Exam Abdomen: Normal bowel sounds Heart: Regular rate General: mild distress Lungs: Other (Mildly decreased breath sounds) Assessment Assessment 1. 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 Recent echo with LVEF 40- 45%. Elevated right sided pressures with a mean RA of 33, mean PA of 40 and a pulmonary cat wedge pressure of 35. Continue diuresis. Patient continues to have shortness of breath. 2. CAD s/p CABG and PCI/stents. Cath 2017 with patent graft, stents. Clinically stable 3. Hypertension; controlled 4. Hyperlipidemia; statin 5. Diabetes, II 6. FRANCISCO on CKD; nephrology following 7. SSS s/p PPM ([employer]). Recent device check with normal funciton 100% AFIB in the last 2 months 8. H/o DVT/PE s/p IVC filter. On low-dose Eliquis therapy 9. Persistent AFIB 10. Persistent cough with dyspnea: likely from CHF. CT reviewed. Awaiting input from pulmonary 11. Partial DVT right proximal superficial femoral vein: new per sono today despite on eliquis Comment Review of Relevant I have reviewed the following items char (where applicable) has been applied. Labs Laboratory Tests Test 12/25/19 11:22 12/26/19 10:20 Sodium Level 139 mmol/L (136-145) 137 mmol/L (136-145) Potassium Level 4.0 mmol/L (3.5-5.1) 3.6 mmol/L (3.5-5.1) Chloride Level 104 mmol/L (98-107) 104 mmol/L (98-107) Carbon Dioxide Level 25 mmol/L (21-32) 22 mmol/L (21-32) Anion Gap 10 (6-14) 11 (6-14) Blood Urea Nitrogen 44 mg/dL (7-20) 51 mg/dL (7-20) Creatinine 3.0 mg/dL (0.6-1.0) 3.6 mg/dL (0.6-1.0) Estimated GFR (Cockcroft-Gault) 18.1 14.7 Glucose Level 96 mg/dL (70-99) 108 mg/dL (70-99) Calcium Level 9.4 mg/dL (8.5-10.1) 9.9 mg/dL (8.5-10.1) Laboratory Tests Test 12/26/19 10:20 Sodium Level 137 mmol/L (136-145) Potassium Level 3.6 mmol/L (3.5-5.1) Chloride Level 104 mmol/L (98-107) Carbon Dioxide Level 22 mmol/L (21-32) Anion Gap 11 (6-14) Blood Urea Nitrogen 51 mg/dL (7-20) Creatinine 3.6 mg/dL (0.6-1.0) Estimated GFR (Cockcroft-Gault) 14.7 Glucose Level 108 mg/dL (70-99) Calcium Level 9.9 mg/dL (8.5-10.1) Medications Current Medications Furosemide (Lasix) 40 mg 1X ONCE IVP Last administered on 12/20/19at 05:58; Start 12/20/19 at 06:00; Stop 12/20/19 at 06:01; Status DC Acetaminophen (Tylenol) 500 mg PRN BID PRN PO MILD PAIN 1-3 Last administered o n 12/26/19at 03:08; Start 12/20/19 at 16:30 Allopurinol (Zyloprim) 100 mg DAILY PO Last administered on 12/26/19at 09:44; Start 12/21/19 at 09:00 Amlodipine Besylate (Norvasc) 10 mg DAILY PO Last administered on 12/26/19at 09:45; Start 12/21/19 at 09:00 Clopidogrel Bisulfate (Plavix) 75 mg DAILYWBKFT PO Last administered on 12/26/19at 09:44; Start 12/21/19 at 08:00 Furosemide (Lasix) 40 mg DAILY PO Last administered on 12/22/19at 08:17; Start 12/21/19 at 09:00; Stop 12/22/19 at 12:46; Status DC Acetaminophen/ Hydrocodone Bitart (Lortab 5/325) 1 tab PRN Q6HRS PRN PO MODERATE-SEVERE PAIN Last administered on 12/25/19 22:22; Start 12/20/19 at 16:30 Isosorbide Mononitrate (Imdur) 30 mg DAILY PO Last administered on 12/26/19 09:43; Start 12/21/19 at 09:00 Pantoprazole Sodium (Protonix) 40 mg DAILY PO Last administered on 12/26/19 09:45; Start 12/21/19 at 09:00 Potassium Chloride (Klor-Con) 20 meq DAILY PO Last administered on 12/26/19 09:44; Start 12/21/19 at 09:00 Vitamin D (Vitamin D3) 1,000 unit DAILY PO Last administered on 12/26/19 09:43; Start 12/21/19 at 09:00 Folic Acid (Folic Acid) 1 mg DAILY PO Last administered on 12/26/19 09:45; Start 12/21/19 at 09:00 Gabapentin (Neurontin) 100 mg TID PO Last administered on 12/26/19 09:44; Start 12/20/19 at 21:00 Non-Formulary Medication (Gluc 2KCL/ Chondr/Dereck Hy/Hy Ac (Glucosamine & Chondroitin Cap)) 1 each BID PO ; Start 12/20/19 at 21:00; Status UNV Ferrous Sulfate (Feosol) 325 mg QHS PO Last administered on 12/25/19 20:29; Start 12/20/19 at 21:00 Fish Oil (Fish Oil) 1,000 mg TID PO Last administered on 12/26/19 09:44; Start 12/20/19 at 21:00 Atorvastatin Calcium (Lipitor) 20 mg QHS PO Last administered on 12/25/19 20:29; Start 12/20/19 at 21:00 Apixaban (Eliquis) 2.5 mg BID PO Last administered on 12/24/19 08:54; Start 12/20/19 at 21:00; Stop 12/24/19 at 10:26; Status DC Metoprolol Tartrate (Lopressor) 25 mg BID PO Last administered on 12/26/19 09:45; Start 12/20/19 at 21:00 Morphine Sulfate (Morphine Sulfate) 2 mg PRN Q4HRS PRN IV PAIN Last administered on 12/20/19at 17:09; Start 12/20/19 at 17:00 Nitroglycerin (Nitrostat) 0.4 mg PRN Q5MIN PRN SL CHEST PAIN; Start 12/20/19 at 17:15 Benzonatate (Tessalon Perle) 100 mg PRN TID PRN PO COUGHING Last administered on 12/26/19at 09:50; Start 12/20/19 at 22:45 Guaifenesin/ Codeine Phosphate (Robitussin Ac) 5 ml 1X ONCE PO Last administered on 12/20/19at 22:53; Start 12/20/19 at 22:45; Stop 12/20/19 at 22:46; Status DC Furosemide (Lasix) 40 mg 1X ONCE IVP Last administered on 12/21/19at 14:47; S tart 12/21/19 at 14:00; Stop 12/21/19 at 14:01; Status DC Potassium Chloride (Klor-Con) 20 meq PRN DAILY PRN PO SEE COMMENTS; Start 12/21/19 at 17:15 Potassium Chloride/Water 100 ml @ 100 mls/hr PRN DAILY PRN IV SEE COMMENTS; Start 12/21/19 at 17:15 Magnesium Sulfate 50 ml @ 25 mls/hr PRN DAILY PRN IV SEE COMMENTS; Start 12/21/19 at 17:15 Info (Review Meds) 1 ea PRN DAILY PRN MC SEE COMMENTS; Start 12/21/19 at 17:15; Status Cancel Info (Review Meds) 1 ea 1X ONCE MC ; Start 12/21/19 at 17:15; Stop 12/21/19 at 17:30; Status DC Magnesium Sulfate 50 ml @ 300 mls/hr PRN DAILY PRN IV SEE COMMENTS; Start 12/21/19 at 17:15 Magnesium Sulfate 50 ml @ 25 mls/hr ONCE ONCE IV Last administered on 12/21/19at 19:02; Start 12/21/19 at 17:45; Stop 12/21/19 at 19:44; Status DC Furosemide (Lasix) 40 mg 1X ONCE IVP Last administered on 12/22/19at 11:12; Start 12/22/19 at 10:30; Stop 12/22/19 at 10:31; Status DC Albuterol Sulfate (Ventolin Neb Soln) 2.5 mg 1X ONCE NEB Last administered on 12/22/19at 11:39; Start 12/22/19 at 10:30; Stop 12/22/19 at 10:31; Status DC Magnesium Sulfate 50 ml @ 25 mls/hr 1X ONCE IV Last administered on 12/22/19at 11:03; Start 12/22/19 at 11:00; Stop 12/22/19 at 12:59; Status DC Dronedarone (Multaq) 400 mg BIDWMEALS PO Last administered on 12/26/19at 09:44; Start 12/22/19 at 11:00 Bumetanide (Bumex) 1 mg DAILY PO ; Start 12/23/19 at 09:00; Stop 12/23/19 at 08:11; Status DC Furosemide (Lasix) 40 mg DAILY PO ; Start 12/23/19 at 09:00; Stop 12/23/19 at 08:11; Status DC Bumetanide (Bumex) 1 mg DAILY PO Last administered on 12/23/19at 12:36; Start 12/23/19 at 12:00; Stop 12/24/19 at 08:08; Status DC Info (Anti-Coagulation Monitoring By Pharmacy) 1 each PRN DAILY PRN MC SEE COMMENTS Last administered on 12/24/19at 08:47; Start 12/23/19 at 10:15 Bumetanide (Bumex) 1 mg 1X IV ; Start 12/23/19 at 15:00; Status Cancel Polyethylene Glycol (miraLAX PACKET) 17 gm PRN DAILY PRN PO CONSTIPATION Last administered on 12/23/19at 16:04; Start 12/23/19 at 15:30 Bumetanide (Bumex) 1 mg 1X ONCE IV Last administered on 12/23/19at 16:03; Start 12/23/19 at 15:30; Stop 12/23/19 at 15:37; Status DC Bumetanide (Bumex) 1 mg DAILY PO ; Start 12/25/19 at 09:00; Stop 12/26/19 at 08:05; Status DC Bumetanide (Bumex) 1 mg BID92 IV Last administered on 12/24/19at 15:21; Start 12/24/19 at 09:00; Stop 12/24/19 at 14:01; Status DC Iodixanol (Visipaque 320) 100 ml STK-MED ONCE .ROUTE ; Start 12/25/19 at 09:42; Stop 12/25/19 at 09:43; Status DC Lidocaine HCl (Lidocaine 1% 20ml Vial) 20 ml STK-MED ONCE .ROUTE ; Start 12/24 at 09:42; Stop 12/25/19 at 09:43; Status DC Heparin Sodium/ Sodium Chloride 1,000 ml @ As Directed STK-MED ONCE .ROUTE ; Start 12/25/19 at 09:42; Stop 12/25/19 at 09:43; Status DC Fentanyl Citrate (Fentanyl 2ml Vial) 100 mcg STK-MED ONCE .ROUTE ; Start 12/25/19 at 09:56; Stop 12/25/19 at 09:56; Status DC Midazolam HCl (Versed) 2 mg STK-MED ONCE .ROUTE ; Start 12/25/19 at 09:56; Stop 12/25/19 at 09:56; Status DC Heparin Sodium/ Sodium Chloride (HEPARIN for ARTERIAL LINE FLUSH) 1,000 unit 1X ONCE IART Last administered on 12/25/19at 10:45; Start 12/25/19 at 10:15; Stop 12/25/19 at 10:19; Status DC Midazolam HCl (Versed) 2 mg 1X ONCE IV Last administered on 12/25/19at 10:46; Start 12/25/19 at 10:15; Stop 12/25/19 at 10:19; Status DC Fentanyl Citrate (Fentanyl 2ml Vial) 100 mcg 1X ONCE IV Last administered on 12/25/19at 10:46; Start 12/25/19 at 10:15; Stop 12/25/19 at 10:19; Status DC Lidocaine HCl (Lidocaine 1% 20ml Vial) 20 ml 1X ONCE INJ Last administered on 12/25/19at 10:45; Start 12/25/19 at 10:15; Stop 12/25/19 at 10:19; Status DC Milrinone Lactate/ Dextrose 100 ml @ 3.656 mls/ hr CONT PRN IV SEE I/O RECORD Last administered on 12/26/19at 09:43; Start 12/25/19 at 11:00 Bumetanide (Bumex) 1 mg 0816 IV ; Start 12/26/19 at 09:00; Stop 12/26/19 at 08:12; Status DC Bumetanide (Bumex) 1 mg 0800,1600 IV Last administered on 12/26/19at 09:43; Start 12/26/19 at 08:30 Guaifenesin (Mucinex) 600 mg BID PO ; Start 12/26/19 at 21:00 Active Scripts Active Isosorbide Mononitrate Er (Isosorbide Mononitrate) 30 Mg Tab.er.24h 30 Mg PO DAILY Metoprolol Tartrate 50 Mg Tablet 50 Mg PO BID Aspirin 81 Mg Tab.chew 1 Tab PO DAILY Clopidogrel (Clopidogrel Bisulfate) 75 Mg Tablet 75 Mg PO DAILYWBKFT 30 Days Reported Eliquis (Apixaban) 5 Mg Tablet 5 Mg PO BID Multaq (Dronedarone Hcl) 400 Mg Tablet 400 Tab PO BID Amlodipine Besylate 10 Mg Tablet 10 Mg PO DAILY Pravachol (Pravastatin Sodium) 80 Mg Tablet 80 Mg PO DAILY Acetaminophen 500 Mg Tablet 1 Tab PO BID PRN Hydrocodone-Apap 5-325 (Hydrocodone Bit/Acetaminophen) 1 Each Tablet 1 Tab PO PRN Q6HRS PRN Glucosamine & Chondroitin Cap (Gluc 2KCL/Chondr/Dereck Hy/Hy Ac) 1 Each Capsule 1 Each PO BID Furosemide 40 Mg Tablet 40 Mg PO DAILY Vitamin D3 1,000 Unit Tablet (Ca Cmb No.1/Vit D3/B-6/Fa/B12) 1 Each Tablet 1 Each PO DAILY Folic Acid 0.4 Mg Tablet 0.4 Mg PO DAILY Pantoprazole Sodium (Pantoprazole Sodium) 40 Mg Tablet.dr 40 Mg PO DAILY Allopurinol 100 Mg Tablet 300 Mg PO DAILY Iron 100 Plus Tablet (Iron,Carbonyl/Vit C/Vit B12/Fa) 1 Each Tablet 1 Each PO HS Potassium Chloride (Potassium Chloride) 20 Meq Tablet.er 20 Meq PO DAILY Gabapentin 600 Mg Tablet 600 Mg PO TID Fish Xlo-[place]-3-Vit D Softgel ([place]-3S/Dha/Epa/Fish Oil/D3) 1 Each Capsule 1 Each PO TID Vitals/I & O Vital Sign - Last 24 Hours 12/25/19 12/25/19 12/25/19 12/25/19 15:00 16:55 19:20 20:00 Temp 97.5 97.8 97.5 97.8 Pulse 60 85 95 Resp 18 22 B/P (MAP) 105/54 (71) 119/59 126/64 (84) Pulse Ox 95 95 O2 Delivery Room Air Room Air Room Air 12/25/19 12/25/19 12/25/19 12/25/19 20:11 20:29 21:11 22:11 Pulse 61 95 59 59 B/P (MAP) 118/68 (85) 126/64 120/55 (76) 118/54 (75) 12/25/19 12/25/19 12/25/19 12/25/19 22:22 23:11 23:15 23:22 Temp 97.7 97.7 Pulse 59 60 Resp 20 22 20 B/P (MAP) 108/51 (70) 118/54 (75) Pulse Ox 95 95 95 O2 Delivery Room Air Room Air Room Air 12/26/19 12/26/19 12/26/19 12/26/19 00:11 01:11 02:11 03:11 Pulse 59 59 59 59 B/P (MAP) 113/55 (74) 119/55 (76) 107/61 (76) 118/59 (78) 12/26/19 12/26/19 12/26/19 12/26/19 04:00 05:11 06:11 07:00 Temp 97.7 97.9 97.7 97.9 Pulse 74 62 62 61 Resp 21 16 B/P (MAP) 112/53 (72) 100/56 (71) 96/47 (63) 113/54 (73) Pulse Ox 93 95 O2 Delivery Room Air Room Air 12/26/19 12/26/19 12/26/19 12/26/19 07:11 08:00 09:43 09:44 Pulse 62 62 62 B/P (MAP) 110/47 (68) 110/47 110/47 O2 Delivery Room Air 12/26/19 12/26/19 12/26/19 09:45 09:45 11:00 Temp 98.7 98.7 Pulse 62 62 60 Resp 16 B/P (MAP) 110/47 110/47 101/51 (68) Pulse Ox 97 O2 Delivery Room Air Intake and Output 12/25/19 12/25/19 12/26/19 15:00 23:00 07:00 Intake Total 300 ml 400 ml 300 ml Output Total 400 ml 100 ml Balance 300 ml 0 ml 200 ml Justifications for Admission Other Justification FREDDY REEDER MD Dec 26, 2019 13:36
--- NOTE | 2019-12-26 17:52 | RAD ---
Exam performed: One view chest. Indication: Reason: PICC placement / Spl. Instructions: / History: Date of Service: 12/26/2019 5:29 PM Comparison: One view chest from 12/23/2019. Single AP upright portable view chest findings: Cardiomediastinal silhouette is enlarged, however stable. Pulmonary vascularity is congested. Previous median sternotomy and bipolar pacemaker. Prominent interstitial markings are seen in both lungs mainly in the perihilar region. There is hazy opacification of the left lung base likely atelectasis and tiny effusion. Total left shoulder arthroplasty. Impression: Stable cardiomegaly with Central vascular congestion and low-grade interstitial edema. Electronically signed by: Alexandria Valdez MD (12/26/2019 5:49 PM) [facility]
[2019-12-26 18:37] LABS: PROTHROMBIN TIME PATIENT 16.1 SEC (11.7-14.0)
[2019-12-26] MEDS: ATORVASTATIN CALCIUM 20 MG TABLET PO SCH (21:35)
[2019-12-26] MEDS: APIXABAN 2.5 MG TABLET. PO SCH (21:35)
[2019-12-26] MEDS: FERROUS SULFATE 325 MG TABLET. PO SCH (21:35)
[2019-12-26] MEDS: HYDROcodone/APAP 5/325MG 1 TAB TABLET PO PRN (21:37)
[2019-12-27] VITALS (15 sets, daily range): BP systolic 102–120; BP diastolic 43–64
[2019-12-27] MEDS: ACETAMINOPHEN 500 MG TABLET PO PRN (01:08)
[2019-12-27 05:40] LABS: CALCIUM 8.9 mg/dL (8.5-10.1); CREATININE 4.4 mg/dL (0.6-1.0); GFR 11.6; POTASSIUM 3.8 mmol/L (3.5-5.1)
[2019-12-27 05:43] LABS: BASO % 1 % (0-3); EOS # 0.1 x10^3/uL (0.0-0.7); EOS % 2 % (0-3); HEMOGLOBIN 8.4 g/dL (12.0-15.5); LYMPH % 15 % (24-48); MEAN CORPUSCULAR HEMOGLOBIN 34 pg (25-35); MEAN CORPUSCULAR HGB CONC 34 g/dL (31-37); MEAN CORPUSCULAR VOLUME 100 fL (79-100); MONO # 0.5 x10^3/uL (0.0-1.1); MONO % 8 % (0-9); NEUT # 4.9 x10^3/uL (1.8-7.7); NEUT % 74 % (31-73); PLATELET COUNT 135 x10^3/uL (140-400); RED CELL DISTRIBUTION WIDTH 17.1 % (11.5-14.5); WHITE BLOOD COUNT 6.7 x10^3/uL (4.0-11.0)
[2019-12-27] MEDS: amLODIPine BESYLATE 10 MG TABLET PO SCH (09:00)
[2019-12-27] MEDS: APIXABAN 2.5 MG TABLET. PO SCH ×2 (09:09→20:34)
[2019-12-27] MEDS: ISOSORBIDE MONONITRATE ER 30 MG TAB.ER.24H PO SCH (09:09)
[2019-12-27] MEDS: CHOLECALCIFEROL (VITAMIN D3) 1,000 UNIT TABLET PO SCH (09:09)
[2019-12-27] MEDS: OMEGA-3 FATTY ACIDS/FISH OIL 1,000 MG CAPSULE. PO SCH ×3 (09:09→20:34)
[2019-12-27] MEDS: FOLIC ACID 1 MG TABLET. PO SCH (09:10)
[2019-12-27] MEDS: CLOPIDOGREL BISULFATE 75 MG TABLET PO SCH (09:10)
[2019-12-27] MEDS: POTASSIUM CHLORIDE 20 MEQ TABLET.ER. PO SCH (09:10)
[2019-12-27] MEDS: DRONEDARONE HCL 400 MG TABLET PO SCH ×2 (09:10→16:34)
[2019-12-27] MEDS: PANTOPRAZOLE 40 MG TABLET.DR. PO SCH (09:10)
[2019-12-27] MEDS: GABAPENTIN 100 MG CAPSULE. PO SCH ×3 (09:11→20:35)
[2019-12-27] MEDS: ALLOPURINOL 100 MG TABLET. PO SCH (09:20)
--- NOTE | 2019-12-27 11:10 | PDOC ---
PROGRESS NOTES Date of Service: DATE: 12/27/19 TIME: 11:10 Chief Complaint Chief Complaint IMPRESSION Acute hypoxia - likely from pulmonary edema. Will diurese. Less likely COVID 19, will await testing results. Wean O2 as tolerated, this morning requiring reevaluation given worsening of cough and dyspnea Shortness of breath with cough - likely from pulmonary edema, no hx of COPD, could be viral or atypical pneumonia. will check procalcitonin and COVID19 Atrial fibrillation - controlled response. On metoprolol tartrate 25mg BID, eliquis, multaq. cardiology evaluation done and is greatly appreciated, recommendations as follows: MORBID OBESITY francisco Partial DVT right proximal superficial femoral vein. 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 SOON Change oral diuretics to Bumex. CAD status clinically stable Patient is QTc interval is greater than 500. Cannot start dofetilide. Continue Multitak. Continue eliquis for stroke prophylaxis SSS s/p PPM, clinically stable. Recent device check showed normal function. consult nephrology restart eliquis per cardiology covid-19 neg Sleep study as an outpatient. CHF - reduced ejection fraction 40-45% on prior echo. Will diurese for acute systolic CHF, consult cardiology, monitor on tele, BMP and Mag FRANCISCO on CKD - likely vasomotor nephropathy, possibly 2/2 cardiorenal syndrome. Cr now 3 with baseline 1.3 noted historically. Pending IV Lasix 40 mg HLD - cont statin HTN - cont BB and CCB CAD s/p CABG - cont prasugrel, BB, statin. Trend trops for CHEST PAIN s/p PPM - will consult cardiology. 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 She also notes significant bilateral lower extremity leg edema that is been worsening over the past 2 weeks. She advises me that she did have a negative COVID-19 test approximately 3 weeks ago. She notes over the past couple of days she has progressive dyspnea on exertion, first with entering her home to walking to the bedroom a few days ago, now when she awoke before coming to ED she was too short of breath to walk to the bathroom. The chest pain associated is dull pressure and resolves with rest. when it persisted she took a nitroglycerin and this resolved the pain. CXR appears to show enlargement of the cardiomediastinal silhouette and increased interstitial markings as well as dual lead pacer and sternotomy in place. EKG appears irregular at around 60 beats a minutes no visible P waves consistent with atrial fibrillation, nonspecific intraventricular block. Labs significant for WBC of 8.7, Hb 11.1, platelets 190, NA 138, K4.4, BUN 38, CR 3, glucose 113, CRP 15.8, BNP 6514, d-dimer 2.80, troponin 0. Due to concern for COVID-19 with abnormal chest x-ray and cough ED physician ordered swab for COVID-19 and she was admitted to COVID-19 unit and is seen there today. With elevated d-dimer ED physician suggested VQ scan however ventilation portions are not performed during the coronavirus pandemic. Also patient is on Eliquis twice daily and she has been compliant with this. Upon evaluation she is notably having some white frothy sputum and IV dose of 40 mg of Lasix was given with large urine output and some relief of her symptoms. She notes her press manager is Dr. Sanchez and he recently started her on a new medication that starts with an M (Pharmacy confirms this is 400mg Multaq), and her recapper is Dr. Conley and she has good follow-up with both physicians. 12/21/2019 No acute events overnight. Patient does have orthopnea and requires her head of her bed to be inclined to the max at almost 90 degrees. She currently has some cough and does complain of heaviness and fluid overload. 12/22/19 Patient with worsening respiratory distress, quite uncomfortable and coughing no sputum. Visibly has increased work of breathing. Reassurance has been provided to the patient and her at bedside. Crackles auscultated 12/23/2019 Patient reports some dyspnea on exertion, but comfortable at rest. She is unable to walk across the room without feeling short of breath. Her shortness of breath is also worse when she lays on her back. She reports a chronic cough that is worse with deep inspiration and productive of clear sputum. 12/24/2019 Patient still complaining of dyspnea on exertion and occasionally even at rest. Discussed plan for right heart cath in the morning to ascertain etiology of dyspnea. N.p.o. after midnight. 12/26/2019 Still with cough and improved with tessalon. Will need further diuresis. restart eliquis Vitals Vitals Vital Signs Date Time Temp Pulse Resp B/P (MAP) Pulse Ox O2 Delivery O2 Flow Rate FiO2 12/27/19 09:10 64 106/47 12/27/19 07:00 97.5 18 90 Room Air 2.0 97.5 Physical Exam General: Cooperative, No acute distress, mild distress Heart: Regular rate Lungs: Crackles, Other Abdomen: Normal bowel sounds Extremities: Other (2-3+ bilateral LE edema ) Skin: No breakdown, No significant lesion Labs LABS Laboratory Tests Test 12/26/19 18:03 12/27/19 05:00 Prothrombin Time 16.1 SEC (11.7-14.0) Prothromb Time International Ratio 1.3 (0.8-1.1) White Blood Count 6.7 x10^3/uL (4.0-11.0) Red Blood Count 2.50 x10^6/uL (3.50-5.40) Hemoglobin 8.4 g/dL (12.0-15.5) Hematocrit 25.0 % (36.0-47.0) Mean Corpuscular Volume 100 fL (79-100) Mean Corpuscular Hemoglobin 34 pg (25-35) Mean Corpuscular Hemoglobin Concent 34 g/dL (31-37) Red Cell Distribution Width 17.1 % (11.5-14.5) Platelet Count 135 x10^3/uL (140-400) Neutrophils (%) (Auto) 74 % (31-73) Lymphocytes (%) (Auto) 15 % (24-48) Monocytes (%) (Auto) 8 % (0-9) Eosinophils (%) (Auto) 2 % (0-3) Basophils (%) (Auto) 1 % (0-3) Neutrophils # (Auto) 4.9 x10^3/uL (1.8-7.7) Lymphocytes # (Auto) 1.0 x10^3/uL (1.0-4.8) Monocytes # (Auto) 0.5 x10^3/uL (0.0-1.1) Eosinophils # (Auto) 0.1 x10^3/uL (0.0-0.7) Basophils # (Auto) 0.0 x10^3/uL (0.0-0.2) Sodium Level 138 mmol/L (136-145) Potassium Level 3.8 mmol/L (3.5-5.1) Chloride Level 105 mmol/L (98-107) Carbon Dioxide Level 22 mmol/L (21-32) Anion Gap 11 (6-14) Blood Urea Nitrogen 55 mg/dL (7-20) Creatinine 4.4 mg/dL (0.6-1.0) Estimated GFR (Cockcroft-Gault) 11.6 Glucose Level 112 mg/dL (70-99) Calcium Level 8.9 mg/dL (8.5-10.1) Comment Review of Relevant I have reviewed the following items char (where applicable) has been applied. Labs Laboratory Tests Test 12/25/19 11:22 12/26/19 10:20 12/26/19 18:03 12/27/19 05:00 Sodium Level 139 mmol/L (136-145) 137 mmol/L (136-145) 138 mmol/L (136-145) Potassium Level 4.0 mmol/L (3.5-5.1) 3.6 mmol/L (3.5-5.1) 3.8 mmol/L (3.5-5.1) Chloride Level 104 mmol/L (98-107) 104 mmol/L (98-107) 105 mmol/L (98-107) Carbon Dioxide Level 25 mmol/L (21-32) 22 mmol/L (21-32) 22 mmol/L (21-32) Anion Gap 10 (6-14) 11 (6-14) 11 (6-14) Blood Urea Nitrogen 44 mg/dL (7-20) 51 mg/dL (7-20) 55 mg/dL (7-20) Creatinine 3.0 mg/dL (0.6-1.0) 3.6 mg/dL (0.6-1.0) 4.4 mg/dL (0.6-1.0) Estimated GFR (Cockcroft-Gault) 18.1 14.7 11.6 Glucose Level 96 mg/dL (70-99) 108 mg/dL (70-99) 112 mg/dL (70-99) Calcium Level 9.4 mg/dL (8.5-10.1) 9.9 mg/dL (8.5-10.1) 8.9 mg/dL (8.5-10.1) Prothrombin Time 16.1 SEC (11.7-14.0) Prothromb Time International Ratio 1.3 (0.8-1.1) White Blood Count 6.7 x10^3/uL (4.0-11.0) Red Blood Count 2.50 x10^6/uL (3.50-5.40) Hemoglobin 8.4 g/dL (12.0-15.5) Hematocrit 25.0 % (36.0-47.0) Mean Corpuscular Volume 100 fL (79-100) Mean Corpuscular Hemoglobin 34 pg (25-35) Mean Corpuscular Hemoglobin Concent 34 g/dL (31-37) Red Cell Distribution Width 17.1 % (11.5-14.5) Platelet Count 135 x10^3/uL (140-400) Neutrophils (%) (Auto) 74 % (31-73) Lymphocytes (%) (Auto) 15 % (24-48) Monocytes (%) (Auto) 8 % (0-9) Eosinophils (%) (Auto) 2 % (0-3) Basophils (%) (Auto) 1 % (0-3) Neutrophils # (Auto) 4.9 x10^3/uL (1.8-7.7) Lymphocytes # (Auto) 1.0 x10^3/uL (1.0-4.8) Monocytes # (Auto) 0.5 x10^3/uL (0.0-1.1) Eosinophils # (Auto) 0.1 x10^3/uL (0.0-0.7) Basophils # (Auto) 0.0 x10^3/uL (0.0-0.2) Laboratory Tests Test 12/26/19 18:03 12/27/19 05:00 Prothrombin Time 16.1 SEC (11.7-14.0) Prothromb Time International Ratio 1.3 (0.8-1.1) White Blood Count 6.7 x10^3/uL (4.0-11.0) Red Blood Count 2.50 x10^6/uL (3.50-5.40) Hemoglobin 8.4 g/dL (12.0-15.5) Hematocrit 25.0 % (36.0-47.0) Mean Corpuscular Volume 100 fL (79-100) Mean Corpuscular Hemoglobin 34 pg (25-35) Mean Corpuscular Hemoglobin Concent 34 g/dL (31-37) Red Cell Distribution Width 17.1 % (11.5-14.5) Platelet Count 135 x10^3/uL (140-400) Neutrophils (%) (Auto) 74 % (31-73) Lymphocytes (%) (Auto) 15 % (24-48) Monocytes (%) (Auto) 8 % (0-9) Eosinophils (%) (Auto) 2 % (0-3) Basophils (%) (Auto) 1 % (0-3) Neutrophils # (Auto) 4.9 x10^3/uL (1.8-7.7) Lymphocytes # (Auto) 1.0 x10^3/uL (1.0-4.8) Monocytes # (Auto) 0.5 x10^3/uL (0.0-1.1) Eosinophils # (Auto) 0.1 x10^3/uL (0.0-0.7) Basophils # (Auto) 0.0 x10^3/uL (0.0-0.2) Sodium Level 138 mmol/L (136-145) Potassium Level 3.8 mmol/L (3.5-5.1) Chloride Level 105 mmol/L (98-107) Carbon Dioxide Level 22 mmol/L (21-32) Anion Gap 11 (6-14) Blood Urea Nitrogen 55 mg/dL (7-20) Creatinine 4.4 mg/dL (0.6-1.0) Estimated GFR (Cockcroft-Gault) 11.6 Glucose Level 112 mg/dL (70-99) Calcium Level 8.9 mg/dL (8.5-10.1) Medications Current Medications Furosemide (Lasix) 40 mg 1X ONCE IVP Last administered on 12/20/19 05:58; Start 12/20/19 at 06:00; Stop 12/20/19 at 06:01; Status DC Acetaminophen (Tylenol) 500 mg PRN BID PRN PO MILD PAIN 1-3 Last administered on 12/27/19 01:08; Start 12/20/19 at 16:30 Allopurinol (Zyloprim) 100 mg DAILY PO Last administered on 12/27/19 09:20; Start 12/21/19 at 09:00 Amlodipine Besylate (Norvasc) 10 mg DAILY PO Last administered on 12/26/19at 09:45; Start 12/21/19 at 09:00 Clopidogrel Bisulfate (Plavix) 75 mg DAILYWBKFT PO Last administered on 0at 09:10; Start 12/21/19 at 08:00 Furosemide (Lasix) 40 mg DAILY PO Last administered on 12/22/19 08:17; Start 12/21/19 at 09:00; Stop 12/22/19 at 12:46; Status DC Acetaminophen/ Hydrocodone Bitart (Lortab 5/325) 1 tab PRN Q6HRS PRN PO MODERATE-SEVERE PAIN Last administered on 12/26/19at 21:37; Start 12/20/19 at 16:30 Isosorbide Mononitrate (Imdur) 30 mg DAILY PO Last administered on 12/27/19 09:09; Start 12/21/19 at 09:00 Pantoprazole Sodium (Protonix) 40 mg DAILY PO Last administered on 12/27/19 0 9:10; Start 12/21/19 at 09:00 Potassium Chloride (Klor-Con) 20 meq DAILY PO Last administered on 12/27/19 09:10; Start 12/21/19 at 09:00 Vitamin D (Vitamin D3) 1,000 unit DAILY PO Last administered on 12/27/19 09:09; Start 12/21/19 at 09:00 Folic Acid (Folic Acid) 1 mg DAILY PO Last administered on 12/27/19 09:10; Start 12/21/19 at 09:00 Gabapentin (Neurontin) 100 mg TID PO Last administered on 12/27/19 09:11; Start 12/20/19 at 21:00 Non-Formulary Medication (Gluc 2KCL/ Chondr/Dereck Hy/Hy Ac (Glucosamine & Chondroitin Cap)) 1 each BID PO ; Start 12/20/19 at 21:00; Status UNV Ferrous Sulfate (Feosol) 325 mg QHS PO Last administered on 12/26/19 21:35; Start 12/20/19 at 21:00 Fish Oil (Fish Oil) 1,000 mg TID PO Last administered on 12/27/19 09:09; Start 12/20/19 at 21:00 Atorvastatin Calcium (Lipitor) 20 mg QHS PO Last administered on 12/26/19 21:35; Start 12/20/19 at 21:00 Apixaban (Eliquis) 2.5 mg BID PO Last administered on 12/24/19 08:54; Start 12/20/19 at 21:00; Stop 12/24/19 at 10:26; Status DC Metoprolol Tartrate (Lopressor) 25 mg BID PO Last administered on 12/26/19 21:36; Start 12/20/19 at 21:00 Morphine Sulfate (Morphine Sulfate) 2 mg PRN Q4HRS PRN IV PAIN Last administered on 12/20/19 17:09; Start 12/20/19 at 17:00 Nitroglycerin (Nitrostat) 0.4 mg PRN Q5MIN PRN SL CHEST PAIN; Start 12/20/19 at 17:15 Benzonatate (Tessalon Perle) 100 mg PRN TID PRN PO COUGHING Last administered on 12/26/19 09:50; Start 12/20/19 at 22:45 Guaifenesin/ Codeine Phosphate (Robitussin Ac) 5 ml 1X ONCE PO Last administered on 12/20/19 22:53; Start 12/20/19 at 22:45; Stop 12/20/19 at 22:46; Status DC Furosemide (Lasix) 40 mg 1X ONCE IVP Last administered on 12/21/19at 14:47; Start 12/21/19 at 14:00; Stop 12/21/19 at 14:01; Status DC Potassium Chloride (Klor-Con) 20 meq PRN DAILY PRN PO SEE COMMENTS; Start 12/21/19 at 17:15 Potassium Chloride/Water 100 ml @ 100 mls/hr PRN DAILY PRN IV SEE COMMENTS; Start 12/21/19 at 17:15 Magnesium Sulfate 50 ml @ 25 mls/hr PRN DAILY PRN IV SEE COMMENTS; Start 12/20 at 17:15 Info (Review Meds) 1 ea PRN DAILY PRN MC SEE COMMENTS; Start 12/21/19 at 17:15; Status Cancel Info (Review Meds) 1 ea 1X ONCE MC ; Start 12/21/19 at 17:15; Stop 12/21/19 at 17:30; Status DC Magnesium Sulfate 50 ml @ 300 mls/hr PRN DAILY PRN IV SEE COMMENTS; Start 12/21/19 at 17:15 Magnesium Sulfate 50 ml @ 25 mls/hr ONCE ONCE IV Last administered on 12/21/19at 19:02; Start 12/21/19 at 17:45; Stop 12/21/19 at 19:44; Status DC Furosemide (Lasix) 40 mg 1X ONCE IVP Last administered on 12/22/19at 11:12; Start 12/22/19 at 10:30; Stop 12/22/19 at 10:31; Status DC Albuterol Sulfate (Ventolin Neb Soln) 2.5 mg 1X ONCE NEB Last administered on 12/22/19at 11:39; Start 12/22/19 at 10:30; Stop 12/22/19 at 10:31; Status DC Magnesium Sulfate 50 ml @ 25 mls/hr 1X ONCE IV Last administered on 12/22/19at 11:03; Start 12/22/19 at 11:00; Stop 12/22/19 at 12:59; Status DC Dronedarone (Multaq) 400 mg BIDWMEALS PO Last administered on 12/27/19at 09:10; Start 12/22/19 at 11:00 Bumetanide (Bumex) 1 mg DAILY PO ; Start 12/23/19 at 09:00; Stop 12/23/19 at 08:11; Status DC Furosemide (Lasix) 40 mg DAILY PO ; Start 12/23/19 at 09:00; Stop 12/23/19 at 08:11; Status DC Bumetanide (Bumex) 1 mg DAILY PO Last administered on 12/23/19at 12:36; Start 12/23/19 at 12:00; Stop 12/24/19 at 08:08; Status DC Info (Anti-Coagulation Monitoring By Pharmacy) 1 each PRN DAILY PRN MC SEE COMMENTS Last administered on 12/24/19at 08:47; Start 12/23/19 at 10:15 Bumetanide (Bumex) 1 mg 1X IV ; Start 12/23/19 at 15:00; Status Cancel Polyethylene Glycol (miraLAX PACKET) 17 gm PRN DAILY PRN PO CONSTIPATION Last administered on 12/23/19at 16:04; Start 12/23/19 at 15:30 Bumetanide (Bumex) 1 mg 1X ONCE IV Last administered on 12/23/19at 16:03; Start 12/23/19 at 15:30; Stop 12/23/19 at 15:37; Status DC Bumetanide (Bumex) 1 mg DAILY PO ; Start 12/25/19 at 09:00; Stop 12/26/19 at 08:05; Status DC Bumetanide (Bumex) 1 mg BID92 IV Last administered on 12/24/19at 15:21; Start 12/24/19 at 09:00; Stop 12/24/19 at 14:01; Status DC Iodixanol (Visipaque 320) 100 ml STK-MED ONCE .ROUTE ; Start 12/25/19 at 09:42; Stop 12/25/19 at 09:43; Status DC Lidocaine HCl (Lidocaine 1% 20ml Vial) 20 ml STK-MED ONCE .ROUTE ; Start 12/25/19 at 09:42; Stop 12/25/19 at 09:43; Status DC Heparin Sodium/ Sodium Chloride 1,000 ml @ As Directed STK-MED ONCE .ROUTE ; Start 12/25/19 at 09:42; Stop 12/25/19 at 09:43; Status DC Fentanyl Citrate (Fentanyl 2ml Vial) 100 mcg STK-MED ONCE .ROUTE ; Start 12/25/19 at 09:56; Stop 12/25/19 at 09:56; Status DC Midazolam HCl (Versed) 2 mg STK-MED ONCE .ROUTE ; Start 12/25/19 at 09:56; Stop 12/25/19 at 09:56; Status DC Heparin Sodium/ Sodium Chloride (HEPARIN for ARTERIAL LINE FLUSH) 1,000 unit 1X ONCE IART Last administered on 12/25/19at 10:45; Start 12/25/19 at 10:15; Stop 12/25/19 at 10:19; Status DC Midazolam HCl (Versed) 2 mg 1X ONCE IV Last administered on 12/25/19at 10:46; Start 12/25/19 at 10:15; Stop 12/25/19 at 10:19; Status DC Fentanyl Citrate (Fentanyl 2ml Vial) 100 mcg 1X ONCE IV Last administered on 12/25/19at 10:46; Start 12/25/19 at 10:15; Stop 12/25/19 at 10:19; Status DC Lidocaine HCl (Lidocaine 1% 20ml Vial) 20 ml 1X ONCE INJ Last administered on 12/25/19at 10:45; Start 12/25/19 at 10:15; Stop 12/25/19 at 10:19; Status DC Milrinone Lactate/ Dextrose 100 ml @ 3.656 mls/ hr CONT PRN IV SEE I/O RECORD Last administered on 12/26/19at 09:43; Start 12/25/19 at 11:00 Bumetanide (Bumex) 1 mg 0816 IV ; Start 12/26/19 at 09:00; Stop 12/26/19 at 08:12; Status DC Bumetanide (Bumex) 1 mg 0800,1600 IV Last administered on 12/26/19at 18:05; Start 12/26/19 at 08:30 Guaifenesin (Mucinex) 600 mg BID PO Last administered on 12/27/19at 09:09; Start 12/26/19 at 21:00 Apixaban (Eliquis) 2.5 mg BID PO Last administered on 12/27/19at 09:09; Start 12/26/19 at 21:00 Active Scripts Active Isosorbide Mononitrate Er (Isosorbide Mononitrate) 30 Mg Tab.er.24h 30 Mg PO DAILY Metoprolol Tartrate 50 Mg Tablet 50 Mg PO BID Aspirin 81 Mg Tab.chew 1 Tab PO DAILY Clopidogrel (Clopidogrel Bisulfate) 75 Mg Tablet 75 Mg PO DAILYWBKFT 30 Days Reported Eliquis (Apixaban) 5 Mg Tablet 5 Mg PO BID Multaq (Dronedarone Hcl) 400 Mg Tablet 400 Tab PO BID Amlodipine Besylate 10 Mg Tablet 10 Mg PO DAILY Pravachol (Pravastatin Sodium) 80 Mg Tablet 80 Mg PO DAILY Acetaminophen 500 Mg Tablet 1 Tab PO BID PRN Hydrocodone-Apap 5-325 (Hydrocodone Bit/Acetaminophen) 1 Each Tablet 1 Tab PO PRN Q6HRS PRN Glucosamine & Chondroitin Cap (Gluc 2KCL/Chondr/Dereck Hy/Hy Ac) 1 Each Capsule 1 Each PO BID Furosemide 40 Mg Tablet 40 Mg PO DAILY Vitamin D3 1,000 Unit Tablet (Ca Cmb No.1/Vit D3/B-6/Fa/B12) 1 Each Tablet 1 Each PO DAILY Folic Acid 0.4 Mg Tablet 0.4 Mg PO DAILY Pantoprazole Sodium (Pantoprazole Sodium) 40 Mg Tablet.dr 40 Mg PO DAILY Allopurinol 100 Mg Tablet 300 Mg PO DAILY Iron 100 Plus Tablet (Iron,Carbonyl/Vit C/Vit B12/Fa) 1 Each Tablet 1 Each PO HS Potassium Chloride (Potassium Chloride) 20 Meq Tablet.er 20 Meq PO DAILY Gabapentin 600 Mg Tablet 600 Mg PO TID Fish Gii-Fuury-2-Vit D Softgel (Abie-3S/Dha/Epa/Fish Oil/D3) 1 Each Capsule 1 Each PO TID Vitals/I & O Vital Sign - Last 24 Hours 12/26/19 12/26/19 12/26/19 12/26/19 15:00 18:05 19:25 20:00 Temp 98.0 98.8 98.0 98.8 Pulse 60 60 60 Resp 18 17 B/P (MAP) 105/46 (65) 105/46 115/51 (72) Pulse Ox 97 96 O2 Delivery Room Air Room Air Room Air 12/26/19 12/26/19 12/26/19 12/26/19 21:36 21:37 22:37 23:26 Temp 97.9 97.9 Pulse 60 60 Resp 20 20 22 B/P (MAP) 115/51 115/59 (77) Pulse Ox 96 96 92 O2 Delivery Room Air Room Air Room Air 12/27/19 12/27/19 12/27/19 12/27/19 03:30 07:00 09:09 09:10 Temp 98.0 97.5 98.0 97.5 Pulse 59 64 64 64 Resp 22 18 B/P (MAP) 110/62 (78) 106/47 (66) 106/47 106/47 Pulse Ox 94 90 O2 Delivery Room Air Room Air O2 Flow Rate 2.0 Intake and Output 0 12/26/19 12/26/19 12/27/19 15:00 23:00 07:00 Intake Total 150 ml Output Total 0 ml Balance 150 ml Justicifation of Admission Dx: Justifications for Admission: Justification of Admission Dx: Yes MANNY PERSAUD MD Dec 27, 2019 11:10
[2019-12-27] MEDS ORDERED: ALBUTEROL SULFATE 2.5 MG/3 ML NEBU. NEB PRN (11:45)
[2019-12-27] MEDS: METOPROLOL TART IMMED RELEASE 50 MG TABLET. PO SCH ×2 (12:27→20:35)
--- NOTE | 2019-12-27 12:59 | PDOC ---
PULMONARY PROGRESS NOTES DATE: 12/27/19 TIME: 12:56 Subjective Pt. is resting on room air nonproductive cough OOB to chair today remains on primacor gtt Vitals Vital Signs Date Time Temp Pulse Resp B/P (MAP) Pulse Ox O2 Delivery O2 Flow Rate FiO2 12/27/19 12:27 64 109/51 12/27/19 11:00 98.6 18 94 Room Air 98.6 12/27/19 08:00 2.0 ROS: No Nausea, No Chest Pain, No Abdominal Pain, No Increase Cough General: Alert, Oriented X4 Lungs: Crackles, Other Cardiovascular: S1, S2 Abdomen: Soft Extremities: Other (BLE Edema +2 ) Labs Laboratory Tests Test 12/26/19 10:20 12/26/19 18:03 12/27/19 05:00 Sodium Level 137 mmol/L (136-145) 138 mmol/L (136-145) Potassium Level 3.6 mmol/L (3.5-5.1) 3.8 mmol/L (3.5-5.1) Chloride Level 104 mmol/L (98-107) 105 mmol/L (98-107) Carbon Dioxide Level 22 mmol/L (21-32) 22 mmol/L (21-32) Anion Gap 11 (6-14) 11 (6-14) Blood Urea Nitrogen 51 mg/dL (7-20) 55 mg/dL (7-20) Creatinine 3.6 mg/dL (0.6-1.0) 4.4 mg/dL (0.6-1.0) Estimated GFR (Cockcroft-Gault) 14.7 11.6 Glucose Level 108 mg/dL (70-99) 112 mg/dL (70-99) Calcium Level 9.9 mg/dL (8.5-10.1) 8.9 mg/dL (8.5-10.1) Prothrombin Time 16.1 SEC (11.7-14.0) Prothromb Time International Ratio 1.3 (0.8-1.1) White Blood Count 6.7 x10^3/uL (4.0-11.0) Red Blood Count 2.50 x10^6/uL (3.50-5.40) Hemoglobin 8.4 g/dL (12.0-15.5) Hematocrit 25.0 % (36.0-47.0) Mean Corpuscular Volume 100 fL (79-100) Mean Corpuscular Hemoglobin 34 pg (25-35) Mean Corpuscular Hemoglobin Concent 34 g/dL (31-37) Red Cell Distribution Width 17.1 % (11.5-14.5) Platelet Count 135 x10^3/uL (140-400) Neutrophils (%) (Auto) 74 % (31-73) Lymphocytes (%) (Auto) 15 % (24-48) Monocytes (%) (Auto) 8 % (0-9) Eosinophils (%) (Auto) 2 % (0-3) Basophils (%) (Auto) 1 % (0-3) Neutrophils # (Auto) 4.9 x10^3/uL (1.8-7.7) Lymphocytes # (Auto) 1.0 x10^3/uL (1.0-4.8) Monocytes # (Auto) 0.5 x10^3/uL (0.0-1.1) Eosinophils # (Auto) 0.1 x10^3/uL (0.0-0.7) Basophils # (Auto) 0.0 x10^3/uL (0.0-0.2) Laboratory Tests Test 12/26/19 18:03 12/27/19 05:00 Prothrombin Time 16.1 SEC (11.7-14.0) Prothromb Time International Ratio 1.3 (0.8-1.1) White Blood Count 6.7 x10^3/uL (4.0-11.0) Red Blood Count 2.50 x10^6/uL (3.50-5.40) Hemoglobin 8.4 g/dL (12.0-15.5) Hematocrit 25.0 % (36.0-47.0) Mean Corpuscular Volume 100 fL (79-100) Mean Corpuscular Hemoglobin 34 pg (25-35) Mean Corpuscular Hemoglobin Concent 34 g/dL (31-37) Red Cell Distribution Width 17.1 % (11.5-14.5) Platelet Count 135 x10^3/uL (140-400) Neutrophils (%) (Auto) 74 % (31-73) Lymphocytes (%) (Auto) 15 % (24-48) Monocytes (%) (Auto) 8 % (0-9) Eosinophils (%) (Auto) 2 % (0-3) Basophils (%) (Auto) 1 % (0-3) Neutrophils # (Auto) 4.9 x10^3/uL (1.8-7.7) Lymphocytes # (Auto) 1.0 x10^3/uL (1.0-4.8) Monocytes # (Auto) 0.5 x10^3/uL (0.0-1.1) Eosinophils # (Auto) 0.1 x10^3/uL (0.0-0.7) Basophils # (Auto) 0.0 x10^3/uL (0.0-0.2) Sodium Level 138 mmol/L (136-145) Potassium Level 3.8 mmol/L (3.5-5.1) Chloride Level 105 mmol/L (98-107) Carbon Dioxide Level 22 mmol/L (21-32) Anion Gap 11 (6-14) Blood Urea Nitrogen 55 mg/dL (7-20) Creatinine 4.4 mg/dL (0.6-1.0) Estimated GFR (Cockcroft-Gault) 11.6 Glucose Level 112 mg/dL (70-99) Calcium Level 8.9 mg/dL (8.5-10.1) Medications Active Scripts Medications Dose Route/Sig Max Daily Dose Days Date Category Eliquis (Apixaban) 5 Mg Tablet 5 Mg PO BID 12/20/19 Reported Multaq (Dronedarone Hcl) 400 Mg Tablet 400 Tab PO BID 12/20/19 Reported Isosorbide Mononitrate Er (Isosorbide Mononitrate) 30 Mg Tab.er.24h 30 Mg PO DAILY 08/09/16 Rx Amlodipine Besylate 10 Mg Tablet 10 Mg PO DAILY 01/06/16 Reported Pravachol (Pravastatin Sodium) 80 Mg Tablet 80 Mg PO DAILY 01/06/16 Reported Metoprolol Tartrate 50 Mg Tablet 50 Mg PO BID 01/01/16 Rx Aspirin 81 Mg Tab.chew 1 Tab PO DAILY 01/01/16 Rx Acetaminophen 500 Mg Tablet 1 Tab PO BID PRN 12/30/15 Reported Hydrocodone-Apap 5-325 (Hydrocodone Bit/Acetaminophen) 1 Each Tablet 1 Tab PO PRN Q6HRS PRN 12/30/15 Reported Clopidogrel (Clopidogrel Bisulfate) 75 Mg Tablet 75 Mg PO DAILYWBKFT 30 04/16/15 Rx Glucosamine & Chondroitin Cap (Gluc 2KCL/Chondr/Dereck Hy/Hy Ac) 1 Each Capsule 1 Each PO BID 07/03/13 Reported Furosemide 40 Mg Tablet 40 Mg PO DAILY 07/03/13 Reported Vitamin D3 1,000 Unit Tablet (Ca Cmb No.1/Vit D3/B-6/Fa/B12) 1 Each Tablet 1 Each PO DAILY 07/03/13 Reported Folic Acid 0.4 Mg Tablet 0.4 Mg PO DAILY 07/03/13 Reported Pantoprazole Sodium (Pantoprazole Sodium) 40 Mg Tablet.dr 40 Mg PO DAILY 07/03/13 Reported Allopurinol 100 Mg Tablet 300 Mg PO DAILY 07/03/13 Reported Iron 100 Plus Tablet (Iron,Carbonyl/Vit C/Vit B12/Fa) 1 Each Tablet 1 Each PO HS 07/03/13 Reported Potassium Chloride (Potassium Chloride) 20 Meq Tablet.er 20 Meq PO DAILY 07/03/13 Reported Gabapentin 600 Mg Tablet 600 Mg PO TID 07/03/13 Reported Fish Jvf-Rlpas-1-Vit D Softgel ([place]-3S/Dha/Epa/Fish Oil/D3) 1 Each Capsule 1 Each PO TID 07/03/13 Reported Comments BLE DPLX Impression: 1. Partial DVT right proximal superficial femoral vein. CT chest IMPRESSION: 1. No pulmonary mass or consolidation. 2. Small right pleural effusion. 3. Dilated pulmonary trunk, which can be seen with pulmonary hypertension. Cardiac Cath 12/25/2019 Conclusion 1. Significantly elevated right and left-sided filling pressures with mild to moderate pulmonary hypertension. 2. No evidence of intracardiac shunt. Recommendations Aggressive diuresis. Consider milrinone infusion if patient not responding adequately to diuretics. CXR 12/25 Impression: Stable cardiomegaly with Central vascular congestion and low-grade interstitial edema. Impression . IMPRESSION: 1. Dyspnea with progressive lower extremity edema. Suspect combination of right and left heart failure. CT chest with tiny right pleural effusion and faint interstitial infiltrates at the left bases.--improving 2. Ejection fraction of 40-45% with pulmonary artery pressure of 31. 3. No significant tobacco history. 4. Suspected obstructive sleep apnea. The patient states she had a sleep study done and she was supposed to go back for titration, but due to COVID that has not happened. will review previous study 5. Chronic kidney disease with FRANCISCO---- worsening 6. Abnormal D-dimer, which could be nonspecific finding. Plan . RECOMMENDATIONS: Supplemental oxygen PRN, remains on room air Cardiac cath reviewed agree with Aggressive diuresis-- now complicated with worsening renal failure Follow cardiology recs-- currently on primacor gtt Follow nephrology recs--Diuresis with close monitoring of renal function, patient to start hemodialysis per Dr. Conley. BLE DPLX showed: Partial DVT right proximal superficial femoral vein. Sleep study as an outpatient. We will review the old records for a previous sleep study and see if she needs a titration study. DVT/GI PPX -- continue eliquis Discussed with JORDAN AVENDANO MD Dec 27, 2019 12:59
--- NOTE | 2019-12-27 13:43 | PDOC ---
PROGRESS NOTES Date of Service DATE: 12/27/19 TIME: 13:41 Subjective Subjective Patient seen and examined Objective Objective Vital Signs Date Time Temp Pulse Resp B/P (MAP) Pulse Ox O2 Delivery O2 Flow Rate FiO2 12/27/19 13:09 99 Room Air 12/27/19 12:27 64 109/51 12/27/19 11:00 98.6 18 98.6 12/27/19 08:00 2.0 Intake and Output 12/27/19 07:00 Intake Total 150 ml Output Total 0 ml Balance 150 ml Intake Oral 150 ml Output Urine Total 0 ml # Bowel Movements 1 Physical Exam Abdomen: Normal bowel sounds Heart: Regular rate General: No acute distress Lungs: Other (Mildly decreased) Assessment Assessment 1. 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 Recent echo with LVEF 40- 45%. Elevated right sided pressures with a mean RA of 33, mean PA of 40 and a pulmonary cat wedge pressure of 35. Creatinine has increased to 4.4. Will hold diuresis at this time pending renal recommendations. 2. CAD s/p CABG and PCI/stents. Cath 2017 with patent graft, stents. Clinically stable 3. Hypertension; controlled 4. Hyperlipidemia; statin 5. Diabetes, II 6. FRANCISCO on CKD; nephrology following. Creatinine at 4.4 as above 7. SSS s/p PPM ([employer]). Recent device check with normal funciton 100% AFIB in the last 2 months 8. H/o DVT/PE s/p IVC filter. On low-dose Eliquis therapy 9. Persistent AFIB 10. Persistent cough with dyspnea: likely from CHF. CT reviewed. Awaiting input from pulmonary 11. Partial DVT right proximal superficial femoral vein: new per sono today despite on eliquis Comment Review of Relevant I have reviewed the following items char (where applicable) has been applied. Labs Laboratory Tests Test 12/26/19 10:20 12/26/19 18:03 12/27/19 05:00 Sodium Level 137 mmol/L (136-145) 138 mmol/L (136-145) Potassium Level 3.6 mmol/L (3.5-5.1) 3.8 mmol/L (3.5-5.1) Chloride Level 104 mmol/L (98-107) 105 mmol/L (98-107) Carbon Dioxide Level 22 mmol/L (21-32) 22 mmol/L (21-32) Anion Gap 11 (6-14) 11 (6-14) Blood Urea Nitrogen 51 mg/dL (7-20) 55 mg/dL (7-20) Creatinine 3.6 mg/dL (0.6-1.0) 4.4 mg/dL (0.6-1.0) Estimated GFR (Cockcroft-Gault) 14.7 11.6 Glucose Level 108 mg/dL (70-99) 112 mg/dL (70-99) Calcium Level 9.9 mg/dL (8.5-10.1) 8.9 mg/dL (8.5-10.1) Prothrombin Time 16.1 SEC (11.7-14.0) Prothromb Time International Ratio 1.3 (0.8-1.1) White Blood Count 6.7 x10^3/uL (4.0-11.0) Red Blood Count 2.50 x10^6/uL (3.50-5.40) Hemoglobin 8.4 g/dL (12.0-15.5) Hematocrit 25.0 % (36.0-47.0) Mean Corpuscular Volume 100 fL (79-100) Mean Corpuscular Hemoglobin 34 pg (25-35) Mean Corpuscular Hemoglobin Concent 34 g/dL (31-37) Red Cell Distribution Width 17.1 % (11.5-14.5) Platelet Count 135 x10^3/uL (140-400) Neutrophils (%) (Auto) 74 % (31-73) Lymphocytes (%) (Auto) 15 % (24-48) Monocytes (%) (Auto) 8 % (0-9) Eosinophils (%) (Auto) 2 % (0-3) Basophils (%) (Auto) 1 % (0-3) Neutrophils # (Auto) 4.9 x10^3/uL (1.8-7.7) Lymphocytes # (Auto) 1.0 x10^3/uL (1.0-4.8) Monocytes # (Auto) 0.5 x10^3/uL (0.0-1.1) Eosinophils # (Auto) 0.1 x10^3/uL (0.0-0.7) Basophils # (Auto) 0.0 x10^3/uL (0.0-0.2) Laboratory Tests Test 12/26/19 18:03 12/27/19 05:00 Prothrombin Time 16.1 SEC (11.7-14.0) Prothromb Time International Ratio 1.3 (0.8-1.1) White Blood Count 6.7 x10^3/uL (4.0-11.0) Red Blood Count 2.50 x10^6/uL (3.50-5.40) Hemoglobin 8.4 g/dL (12.0-15.5) Hematocrit 25.0 % (36.0-47.0) Mean Corpuscular Volume 100 fL (79-100) Mean Corpuscular Hemoglobin 34 pg (25-35) Mean Corpuscular Hemoglobin Concent 34 g/dL (31-37) Red Cell Distribution Width 17.1 % (11.5-14.5) Platelet Count 135 x10^3/uL (140-400) Neutrophils (%) (Auto) 74 % (31-73) Lymphocytes (%) (Auto) 15 % (24-48) Monocytes (%) (Auto) 8 % (0-9) Eosinophils (%) (Auto) 2 % (0-3) Basophils (%) (Auto) 1 % (0-3) Neutrophils # (Auto) 4.9 x10^3/uL (1.8-7.7) Lymphocytes # (Auto) 1.0 x10^3/uL (1.0-4.8) Monocytes # (Auto) 0.5 x10^3/uL (0.0-1.1) Eosinophils # (Auto) 0.1 x10^3/uL (0.0-0.7) Basophils # (Auto) 0.0 x10^3/uL (0.0-0.2) Sodium Level 138 mmol/L (136-145) Potassium Level 3.8 mmol/L (3.5-5.1) Chloride Level 105 mmol/L (98-107) Carbon Dioxide Level 22 mmol/L (21-32) Anion Gap 11 (6-14) Blood Urea Nitrogen 55 mg/dL (7-20) Creatinine 4.4 mg/dL (0.6-1.0) Estimated GFR (Cockcroft-Gault) 11.6 Glucose Level 112 mg/dL (70-99) Calcium Level 8.9 mg/dL (8.5-10.1) Medications Current Medications Furosemide (Lasix) 40 mg 1X ONCE IVP Last administered on 12/20/19 05:58; Start 12/20/19 at 06:00; Stop 12/20/19 at 06:01; Status DC Acetaminophen (Tylenol) 500 mg PRN BID PRN PO MILD PAIN 1-3 Last administered on 12/27/19 01:08; Start 12/20/19 at 16:30 Allopurinol (Zyloprim) 100 mg DAILY PO Last administered on 12/27/19 09:20; Start 12/21/19 at 09:00 Amlodipine Besylate (Norvasc) 10 mg DAILY PO Last administered on 12/26/19 09: 45; Start 12/21/19 at 09:00 Clopidogrel Bisulfate (Plavix) 75 mg DAILYWBKFT PO Last administered on 12/27/19 09:10; Start 12/21/19 at 08:00 Furosemide (Lasix) 40 mg DAILY PO Last administered on 12/22/19 08:17; Start 12/21/19 at 09:00; Stop 12/22/19 at 12:46; Status DC Acetaminophen/ Hydrocodone Bitart (Lortab 5/325) 1 tab PRN Q6HRS PRN PO MODERATE-SEVERE PAIN Last administered on 12/26/19 21:37; Start 12/20/19 at 16:30 Isosorbide Mononitrate (Imdur) 30 mg DAILY PO Last administered on 12/27/19 09:09; Start 12/21/19 at 09:00 Pantoprazole Sodium (Protonix) 40 mg DAILY PO Last administered on 12/27/19 09:10; Start 12/21/19 at 09:00 Potassium Chloride (Klor-Con) 20 meq DAILY PO Last administered on 12/27/19 09:10; Start 12/21/19 at 09:00 Vitamin D (Vitamin D3) 1,000 unit DAILY PO Last administered on 12/27/19 09:09; Start 12/21/19 at 09:00 Folic Acid (Folic Acid) 1 mg DAILY PO Last administered on 12/27/19 09:10; Start 12/21/19 at 09:00 Gabapentin (Neurontin) 100 mg TID PO Last administered on 12/27/19 09:11; Start 12/20/19 at 21:00 Non-Formulary Medication (Gluc 2KCL/ Chondr/Dereck Hy/Hy Ac (Glucosamine & Chondroitin Cap)) 1 each BID PO ; Start 12/20/19 at 21:00; Status UNV Ferrous Sulfate (Feosol) 325 mg QHS PO Last administered on 12/26/19 21:35; Start 12/20/19 at 21:00 Fish Oil (Fish Oil) 1,000 mg TID PO Last administered on 12/27/19 09:09; Start 12/20/19 at 21:00 Atorvastatin Calcium (Lipitor) 20 mg QHS PO Last administered on 12/26/19 21:35; Start 12/20/19 at 21:00 Apixaban (Eliquis) 2.5 mg BID PO Last administered on 12/24/19 08:54; Start 12/20/19 at 21:00; Stop 12/24/19 at 10:26; Status DC Metoprolol Tartrate (Lopressor) 25 mg BID PO Last administered on 12/27/19 12:27; Start 12/20/19 at 21:00 Morphine Sulfate (Morphine Sulfate) 2 mg PRN Q4HRS PRN IV PAIN Last administered on 12/20/19 17:09; Start 12/20/19 at 17:00 Nitroglycerin (Nitrostat) 0.4 mg PRN Q5MIN PRN SL CHEST PAIN; Start 12/20/19 at 17:15 Benzonatate (Tessalon Perle) 100 mg PRN TID PRN PO COUGHING Last administered on 12/26/19at 09:50; Start 12/20/19 at 22:45 Guaifenesin/ Codeine Phosphate (Robitussin Ac) 5 ml 1X ONCE PO Last administered on 12/20/19 22:53; Start 12/20/19 at 22:45; Stop 12/20/19 at 22:46; Status DC Furosemide (Lasix) 40 mg 1X ONCE IVP Last administered on 12/21/19at 14:47; Start 12/21/19 at 14:00; Stop 12/21/19 at 14:01; Status DC Potassium Chloride (Klor-Con) 20 meq PRN DAILY PRN PO SEE COMMENTS; Start 12/21/19 at 17:15 Potassium Chloride/Water 100 ml @ 100 mls/hr PRN DAILY PRN IV SEE COMMENTS; Start 12/21/19 at 17:15 Magnesium Sulfate 50 ml @ 25 mls/hr PRN DAILY PRN IV SEE COMMENTS; Start 12/21/19 at 17:15 Info (Review Meds) 1 ea PRN DAILY PRN MC SEE COMMENTS; Start 12/21/19 at 17:15; Status Cancel Info (Review Meds) 1 ea 1X ONCE MC ; Start 12/21/19 at 17:15; Stop 12/21/19 at 17:30; Status DC Magnesium Sulfate 50 ml @ 300 mls/hr PRN DAILY PRN IV SEE COMMENTS; Start 12/21/19 at 17:15 Magnesium Sulfate 50 ml @ 25 mls/hr ONCE ONCE IV Last administered on 12/21/19at 19:02; Start 12/21/19 at 17:45; Stop 12/21/19 at 19:44; Status DC Furosemide (Lasix) 40 mg 1X ONCE IVP Last administered on 12/22/19at 11:12; Start 12/22/19 at 10:30; Stop 12/22/19 at 10:31; Status DC Albuterol Sulfate (Ventolin Neb Soln) 2.5 mg 1X ONCE NEB Last administered on 12/22/19at 11:39; Start 12/22/19 at 10:30; Stop 12/22/19 at 10:31; Status DC Magnesium Sulfate 50 ml @ 25 mls/hr 1X ONCE IV Last administered on 12/22/19at 11:03; Start 12/22/19 at 11:00; Stop 12/22/19 at 12:59; Status DC Dronedarone (Multaq) 400 mg BIDWMEALS PO Last administered on 12/27/19at 09:10; Start 12/22/19 at 11:00 Bumetanide (Bumex) 1 mg DAILY PO ; Start 12/23/19 at 09:00; Stop 12/23/19 at 08:11; Status DC Furosemide (Lasix) 40 mg DAILY PO ; Start 12/23/19 at 09:00; Stop 12/23/19 at 08:11; Status DC Bumetanide (Bumex) 1 mg DAILY PO Last administered on 12/23/19at 12:36; Start 12/23/19 at 12:00; Stop 12/24/19 at 08:08; Status DC Info (Anti-Coagulation Monitoring By Pharmacy) 1 each PRN DAILY PRN MC SEE COMMENTS Last administered on 12/24/19at 08:47; Start 12/23/19 at 10:15 Bumetanide (Bumex) 1 mg 1X IV ; Start 12/23/19 at 15:00; Status Cancel Polyethylene Glycol (miraLAX PACKET) 17 gm PRN DAILY PRN PO CONSTIPATION Last administered on 12/23/19at 16:04; Start 12/23/19 at 15:30 Bumetanide (Bumex) 1 mg 1X ONCE IV Last administered on 12/23/19at 16:03; Start 12/23/19 at 15:30; Stop 12/23/19 at 15:37; Status DC Bumetanide (Bumex) 1 mg DAILY PO ; Start 12/25/19 at 09:00; Stop 12/26/19 at 08:05; Status DC Bumetanide (Bumex) 1 mg BID92 IV Last administered on 12/24/19at 15:21; Start 12/24/19 at 09:00; Stop 12/24/19 at 14:01; Status DC Iodixanol (Visipaque 320) 100 ml STK-MED ONCE .ROUTE ; Start 12/25/19 at 09:42; Stop 12/25/19 at 09:43; Status DC Lidocaine HCl (Lidocaine 1% 20ml Vial) 20 ml STK-MED ONCE .ROUTE ; Start 12/25/19 at 09:42; Stop 12/25/19 at 09:43; Status DC Heparin Sodium/ Sodium Chloride 1,000 ml @ As Directed STK-MED ONCE .ROUTE ; Start 12/25/19 at 09:42; Stop 12/25/19 at 09:43; Status DC Fentanyl Citrate (Fentanyl 2ml Vial) 100 mcg STK-MED ONCE .ROUTE ; Start 12/25/19 at 09:56; Stop 12/25/19 at 09:56; Status DC Midazolam HCl (Versed) 2 mg STK-MED ONCE .ROUTE ; Start 12/25/19 at 09:56; Stop 12/25/19 at 09:56; Status DC Heparin Sodium/ Sodium Chloride (HEPARIN for ARTERIAL LINE FLUSH) 1,000 unit 1X ONCE IART Last administered on 12/25/19 10:45; Start 12/25/19 at 10:15; Stop 12/25/19 at 10:19; Status DC Midazolam HCl (Versed) 2 mg 1X ONCE IV Last administered on 12/25/19at 10:46; Start 12/25/19 at 10:15; Stop 12/25/19 at 10:19; Status DC Fentanyl Citrate (Fentanyl 2ml Vial) 100 mcg 1X ONCE IV Last administered on 12/25/19at 10:46; Start 12/25/19 at 10:15; Stop 12/25/19 at 10:19; Status DC Lidocaine HCl (Lidocaine 1% 20ml Vial) 20 ml 1X ONCE INJ Last administered on 12/25/19at 10:45; Start 12/25/19 at 10:15; Stop 12/25/19 at 10:19; Status DC Milrinone Lactate/ Dextrose 100 ml @ 3.656 mls/ hr CONT PRN IV SEE I/O RECORD Last administered on 12/26/19at 09:43; Start 12/25/19 at 11:00 Bumetanide (Bumex) 1 mg 0816 IV ; Start 12/26/19 at 09:00; Stop 12/26/19 at 08:12; Status DC Bumetanide (Bumex) 1 mg 0800,1600 IV Last administered on 12/26/19at 18:05; Start 12/26/19 at 08:30 Guaifenesin (Mucinex) 600 mg BID PO Last administered on 12/27/19 09:09; Start 12/26/19 at 21:00 Apixaban (Eliquis) 2.5 mg BID PO Last administered on 12/27/19 09:09; Start 12/26/19 at 21:00 Albuterol Sulfate (Ventolin Neb Soln) 2.5 mg PRN QID PRN NEB SHORTNESS OF BREATH Last administered on 12/27/19at 13:08; Start 12/27/19 at 11:45 Active Scripts Active Isosorbide Mononitrate Er (Isosorbide Mononitrate) 30 Mg Tab.er.24h 30 Mg PO DAILY Metoprolol Tartrate 50 Mg Tablet 50 Mg PO BID Aspirin 81 Mg Tab.chew 1 Tab PO DAILY Clopidogrel (Clopidogrel Bisulfate) 75 Mg Tablet 75 Mg PO DAILYWBKFT 30 Days Reported Eliquis (Apixaban) 5 Mg Tablet 5 Mg PO BID Multaq (Dronedarone Hcl) 400 Mg Tablet 400 Tab PO BID Amlodipine Besylate 10 Mg Tablet 10 Mg PO DAILY Pravachol (Pravastatin Sodium) 80 Mg Tablet 80 Mg PO DAILY Acetaminophen 500 Mg Tablet 1 Tab PO BID PRN Hydrocodone-Apap 5-325 (Hydrocodone Bit/Acetaminophen) 1 Each Tablet 1 Tab P O PRN Q6HRS PRN Glucosamine & Chondroitin Cap (Gluc 2KCL/Chondr/Dereck Hy/Hy Ac) 1 Each Capsule 1 Each PO BID Furosemide 40 Mg Tablet 40 Mg PO DAILY Vitamin D3 1,000 Unit Tablet (Ca Cmb No.1/Vit D3/B-6/Fa/B12) 1 Each Tablet 1 Each PO DAILY Folic Acid 0.4 Mg Tablet 0.4 Mg PO DAILY Pantoprazole Sodium (Pantoprazole Sodium) 40 Mg Tablet.dr 40 Mg PO DAILY Allopurinol 100 Mg Tablet 300 Mg PO DAILY Iron 100 Plus Tablet (Iron,Carbonyl/Vit C/Vit B12/Fa) 1 Each Tablet 1 Each PO HS Potassium Chloride (Potassium Chloride) 20 Meq Tablet.er 20 Meq PO DAILY Gabapentin 600 Mg Tablet 600 Mg PO TID Fish Ory-Htxdd-7-Vit D Softgel ([place]-3S/Dha/Epa/Fish Oil/D3) 1 Each Capsule 1 Each PO TID Vitals/I & O Vital Sign - Last 24 Hours 12/26/19 12/26/19 12/26/19 12/26/19 15:00 18:05 19:25 20:00 Temp 98.0 98.8 98.0 98.8 Pulse 60 60 60 Resp 18 17 B/P (MAP) 105/46 (65) 105/46 115/51 (72) Pulse Ox 97 96 O2 Delivery Room Air Room Air Room Air 12/26/19 12/26/19 12/26/19 12/26/19 21:36 21:37 22:37 23:26 Temp 97.9 97.9 Pulse 60 60 Resp 20 20 22 B/P (MAP) 115/51 115/59 (77) Pulse Ox 96 96 92 O2 Delivery Room Air Room Air Room Air 12/27/19 12/27/19 12/27/1912/26/20 03:30 07:00 08:00 09:00 Temp 98.0 97.5 98.0 97.5 Pulse 59 64 64 Resp 22 18 B/P (MAP) 110/62 (78) 106/47 (66) 109/51 Pulse Ox 94 90 O2 Delivery Room Air Room Air Room Air O2 Flow Rate 2.0 2.0 12/27/19 12/27/19 12/27/19 12/27/19 09:09 09:10 11:00 12:27 Temp 98.6 98.6 Pulse 64 64 67 64 Resp 18 B/P (MAP) 106/47 106/47 102/43 (62) 109/51 Pulse Ox 94 O2 Delivery Room Air 12/27/19 13:09 Pulse Ox 99 O2 Delivery Room Air Intake and Output 12/26/19 12/26/19 12/27/19 15:00 23:00 07:00 Intake Total 150 ml Output Total 0 ml Balance 150 ml Justifications for Admission Other Justification FREDDY REEDER MD Dec 27, 2019 13:43
--- NOTE | 2019-12-27 13:48 | PDOC ---
Renal-Progress Notes Subjective Notes Notes STILL HAS SOB History of Present Illness Hx of present illness STABLE Vitals Vitals Vital Signs Date Time Temp Pulse Resp B/P (MAP) Pulse Ox O2 Delivery O2 Flow Rate FiO2 12/27/19 13:09 99 Room Air 12/27/19 12:27 64 109/51 12/27/19 11:00 98.6 18 98.6 12/27/19 08:00 2.0 Weight Weight [ ] I.O. Intake and Output Intake and Output 12/27/19 07:00 Intake Total 150 ml Output Total 0 ml Balance 150 ml Intake Oral 150 ml Output Urine Total 0 ml # Bowel Movements 1 Labs Labs Laboratory Tests Test 12/26/19 18:03 12/27/19 05:00 Prothrombin Time 16.1 SEC (11.7-14.0) Prothromb Time International Ratio 1.3 (0.8-1.1) White Blood Count 6.7 x10^3/uL (4.0-11.0) Red Blood Count 2.50 x10^6/uL (3.50-5.40) Hemoglobin 8.4 g/dL (12.0-15.5) Hematocrit 25.0 % (36.0-47.0) Mean Corpuscular Volume 100 fL (79-100) Mean Corpuscular Hemoglobin 34 pg (25-35) Mean Corpuscular Hemoglobin Concent 34 g/dL (31-37) Red Cell Distribution Width 17.1 % (11.5-14.5) Platelet Count 135 x10^3/uL (140-400) Neutrophils (%) (Auto) 74 % (31-73) Lymphocytes (%) (Auto) 15 % (24-48) Monocytes (%) (Auto) 8 % (0-9) Eosinophils (%) (Auto) 2 % (0-3) Basophils (%) (Auto) 1 % (0-3) Neutrophils # (Auto) 4.9 x10^3/uL (1.8-7.7) Lymphocytes # (Auto) 1.0 x10^3/uL (1.0-4.8) Monocytes # (Auto) 0.5 x10^3/uL (0.0-1.1) Eosinophils # (Auto) 0.1 x10^3/uL (0.0-0.7) Basophils # (Auto) 0.0 x10^3/uL (0.0-0.2) Sodium Level 138 mmol/L (136-145) Potassium Level 3.8 mmol/L (3.5-5.1) Chloride Level 105 mmol/L (98-107) Carbon Dioxide Level 22 mmol/L (21-32) Anion Gap 11 (6-14) Blood Urea Nitrogen 55 mg/dL (7-20) Creatinine 4.4 mg/dL (0.6-1.0) Estimated GFR (Cockcroft-Gault) 11.6 Glucose Level 112 mg/dL (70-99) Calcium Level 8.9 mg/dL (8.5-10.1) Review of Systems Constitutional: yes: weakness, alert, oriented Ears/Nose/Throat: Yes: no symptom reported Eyes: Yes: no symptom reported Pulmonary: Yes no symptom reported Cardiovascular: Yes no symptom reported Gastrointestional: Yes: no symptom reported Genitourinary: Yes: no symptom reported Musculoskeletal: Yes: no symptom reported Skin: Yes no symptom reported Psychiatric/Neurological: Yes: no symptom reported Endocrine: Yes: no symptom reported Physical Exam General Appearance: no apparent distress Skin: warm Respiratory: decreased breath sounds Heart: S1S2 Abdomen: soft, bowel sounds present Genitourinary: bladder flat Neurology: alert, oriented, follow commands Musculoskeletal: Osteoarthritis Assessment Assessment IMP NEW ESRD WITH PROGRESSIVE RENAL FAILURE ACUTE HYPOXIA-IMPROVED ACUTE ON CHRONIC SYSTOLIC CHF-IMPROVED HX OF HTN HX OF CAD MILD TO MODERATE PULM HTN BILATERAL VENTRICULAR FILLING PRESSURES PLAN AGREE WITH IV DIURETICS FOR NOW UNABLE TO CONTROL MAINTAIN RENAL FXN AND FLUID BALANCE WILL PLAN TO START HD WILL ASK IR TO PLACE TUNNELED HD CATHETER TOMORROW START HD TOMORROW START ARANESP WILL NEED TO HAVE SW SET UP HD AT [facility] ON AND STATE-PT PREFERENCE CARDIOLOGY EVAL AND TX WILL FOLLOW LABS IN AM UPDATED FAMILY JEROD WANG MD Dec 27, 2019 13:48
[2019-12-27] MEDS: MILRINONE 20MG/100ML PREMIX 100 ML IV PRN (19:23)
--- NOTE | 2019-12-27 19:25 | NUR ---
Pt in bed assessment completed vss poc explained , pt c/o stomach cramping but not pain pt repositioned in bed call light placed in reach will resume care and continue to monitor pt.
[2019-12-27] MEDS: ATORVASTATIN CALCIUM 20 MG TABLET PO SCH (20:35)
[2019-12-27] MEDS: BENZONATATE 100 MG CAPSULE. PO PRN (20:35)
[2019-12-27] MEDS: FERROUS SULFATE 325 MG TABLET. PO SCH (20:35)
[2019-12-27] MEDS ORDERED: DARBEPOETIN ALFA 60 MCG/0.3 ML DISP.SYRIN. SQ SCH (21:00)
[2019-12-27] MEDS: HYDROcodone/APAP 5/325MG 1 TAB TABLET PO PRN (22:55)
[2019-12-28] VITALS (10 sets, daily range): BP systolic 99–136; BP diastolic 49–62
[2019-12-28 04:29] LABS: HEMATOCRIT 25.2 % (36.0-47.0); HEMOGLOBIN 8.4 g/dL (12.0-15.5); RED BLOOD COUNT 2.54 x10^6/uL (3.50-5.40); WHITE BLOOD COUNT 6.9 x10^3/uL (4.0-11.0)
[2019-12-28 04:37] LABS: CALCIUM 8.9 mg/dL (8.5-10.1); CREATININE 4.5 mg/dL (0.6-1.0); GFR 11.4; MAGNESIUM 2.1 mg/dL (1.8-2.4); POTASSIUM 4.2 mmol/L (3.5-5.1)
[2019-12-28] MEDS: DRONEDARONE HCL 400 MG TABLET PO SCH ×2 (08:00→17:57)
[2019-12-28] MEDS: BENZONATATE 100 MG CAPSULE. PO PRN ×2 (08:32→18:02)
--- NOTE | 2019-12-28 08:53 | PDOC ---
PULMONARY PROGRESS NOTES DATE: 12/28/19 TIME: 08:53 Subjective Patient started on hemodialysis no respiratory complain Vitals Vital Signs Date Time Temp Pulse Resp B/P (MAP) Pulse Ox O2 Delivery O2 Flow Rate FiO2 12/28/19 06:10 98.0 69 18 115/54 (74) 95 Room Air 98.0 12/27/19 08:00 2.0 ROS: No Nausea, No Chest Pain, No Abdominal Pain, No Increase Cough General: Alert, Oriented X4 Lungs: Crackles, Other Cardiovascular: S1, S2 Abdomen: Soft Extremities: Other (BLE Edema +2 ) Labs Laboratory Tests Test 12/26/19 10:20 12/26/19 18:03 12/27/19 05:00 12/28/19 04:20 Sodium Level 137 mmol/L (136-145) 138 mmol/L (136-145) 137 mmol/L (136-145) Potassium Level 3.6 mmol/L (3.5-5.1) 3.8 mmol/L (3.5-5.1) 4.2 mmol/L (3.5-5.1) Chloride Level 104 mmol/L (98-107) 105 mmol/L (98-107) 105 mmol/L (98-107) Carbon Dioxide Level 22 mmol/L (21-32) 22 mmol/L (21-32) 22 mmol/L (21-32) Anion Gap 11 (6-14) 11 (6-14) 10 (6-14) Blood Urea Nitrogen 51 mg/dL (7-20) 55 mg/dL (7-20) 57 mg/dL (7-20) Creatinine 3.6 mg/dL (0.6-1.0) 4.4 mg/dL (0.6-1.0) 4.5 mg/dL (0.6-1.0) Estimated GFR (Cockcroft-Gault) 14.7 11.6 11.4 Glucose Level 108 mg/dL (70-99) 112 mg/dL (70-99) 101 mg/dL (70-99) Calcium Level 9.9 mg/dL (8.5-10.1) 8.9 mg/dL (8.5-10.1) 8.9 mg/dL (8.5-10.1) Prothrombin Time 16.1 SEC (11.7-14.0) Prothromb Time International Ratio 1.3 (0.8-1.1) White Blood Count 6.7 x10^3/uL (4.0-11.0) 6.9 x10^3/uL (4.0-11.0) Red Blood Count 2.50 x10^6/uL (3.50-5.40) 2.54 x10^6/uL (3.50-5.40) Hemoglobin 8.4 g/dL (12.0-15.5) 8.4 g/dL (12.0-15.5) Hematocrit 25.0 % (36.0-47.0) 25.2 % (36.0-47.0) Mean Corpuscular Volume 100 fL (79-100) 99 fL (79-100) Mean Corpuscular Hemoglobin 34 pg (25-35) 33 pg (25-35) Mean Corpuscular Hemoglobin Concent 34 g/dL (31-37) 34 g/dL (31-37) Red Cell Distribution Width 17.1 % (11.5-14.5) 17.0 % (11.5-14.5) Platelet Count 135 x10^3/uL (140-400) 150 x10^3/uL (140-400) Neutrophils (%) (Auto) 74 % (31-73) Lymphocytes (%) (Auto) 15 % (24-48) Monocytes (%) (Auto) 8 % (0-9) Eosinophils (%) (Auto) 2 % (0-3) Basophils (%) (Auto) 1 % (0-3) Neutrophils # (Auto) 4.9 x10^3/uL (1.8-7.7) Lymphocytes # (Auto) 1.0 x10^3/uL (1.0-4.8) Monocytes # (Auto) 0.5 x10^3/uL (0.0-1.1) Eosinophils # (Auto) 0.1 x10^3/uL (0.0-0.7) Basophils # (Auto) 0.0 x10^3/uL (0.0-0.2) Magnesium Level 2.1 mg/dL (1.8-2.4) Laboratory Tests Test 12/28/19 04:20 White Blood Count 6.9 x10^3/uL (4.0-11.0) Red Blood Count 2.54 x10^6/uL (3.50-5.40) Hemoglobin 8.4 g/dL (12.0-15.5) Hematocrit 25.2 % (36.0-47.0) Mean Corpuscular Volume 99 fL (79-100) Mean Corpuscular Hemoglobin 33 pg (25-35) Mean Corpuscular Hemoglobin Concent 34 g/dL (31-37) Red Cell Distribution Width 17.0 % (11.5-14.5) Platelet Count 150 x10^3/uL (140-400) Sodium Level 137 mmol/L (136-145) Potassium Level 4.2 mmol/L (3.5-5.1) Chloride Level 105 mmol/L (98-107) Carbon Dioxide Level 22 mmol/L (21-32) Anion Gap 10 (6-14) Blood Urea Nitrogen 57 mg/dL (7-20) Creatinine 4.5 mg/dL (0.6-1.0) Estimated GFR (Cockcroft-Gault) 11.4 Glucose Level 101 mg/dL (70-99) Calcium Level 8.9 mg/dL (8.5-10.1) Magnesium Level 2.1 mg/dL (1.8-2.4) Medications Active Scripts Medications Dose Route/Sig Max Daily Dose Days Date Category Eliquis (Apixaban) 5 Mg Tablet 5 Mg PO BID 12/20/19 Reported Multaq (Dronedarone Hcl) 400 Mg Tablet 400 Tab PO BID 12/20/19 Reported Isosorbide Mononitrate Er (Isosorbide Mononitrate) 30 Mg Tab.er.24h 30 Mg PO DAILY 08/09/16 Rx Amlodipine Besylate 10 Mg Tablet 10 Mg PO DAILY 01/06/16 Reported Pravachol (Pravastatin Sodium) 80 Mg Tablet 80 Mg PO DAILY 01/06/16 Reported Metoprolol Tartrate 50 Mg Tablet 50 Mg PO BID 01/01/16 Rx Aspirin 81 Mg Tab.chew 1 Tab PO DAILY 01/01/16 Rx Acetaminophen 500 Mg Tablet 1 Tab PO BID PRN 12/30/15 Reported Hydrocodone-Apap 5-325 (Hydrocodone Bit/Acetaminophen) 1 Each Tablet 1 Tab PO PRN Q6HRS PRN 12/30/15 Reported Clopidogrel (Clopidogrel Bisulfate) 75 Mg Tablet 75 Mg PO DAILYWBKFT 30 04/16/15 Rx Glucosamine & Chondroitin Cap (Gluc 2KCL/Chondr/Dereck Hy/Hy Ac) 1 Each Capsule 1 Each PO BID 07/03/13 Reported Furosemide 40 Mg Tablet 40 Mg PO DAILY 07/03/13 Reported Vitamin D3 1,000 Unit Tablet (Ca Cmb No.1/Vit D3/B-6/Fa/B12) 1 Each Tablet 1 Each PO DAILY 07/03/13 Reported Folic Acid 0.4 Mg Tablet 0.4 Mg PO DAILY 07/03/13 Reported Pantoprazole Sodium (Pantoprazole Sodium) 40 Mg Tablet.dr 40 Mg PO DAILY 07/03/13 Reported Allopurinol 100 Mg Tablet 300 Mg PO DAILY 07/03/13 Reported Iron 100 Plus Tablet (Iron,Carbonyl/Vit C/Vit B12/Fa) 1 Each Tablet 1 Each PO HS 07/03/13 Reported Potassium Chloride (Potassium Chloride) 20 Meq Tablet.er 20 Meq PO DAILY 07/03/13 Reported Gabapentin 600 Mg Tablet 600 Mg PO TID 07/03/13 Reported Fish Pax-Reaye-7-Vit D Softgel ([place]-3S/Dha/Epa/Fish Oil/D3) 1 Each Capsule 1 Each PO TID 07/03/13 Reported Comments BLE DPLX Impression: 1. Partial DVT right proximal superficial femoral vein. CT chest IMPRESSION: 1. No pulmonary mass or consolidation. 2. Small right pleural effusion. 3. Dilated pulmonary trunk, which can be seen with pulmonary hypertension. Cardiac Cath 12/25/2019 Conclusion 1. Significantly elevated right and left-sided filling pressures with mild to moderate pulmonary hypertension. 2. No evidence of intracardiac shunt. Recommendations Aggressive diuresis. Consider milrinone infusion if patient not responding adequately to diuretics. CXR 12/25 Impression: Stable cardiomegaly with Central vascular congestion and low-grade interstitial edema. Impression . IMPRESSION: 1. Dyspnea with progressive lower extremity edema. Suspect combination of right and left heart failure. CT chest with tiny right pleural effusion and faint interstitial infiltrates at the left bases.--improving 2. Ejection fraction of 40-45% with pulmonary artery pressure of 31. 3. No significant tobacco history. 4. Suspected obstructive sleep apnea. The patient states she had a sleep study done and she was supposed to go back for titration, but due to COVID that has not happened. will review previous study 5. End-stage renal disease on hemodialysis 6. Abnormal D-dimer, which could be nonspecific finding. Plan . Fluid balance per nephrology Supplemental oxygen PRN, remains on room air Cardiac cath reviewed agree with Aggressive diuresis-- now complicated with worsening renal failure Follow cardiology recs-- currently on primacor gtt Follow nephrology recs--Diuresis with close monitoring of renal function, patient to start hemodialysis per Dr. Conley. BLE DPLX showed: Partial DVT right proximal superficial femoral vein. Sleep study as an outpatient. We will review the old records for a previous sleep study and see if she needs a titration study. DVT/GI PPX -- continue eliquis Discussed with RN JORDAN COYNE MD Dec 28, 2019 08:53
[2019-12-28] MEDS: GABAPENTIN 100 MG CAPSULE. PO SCH ×3 (09:00→21:15)
[2019-12-28] MEDS: APIXABAN 2.5 MG TABLET. PO SCH ×2 (09:00→21:23)
[2019-12-28] MEDS: OMEGA-3 FATTY ACIDS/FISH OIL 1,000 MG CAPSULE. PO SCH ×3 (09:00→21:15)
--- NOTE | 2019-12-28 09:46 | NUR ---
Pt has excessive bruising on left AC from blood pressure cuff. Cuff was moved to forearm.
--- NOTE | 2019-12-28 09:48 | PDOC ---
DATE OF SERVICE DATE: 12/28/19 TIME: 09:48 SUBJECTIVE ROS stable, Initiated on HD today, No complaints at present OBJECTIVE Vital Signs Vital Signs Date Time Temp Pulse Resp B/P (MAP) Pulse Ox O2 Delivery O2 Flow Rate FiO2 12/28/19 06:10 98.0 69 18 115/54 (74) 95 Room Air 98.0 12/27/19 08:00 2.0 I & 0 Intake and Output 12/28/19 07:00 Intake Total 440 ml Output Total 280 ml Balance 160 ml Intake Oral 440 ml Output Urine Total 280 ml PHYSICAL EXAM Physical Exam General Appearance: no apparent distress Skin: warm Respiratory: decreased breath sounds Heart: S1S2 Abdomen: soft, bowel sounds present Neurology: alert, oriented, follow commands Musculoskeletal: Osteoarthritis DIAGNOSIS/ASSESSMENT Assessment & Plan New Onset ESRD - with progressive renal failure Initiated on HD today- treatment Seen on HD, tolerating well. 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 Recent echo with LVEF 40-45%. Elevated right sided pressures CAD s/p CABG and PCI/stents. Cath 2017 Hypertension; controlled Diabetes, II SSS s/p PPM ([employer]). Recent device check with normal funciton 100% AFIB in the last 2 months H/o DVT/PE s/p IVC filter. On low-dose Eliquis therapy Persistent AFIB Partial DVT right proximal superficial femoral vein: new per sono today despite on eliquis START ARANES COMMENT/RELEVANT DATA Meds Current Medications Medications (Trade) Dose Ordered Sig/Zohra Start Time Stop Time Status Last Admin Dose Admin Acetaminophen (Tylenol) 500 mg PRN BID PRN 12/20/19 16:30 12/27/19 01:08 500 MG Acetaminophen/ Hydrocodone Bitart (Lortab 5/325) 1 tab PRN Q6HRS PRN 12/20/19 16:30 12/27/19 22:55 1 TAB Albuterol Sulfate (Ventolin Neb Soln) 2.5 mg PRN QID PRN 12/27/19 11:45 12/27/19 13:08 2.5 MG Allopurinol (Zyloprim) 100 mg DAILY 8/24/20 09:00 12/27/19 09:20 100 MG Amlodipine Besylate (Norvasc) 10 mg DAILY 12/21/19 09:00 12/26/19 09:45 10 MG Apixaban (Eliquis) 2.5 mg BID 12/26/19 21:00 12/27/19 20:34 2.5 MG Atorvastatin Calcium (Lipitor) 20 mg QHS 12/20/19 21:00 12/27/19 20:35 20 MG Benzonatate (Tessalon Perle) 100 mg PRN TID PRN 12/20/19 22:45 12/28/19 08:32 100 MG Bumetanide (Bumex) 1 mg 0800,1600 12/26/19 08:30 12/27/19 13:41 DC 12/26/19 18:05 1 MG Clopidogrel Bisulfate (Plavix) 75 mg DAILYWBKFT 12/21/19 08:00 12/27/19 09:10 75 MG Darbepoetin Tim (ARANESP for DIALYSIS PTS) 60 mcg WEEKLYHS 12/27/19 21:00 12/27/19 20:36 60 MCG Dronedarone (Multaq) 400 mg BIDWMEALS 12/22/19 11:00 12/27/19 16:34 400 MG Fentanyl Citrate (Fentanyl 2ml Vial) 100 mcg 1X ONCE 12/25/19 10:15 12/25/19 10:19 DC 12/25/19 10:46 50 MCG Ferrous Sulfate (Feosol) 325 mg QHS 12/20/19 21:00 12/27/19 20:35 325 MG Fish Oil (Fish Oil) 1,000 mg TID 12/20/19 21:00 12/27/19 20:34 1,000 MG Folic Acid (Folic Acid) 1 mg DAILY 12/21/19 09:00 12/27/19 09:10 1 MG Furosemide (Lasix) 40 mg DAILY 12/23/19 09:00 12/23/19 08:11 DC Gabapentin (Neurontin) 100 mg TID 12/20/19 21:00 12/27/19 20:35 100 MG Guaifenesin (Mucinex) 600 mg BID 12/26/19 21:00 12/27/19 20:35 600 MG Guaifenesin/ Codeine Phosphate (Robitussin Ac) 5 ml 1X ONCE 12/20/19 22:45 12/20/19 22:46 DC 12/20/19 22:53 5 ML Heparin Sodium/ Sodium Chloride (HEPARIN for ARTERIAL LINE FLUSH) 1,000 unit 1X ONCE 12/25/19 10:15 12/25/19 10:19 DC 12/25/19 10:45 1,000 UNIT Info (Anti-Coagulation Monitoring By Pharmacy) 1 each PRN DAILY PRN 12/23/19 10:15 12/24/19 08:47 1 EACH Info (Review Meds) 1 ea 1X ONCE 12/21/19 17:15 12/21/19 17:30 DC Iodixanol (Visipaque 320) 100 ml STK-MED ONCE 12/25/19 09:42 12/25/19 09:43 DC Isosorbide Mononitrate (Imdur) 30 mg DAILY 12/21/19 09:00 12/27/19 09:09 30 MG Lidocaine HCl (Lidocaine 1% 20ml Vial) 20 ml 1X ONCE 12/25/19 10:15 12/25/19 10:19 DC 12/25/19 10:45 20 ML Magnesium Sulfate 50 ml @ 25 mls/hr 1X ONCE 12/22/19 11:00 12/22/19 12:59 DC 12/22/19 11:03 25 MLS/HR Metoprolol Tartrate (Lopressor) 25 mg BID 12/20/19 21:00 12/27/19 20:35 25 MG Midazolam HCl (Versed) 2 mg 1X ONCE 12/25/19 10:15 12/25/19 10:19 DC 12/25/19 10:46 1 MG Milrinone Lactate/ Dextrose 100 ml @ 3.656 mls/ hr CONT PRN 12/25/19 11:00 12/27/19 19:23 3.656 MLS/HR Morphine Sulfate (Morphine Sulfate) 2 mg PRN Q4HRS PRN 12/20/19 17:00 12/20/19 17:09 2 MG Nitroglycerin (Nitrostat) 0.4 mg PRN Q5MIN PRN 12/20/19 17:15 Non-Formulary Medication (Gluc 2KCL/ Chondr/Dereck Hy/Hy Ac (Glucosamine & Chondroitin Cap)) 1 each BID 12/20/19 21:00 UNV Pantoprazole Sodium (Protonix) 40 mg DAILY 12/21/19 09:00 12/27/19 09:10 40 MG Polyethylene Glycol (miraLAX PACKET) 17 gm PRN DAILY PRN 12/23/19 15:30 12/23/19 16:04 17 GM Potassium Chloride/Water 100 ml @ 100 mls/hr PRN DAILY PRN 12/21/19 17:15 Potassium Chloride (Klor-Con) 20 meq PRN DAILY PRN 12/21/19 17:15 Vitamin D (Vitamin D3) 1,000 unit DAILY 12/21/19 09:00 12/27/19 09:09 1,000 UNIT Lab Laboratory Tests Test 12/28/19 04:20 White Blood Count 6.9 x10^3/uL (4.0-11.0) Red Blood Count 2.54 x10^6/uL (3.50-5.40) Hemoglobin 8.4 g/dL (12.0-15.5) Hematocrit 25.2 % (36.0-47.0) Mean Corpuscular Volume 99 fL (79-100) Mean Corpuscular Hemoglobin 33 pg (25-35) Mean Corpuscular Hemoglobin Concent 34 g/dL (31-37) Red Cell Distribution Width 17.0 % (11.5-14.5) Platelet Count 150 x10^3/uL (140-400) Sodium Level 137 mmol/L (136-145) Potassium Level 4.2 mmol/L (3.5-5.1) Chloride Level 105 mmol/L (98-107) Carbon Dioxide Level 22 mmol/L (21-32) Anion Gap 10 (6-14) Blood Urea Nitrogen 57 mg/dL (7-20) Creatinine 4.5 mg/dL (0.6-1.0) Estimated GFR (Cockcroft-Gault) 11.4 Glucose Level 101 mg/dL (70-99) Calcium Level 8.9 mg/dL (8.5-10.1) Magnesium Level 2.1 mg/dL (1.8-2.4) Hepatitis B Surface Antigen Nonreactive (Nonreactive) Hepatitis B Surface Antibody Nonreactive Results All relevant outside records, renal labs, imaging studies, telemetry/EKG's were reviewed. Justicifation of Admission Dx: Justifications for Admission: Justification of Admission Dx: Yes MERLY ADAM MD Dec 28, 2019 09:48
--- NOTE | 2019-12-28 10:45 | PDOC ---
PROGRESS NOTES Date of Service: DATE: 12/28/19 TIME: 10:45 Chief Complaint Chief Complaint IMPRESSION Acute hypoxia - likely from pulmonary edema. Will diurese. Less likely COVID 19, will await testing results. Wean O2 as tolerated, this morning requiring reevaluation given worsening of cough and dyspnea Shortness of breath with cough - likely from pulmonary edema, no hx of COPD, could be viral or atypical pneumonia. will check procalcitonin and COVID19 Atrial fibrillation - controlled response. On metoprolol tartrate 25mg BID, eliquis, multaq. cardiology evaluation done and is greatly appreciated, recommendations as follows: MORBID OBESITY jessica Partial DVT right proximal superficial femoral vein. 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 SOON Change oral diuretics to Bumex. CAD status clinically stable Patient is QTc interval is greater than 500. Cannot start dofetilide. Continue Multitak. Continue eliquis for stroke prophylaxis SSS s/p PPM, clinically stable. Recent device check showed normal function. consult nephrology restart eliquis per cardiology covid-19 neg Sleep study as an outpatient. start dialysis ///start hemodialysis per Dr. Conley. plan CHF - reduced ejection fraction 40-45% on prior echo. Will diurese for acute systolic CHF, consult cardiology, monitor on tele, BMP and Mag JESSICA on CKD - likely vasomotor nephropathy, possibly 2/2 cardiorenal syndrome. Cr now 3 with baseline 1.3 noted historically. Pending IV Lasix 40 mg HLD - cont statin HTN - cont BB and CCB CAD s/p CABG - cont prasugrel, BB, statin. Trend trops for CHEST PAIN s/p PPM - will consult cardiology. 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 Conley. plan FEN - Cardiac diet, 2L fluid restriction PPX - eliquis FULL CODE Dispo - inpatient for above, 2 midnights resume eliquis per cardiology nephrology consult TUNNELED HD CATHETER 12/27 start dialysis D/W RN History of Present Illness History of Present Illness 79yo F w/ PMHx CHF, HLD, HTN, CAD s/p CABG, s/p PPM who presents to the emergency department from home via her own private vehicle with complaint of chest pain, cough x2 days. She also notes significant bilateral lower extremity leg edema that is been worsening over the past 2 weeks. She advises me that she did have a negative COVID-19 test approximately 3 weeks ago. She notes over the past couple of days she has progressive dyspnea on exertion, first with entering her home to walking to the bedroom a few days ago, now when she awoke before coming to ED she was too short of breath to walk to the bathroom. The chest pain associated is dull pressure and resolves with rest. when it persisted she took a nitroglycerin and this resolved the pain. CXR appears to show enlargement of the cardiomediastinal silhouette and increased interstitial markings as well as dual lead pacer and sternotomy in place. EKG appears irregular at around 60 beats a minutes no visible P waves consistent with atrial fibrillation, nonspecific intraventricular block. Labs significant for WBC of 8.7, Hb 11.1, platelets 190, NA 138, K4.4, BUN 38, CR 3, glucose 113, CRP 15.8, BNP 6514, d-dimer 2.80, troponin 0. Due to concern for COVID-19 with abnormal chest x-ray and cough ED physician ordered swab for COVID-19 and she was admitted to COVID-19 unit and is seen there today. With elevated d-dimer ED physician suggested VQ scan however ventilation portions are not performed during the coronavirus pandemic. Also patient is on Eliquis twice daily and she has been compliant with this. Upon evaluation she is notably having some white frothy sputum and IV dose of 40 mg of Lasix was given with large urine output and some relief of her symptoms. She notes her assembly detailer is Dr. Sanchez and he recently started her on a new medication that starts with an M (Pharmacy confirms this is 400mg Multaq), and h er locomotive firer/fireman is Dr. Conley and she has good follow-up with both physicians. 12/21/2019 No acute events overnight. Patient does have orthopnea and requires her head of her bed to be inclined to the max at almost 90 degrees. She currently has some cough and does complain of heaviness and fluid overload. 12/22/19 Patient with worsening respiratory distress, quite uncomfortable and coughing no sputum. Visibly has increased work of breathing. Reassurance has been provided to the patient and her at bedside. Crackles auscultated 12/23/2019 Patient reports some dyspnea on exertion, but comfortable at rest. She is unable to walk across the room without feeling short of breath. Her shortness of breath is also worse when she lays on her back. She reports a chronic cough that is worse with deep inspiration and productive of clear sputum. 12/24/2019 Patient still complaining of dyspnea on exertion and occasionally even at rest. Discussed plan for right heart cath in the morning to ascertain etiology of dyspnea. N.p.o. after midnight. 12/26/2019 Still with cough and improved with tessalon. Will need further diuresis. restart eliquis Vitals Vitals Vital Signs Date Time Temp Pulse Resp B/P (MAP) Pulse Ox O2 Delivery O2 Flow Rate FiO2 12/28/19 10:22 97.9 75 18 108/62 (77) 96 Room Air 97.9 12/27/19 08:00 2.0 Physical Exam General: Cooperative, No acute distress, mild distress Heart: Regular rate Lungs: Crackles, Other Abdomen: Normal bowel sounds Extremities: Other (2-3+ bilateral LE edema ) Skin: No breakdown, No significant lesion Labs LABS Exam performed: One view chest. Indication: Reason: PICC placement / Spl. Instructions: / History: Date of Service: 12/26/2019 5:29 PM Comparison: One view chest from 12/23/2019. Single AP upright portable view chest findings: Cardiomediastinal silhouette is enlarged, however stable. Pulmonary vascularity is congested. Previous median sternotomy and bipolar pacemaker. Prominent interstitial markings are seen in both lungs mainly in the perihilar region. There is hazy opacification of the left lung base likely atelectasis and tiny effusion. Total left shoulder arthroplasty. Impression: Stable cardiomegaly with Central vascular congestion and low-grade interstitial edema. Electronically signed by: Alexandria Valdez MD (12/26/2019 5:49 PM) [facility] DICTATED and SIGNED BY: ALEXANDRIA VALDEZ MD DATE: 12/26/19 0012 Laboratory Tests Test 12/28/19 04:20 White Blood Count 6.9 x10^3/uL (4.0-11.0) Red Blood Count 2.54 x10^6/uL (3.50-5.40) Hemoglobin 8.4 g/dL (12.0-15.5) Hematocrit 25.2 % (36.0-47.0) Mean Corpuscular Volume 99 fL (79-100) Mean Corpuscular Hemoglobin 33 pg (25-35) Mean Corpuscular Hemoglobin Concent 34 g/dL (31-37) Red Cell Distribution Width 17.0 % (11.5-14.5) Platelet Count 150 x10^3/uL (140-400) Sodium Level 137 mmol/L (136-145) Potassium Level 4.2 mmol/L (3.5-5.1) Chloride Level 105 mmol/L (98-107) Carbon Dioxide Level 22 mmol/L (21-32) Anion Gap 10 (6-14) Blood Urea Nitrogen 57 mg/dL (7-20) Creatinine 4.5 mg/dL (0.6-1.0) Estimated GFR (Cockcroft-Gault) 11.4 Glucose Level 101 mg/dL (70-99) Calcium Level 8.9 mg/dL (8.5-10.1) Magnesium Level 2.1 mg/dL (1.8-2.4) Hepatitis B Surface Antigen Nonreactive (Nonreactive) Hepatitis B Surface Antibody Nonreactive Comment Review of Relevant I have reviewed the following items char (where applicable) has been applied. Labs Laboratory Tests Test 12/26/19 18:03 12/27/19 05:00 12/28/19 04:20 Prothrombin Time 16.1 SEC (11.7-14.0) Prothromb Time International Ratio 1.3 (0.8-1.1) White Blood Count 6.7 x10^3/uL (4.0-11.0) 6.9 x10^3/uL (4.0-11.0) Red Blood Count 2.50 x10^6/uL (3.50-5.40) 2.54 x10^6/uL (3.50-5.40) Hemoglobin 8.4 g/dL (12.0-15.5) 8.4 g/dL (12.0-15.5) Hematocrit 25.0 % (36.0-47.0) 25.2 % (36.0-47.0) Mean Corpuscular Volume 100 fL (79-100) 99 fL (79-100) Mean Corpuscular Hemoglobin 34 pg (25-35) 33 pg (25-35) Mean Corpuscular Hemoglobin Concent 34 g/dL (31-37) 34 g/dL (31-37) Red Cell Distribution Width 17.1 % (11.5-14.5) 17.0 % (11.5-14.5) Platelet Count 135 x10^3/uL (140-400) 150 x10^3/uL (140-400) Neutrophils (%) (Auto) 74 % (31-73) Lymphocytes (%) (Auto) 15 % (24-48) Monocytes (%) (Auto) 8 % (0-9) Eosinophils (%) (Auto) 2 % (0-3) Basophils (%) (Auto) 1 % (0-3) Neutrophils # (Auto) 4.9 x10^3/uL (1.8-7.7) Lymphocytes # (Auto) 1.0 x10^3/uL (1.0-4.8) Monocytes # (Auto) 0.5 x10^3/uL (0.0-1.1) Eosinophils # (Auto) 0.1 x10^3/uL (0.0-0.7) Basophils # (Auto) 0.0 x10^3/uL (0.0-0.2) Sodium Level 138 mmol/L (136-145) 137 mmol/L (136-145) Potassium Level 3.8 mmol/L (3.5-5.1) 4.2 mmol/L (3.5-5.1) Chloride Level 105 mmol/L (98-107) 105 mmol/L (98-107) Carbon Dioxide Level 22 mmol/L (21-32) 22 mmol/L (21-32) Anion Gap 11 (6-14) 10 (6-14) Blood Urea Nitrogen 55 mg/dL (7-20) 57 mg/dL (7-20) Creatinine 4.4 mg/dL (0.6-1.0) 4.5 mg/dL (0.6-1.0) Estimated GFR (Cockcroft-Gault) 11.6 11.4 Glucose Level 112 mg/dL (70-99) 101 mg/dL (70-99) Calcium Level 8.9 mg/dL (8.5-10.1) 8.9 mg/dL (8.5-10.1) Magnesium Level 2.1 mg/dL (1.8-2.4) Hepatitis B Surface Antigen Nonreactive (Nonreactive) Hepatitis B Surface Antibody Nonreactive Laboratory Tests Test 12/28/19 04:20 White Blood Count 6.9 x10^3/uL (4.0-11.0) Red Blood Count 2.54 x10^6/uL (3.50-5.40) Hemoglobin 8.4 g/dL (12.0-15.5) Hematocrit 25.2 % (36.0-47.0) Mean Corpuscular Volume 99 fL (79-100) Mean Corpuscular Hemoglobin 33 pg (25-35) Mean Corpuscular Hemoglobin Concent 34 g/dL (31-37) Red Cell Distribution Width 17.0 % (11.5-14.5) Platelet Count 150 x10^3/uL (140-400) Sodium Level 137 mmol/L (136-145) Potassium Level 4.2 mmol/L (3.5-5.1) Chloride Level 105 mmol/L (98-107) Carbon Dioxide Level 22 mmol/L (21-32) Anion Gap 10 (6-14) Blood Urea Nitrogen 57 mg/dL (7-20) Creatinine 4.5 mg/dL (0.6-1.0) Estimated GFR (Cockcroft-Gault) 11.4 Glucose Level 101 mg/dL (70-99) Calcium Level 8.9 mg/dL (8.5-10.1) Magnesium Level 2.1 mg/dL (1.8-2.4) Hepatitis B Surface Antigen Nonreactive (Nonreactive) Hepatitis B Surface Antibody Nonreactive Medications Current Medications Furosemide (Lasix) 40 mg 1X ONCE IVP Last administered on 12/20/19at 05:58; Start 12/20/19 at 06:00; Stop 12/20/19 at 06:01; Status DC Acetaminophen (Tylenol) 500 mg PRN BID PRN PO MILD PAIN 1-3 Last administered on 12/27/19 01:08; Start 12/20/19 at 16:30 Allopurinol (Zyloprim) 100 mg DAILY PO Last administered on 12/27/19 09:20; Start 12/21/19 at 09:00 Amlodipine Besylate (Norvasc) 10 mg DAILY PO Last administered on 12/26/19 09:45; Start 12/21/19 at 09:00 Clopidogrel Bisulfate (Plavix) 75 mg DAILYWBKFT PO Last administered on 12/27/19 09:10; Start 12/21/19 at 08:00 Furosemide (Lasix) 40 mg DAILY PO Last administered on 12/22/19 08:17; Start 12/21/19 at 09:00; Stop 12/22/19 at 12:46; Status DC Acetaminophen/ Hydrocodone Bitart (Lortab 5/325) 1 tab PRN Q6HRS PRN PO MODERAT E-SEVERE PAIN Last administered on 12/27/19 22:55; Start 12/20/19 at 16:30 Isosorbide Mononitrate (Imdur) 30 mg DAILY PO Last administered on 12/27/19 09:09; Start 12/21/19 at 09:00 Pantoprazole Sodium (Protonix) 40 mg DAILY PO Last administered on 12/27/19 09:10; Start 12/21/19 at 09:00 Potassium Chloride (Klor-Con) 20 meq DAILY PO Last administered on 12/27/19 09:10; Start 12/21/19 at 09:00; Stop 12/27/19 at 13:49; Status DC Vitamin D (Vitamin D3) 1,000 unit DAILY PO Last administered on 12/27/19 09:09; Start 12/21/19 at 09:00 Folic Acid (Folic Acid) 1 mg DAILY PO Last administered on 12/27/19 09:10; Start 12/21/19 at 09:00 Gabapentin (Neurontin) 100 mg TID PO Last administered on 12/27/19 20:35; Start 12/20/19 at 21:00 Non-Formulary Medication (Gluc 2KCL/ Chondr/Dereck Hy/Hy Ac (Glucosamine & Chondroitin Cap)) 1 each BID PO ; Start 12/20/19 at 21:00; Status UNV Ferrous Sulfate (Feosol) 325 mg QHS PO Last administered on 12/27/19at 20:35; Start 12/20/19 at 21:00 Fish Oil (Fish Oil) 1,000 mg TID PO Last administered on 12/27/19at 20:34; Start 12/20/19 at 21:00 Atorvastatin Calcium (Lipitor) 20 mg QHS PO Last administered on 12/27/19at 20:35; Start 12/20/19 at 21:00 Apixaban (Eliquis) 2.5 mg BID PO Last administered on 12/24/19at 08:54; Start 12/20/19 at 21:00; Stop 12/24/19 at 10:26; Status DC Metoprolol Tartrate (Lopressor) 25 mg BID PO Last administered on 12/27/19at 2 0:35; Start 12/20/19 at 21:00 Morphine Sulfate (Morphine Sulfate) 2 mg PRN Q4HRS PRN IV PAIN Last administered on 12/20/19at 17:09; Start 12/20/19 at 17:00 Nitroglycerin (Nitrostat) 0.4 mg PRN Q5MIN PRN SL CHEST PAIN; Start 12/20/19 at 17:15 Benzonatate (Tessalon Perle) 100 mg PRN TID PRN PO COUGHING Last administered on 12/28/19at 08:32; Start 12/20/19 at 22:45 Guaifenesin/ Codeine Phosphate (Robitussin Ac) 5 ml 1X ONCE PO Last administered on 12/20/19at 22:53; Start 12/20/19 at 22:45; Stop 12/20/19 at 2 2:46; Status DC Furosemide (Lasix) 40 mg 1X ONCE IVP Last administered on 12/21/19at 14:47; Start 12/21/19 at 14:00; Stop 12/21/19 at 14:01; Status DC Potassium Chloride (Klor-Con) 20 meq PRN DAILY PRN PO SEE COMMENTS; Start 12/21/19 at 17:15 Potassium Chloride/Water 100 ml @ 100 mls/hr PRN DAILY PRN IV SEE COMMENTS; Start 12/21/19 at 17:15 Magnesium Sulfate 50 ml @ 25 mls/hr PRN DAILY PRN IV SEE COMMENTS; Start 12/21/19 at 17:15 Info (Review Meds) 1 ea PRN DAILY PRN MC SEE COMMENTS; Start 12/21/19 at 17:15; Status Cancel Info (Review Meds) 1 ea 1X ONCE MC ; Start 12/21/19 at 17:15; Stop 12/21/19 at 17:30; Status DC Magnesium Sulfate 50 ml @ 300 mls/hr PRN DAILY PRN IV SEE COMMENTS; Start 12/21/19 at 17:15 Magnesium Sulfate 50 ml @ 25 mls/hr ONCE ONCE IV Last administered on 12/21/19at 19:02; Start 12/21/19 at 17:45; Stop 12/21/19 at 19:44; Status DC Furosemide (Lasix) 40 mg 1X ONCE IVP Last administered on 12/22/19at 11:12; Start 12/22/19 at 10:30; Stop 12/22/19 at 10:31; Status DC Albuterol Sulfate (Ventolin Neb Soln) 2.5 mg 1X ONCE NEB Last administered on 12/22/19at 11:39; Start 12/22/19 at 10:30; Stop 12/22/19 at 10:31; Status DC Magnesium Sulfate 50 ml @ 25 mls/hr 1X ONCE IV Last administered on 12/22/19at 11:03; Start 12/22/19 at 11:00; Stop 12/22/19 at 12:59; Status DC Dronedarone (Multaq) 400 mg BIDWMEALS PO Last administered on 12/27/19at 16:34; Start 12/22/19 at 11:00 Bumetanide (Bumex) 1 mg DAILY PO ; Start 12/23/19 at 09:00; Stop 12/23/19 at 08:11; Status DC Furosemide (Lasix) 40 mg DAILY PO ; Start 12/23/19 at 09:00; Stop 12/23/19 at 08:11; Status DC Bumetanide (Bumex) 1 mg DAILY PO Last administered on 12/23/19at 12:36; Start 12/23/19 at 12:00; Stop 12/24/19 at 08:08; Status DC Info (Anti-Coagulation Monitoring By Pharmacy) 1 each PRN DAILY PRN MC SEE COMMENTS Last administered on 12/24/19at 08:47; Start 12/23/19 at 10:15 Bumetanide (Bumex) 1 mg 1X IV ; Start 12/23/19 at 15:00; Status Cancel Polyethylene Glycol (miraLAX PACKET) 17 gm PRN DAILY PRN PO CONSTIPATION Last administered on 12/23/19at 16:04; Start 12/23/19 at 15:30 Bumetanide (Bumex) 1 mg 1X ONCE IV Last administered on 12/23/19at 16:03; Start 12/23/19 at 15:30; Stop 12/23/19 at 15:37; Status DC Bumetanide (Bumex) 1 mg DAILY PO ; Start 12/25/19 at 09:00; Stop 12/26/19 at 08:05; Status DC Bumetanide (Bumex) 1 mg BID92 IV Last administered on 12/24/19at 15:21; Start 12/24/19 at 09:00; Stop 12/24/19 at 14:01; Status DC Iodixanol (Visipaque 320) 100 ml STK-MED ONCE .ROUTE ; Start 12/25/19 at 09:42; Stop 12/25/19 at 09:43; Status DC Lidocaine HCl (Lidocaine 1% 20ml Vial) 20 ml STK-MED ONCE .ROUTE ; Start 12/25/19 at 09:42; Stop 12/25/19 at 09:43; Status DC Heparin Sodium/ Sodium Chloride 1,000 ml @ As Directed STK-MED ONCE .ROUTE ; Start 12/25/19 at 09:42; Stop 12/25/19 at 09:43; Status DC Fentanyl Citrate (Fentanyl 2ml Vial) 100 mcg STK-MED ONCE .ROUTE ; Start 12/25/19 at 09:56; Stop 12/25/19 at 09:56; Status DC Midazolam HCl (Versed) 2 mg STK-MED ONCE .ROUTE ; Start 12/25/19 at 09:56; Stop 12/25/19 at 09:56; Status DC Heparin Sodium/ Sodium Chloride (HEPARIN for ARTERIAL LINE FLUSH) 1,000 unit 1X ONCE IART Last administered on 12/25/19at 10:45; Start 12/25/19 at 10:15; Stop 12/25/19 at 10:19; Status DC Midazolam HCl (Versed) 2 mg 1X ONCE IV Last administered on 12/25/19at 10:46; Start 12/25/19 at 10:15; Stop 12/25/19 at 10:19; Status DC Fentanyl Citrate (Fentanyl 2ml Vial) 100 mcg 1X ONCE IV Last administered on 12/25/19at 10:46; Start 12/25/19 at 10:15; Stop 12/25/19 at 10:19; Status DC Lidocaine HCl (Lidocaine 1% 20ml Vial) 20 ml 1X ONCE INJ Last administered on 12/25/19at 10:45; Start 12/25/19 at 10:15; Stop 12/25/19 at 10:19; Status DC Milrinone Lactate/ Dextrose 100 ml @ 3.656 mls/ hr CONT PRN IV SEE I/O RECORD Last administered on 12/27/19at 19:23; Start 12/25/19 at 11:00 Bumetanide (Bumex) 1 mg 0816 IV ; Start 12/26/19 at 09:00; Stop 12/26/19 at 08:12; Status DC Bumetanide (Bumex) 1 mg 0800,1600 IV Last administered on 12/26/19at 18:05; Start 12/26/19 at 08:30; Stop 12/27/19 at 13:41; Status DC Guaifenesin (Mucinex) 600 mg BID PO Last administered on 12/27/19at 20:35; Start 12/26/19 at 21:00 Apixaban (Eliquis) 2.5 mg BID PO Last administered on 12/27/19at 20:34; Start 12/26/19 at 21:00 Albuterol Sulfate (Ventolin Neb Soln) 2.5 mg PRN QID PRN NEB SHORTNESS OF BREATH Last administered on 12/27/19at 13:08; Start 12/27/19 at 11:45 Darbepoetin Tim (ARANESP for DIALYSIS PTS) 60 mcg WEEKLYHS SQ Last administered on 12/27/19at 20:36; Start 12/27/19 at 21:00 Active Scripts Active Isosorbide Mononitrate Er (Isosorbide Mononitrate) 30 Mg Tab.er.24h 30 Mg PO DAILY Metoprolol Tartrate 50 Mg Tablet 50 Mg PO BID Aspirin 81 Mg Tab.chew 1 Tab PO DAILY Clopidogrel (Clopidogrel Bisulfate) 75 Mg Tablet 75 Mg PO DAILYWBKFT 30 Days Reported Eliquis (Apixaban) 5 Mg Tablet 5 Mg PO BID Multaq (Dronedarone Hcl) 400 Mg Tablet 400 Tab PO BID Amlodipine Besylate 10 Mg Tablet 10 Mg PO DAILY Pravachol (Pravastatin Sodium) 80 Mg Tablet 80 Mg PO DAILY Acetaminophen 500 Mg Tablet 1 Tab PO BID PRN Hydrocodone-Apap 5-325 (Hydrocodone Bit/Acetaminophen) 1 Each Tablet 1 Tab PO PRN Q6HRS PRN Glucosamine & Chondroitin Cap (Gluc 2KCL/Chondr/Dereck Hy/Hy Ac) 1 Each Capsule 1 Each PO BID Furosemide 40 Mg Tablet 40 Mg PO DAILY Vitamin D3 1,000 Unit Tablet (Ca Cmb No.1/Vit D3/B-6/Fa/B12) 1 Each Tablet 1 Each PO DAILY Folic Acid 0.4 Mg Tablet 0.4 Mg PO DAILY Pantoprazole Sodium (Pantoprazole Sodium) 40 Mg Tablet.dr 40 Mg PO DAILY Allopurinol 100 Mg Tablet 300 Mg PO DAILY Iron 100 Plus Tablet (Iron,Carbonyl/Vit C/Vit B12/Fa) 1 Each Tablet 1 Each PO HS Potassium Chloride (Potassium Chloride) 20 Meq Tablet.er 20 Meq PO DAILY Gabapentin 600 Mg Tablet 600 Mg PO TID Fish Hts-Xfeeh-5-Vit D Softgel ([place]-3S/Dha/Epa/Fish Oil/D3) 1 Each Capsule 1 Each PO TID Vitals/I & O Vital Sign - Last 24 Hours 12/27/19 12/27/19 12/27/19 12/27/19 11:00 12:00 12:27 13:00 Temp 98.6 98.6 Pulse 67 61 64 64 Resp 18 B/P (MAP) 102/43 (62) 113/45 (67) 109/51 102/43 (62) Pulse Ox 94 O2 Delivery Room Air 12/27/19 12/27/19 12/27/19 12/27/19 13:09 14:00 15:00 15:00 Temp 96.7 96.7 Pulse 60 59 68 Resp 18 B/P (MAP) 107/61 (76) 107/53 (71) 109/51 (70) Pulse Ox 99 99 O2 Delivery Room Air Room Air 12/27/19 12/27/19 12/27/1920 16:00 16:34 17:00 18:00 Pulse 59 64 60 54 B/P (MAP) 114/64 (81) 109/51 108/55 (72) 110/54 (72) 12/27/19 12/27/19 12/27/19 12/27/19 19:25 19:25 20:32 20:35 Temp 98.6 98.6 Pulse 60 60 Resp 18 B/P (MAP) 112/55 (74) 112/53 (72) 112/53 Pulse Ox 96 O2 Delivery Room Air Room Air 12/27/19 12/27/19 12/27/19 12/28/19 22:55 23:08 23:55 03:10 Temp 89.6 98.4 89.6 98.4 Pulse 62 73 Resp 18 18 18 18 B/P (MAP) 107/52 (70) 99/51 (67) Pulse Ox 96 96 96 97 O2 Delivery Room Air Room Air Room Air Room Air 12/28/19 12/28/19 06:10 10:22 Temp 98.0 97.9 98.0 97.9 Pulse 69 75 Resp 18 18 B/P (MAP) 115/54 (74) 108/62 (77) Pulse Ox 95 96 O2 Delivery Room Air Room Air Intake and Output 12/27/19 12/27/19 12/28/19 15:00 23:00 07:00 Intake Total 320 ml 120 ml 0 ml Output Total 230 ml 50 ml Balance 90 ml 70 ml 0 ml Justicifation of Admission Dx: Justifications for Admission: Justification of Admission Dx: Yes MANNY PERSAUD MD Dec 28, 2019 10:45
[2019-12-28] MEDS ORDERED: LIDOCAINE WITH 8.4% SOD BICARB 3 ML DISP.SYRIN. ONE (10:57)
--- NOTE | 2019-12-28 12:46 | PDOC ---
MARCELO PETERSEN SHELL GRADER 12/28/19 1246: CARDIO Progress Notes Date and Time Date of Service 12/28/19 Time of Evaluation 1246 Subjective Subjective: No Chest Pain, No Palpitations, Other (Still some SOA) Vitals Vitals Vital Signs Date Time Temp Pulse Resp B/P (MAP) Pulse Ox O2 Delivery O2 Flow Rate FiO2 12/28/19 10:22 97.9 75 18 108/62 (77) 96 Room Air 97.9 12/27/19 08:00 2.0 Weight Weight [ ] Input and Output Intake and Output Intake and Output 12/28/19 07:00 Intake Total 440 ml Output Total 280 ml Balance 160 ml Intake Oral 440 ml Output Urine Total 280 ml Laboratory Labs Laboratory Tests Test 12/28/19 04:20 White Blood Count 6.9 x10^3/uL (4.0-11.0) Red Blood Count 2.54 x10^6/uL (3.50-5.40) Hemoglobin 8.4 g/dL (12.0-15.5) Hematocrit 25.2 % (36.0-47.0) Mean Corpuscular Volume 99 fL (79-100) Mean Corpuscular Hemoglobin 33 pg (25-35) Mean Corpuscular Hemoglobin Concent 34 g/dL (31-37) Red Cell Distribution Width 17.0 % (11.5-14.5) Platelet Count 150 x10^3/uL (140-400) Sodium Level 137 mmol/L (136-145) Potassium Level 4.2 mmol/L (3.5-5.1) Chloride Level 105 mmol/L (98-107) Carbon Dioxide Level 22 mmol/L (21-32) Anion Gap 10 (6-14) Blood Urea Nitrogen 57 mg/dL (7-20) Creatinine 4.5 mg/dL (0.6-1.0) Estimated GFR (Cockcroft-Gault) 11.4 Glucose Level 101 mg/dL (70-99) Calcium Level 8.9 mg/dL (8.5-10.1) Magnesium Level 2.1 mg/dL (1.8-2.4) Hepatitis B Surface Antigen Nonreactive (Nonreactive) Hepatitis B Surface Antibody Nonreactive Hepatitis B Core Total Antibody Nonreactive (Nonreactive) Review of Systems Constitutional: yes: weakness, alert, oriented Ears/Nose/Throat: Yes: no symptom reported Eyes: Yes: no symptom reported Pulmonary: Yes no symptom reported Cardiovascular: Yes no symptom reported Gastrointestional: Yes: no symptom reported Genitourinary: Yes: no symptom reported Musculoskeletal: Yes: no symptom reported Skin: Yes no symptom reported Psychiatric/Neurological: Yes: no symptom reported Endocrine: Yes: no symptom reported Physical Exam HEENT: Neck Supple W Full Motion Chest: Symmetric LUNGS: Other (diminished, basilar crackles ) Heart: RRR (regular paced rhythm with underlying afib) Abdomen: Soft N/T Extremities: Other (1+ bilateral LE pitting edema) Neurology: alert, oriented, follow commands Assessment Assessment 1. 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 Recent echo with LVEF 40- 45%. RHC with elevated pressures. 2. CAD s/p CABG and PCI/stents. Cath 2017 with patent graft, stents. Clinically stable 3. Hypertension; controlled 4. Hyperlipidemia; statin 5. Diabetes, II; as per PCP 6. FRANCISCO on CKD; nephrology following. Creatinine ^ 4.5. Now ESRD. HD to be initiated. Fluid offloading via HD 7. SSS s/p PPM ([employer]). Recent device check with normal funciton 100% AFIB in the last 2 months 8. H/o DVT/PE s/p IVC filter. On low-dose Eliquis therapy 9. Persistent AFIB; rate controlled 10. Partial DVT right proximal superficial femoral vein: new per sono today despite on eliquis Justicifation of Admission Dx: Justifications for Admission: Justification of Admission Dx: Yes DOREEN AIKEN MD 12/28/19 1720: CARDIO Progress Notes Assessment Assessment Patient seen and examined in HD unit. Agree with MINE SAFETY DIRECTOR's assessment and plan. Acute on chronic systolic heart failure better compensated Patient initiated on hemodialysis today by nephrology team for new onset ESRD. CAD status clinically stable. Persistent atrial fibrillation rate controlled. SSS s/p PPM stable. MARCELO PETERSEN APRN Dec 28, 2019 12:46 DOREEN AIKEN MD Dec 28, 2019 17:20
[2019-12-28] MEDS ORDERED: LIDOCAINE WITH 8.4% SOD BICARB 3 ML DISP.SYRIN. INJ ONE (13:00)
[2019-12-28] MEDS ORDERED: IV NORMAL SALINE 1000ML BAG 1,000 ML IV PRN ×2 (15:01)
[2019-12-28] MEDS ORDERED: ALBUMIN HUMAN 25% 200 ML IV PRN (15:15)
[2019-12-28] MEDS ORDERED: diphenhydrAMINE 50 MG/ML VIAL IV PRN ×2 (15:15)
[2019-12-28] MEDS ORDERED: DIALYSIS PATIENT. MC PRN ×2 (15:15)
[2019-12-28] MEDS: METOPROLOL TART IMMED RELEASE 50 MG TABLET. PO SCH ×2 (17:53→21:15)
[2019-12-28] MEDS: PANTOPRAZOLE 40 MG TABLET.DR. PO SCH (17:53)
[2019-12-28] MEDS: amLODIPine BESYLATE 10 MG TABLET PO SCH (17:56)
[2019-12-28] MEDS: FOLIC ACID 1 MG TABLET. PO SCH (17:56)
[2019-12-28] MEDS: CLOPIDOGREL BISULFATE 75 MG TABLET PO SCH (17:56)
[2019-12-28] MEDS: ISOSORBIDE MONONITRATE ER 30 MG TAB.ER.24H PO SCH (17:57)
[2019-12-28] MEDS: ALLOPURINOL 100 MG TABLET. PO SCH (17:57)
[2019-12-28] MEDS: CHOLECALCIFEROL (VITAMIN D3) 1,000 UNIT TABLET PO SCH (17:58)
[2019-12-28] MEDS: ATORVASTATIN CALCIUM 20 MG TABLET PO SCH (21:15)
[2019-12-28] MEDS: FERROUS SULFATE 325 MG TABLET. PO SCH (21:15)
[2019-12-28] MEDS: HYDROcodone/APAP 5/325MG 1 TAB TABLET PO PRN (21:17)
[2019-12-28] MEDS: MILRINONE 20MG/100ML PREMIX 100 ML IV PRN (21:20)
--- NOTE | 2019-12-28 21:23 | NUR ---
Pt 2100 dose of eliquis held for procedure on Saturday.
[2019-12-28] MEDS: ACETAMINOPHEN 500 MG TABLET PO PRN (23:48)
[2019-12-29 03:12] VITALS: BP 107/43
[2019-12-29 06:29] LABS: ALBUMIN 2.6 g/dL (3.4-5.0); ALBUMIN/GLOBULIN RATIO 0.7 (1.0-1.7); CREATININE 2.6 mg/dL (0.6-1.0); GFR 21.4; POTASSIUM 3.5 mmol/L (3.5-5.1); TOTAL BILIRUBIN 0.6 mg/dL (0.2-1.0); TOTAL PROTEIN 6.4 g/dL (6.4-8.2)
[2019-12-29 07:00] VITALS: BP 115/45
[2019-12-29] MEDS: GABAPENTIN 100 MG CAPSULE. PO SCH ×3 (08:44→21:11)
[2019-12-29] MEDS: HYDROcodone/APAP 5/325MG 1 TAB TABLET PO PRN ×2 (08:47→21:12)
[2019-12-29] MEDS: MORPHINE SULFATE 2 MG/ML VIAL. IV PRN (08:48)
[2019-12-29] MEDS: DRONEDARONE HCL 400 MG TABLET PO SCH ×2 (08:48→17:19)
[2019-12-29] MEDS: OMEGA-3 FATTY ACIDS/FISH OIL 1,000 MG CAPSULE. PO SCH ×3 (08:48→21:10)
[2019-12-29] MEDS: CLOPIDOGREL BISULFATE 75 MG TABLET PO SCH (08:49)
[2019-12-29] MEDS: CHOLECALCIFEROL (VITAMIN D3) 1,000 UNIT TABLET PO SCH (08:49)
[2019-12-29] MEDS: FOLIC ACID 1 MG TABLET. PO SCH (08:49)
[2019-12-29] MEDS: ISOSORBIDE MONONITRATE ER 30 MG TAB.ER.24H PO SCH (08:49)
[2019-12-29] MEDS: PANTOPRAZOLE 40 MG TABLET.DR. PO SCH (08:49)
[2019-12-29] MEDS: METOPROLOL TART IMMED RELEASE 50 MG TABLET. PO SCH ×2 (08:49→22:02)
[2019-12-29] MEDS: ALLOPURINOL 100 MG TABLET. PO SCH (08:50)
[2019-12-29] MEDS: amLODIPine BESYLATE 10 MG TABLET PO SCH (08:50)
--- NOTE | 2019-12-29 09:44 | PDOC ---
PULMONARY PROGRESS NOTES DATE: 12/29/19 TIME: 09:41 Subjective Patient started on hemodialysis no respiratory complain on RA Vitals Vital Signs Date Time Temp Pulse Resp B/P (MAP) Pulse Ox O2 Delivery O2 Flow Rate FiO2 12/29/19 08:50 61 115/45 12/29/19 08:48 95 Room Air 2.0 12/29/19 07:00 98.0 18 98.0 ROS: No Nausea, No Chest Pain, No Abdominal Pain, No Increase Cough General: Alert, Oriented X4, No acute distress Lungs: Other (DECREASE BASES) Cardiovascular: S1, S2 Abdomen: Soft Neuro Exam: Alert Extremities: Other (TRACE EDEMA) Labs Laboratory Tests Test 12/28/19 04:20 12/29/19 05:40 White Blood Count 6.9 x10^3/uL (4.0-11.0) Red Blood Count 2.54 x10^6/uL (3.50-5.40) Hemoglobin 8.4 g/dL (12.0-15.5) Hematocrit 25.2 % (36.0-47.0) Mean Corpuscular Volume 99 fL (79-100) Mean Corpuscular Hemoglobin 33 pg (25-35) Mean Corpuscular Hemoglobin Concent 34 g/dL (31-37) Red Cell Distribution Width 17.0 % (11.5-14.5) Platelet Count 150 x10^3/uL (140-400) Sodium Level 137 mmol/L (136-145) 136 mmol/L (136-145) Potassium Level 4.2 mmol/L (3.5-5.1) 3.5 mmol/L (3.5-5.1) Chloride Level 105 mmol/L (98-107) 104 mmol/L (98-107) Carbon Dioxide Level 22 mmol/L (21-32) 27 mmol/L (21-32) Anion Gap 10 (6-14) 5 (6-14) Blood Urea Nitrogen 57 mg/dL (7-20) 28 mg/dL (7-20) Creatinine 4.5 mg/dL (0.6-1.0) 2.6 mg/dL (0.6-1.0) Estimated GFR (Cockcroft-Gault) 11.4 21.4 Glucose Level 101 mg/dL (70-99) 105 mg/dL (70-99) Calcium Level 8.9 mg/dL (8.5-10.1) 9.0 mg/dL (8.5-10.1) Magnesium Level 2.1 mg/dL (1.8-2.4) Hepatitis B Surface Antigen Nonreactive (Nonreactive) Hepatitis B Surface Antibody Nonreactive Hepatitis B Core Total Antibody Nonreactive (Nonreactive) BUN/Creatinine Ratio 11 (6-20) Total Bilirubin 0.6 mg/dL (0.2-1.0) Aspartate Amino Transf (AST/SGOT) 20 U/L (15-37) Alanine Aminotransferase (ALT/SGPT) 16 U/L (14-59) Alkaline Phosphatase 103 U/L (46-116) Total Protein 6.4 g/dL (6.4-8.2) Albumin 2.6 g/dL (3.4-5.0) Albumin/Globulin Ratio 0.7 (1.0-1.7) Laboratory Tests Test 12/29/19 05:40 Sodium Level 136 mmol/L (136-145) Potassium Level 3.5 mmol/L (3.5-5.1) Chloride Level 104 mmol/L (98-107) Carbon Dioxide Level 27 mmol/L (21-32) Anion Gap 5 (6-14) Blood Urea Nitrogen 28 mg/dL (7-20) Creatinine 2.6 mg/dL (0.6-1.0) Estimated GFR (Cockcroft-Gault) 21.4 BUN/Creatinine Ratio 11 (6-20) Glucose Level 105 mg/dL (70-99) Calcium Level 9.0 mg/dL (8.5-10.1) Total Bilirubin 0.6 mg/dL (0.2-1.0) Aspartate Amino Transf (AST/SGOT) 20 U/L (15-37) Alanine Aminotransferase (ALT/SGPT) 16 U/L (14-59) Alkaline Phosphatase 103 U/L (46-116) Total Protein 6.4 g/dL (6.4-8.2) Albumin 2.6 g/dL (3.4-5.0) Albumin/Globulin Ratio 0.7 (1.0-1.7) Medications Active Scripts Medications Dose Route/Sig Max Daily Dose Days Date Category Eliquis (Apixaban) 5 Mg Tablet 5 Mg PO BID 12/20/19 Reported Multaq (Dronedarone Hcl) 400 Mg Tablet 400 Tab PO BID 12/20/19 Reported Isosorbide Mononitrate Er (Isosorbide Mononitrate) 30 Mg Tab.er.24h 30 Mg PO DAILY 08/09/16 Rx Amlodipine Besylate 10 Mg Tablet 10 Mg PO DAILY 01/06/16 Reported Pravachol (Pravastatin Sodium) 80 Mg Tablet 80 Mg PO DAILY 01/06/16 Reported Metoprolol Tartrate 50 Mg Tablet 50 Mg PO BID 01/01/16 Rx Aspirin 81 Mg Tab.chew 1 Tab PO DAILY 01/01/16 Rx Acetaminophen 500 Mg Tablet 1 Tab PO BID PRN 12/30/15 Reported Hydrocodone-Apap 5-325 (Hydrocodone Bit/Acetaminophen) 1 Each Tablet 1 Tab PO PRN Q6HRS PRN 12/30/15 Reported Clopidogrel (Clopidogrel Bisulfate) 75 Mg Tablet 75 Mg PO DAILYWBKFT 30 04/16/15 Rx Glucosamine & Chondroitin Cap (Gluc 2KCL/Chondr/Dereck Hy/Hy Ac) 1 Each Capsule 1 Each PO BID 07/03/13 Reported Furosemide 40 Mg Tablet 40 Mg PO DAILY 07/03/13 Reported Vitamin D3 1,000 Unit Tablet (Ca Cmb No.1/Vit D3/B-6/Fa/B12) 1 Each Tablet 1 Each PO DAILY 07/03/13 Reported Folic Acid 0.4 Mg Tablet 0.4 Mg PO DAILY 07/03/13 Reported Pantoprazole Sodium (Pantoprazole Sodium) 40 Mg Tablet.dr 40 Mg PO DAILY 07/03/13 Reported Allopurinol 100 Mg Tablet 300 Mg PO DAILY 07/03/13 Reported Iron 100 Plus Tablet (Iron,Carbonyl/Vit C/Vit B12/Fa) 1 Each Tablet 1 Each PO HS 07/03/13 Reported Potassium Chloride (Potassium Chloride) 20 Meq Tablet.er 20 Meq PO DAILY 07/03/13 Reported Gabapentin 600 Mg Tablet 600 Mg PO TID 07/03/13 Reported Fish Bae-Ckdvc-9-Vit D Softgel (Brandon-3S/Dha/Epa/Fish Oil/D3) 1 Each Capsule 1 Each PO TID 07/03/13 Reported Comments BLE DPLX Impression: 1. Partial DVT right proximal superficial femoral vein. CT chest IMPRESSION: 1. No pulmonary mass or consolidation. 2. Small right pleural effusion. 3. Dilated pulmonary trunk, which can be seen with pulmonary hypertension. Cardiac Cath 12/25/2019 Conclusion 1. Significantly elevated right and left-sided filling pressures with mild to moderate pulmonary hypertension. 2. No evidence of intracardiac shunt. Recommendations Aggressive diuresis. Consider milrinone infusion if patient not responding adequately to diuretics. CXR 12/25 Impression: Stable cardiomegaly with Central vascular congestion and low-grade interstitial edema. Impression . IMPRESSION: 1. Dyspnea with progressive lower extremity edema. secondary to combination of left /right heart failure 2. Ejection fraction of 40-45% with pulmonary artery pressure of 31. 3. No significant tobacco history. 4. Suspected obstructive sleep apnea. The patient states she had a sleep study done and she was supposed to go back for titration, but due to COVID that has not happened. will review previous study 5. End-stage renal disease on hemodialysis 6. Abnormal D-dimer, which could be nonspecific finding. Plan . prn oxygen Cardiac cath reviewed. Biventricular failure . agree with HD Follow cardiology recs-- currently on primacor gtt Follow nephrology recs- hemodialysis per Dr. Conley. BLE DPLX showed: Partial DVT right proximal superficial femoral vein. Sleep study as an outpatient. DVT/GI PPX -- continue eliquis Discussed with DICK CROW MD Dec 29, 2019 09:44
--- NOTE | 2019-12-29 10:30 | PDOC ---
[facility] [facility] PROGRESS NOTE Date of Service DOS: DATE: 12/29/19 TIME: 10:24 Chief Complaint Chief Complaint Patient presented with bilateral edema and decreased shortness of breath from her baseline. History of Present Illness History of Present Illness 12/29/2019 Patient seen and examined Patient was in NAD Patient's partner was present at bedside Discussed with OT Discussed with RN Discussed with clinical case manager Chart reviewed 12/21/2019 No acute events overnight. Patient does have orthopnea and requires her head of her bed to be inclined to the max at almost 90 degrees. She currently has some cough and does complain of heaviness and fluid overload. 12/22/19 Patient with worsening respiratory distress, quite uncomfortable and coughing no sputum. Visibly has increased work of breathing. Reassurance has been provided to the patient and her at bedside. Crackles auscultated 12/23/2019 Patient reports some dyspnea on exertion, but comfortable at rest. She is unable to walk across the room without feeling short of breath. Her shortness of breath is also worse when she lays on her back. She reports a chronic cough that is worse with deep inspiration and productive of clear sputum. 12/24/2019 Patient still complaining of dyspnea on exertion and occasionally even at rest. Discussed plan for right heart cath in the morning to ascertain etiology of dyspnea. N.p.o. after midnight. 12/26/2019 Still with cough and improved with tessalon. Will need further diuresis. restart eliquis Vitals/I&O Vitals/I&O: Vital Signs Date Time Temp Pulse Resp B/P (MAP) Pulse Ox O2 Delivery O2 Flow Rate FiO2 12/29/19 08:50 61 115/45 12/29/19 08:48 95 Room Air 2.0 12/29/19 07:00 98.0 18 98.0 I & O 12/28/19 12/28/19 12/29/19 15:00 23:00 07:00 Intake Total 0 ml 0 ml 700 ml Output Total 600 ml 200 ml 50 ml Balance -600 ml -200 ml 650 ml Physical Exam General: Cooperative, No acute distress, mild distress Heart: Regular rate Lungs: Other (DECREASE BASES) Abdomen: Normal bowel sounds Extremities: Other (2-3+ bilateral LE edema ) Skin: No breakdown, No significant lesion Labs Labs: Laboratory Tests Test 12/29/19 05:40 Sodium Level 136 mmol/L (136-145) Potassium Level 3.5 mmol/L (3.5-5.1) Chloride Level 104 mmol/L (98-107) Carbon Dioxide Level 27 mmol/L (21-32) Anion Gap 5 (6-14) Blood Urea Nitrogen 28 mg/dL (7-20) Creatinine 2.6 mg/dL (0.6-1.0) Estimated GFR (Cockcroft-Gault) 21.4 BUN/Creatinine Ratio 11 (6-20) Glucose Level 105 mg/dL (70-99) Calcium Level 9.0 mg/dL (8.5-10.1) Total Bilirubin 0.6 mg/dL (0.2-1.0) Aspartate Amino Transf (AST/SGOT) 20 U/L (15-37) Alanine Aminotransferase (ALT/SGPT) 16 U/L (14-59) Alkaline Phosphatase 103 U/L (46-116) Total Protein 6.4 g/dL (6.4-8.2) Albumin 2.6 g/dL (3.4-5.0) Albumin/Globulin Ratio 0.7 (1.0-1.7) Review of Systems Review of Systems: Patient denies nausea. Patient denies pain. Assessment and Plan Assessmemt and Plan Assessment Congestive heart failure Acute kidney injury Dyspnea Bilateral lower extremity edema Plan Patient to undergo cardiac cath tomorrow Patient to undergo dialysis tomorrow PT/OT Home meds DVT prophylaxis Full code Comment Review of Relevant I have reviewed the following items char (where applicable) has been applied. Justifications for Admission Other Justification JANAE SAUL III, DO Dec 29, 2019 10:29
[2019-12-29 10:46] VITALS: BP 110/46
--- NOTE | 2019-12-29 11:16 | PDOC ---
DATE OF SERVICE DATE: 12/29/19 TIME: 11:12 SUBJECTIVE ROS stable, Dialyzed yesterday States feeling good, No complaints, No SOB OBJECTIVE Vital Signs Vital Signs Date Time Temp Pulse Resp B/P (MAP) Pulse Ox O2 Delivery O2 Flow Rate FiO2 12/29/19 10:46 98.2 60 19 110/46 (67) 96 Room Air 98.2 12/29/19 08:48 2.0 I & 0 Intake and Output 12/29/19 07:00 Intake Total 700 ml Output Total 850 ml Balance -150 ml Intake Oral 700 ml Output Urine Total 850 ml # Bowel Movements 3 PHYSICAL EXAM Physical Exam General Appearance: no apparent distress Skin: warm Respiratory: decreased breath sounds Heart: S1S2 Abdomen: soft, bowel sounds present Neurology: alert, oriented, follow commands Musculoskeletal: Osteoarthritis DIAGNOSIS/ASSESSMENT Assessment & Plan New Onset ESRD - with progressive renal failure ,Dr Conley's patient Initiated on HD 12/27 - treatment , tolerated well No indication today based on Lytes and Vol status , schedule HD for Tomorrow Access- Temp HD catheter (Hold Eliquis for Tunnelled HDC if ok'ed by/Cardiology ) SW to schedule OP chair time with Nd central on and state - per Pt preference Anemia- Started on PO Fe and YURIDIA 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 Recent echo with LVEF 40-45%. Elevated right sided pressures CAD s/p CABG and PCI/stents. Cath 2017 Hypertension; controlled Diabetes, II SSS s/p PPM ([employer]). H/o DVT/PE s/p IVC filter. On low-dose Eliquis therapy Persistent AFIB Partial DVT right proximal superficial femoral vein: new per sono today despite on eliquis COMMENT/RELEVANT DATA Meds Current Medications Medications (Trade) Dose Ordered Sig/Zohra Start Time Stop Time Status Last Admin Dose Admin Acetaminophen (Tylenol) 500 mg PRN BID PRN 12/20/19 16:30 12/28/19 23:48 500 MG Acetaminophen/ Hydrocodone Bitart (Lortab 5/325) 1 tab PRN Q6HRS PRN 12/20/19 16:30 12/29/19 08:47 1 TAB Albumin Human 200 ml @ 200 mls/hr 1X PRN PRN 12/28/19 15:15 12/28/19 21:14 DC Albuterol Sulfate (Ventolin Neb Soln) 2.5 mg PRN QID PRN 12/27/19 11:45 12/27/19 13:08 2.5 MG Allopurinol (Zyloprim) 100 mg DAILY 12/21/19 09:00 12/29/19 08:50 100 MG Amlodipine Besylate (Norvasc) 10 mg DAILY 12/21/19 09:00 12/29/19 08:50 10 MG Apixaban (Eliquis) 2.5 mg BID 12/30/19 21:00 Atorvastatin Calcium (Lipitor) 20 mg QHS 12/20/19 21:00 12/28/19 21:15 20 MG Benzonatate (Tessalon Perle) 100 mg PRN TID PRN 12/20/19 22:45 12/28/19 18:02 100 MG Bumetanide (Bumex) 1 mg 0800,1600 12/26/19 08:30 12/27/19 13:41 DC 12/26/19 18:05 1 MG Clopidogrel Bisulfate (Plavix) 75 mg DAILYWBKFT 12/21/19 08:00 12/29/19 08:49 75 MG Darbepoetin Tim (ARANESP for DIALYSIS PTS) 60 mcg WEEKLYHS 12/27/19 21:00 12/27/19 20:36 60 MCG Diphenhydramine HCl (Benadryl) 25 mg 1X PRN PRN 12/28/19 15:15 12/29/19 15:14 Dronedarone (Multaq) 400 mg BIDWMEALS 12/22/19 11:00 12/29/19 08:48 400 MG Fentanyl Citrate (Fentanyl 2ml Vial) 100 mcg 1X ONCE 12/25/19 10:15 12/25/19 10:19 DC 12/25/19 10:46 50 MCG Ferrous Sulfate (Feosol) 325 mg QHS 12/20/19 21:00 12/28/19 21:15 325 MG Fish Oil (Fish Oil) 1,000 mg TID 12/20/19 21:00 12/29/19 08:48 1,000 MG Folic Acid (Folic Acid) 1 mg DAILY 12/21/19 09:00 12/29/19 08:49 1 MG Furosemide (Lasix) 40 mg DAILY 12/23/19 09:00 12/23/19 08:11 DC Gabapentin (Neurontin) 100 mg TID 12/20/19 21:00 12/29/19 08:44 100 MG Guaifenesin (Mucinex) 600 mg BID 12/26/19 21:00 12/29/19 08:49 600 MG Guaifenesin/ Codeine Phosphate (Robitussin Ac) 5 ml 1X ONCE 12/20/19 22:45 12/20/19 22:46 DC 12/20/19 22:53 5 ML Heparin Sodium/ Sodium Chloride (HEPARIN for ARTERIAL LINE FLUSH) 1,000 unit 1X ONCE 12/25/19 10:15 12/25/19 10:19 DC 12/25/19 10:45 1,000 UNIT Info (Anti-Coagulation Monitoring By Pharmacy) 1 each PRN DAILY PRN 12/23/19 10:15 12/24/19 08:47 1 EACH Info (PHARMACY MONITORING -- do not chart) 1 each PRN DAILY PRN 12/28/19 15:15 Info (Review Meds) 1 ea 1X ONCE 12/21/19 17:15 12/21/19 17:30 DC Iodixanol (Visipaque 320) 100 ml STK-MED ONCE 12/25/19 09:42 12/25/19 09:43 DC Isosorbide Mononitrate (Imdur) 30 mg DAILY 12/21/19 09:00 12/29/19 08:49 30 MG Lidocaine HCl (Buffered Lidocaine 1%) 6 ml 1X ONCE 12/28/19 13:00 12/28/19 13:03 DC Lidocaine HCl (Lidocaine 1% 20ml Vial) 20 ml 1X ONCE 12/25/19 10:15 12/25/19 10:19 DC 12/25/19 10:45 20 ML Magnesium Sulfate 50 ml @ 25 mls/hr 1X ONCE 12/22/19 11:00 12/22/19 12:59 DC 12/22/19 11:03 25 MLS/HR Metoprolol Tartrate (Lopressor) 25 mg BID 12/20/19 21:00 12/29/19 08:49 25 MG Midazolam HCl (Versed) 2 mg 1X ONCE 12/25/19 10:15 12/25/19 10:19 DC 12/25/19 10:46 1 MG Milrinone Lactate/ Dextrose 100 ml @ 3.656 mls/ hr CONT PRN 8/28/20 11:00 12/28/19 21:20 3.656 MLS/HR Morphine Sulfate (Morphine Sulfate) 2 mg PRN Q4HRS PRN 12/20/19 17:00 12/29/19 08:48 2 MG Nitroglycerin (Nitrostat) 0.4 mg PRN Q5MIN PRN 12/20/19 17:15 Non-Formulary Medication (Gluc 2KCL/ Chondr/Dereck Hy/Hy Ac (Glucosamine & Chondroitin Cap)) 1 each BID 12/20/19 21:00 UNV Pantoprazole Sodium (Protonix) 40 mg DAILY 12/21/19 09:00 12/29/19 08:49 40 MG Polyethylene Glycol (miraLAX PACKET) 17 gm PRN DAILY PRN 12/23/19 15:30 12/23/19 16:04 17 GM Potassium Chloride/Water 100 ml @ 100 mls/hr PRN DAILY PRN 12/21/19 17:15 Potassium Chloride (Klor-Con) 20 meq PRN DAILY PRN 12/21/19 17:15 Sodium Chloride 1,000 ml @ 400 mls/hr Q2H30M PRN 12/28/19 15:01 12/29/19 03:00 DC Vitamin D (Vitamin D3) 1,000 unit DAILY 12/21/19 09:00 12/29/19 08:49 1,000 UNIT Lab Laboratory Tests Test 12/29/19 05:40 Sodium Level 136 mmol/L (136-145) Potassium Level 3.5 mmol/L (3.5-5.1) Chloride Level 104 mmol/L (98-107) Carbon Dioxide Level 27 mmol/L (21-32) Anion Gap 5 (6-14) Blood Urea Nitrogen 28 mg/dL (7-20) Creatinine 2.6 mg/dL (0.6-1.0) Estimated GFR (Cockcroft-Gault) 21.4 BUN/Creatinine Ratio 11 (6-20) Glucose Level 105 mg/dL (70-99) Calcium Level 9.0 mg/dL (8.5-10.1) Total Bilirubin 0.6 mg/dL (0.2-1.0) Aspartate Amino Transf (AST/SGOT) 20 U/L (15-37) Alanine Aminotransferase (ALT/SGPT) 16 U/L (14-59) Alkaline Phosphatase 103 U/L (46-116) Total Protein 6.4 g/dL (6.4-8.2) Albumin 2.6 g/dL (3.4-5.0) Albumin/Globulin Ratio 0.7 (1.0-1.7) Results All relevant outside records, renal labs, imaging studies, telemetry/EKG's were reviewed. Justicifation of Admission Dx: Justifications for Admission: Justification of Admission Dx: Yes MERLY ADAM MD Dec 29, 2019 11:16
--- NOTE | 2019-12-29 13:25 | RAD ---
Procedure: Fluoroscopically and ultrasound-guided placement of right internal jugular temporary dialysis catheter 12/28/2019 Clinical Indication: NEW ESRD PT Discussion: The risks and benefits of the procedure were discussed the patient and/or their plastic products sales representative. Informed consent was obtained. A timeout procedure was performed. All elements of maximal sterile barrier technique including the use of a cap, mask, sterile gown, sterile gloves, large sterile sheet, appropriate hand hygiene, and 2% chlorhexidine for cutaneous antisepsis (or acceptable alternative antiseptic per current guidelines) were followed for this procedure. The patient was prepped and draped in the usual sterile fashion. Ultrasound interrogation of the right neck revealed patency and compressibility of the right internal jugular vein. A 21-gauge micropuncture was then used to gain access to this vein under ultrasound guidance. A hard copy ultrasound image was recorded. A guidewire was advanced centrally. 5 [place] sheath was placed. Over a wire following dilatation, a dual-lumen temporary dialysis catheter was advanced centrally. Its position was confirmed under fluoroscopy to be in the mid right atrium with the patient supine. The catheter was secured in place and a sterile dressing was applied. No immediate complications were identified. Total fluoroscopy time: 0.2 minutes Dose area product: 2 Gycm2 Impression: Ultrasound and fluoroscopically guided placement of right internal jugular temporary dialysis catheter
[2019-12-29] MEDS: BENZONATATE 100 MG CAPSULE. PO PRN ×3 (14:10→23:20)
[2019-12-29] MEDS: ANTI-COAG MONITOR BY PHARMACY. MC PRN (14:57)
[2019-12-29 15:00] VITALS: BP 102/45
--- NOTE | 2019-12-29 15:14 | PDOC ---
RAMON ANDERS [employer] GRADER 12/29/19 1514: CARDIO Progress Notes Date and Time Date of Service 12/29/2019 Time of Evaluation 1020 Subjective Subjective: No Chest Pain, No shortness of breath, No Palpitations Vitals Vitals Vital Signs Date Time Temp Pulse Resp B/P (MAP) Pulse Ox O2 Delivery O2 Flow Rate FiO2 12/29/19 11:14 96 Room Air 2.0 12/29/19 10:46 98.2 60 19 110/46 (67) 98.2 Weight Weight [ ] Input and Output Intake and Output Intake and Output 12/29/19 07:00 Intake Total 700 ml Output Total 850 ml Balance -150 ml Intake Oral 700 ml Output Urine Total 850 ml # Bowel Movements 3 Laboratory Labs Laboratory Tests Test 12/29/19 05:40 Sodium Level 136 mmol/L (136-145) Potassium Level 3.5 mmol/L (3.5-5.1) Chloride Level 104 mmol/L (98-107) Carbon Dioxide Level 27 mmol/L (21-32) Anion Gap 5 (6-14) Blood Urea Nitrogen 28 mg/dL (7-20) Creatinine 2.6 mg/dL (0.6-1.0) Estimated GFR (Cockcroft-Gault) 21.4 BUN/Creatinine Ratio 11 (6-20) Glucose Level 105 mg/dL (70-99) Calcium Level 9.0 mg/dL (8.5-10.1) Total Bilirubin 0.6 mg/dL (0.2-1.0) Aspartate Amino Transf (AST/SGOT) 20 U/L (15-37) Alanine Aminotransferase (ALT/SGPT) 16 U/L (14-59) Alkaline Phosphatase 103 U/L (46-116) Total Protein 6.4 g/dL (6.4-8.2) Albumin 2.6 g/dL (3.4-5.0) Albumin/Globulin Ratio 0.7 (1.0-1.7) Review of Systems Constitutional: yes: weakness, alert, oriented Ears/Nose/Throat: Yes: no symptom reported Eyes: Yes: no symptom reported Pulmonary: Yes no symptom reported Cardiovascular: Yes no symptom reported Gastrointestional: Yes: no symptom reported Genitourinary: Yes: no symptom reported Musculoskeletal: Yes: no symptom reported Skin: Yes no symptom reported Psychiatric/Neurological: Yes: no symptom reported Endocrine: Yes: no symptom reported Physical Exam HEENT: Neck Supple W Full Motion Chest: Symmetric LUNGS: Other (diminished, basilar crackles ) Heart: RRR (regular paced rhythm with underlying afib) Abdomen: Soft N/T Extremities: Other (1+ bilateral LE pitting edema) Neurology: alert, oriented, follow commands Assessment Assessment 1. Acute on chronic diastolic/systolic CHF: EF 40-45% improved but worsening renal function necessitating HD 2. 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 Cath 2017 with patent graft, stents. Clinically stable 4. New ESRD: post HD per nephrology 5. Hypertension; controlled 6. Hyperlipidemia; statin 7. Diabetes, II 8. SSS s/p PPM ([employer]tr[employer]). Recent device check with normal funciton 100% AFIB in the last 2 months 9. Partial DVT right proximal superficial femoral vein with hx DVT/PE s/p IVC filter. On low-dose Eliquis therapy 10. Persistent AFIB: rate controlled Recommendations Anticipating tunnelled HD cath in AM, ok to hold eliquis/plavix and resume post op Eliquis for stroke prophylaxis. Secondary prevention measures. Stop milrinone Continue multaq will plan for outpt CVN. Continue metoprolol. Unable to use other for of antiarrhythmic due to iodine allergy and significant renal insufficiency. Justicifation of Admission Dx: Justifications for Admission: Justification of Admission Dx: Yes DOREEN AIKEN MD 12/29/19 2150: CARDIO Progress Notes Assessment Assessment Patient seen and examined in HD unit. Agree with FINANCIAL SERVICES EDUCATION CONSULTANT's assessment and plan. Acute on chronic systolic heart failure better compensated Continue HD per nephrology team. CAD status clinically stable. Persistent atrial fibrillation rate controlled. SSS s/p PPM stable. RAMON ANDERS APRN Dec 29, 2019 15:14 DOREEN AIKEN MD Dec 29, 2019 21:50
[2019-12-29 19:27] VITALS: BP 94/42
[2019-12-29] MEDS: ATORVASTATIN CALCIUM 20 MG TABLET PO SCH (21:11)
[2019-12-29] MEDS: FERROUS SULFATE 325 MG TABLET. PO SCH (21:25)
[2019-12-29 22:03] VITALS: BP 127/58
[2019-12-30] MEDS: ACETAMINOPHEN 500 MG TABLET PO PRN (00:48)
[2019-12-30 03:47] VITALS: BP 121/52
[2019-12-30 06:30] LABS: CALCIUM 9.1 mg/dL (8.5-10.1); CREATININE 2.9 mg/dL (0.6-1.0); GFR 18.8; POTASSIUM 3.5 mmol/L (3.5-5.1)
[2019-12-30 07:00] VITALS: BP 120/43
[2019-12-30] MEDS ORDERED: IV NORMAL SALINE 1000ML BAG 1,000 ML IV PRN ×2 (07:52)
[2019-12-30] MEDS ORDERED: DIALYSIS PATIENT. MC PRN ×2 (08:00)
[2019-12-30] MEDS ORDERED: ALBUMIN HUMAN 25% 200 ML IV PRN (08:00)
[2019-12-30] MEDS: DRONEDARONE HCL 400 MG TABLET PO SCH ×2 (08:00→16:18)
[2019-12-30] MEDS ORDERED: MIDAZOLAM HCL/PF 2 MG/2 ML VIAL. ONE (08:28)
[2019-12-30] MEDS ORDERED: fentaNYL PF VIAL 100 MCG/2 ML VIAL ONE (08:29)
[2019-12-30] MEDS ORDERED: LIDOCAINE 1%/EPI 1:100,000 20 ML VIAL. ONE (08:37)
[2019-12-30] MEDS ORDERED: fentaNYL PF VIAL 100 MCG/2 ML VIAL IV ONE (08:45)
[2019-12-30] MEDS ORDERED: LIDOCAINE 1%/EPI 1:100,000 20 ML VIAL. INJ ONE (08:45)
[2019-12-30] MEDS ORDERED: MIDAZOLAM HCL/PF 2 MG/2 ML VIAL. IV ONE (08:45)
[2019-12-30] MEDS: METOPROLOL TART IMMED RELEASE 50 MG TABLET. PO SCH (09:00)
[2019-12-30] MEDS: GABAPENTIN 100 MG CAPSULE. PO SCH ×2 (09:00→14:00)
[2019-12-30] MEDS: OMEGA-3 FATTY ACIDS/FISH OIL 1,000 MG CAPSULE. PO SCH ×2 (09:00→14:00)
--- NOTE | 2019-12-30 09:06 | PDOC ---
DATE OF SERVICE DATE: 12/30/19 TIME: 1320 SUBJECTIVE ROS stable,Tunnelled HDC placed today States feeling good, No complaints, No SOB OBJECTIVE Vital Signs Vital Signs Date Time Temp Pulse Resp B/P (MAP) Pulse Ox O2 Delivery O2 Flow Rate FiO2 12/30/19 07:00 98.7 60 20 120/43 (68) 97 Room Air 98.7 12/29/19 11:14 2.0 I & 0 Intake and Output 12/30/19 07:00 Intake Total 1170 ml Balance 1170 ml Intake Oral 1170 ml # Bowel Movements 1 PHYSICAL EXAM Physical Exam eneral Appearance: no apparent distress Skin: warm Respiratory: decreased breath sounds Heart: S1S2 Abdomen: soft, bowel sounds present Neurology: alert, oriented, follow commands Musculoskeletal: Osteoarthritis DIAGNOSIS/ASSESSMENT Assessment & Plan New Onset ESRD - with progressive renal failure ,Dr Conley's patient Initiated on HD 12/27 - treatment Seen on Hd , 2 treatment, tolerating well, continue as ordered, Mick Gama Access- Tunnelled HDC today SW to schedule OP chair time with Amanda central on and state - per Pt p reference Anemia- Started on PO Fe and YURIDIA 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 Recent echo with LVEF 40-45%. Elevated right sided pressures CAD s/p CABG and PCI/stents. Cath 2017 Hypertension; controlled Diabetes, II SSS s/p PPM ([employer]). H/o DVT/PE s/p IVC filter. On low-dose Eliquis therapy Persistent AFIB Partial DVT right proximal superficial femoral vein: new per sono today despite on eliquis COMMENT/RELEVANT DATA Meds Current Medications Medications (Trade) Dose Ordered Sig/Zohra Start Time Stop Time Status Last Admin Dose Admin Acetaminophen (Tylenol) 500 mg PRN BID PRN 12/20/19 16:30 12/30/19 00:48 500 MG Acetaminophen/ Hydrocodone Bitart (Lortab 5/325) 1 tab PRN Q6HRS PRN 12/20/19 16:30 12/29/19 21:12 1 TAB Albumin Human 200 ml @ 200 mls/hr 1X PRN PRN 12/30/19 08:00 12/30/19 13:59 Albuterol Sulfate (Ventolin Neb Soln) 2.5 mg PRN QID PRN 12/27/19 11:45 12/27/19 13:08 2.5 MG Allopurinol (Zyloprim) 100 mg DAILY 12/21/19 09:00 12/29/19 08:50 100 MG Amlodipine Besylate (Norvasc) 10 mg DAILY 12/21/19 09:00 12/29/19 08:50 10 MG Apixaban (Eliquis) 2.5 mg BID 12/30/19 21:00 Atorvastatin Calcium (Lipitor) 20 mg QHS 12/20/19 21:00 12/29/19 21:11 20 MG Benzonatate (Tessalon Perle) 100 mg PRN TID PRN 12/20/19 22:45 12/29/19 23:20 100 MG Bumetanide (Bumex) 1 mg 0800,1600 12/26/19 08:30 12/27/19 13:41 DC 12/26/19 18:05 1 MG Cefazolin Sodium/ Dextrose 50 ml @ 100 mls/hr 1X ONCE 12/30/19 08:45 12/30/19 09:14 Clopidogrel Bisulfate (Plavix) 75 mg DAILYWBKFT 12/21/19 08:00 12/29/19 08:49 75 MG Darbepoetin Tim (ARANESP for DIALYSIS PTS) 60 mcg WEEKLYHS 12/27/19 21:00 12/27/19 20:36 60 MCG Diphenhydramine HCl (Benadryl) 25 mg 1X PRN PRN 12/28/19 15:15 12/29/19 15:14 DC Dronedarone (Multaq) 400 mg BIDWMEALS 12/22/19 11:00 12/29/19 17:19 400 MG Fentanyl Citrate (Fentanyl 2ml Vial) 100 mcg 1X ONCE 12/30/19 08:45 12/30/19 08:46 DC Ferrous Sulfate (Feosol) 325 mg QHS 12/20/19 21:00 12/29/19 21:25 325 MG Fish Oil (Fish Oil) 1,000 mg TID 12/20/19 21:00 12/29/19 21:10 1,000 MG Folic Acid (Folic Acid) 1 mg DAILY 12/21/19 09:00 12/29/19 08:49 1 MG Furosemide (Lasix) 40 mg DAILY 12/23/19 09:00 12/23/19 08:11 DC Gabapentin (Neurontin) 100 mg TID 12/20/19 21:00 12/29/19 21:11 100 MG Guaifenesin (Mucinex) 600 mg BID 12/26/19 21:00 12/29/19 21:10 600 MG Guaifenesin/ Codeine Phosphate (Robitussin Ac) 5 ml 1X ONCE 12/20/19 22:45 12/20/19 22:46 DC 12/20/19 22:53 5 ML Heparin Sodium/ Sodium Chloride (HEPARIN for ARTERIAL LINE FLUSH) 1,000 unit 1X ONCE 12/25/19 10:15 12/25/19 10:19 DC 12/25/19 10:45 1,000 UNIT Info (Anti-Coagulation Monitoring By Pharmacy) 1 each PRN DAILY PRN 12/23/19 10:15 12/29/19 14:57 1 EACH Info (PHARMACY MONITORING -- do not chart) 1 each PRN DAILY PRN 12/30/19 08:00 Info (Review Meds) 1 ea 1X ONCE 12/21/19 17:15 12/21/19 17:30 DC Iodixanol (Visipaque 320) 100 ml STK-MED ONCE 12/25/19 09:42 12/25/19 09:43 DC Isosorbide Mononitrate (Imdur) 30 mg DAILY 12/21/19 09:00 12/29/19 08:49 30 MG Lidocaine HCl (Buffered Lidocaine 1%) 6 ml 1X ONCE 12/28/19 13:00 12/28/19 13:03 DC Lidocaine HCl (Lidocaine 1% 20ml Vial) 20 ml 1X ONCE 12/25/19 10:15 12/25/19 10:19 DC 12/25/19 10:45 20 ML Lidocaine/ Epinephrine (LIDOCAINE 1%-EPI 1:100,000 Multi-Dose) 20 ml STK-MED ONCE 12/30/19 08:37 12/30/19 08:37 DC Magnesium Sulfate 50 ml @ 25 mls/hr 1X ONCE 12/22/19 11:00 12/22/19 12:59 DC 12/22/19 11:03 25 MLS/HR Metoprolol Tartrate (Lopressor) 25 mg BID 12/20/19 21:00 12/29/19 22:02 25 MG Midazolam HCl (Versed) 2 mg 1X ONCE 12/30/19 08:45 12/30/19 08:46 DC Milrinone Lactate/ Dextrose 100 ml @ 3.656 mls/ hr CONT PRN 12/25/19 11:00 12/29/19 15:17 DC 12/28/19 21:20 3.656 MLS/HR Morphine Sulfate (Morphine Sulfate) 2 mg PRN Q4HRS PRN 12/20/19 17:00 12/29/19 08:48 2 MG Nitroglycerin (Nitrostat) 0.4 mg PRN Q5MIN PRN 12/20/19 17:15 Non-Formulary Medication (Gluc 2KCL/ Chondr/Dereck Hy/Hy Ac (Glucosamine & Chondroitin Cap)) 1 each BID 12/20/19 21:00 UNV Pantoprazole Sodium (Protonix) 40 mg DAILY 12/21/19 09:00 12/29/19 08:49 40 MG Polyethylene Glycol (miraLAX PACKET) 17 gm PRN DAILY PRN 12/23/19 15:30 12/23/19 16:04 17 GM Potassium Chloride/Water 100 ml @ 100 mls/hr PRN DAILY PRN 12/21/19 17:15 Potassium Chloride (Klor-Con) 20 meq PRN DAILY PRN 12/21/19 17:15 Sodium Chloride 1,000 ml @ 400 mls/hr Q2H30M PRN 12/30/19 07:52 12/30/19 19:51 Vitamin D (Vitamin D3) 1,000 unit DAILY 12/21/19 09:00 12/29/19 08:49 1,000 UNIT Lab Laboratory Tests Test 12/30/19 05:00 Sodium Level 137 mmol/L (136-145) Potassium Level 3.5 mmol/L (3.5-5.1) Chloride Level 101 mmol/L (98-107) Carbon Dioxide Level 27 mmol/L (21-32) Anion Gap 9 (6-14) Blood Urea Nitrogen 33 mg/dL (7-20) Creatinine 2.9 mg/dL (0.6-1.0) Estimated GFR (Cockcroft-Gault) 18.8 Glucose Level 87 mg/dL (70-99) Calcium Level 9.1 mg/dL (8.5-10.1) Results All relevant outside records, renal labs, imaging studies, telemetry/EKG's were reviewed. Justicifation of Admission Dx: Justifications for Admission: Justification of Admission Dx: Yes MERLY ADAM MD Dec 30, 2019 09:06
[2019-12-30 09:23] VITALS: BP 137/68
[2019-12-30 10:31] VITALS: BP 143/66
--- NOTE | 2019-12-30 10:41 | SNU/HH DC ---
DISCHARGE WITH HOME HEALTH DISCHARGE INFORMATION: Condition on Discharge: Stable CODE STATUS: Code Status: Full HOME HEALTH: Face to Face: I certify this patient is under my care and that I, or a nurse practitioner or physician's certified surgical first assistant working with me, had a face to face encounter that meets the physician face to face encounter requirements with this patient on []. Medical Complications: Other (New initiation of dialysis for end-stage renal disease) Correction For: Assess & Educate Safety RN For Eval/Treatment: Yes Physical Therapy For: Evalulation/Treatment Occupational Therapy For: Evaluation/Treatment Home Health Aide For: Self-care BONE DENSITY TECHNICIAN For: Community Resources Pt Meets Homebound Status: Poor coordination w/ amb. POST DISCHARGE ORDERS: Activity Instructions for Disc: Activity as tolerated, Avoid exertion Weight Bearing Status after Di: Full weight bearing Bathing Instructions: Shower-keep dressing dry DIET AFTER DISCHARGE: Renal Wound/Incision Care: Ice to area for comfort, No wound care needed CHECKS AFTER DISCHARGE: Checks after discharge: Check blood press - daily Comment: IJ/chest TREATMENT/EQUIPMENT ORDERS: Adaptive Equipment Issued: None CERTIFICATION STATEMENT: Certification Statement: Certification Statement: Based on the above finding, I certify that this patient is confined to the home and needs intermittent jail care, physical therapy and/or speech therapy, or continues to need occupational therapy.~ This patient is under my care, and I have initiated the establishment of the plan of care.~ This patient will be followed by myself or a community physician who will periodically review the plan of care. Home Meds Active Scripts Isosorbide Mononitrate (ISOSORBIDE MONONITRATE ER) 30 Mg Tab.er.24h, 30 MG PO DAILY, #30 TAB Prov:LAURIE AMANDA MD 08/09/16 Metoprolol Tartrate (METOPROLOL TARTRATE) 50 Mg Tablet, 50 MG PO BID, #60 Prov:WAQAR ALEXANDER MD 01/01/16 Aspirin (ASPIRIN) 81 Mg Tab.chew, 1 TAB PO DAILY, #30 TAB 3 Refills Prov:WAQAR ALEXANDER MD 01/01/16 Clopidogrel Bisulfate (CLOPIDOGREL) 75 Mg Tablet, 75 MG PO DAILYWBKFT for 30 Days, TAB 6 Refills Prov:DOREEN AIKEN MD 04/16/15 Reported Medications Apixaban (ELIQUIS) 5 Mg Tablet, 5 MG PO BID for AFIB, TAB 12/20/19 Dronedarone Hcl (MULTAQ) 400 Mg Tablet, 400 TAB PO BID for ANTIARRYTHMIC, #180 TAB 1 Refill 12/20/19 Amlodipine Besylate (AMLODIPINE BESYLATE) 10 Mg Tablet, 10 MG PO DAILY, TAB 01/06/16 Pravastatin Sodium (PRAVACHOL) 80 Mg Tablet, 80 MG PO DAILY, TAB 01/06/16 Acetaminophen (ACETAMINOPHEN) 500 Mg Tablet, 1 TAB PO BID PRN for PAIN, #60 TAB 1 Refill 12/30/15 Hydrocodone Bit/Acetaminophen (HYDROCODONE-APAP 5-325 ) 1 Each Tablet, 1 TAB PO PRN Q6HRS PRN for PAIN, TAB 0 Refills 12/30/15 Gluc 2KCL/Chondr/Dereck Hy/Hy Ac (GLUCOSAMINE & CHONDROITIN CAP) 1 Each Capsule, 1 EACH PO BID 07/03/13 Furosemide (FUROSEMIDE) 40 Mg Tablet, 40 MG PO DAILY 07/03/13 Ca Cmb No.1/Vit D3/B-6/Fa/B12 (VITAMIN D3 1,000 UNIT TABLET) 1 Each Tablet, 1 EACH PO DAILY 07/03/13 Folic Acid (FOLIC ACID) 0.4 Mg Tablet, 0.4 MG PO DAILY 07/03/13 Pantoprazole Sodium (PANTOPRAZOLE SODIUM ) 40 Mg Tablet.dr, 40 MG PO DAILY 07/03/13 Allopurinol (ALLOPURINOL) 100 Mg Tablet, 300 MG PO DAILY 07/03/13 Iron,Carbonyl/Vit C/Vit B12/Fa (IRON 100 PLUS TABLET) 1 Each Tablet, 1 EACH PO HS 07/03/13 Potassium Chloride (POTASSIUM CHLORIDE ) 20 Meq Tablet.er, 20 MEQ PO DAILY 07/03/13 Gabapentin (GABAPENTIN) 600 Mg Tablet, 600 MG PO TID 07/03/13 [place]-3S/Dha/Epa/Fish Oil/D3 (FISH VQU-UBUEB-9-VIT D SOFTGEL) 1 Each Capsule, 1 EACH PO TID 07/03/13 CASTVENICE ARREDONDOL K III DO Dec 30, 2019 10:40
[2019-12-30] MEDS: BENZONATATE 100 MG CAPSULE. PO PRN (10:47)
--- NOTE | 2019-12-30 10:52 | PDOC ---
PULMONARY PROGRESS NOTES DATE: 12/30/19 TIME: 10:51 Subjective Patient started on hemodialysis no respiratory complain on RA Vitals Vital Signs Date Time Temp Pulse Resp B/P (MAP) Pulse Ox O2 Delivery O2 Flow Rate FiO2 12/30/19 10:31 97.8 60 20 143/66 (91) 96 Room Air 97.8 12/30/19 09:23 2.0 ROS: No Nausea, No Chest Pain, No Abdominal Pain, No Increase Cough General: Alert, Oriented X4, No acute distress Lungs: Other (DECREASE BASES) Cardiovascular: S1, S2 Abdomen: Soft Neuro Exam: Alert Extremities: Other (TRACE EDEMA) Labs Laboratory Tests Test 12/29/19 05:40 12/30/19 05:00 Sodium Level 136 mmol/L (136-145) 137 mmol/L (136-145) Potassium Level 3.5 mmol/L (3.5-5.1) 3.5 mmol/L (3.5-5.1) Chloride Level 104 mmol/L (98-107) 101 mmol/L (98-107) Carbon Dioxide Level 27 mmol/L (21-32) 27 mmol/L (21-32) Anion Gap 5 (6-14) 9 (6-14) Blood Urea Nitrogen 28 mg/dL (7-20) 33 mg/dL (7-20) Creatinine 2.6 mg/dL (0.6-1.0) 2.9 mg/dL (0.6-1.0) Estimated GFR (Cockcroft-Gault) 21.4 18.8 BUN/Creatinine Ratio 11 (6-20) Glucose Level 105 mg/dL (70-99) 87 mg/dL (70-99) Calcium Level 9.0 mg/dL (8.5-10.1) 9.1 mg/dL (8.5-10.1) Total Bilirubin 0.6 mg/dL (0.2-1.0) Aspartate Amino Transf (AST/SGOT) 20 U/L (15-37) Alanine Aminotransferase (ALT/SGPT) 16 U/L (14-59) Alkaline Phosphatase 103 U/L (46-116) Total Protein 6.4 g/dL (6.4-8.2) Albumin 2.6 g/dL (3.4-5.0) Albumin/Globulin Ratio 0.7 (1.0-1.7) Laboratory Tests Test 12/30/19 05:00 Sodium Level 137 mmol/L (136-145) Potassium Level 3.5 mmol/L (3.5-5.1) Chloride Level 101 mmol/L (98-107) Carbon Dioxide Level 27 mmol/L (21-32) Anion Gap 9 (6-14) Blood Urea Nitrogen 33 mg/dL (7-20) Creatinine 2.9 mg/dL (0.6-1.0) Estimated GFR (Cockcroft-Gault) 18.8 Glucose Level 87 mg/dL (70-99) Calcium Level 9.1 mg/dL (8.5-10.1) Medications Active Scripts Medications Dose Route/Sig Max Daily Dose Days Date Category Eliquis (Apixaban) 5 Mg Tablet 5 Mg PO BID 12/20/19 Reported Multaq (Dronedarone Hcl) 400 Mg Tablet 400 Tab PO BID 12/20/19 Reported Isosorbide Mononitrate Er (Isosorbide Mononitrate) 30 Mg Tab.er.24h 30 Mg PO DAILY 08/09/16 Rx Amlodipine Besylate 10 Mg Tablet 10 Mg PO DAILY 01/06/16 Reported Pravachol (Pravastatin Sodium) 80 Mg Tablet 80 Mg PO DAILY 01/06/16 Reported Metoprolol Tartrate 50 Mg Tablet 50 Mg PO BID 01/01/16 Rx Aspirin 81 Mg Tab.chew 1 Tab PO DAILY 01/01/16 Rx Acetaminophen 500 Mg Tablet 1 Tab PO BID PRN 12/30/15 Reported Hydrocodone-Apap 5-325 (Hydrocodone Bit/Acetaminophen) 1 Each Tablet 1 Tab PO PRN Q6HRS PRN 12/30/15 Reported Clopidogrel (Clopidogrel Bisulfate) 75 Mg Tablet 75 Mg PO DAILYWBKFT 30 04/16/15 Rx Glucosamine & Chondroitin Cap (Gluc 2KCL/Chondr/Dereck Hy/Hy Ac) 1 Each Capsule 1 Each PO BID 07/03/13 Reported Furosemide 40 Mg Tablet 40 Mg PO DAILY 07/03/13 Reported Vitamin D3 1,000 Unit Tablet (Ca Cmb No.1/Vit D3/B-6/Fa/B12) 1 Each Tablet 1 Each PO DAILY 07/03/13 Reported Folic Acid 0.4 Mg Tablet 0.4 Mg PO DAILY 07/03/13 Reported Pantoprazole Sodium (Pantoprazole Sodium) 40 Mg Tablet.dr 40 Mg PO DAILY 07/03/13 Reported Allopurinol 100 Mg Tablet 300 Mg PO DAILY 07/03/13 Reported Iron 100 Plus Tablet (Iron,Carbonyl/Vit C/Vit B12/Fa) 1 Each Tablet 1 Each PO HS 07/03/13 Reported Potassium Chloride (Potassium Chloride) 20 Meq Tablet.er 20 Meq PO DAILY 07/03/13 Reported Gabapentin 600 Mg Tablet 600 Mg PO TID 07/03/13 Reported Fish Pqw-Rkllh-8-Vit D Softgel ([place]-3S/Dha/Epa/Fish Oil/D3) 1 Each Capsule 1 Each PO TID 07/03/13 Reported Comments BLE DPLX Impression: 1. Partial DVT right proximal superficial femoral vein. CT chest IMPRESSION: 1. No pulmonary mass or consolidation. 2. Small right pleural effusion. 3. Dilated pulmonary trunk, which can be seen with pulmonary hypertension. Cardiac Cath 12/25/2019 Conclusion 1. Significantly elevated right and left-sided filling pressures with mild to moderate pulmonary hypertension. 2. No evidence of intracardiac shunt. Recommendations Aggressive diuresis. Consider milrinone infusion if patient not responding adequately to diuretics. CXR 12/25 Impression: Stable cardiomegaly with Central vascular congestion and low-grade interstitial edema. Impression . IMPRESSION: 1. Dyspnea with progressive lower extremity edema. secondary to combination of left /right heart failure 2. Ejection fraction of 40-45% with pulmonary artery pressure of 31. 3. No significant tobacco history. 4. Suspected obstructive sleep apnea. The patient states she had a sleep study done and she was supposed to go back for titration, but due to COVID that has not happened. will review previous study 5. End-stage renal disease on hemodialysis 6. Abnormal D-dimer, which could be nonspecific finding. Plan . prn oxygen Cardiac cath reviewed. Biventricular failure . agree with HD Follow cardiology recs-- currently on primacor gtt Follow nephrology recs- hemodialysis per Dr. Conley. BLE DPLX showed: Partial DVT right proximal superficial femoral vein. Sleep study as an outpatient. DVT/GI PPX -- continue sarah d/w Dr Cox. ok with dc plans Discussed with DICK CROW MD Dec 30, 2019 10:52
[2019-12-30] MEDS: ANTI-COAG MONITOR BY PHARMACY. MC PRN ×2 (10:56→11:02)
--- NOTE | 2019-12-30 11:08 | PDOC ---
[employer] PROGRESS NOTE Date of Service DOS: DATE: 12/30/19 TIME: 10:58 Chief Complaint Chief Complaint Patient presented with bilateral edema and decreased shortness of breath from her baseline. History of Present Illness History of Present Illness 12/30/2019 Patient seen and examined Patient was in NAD Patient's partner was present at bedside Discussed with RN Discussed with lining caser Discussed with Dr. López, pulmonology Chart reviewed 12/29/2019 Patient seen and examined Patient was in NAD Patient's partner was present at bedside Discussed with OT Discussed with RN Discussed with lining caser Chart reviewed 12/21/2019 No acute events overnight. Patient does have orthopnea and requires her head of her bed to be inclined to the max at almost 90 degrees. She currently has some cough and does complain of heaviness and fluid overload. 12/22/19 Patient with worsening respiratory distress, quite uncomfortable and coughing no sputum. Visibly has increased work of breathing. Reassurance has been provided to the patient and her at bedside. Crackles auscultated 12/23/2019 Patient reports some dyspnea on exertion, but comfortable at rest. She is unable to walk across the room without feeling short of breath. Her shortness of breath is also worse when she lays on her back. She reports a chronic cough that is worse with deep inspiration and productive of clear sputum. 12/24/2019 Patient still complaining of dyspnea on exertion and occasionally even at rest. Discussed plan for right heart cath in the morning to ascertain etiology of dyspnea. N.p.o. after midnight. 12/26/2019 Still with cough and improved with tessalon. Will need further diuresis. restart eliquis Vitals/I&O Vitals/I&O: Vital Signs Date Time Temp Pulse Resp B/P (MAP) Pulse Ox O2 Delivery O2 Flow Rate FiO2 12/30/19 10:31 97.8 60 20 143/66 (91) 96 Room Air 97.8 12/30/19 09:23 2.0 I & O 12/29/19 12/29/19 12/30/19 15:00 23:00 07:00 Intake Total 200 ml 500 ml 470 ml Balance 200 ml 500 ml 470 ml Physical Exam General: Cooperative, No acute distress, mild distress Heart: Regular rate Lungs: Other (DECREASE BASES) Abdomen: Normal bowel sounds Extremities: Other (2-3+ bilateral LE edema ) Skin: No breakdown, No significant lesion Labs Labs: Laboratory Tests Test 12/30/19 05:00 Sodium Level 137 mmol/L (136-145) Potassium Level 3.5 mmol/L (3.5-5.1) Chloride Level 101 mmol/L (98-107) Carbon Dioxide Level 27 mmol/L (21-32) Anion Gap 9 (6-14) Blood Urea Nitrogen 33 mg/dL (7-20) Creatinine 2.9 mg/dL (0.6-1.0) Estimated GFR (Cockcroft-Gault) 18.8 Glucose Level 87 mg/dL (70-99) Calcium Level 9.1 mg/dL (8.5-10.1) Review of Systems Review of Systems: Patient denies nausea. Patient denies pain. Assessment and Plan Assessmemt and Plan Assessment Acute kidney injury CHF exacerbation Bilateral L/E edema Plan Probable discharge pending dialysis Home health care Cardiac monitoring Home meds DVT prophylaxis PT/OT Full code Comment Review of Relevant I have reviewed the following items char (where applicable) has been applied. Medications: Current Medications Medications (Trade) Dose Ordered Sig/Zohra Route PRN Reason Start Time Stop Time Status Last Admin Dose Admin Midazolam HCl (Versed) 2 mg 1X ONCE IV 12/30/19 08:45 12/30/19 08:46 DC 12/30/19 09:18 Fentanyl Citrate (Fentanyl 2ml Vial) 100 mcg 1X ONCE IV 12/30/19 08:45 12/30/19 08:46 DC 12/30/19 09:19 Lidocaine/ Epinephrine (LIDOCAINE 1%-EPI 1:100,000 Multi-Dose) 20 ml 1X ONCE INJ 12/30/19 08:45 12/30/19 08:46 DC 12/30/19 09:20 Cefazolin Sodium/ Dextrose 50 ml @ 100 mls/hr 1X ONCE IV 12/30/19 08:45 12/30/19 09:14 DC 12/30/19 09:18 Justifications for Admission Other Justification JANAE SAUL III DO Dec 30, 2019 11:08
--- NOTE | 2019-12-30 12:39 | PDOC ---
RAMON ANDERS [employer]UG DYER HELPER 12/30/19 1239: CARDIO Progress Notes Date and Time Date of Service 12/30/2019 Time of Evaluation 1000 Subjective Subjective: No Chest Pain, No shortness of breath, No Palpitations, Other (feels tired) Vitals Vitals Vital Signs Date Time Temp Pulse Resp B/P (MAP) Pulse Ox O2 Delivery O2 Flow Rate FiO2 12/30/19 10:31 97.8 60 20 143/66 (91) 96 Room Air 97.8 12/30/19 09:23 2.0 Weight Weight [ ] Input and Output Intake and Output Intake and Output 12/30/19 07:00 Intake Total 1170 ml Balance 1170 ml Intake Oral 1170 ml # Bowel Movements 1 Laboratory Labs Laboratory Tests Test 12/30/19 05:00 Sodium Level 137 mmol/L (136-145) Potassium Level 3.5 mmol/L (3.5-5.1) Chloride Level 101 mmol/L (98-107) Carbon Dioxide Level 27 mmol/L (21-32) Anion Gap 9 (6-14) Blood Urea Nitrogen 33 mg/dL (7-20) Creatinine 2.9 mg/dL (0.6-1.0) Estimated GFR (Cockcroft-Gault) 18.8 Glucose Level 87 mg/dL (70-99) Calcium Level 9.1 mg/dL (8.5-10.1) Review of Systems Constitutional: yes: weakness, alert, oriented Ears/Nose/Throat: Yes: no symptom reported Eyes: Yes: no symptom reported Pulmonary: Yes no symptom reported Cardiovascular: Yes no symptom reported Gastrointestional: Yes: no symptom reported Genitourinary: Yes: no symptom reported Musculoskeletal: Yes: no symptom reported Skin: Yes no symptom reported Psychiatric/Neurological: Yes: no symptom reported Endocrine: Yes: no symptom reported Physical Exam HEENT: Neck Supple W Full Motion Chest: Symmetric LUNGS: Other (diminished, basilar crackles ) Heart: RRR (regular paced rhythm with underlying afib) Abdomen: Soft N/T Extremities: Other (trace bilateral LE pitting edema) Neurology: alert, oriented, follow commands Assessment Assessment 1. Acute on chronic diastolic/systolic CHF: EF 40-45% improved but worsening renal function necessitating HD 2. Cardiomyopathy: likely combined ICM/NICM, compensated 3 CAD s/p CABG and PCI/stents. Cath 2017 with patent graft, stents. Clinically stable 4. New ESRD: post HD per nephrology 5. Hypertension; controlled 6. Hyperlipidemia; statin 7. Diabetes, II 8. SSS s/p PPM ([employer]). Recent device check with normal funciton 100% AFIB in the last 2 months 9. Partial DVT right proximal superficial femoral vein with hx DVT/PE s/p IVC filter. On low-dose Eliquis therapy 10. Persistent AFIB: rate controlled Recommendations Restart eliquis/plavix post HD tunnelled cath placement. fluid off loading per HD Eliquis for stroke prophylaxis. Secondary prevention measures. Continue multaq will plan for outpt CVN. Continue metoprolol. Unable to use oth er for of antiarrhythmic due to iodine allergy and significant renal insufficiency. May DC per cardiac standpoint. follow up in office with Dr. Aiken February 03 at 1PM Justicifation of Admission Dx: Justifications for Admission: Justification of Admission Dx: Yes DOREEN AIKEN MD 12/30/192021: CARDIO Progress Notes Assessment Assessment Patient seen and examined in HD unit. Agree with MOBILE SECURITY ARCHITECT's assessment and plan. Acute on chronic systolic heart failure better compensated Continue HD per nephrology team. CAD status clinically stable. Persistent atrial fibrillation rate controlled. Resume eliquis prior to DC SSS s/p PPM stable Follow up with our office as scheduled RAMON ANDERS APRN Dec 30, 2019 12:39 DOREEN AIKEN MD Dec 30, 2019 20:22
[2019-12-30] MEDS: ISOSORBIDE MONONITRATE ER 30 MG TAB.ER.24H PO SCH (16:15)
[2019-12-30] MEDS: amLODIPine BESYLATE 10 MG TABLET PO SCH (16:16)
[2019-12-30] MEDS: ALLOPURINOL 100 MG TABLET. PO SCH (16:16)
[2019-12-30] MEDS: CLOPIDOGREL BISULFATE 75 MG TABLET PO SCH (16:16)
[2019-12-30] MEDS: FOLIC ACID 1 MG TABLET. PO SCH (16:16)
[2019-12-30] MEDS: HYDROcodone/APAP 5/325MG 1 TAB TABLET PO PRN (16:16)
[2019-12-30] MEDS: CHOLECALCIFEROL (VITAMIN D3) 1,000 UNIT TABLET PO SCH (16:16)
[2019-12-30] MEDS: PANTOPRAZOLE 40 MG TABLET.DR. PO SCH (16:16)
[2019-12-30 16:18] VITALS: BP 147/63
--- NOTE | 2019-12-30 16:34 | RAD ---
Conversion of right internal jugular temporary dialysis catheter to a tunneled hemodialysis catheter Indication: Longer term dialysis access needed Procedure: The procedure was explained in its entirety to the patient or the patients designated cash posting representative by a member of the treatment team, including a discussion of the risks, benefits and commonly accepted alternatives to the procedure, as well as the expected consequences of no therapy whatsoever. Discussion of the risks included, but was not limited to, those that are most frequent and those that are rare but possibly severe or life-threatening, as well as the possibility of unforeseen complications. All elements of maximal sterile barrier technique including the use of a cap, mask, sterile gown, sterile gloves, large sterile sheet, appropriate hand hygiene, and 2% chlorhexidine for cutaneous antisepsis (or acceptable alternative antiseptic per current guidelines) were followed for this procedure. The pre-existing catheter was evaluated under fluoroscopy and found to be normal in position. A guidewire was advanced into the IVC. A 23 cm tip to cuff tunneled hemodialysis catheter was advanced from small dermatotomy, several centimeters inferior to the pre-existing catheter entry site, to the venotomy site. The pre-existing catheter was removed over the guidewire and a peel-away sheath placed. The new tunneled catheter was advanced through the peel-away sheath such that its tip was positioned in the proximal right atrium with the patient supine. The sheath was removed. The new catheter was found to flush and aspirate normally. Catheter was flushed, and secured in place. Sterile dressings were applied. No immediate complications were identified. Total fluoroscopy time: 0.2 min Dose area product: 1Gycm2 The procedure was performed under conscious sedation including continuous cardiopulmonary monitoring via dedicated sedation nurse. [id number] sedation time: 26 minutes Impression: Conversion of a right internal jugular temporary dialysis catheter to a tunneled dialysis catheter
--- NOTE | 2019-12-30 17:27 | NUR ---
Discharge Note: [facility]МИТРИЙ FLORES Discharge instructions and discharge home medications reviewed with Patient and a copy given. All questions have been answered and understanding verbalized. The following instructions and handouts were given: dialysis, dialysis diet, daily weights Patient discharged to home with home health via wheelchair.
[2019-12-30] MEDS ORDERED: APIXABAN 2.5 MG TABLET. PO SCH (21:00)
== END 2019-12-30 17:29 | disposition home health service (06) | DRG 673 ==
LOC: ER 03:47 → 6 SOUTH 06:11 → 2 NORTH 12-21 17:18
PROVIDERS: ADMIT Internal Medicine; ATTEND Internal Medicine
PROC: 4A023N6 Measurement of Cardiac Sampling and Pressure, Right Heart, Percutaneous Approach (ICD-10-PCS; principal; 2019-12-25)
PROC: B2111ZZ Fluoroscopy of Multiple Coronary Arteries using Low Osmolar Contrast (ICD-10-PCS; 2019-12-25)
PROC: 02HV33Z Insertion of Infusion Device into Superior Vena Cava, Percutaneous Approach (ICD-10-PCS; 2019-12-26)
PROC: 5A1D70Z Performance of Urinary Filtration, Intermittent, Less than 6 Hours Per Day (ICD-10-PCS; 2019-12-28)
PROC: 0JH63XZ Insertion of Tunneled Vascular Access Device into Chest Subcutaneous Tissue and Fascia, Percutaneous Approach (ICD-10-PCS; 2019-12-30)
PROC: 02PYX3Z Removal of Infusion Device from Great Vessel, External Approach (ICD-10-PCS; 2019-12-30)
PROC: 02H633Z Insertion of Infusion Device into Right Atrium, Percutaneous Approach (ICD-10-PCS; 2019-12-30)
PROC: B5181ZA Fluoroscopy of Superior Vena Cava using Low Osmolar Contrast, Guidance (ICD-10-PCS; 2019-12-30)
PROC: 5A1D70Z Performance of Urinary Filtration, Intermittent, Less than 6 Hours Per Day (ICD-10-PCS; 2019-12-30)
DX: N17.0 Acute kidney failure with tubular necrosis (principal); I50.43 Acute on chronic combined systolic (congestive) and diastolic (congestive) heart failure; I13.2 Hypertensive heart and chronic kidney disease with heart failure and with stage 5 chronic kidney disease, or end stage renal disease; I48.19 Other persistent atrial fibrillation; I42.8 Other cardiomyopathies; N18.6 End stage renal disease; E11.22 Type 2 diabetes mellitus with diabetic chronic kidney disease; E11.51 Type 2 diabetes mellitus with diabetic peripheral angiopathy without gangrene; E66.01 Morbid (severe) obesity due to excess calories; E78.00 Pure hypercholesterolemia, unspecified; E78.5 Hyperlipidemia, unspecified; I07.1 Rheumatic tricuspid insufficiency; I25.10 Atherosclerotic heart disease of native coronary artery without angina pectoris; I27.29 Other secondary pulmonary hypertension; I49.5 Sick sinus syndrome; I50.82 Biventricular heart failure; J44.9 Chronic obstructive pulmonary disease, unspecified; R09.02 Hypoxemia; Z20.828 Contact with and (suspected) exposure to other viral communicable diseases; Z68.31 Body mass index [BMI] 31.0-31.9, adult; Z79.01 Long term (current) use of anticoagulants; Z82.49 Family history of ischemic heart disease and other diseases of the circulatory system; Z83.3 Family history of diabetes mellitus; Z86.711 Personal history of pulmonary embolism; Z86.718 Personal history of other venous thrombosis and embolism; Z87.19 Personal history of other diseases of the digestive system; Z87.891 Personal history of nicotine dependence; Z90.710 Acquired absence of both cervix and uterus; Z95.1 Presence of aortocoronary bypass graft; Z95.828 Presence of other vascular implants and grafts; Z96.653 Presence of artificial knee joint, bilateral; Z99.2 Dependence on renal dialysis; G47.33 Obstructive sleep apnea (adult) (pediatric); G62.9 Polyneuropathy, unspecified; K21.9 Gastro-esophageal reflux disease without esophagitis; K57.90 Diverticulosis of intestine, part unspecified, without perforation or abscess without bleeding; M10.9 Gout, unspecified; M19.90 Unspecified osteoarthritis, unspecified site; Z90.49 Acquired absence of other specified parts of digestive tract
CPT/HCPCS: 36415; 36556; 36569; 36581; 71045; 71250; 76770; 76937; 77001; 80048; 80053; 82550; 82565; 83615; 83735; 83880; 84100; 84132; 84145; 84443; 84484; 85025; 85027; 85379; 85610; 86140; 86704; 86706; 87340; 93005; 93451; 93970; 94640; 94760; 96374; 99152; 99153; 99285; A4215; C1750; C1769; C1773; C1892; J0690; J0882; J1644; J1940; J2250; J2260; J2270; J3010; J3475; J3490; 97110-GO; 97110-GP; 97530-GP; 97535-GO; G0378; J7613; U0003-CS

== ENCOUNTER → 2020-03-29 | Outpatient (CLI) | payer BC ==
[~2020-03-29] MED LIST changes: +AMLO-186 PO; +AMLO-187 PO; -AMLO10TA8 PO; -AMLO5TAB10 PO; +APIX5TAB PO; +DRON400T PO
--- NOTE | 2020-03-29 10:01 | KCIC ---
CT abdomen and pelvis without contrast PQRS statement: CT scans at this facility use dose reduction including either automated exposure control, iterative reconstructions, and /or weight based radiation dosing via mA and kV modification when appropriate to reduce radiation dose to as low as reasonably achievable. HISTORY: Abdominal bloating. Abdominal pain. Diarrhea. History of appendectomy and hysterectomy and cholecystectomy. COMPARISON: CT abdomen and pelvis December 15, 2018. Abdomen findings: Cardiomegaly. Small sliding hiatal hernia gastroesophageal junction. Lumbar disc disease with disc height loss and disc bulges and facet spurring with spinal canal and neural foraminal stenoses. There is mild abdominal wall soft tissue edema. Prior midline abdominal wall incision, within the incision at the epigastric midline abdominal wall there is a 3 cm loculated fluid collection, stable. At the right lower quadrant there is a small spigelian hernia containing a short segment of small bowel without obstruction or inflammation which is stable. IVC filter. Left renal cyst. Right kidney, pancreas, adrenals, spleen unremarkable. Cholecystectomy. Within the falciform ligament there is a oblong mild expansile deformity centimeter hypodensity measuring 18 units which could represent fluid and is new. The IVC is enlarged markedly relative to the prior exam as well as the hepatic veins. Colonic diverticulosis. Appendix is absent there are cecal diverticuli present. No obstruction or inflammation the GI tract. There is a mild stranding about the anterior pararenal fascia at the descending duodenum and head of pancreas. No abdominal free fluid. Pelvis findings: Small volume pelvic free fluid. Hysterectomy. Ovaries absent. Right femoral stent. Bladder, rectum and bones are unremarkable. IMPRESSION: 1. Small volume of pelvic free fluid. Abdominal wall soft tissue edema. There is also cardiomegaly and enlargement of the IVC and hepatic veins which is a change from prior imaging. Findings could indicate right-sided congestive heart failure and developing anasarca. 2. 4 x 2 cm oblong hypodensity within the falciform ligament of the liver is new from prior imaging with internal density of 19 units which could indicate complicated fluid. 3. Mild edema along the anterior pararenal fascia adjacent of the descending duodenum and head of pancreas. This could be due to anasarca from congestive heart failure or could indicate duodenitis or pancreatitis. 4. Small right lower quadrant spigelian hernia containing a short segment of small bowel is stable. 5. 3 cm loculated fluid collection of the epigastric midline ventral abdominal wall is stable. Electronically signed by: Yo Hernández MD (03/29/2020 9:58 AM) [facility]
== END ==
LOC: KCIC CT 08:05
PROVIDERS: ATTEND Preventive Medicine Public Health & General Preventive Medicine
DX: K44.9 Diaphragmatic hernia without obstruction or gangrene (principal); M51.36 Other intervertebral disc degeneration, lumbar region; I51.7 Cardiomegaly; Z95.5 Presence of coronary angioplasty implant and graft; Z90.722 Acquired absence of ovaries, bilateral; Z90.711 Acquired absence of uterus with remaining cervical stump
CPT/HCPCS: 74176